=== PATIENT | female | born 1985 | race Caucasian/White ===

== ENCOUNTER 2020-03-16 23:39 | Emergency (ER) | payer OTHER, SELFPAY ==
--- NOTE | ~2020-03-16 | XR_ITS ---
EXAMINATION: XR chest 1V portable EXAM DATE: 03/17/2020 00:14 INDICATION: Shortness of breath and cough. TECHNIQUE: Portable AP frontal chest x-ray was obtained. Comparison is made to prior examination from 12/28/2009. FINDINGS: Patchy ill-defined bilateral mid and lower lung zone airspace disease, some involving the p eriphery. Appearance suggests groundglass density, distribution characteristic but not specific appea jaqueline for Acute Lung Injury from COVID-19, with other possible etiologies including influenza, organi zing pneumonia, drug toxicity, connective tissue disease. No confluent consolidation, pneumothorax or pleural effusion suspected. Cardiomediastinal silhouette is normal. There is no pneumothorax suspected. There are no pleural effusions. There are no osseous a bnormalities identified. IMPRESSION: Ill-defined bilateral lung opacities, possible acute lung injury, infection. Reviewed, dictated and finalized at location .
--- NOTE | 2020-03-16 23:50 | ED.FEVER ---
HPI - Fever General Chief Complaint: Fever Stated Complaint: sob/fevers over 1 week Time Seen by Provider: 03/16/20 23:50 History of Present Illness HPI Narrative: She says that she has been intermittently febrile for the past few days. Temperature up to 102. Tried tylenol without improvement. Today she has had some cough and SOB. She works at [employer], where they have had numerous COVID-19 positive residents. She recently tested negative, although she says she was asymptomatic at that time. Related Data Home Medications Medication Instructions Recorded Confirmed citalopram mg 03/17/20 Allergies Allergy/AdvReac Type Severity Reaction Status Date / Time Sulfa (Sulfonamide Allergy Rash Verified 03/17/20 00:07 Antibiotics) Review of Systems Review of Systems: All systems reviewed & are unremarkable except as noted in HPI and below Constitutional: Constitutional: Reports chills, Reports fatigue and Reports fever(s) Cardiovascular: Cardiovascular: Reports chest pain Respiratory: Respiratory: Reports cough and Reports dyspnea Gastrointestinal: Gastrointestinal: Reports nausea Neurologic: Reports headache(s) [facility] Past Medical History Medical History (Updated 03/17/20 @ 00:36 by Calvin Florez MD) Healthy adult Social History Social History (Updated 03/17/20 @ 00:15 by Calvin Florez MD) Occupation/Education: occupation Additional occupation/education comments: Works at [employer] Exam Const: General: no acute distress and alert Nutritional Appearance: obese Orientation/consciousness: patient oriented x3 HENMT: Head: normal to inspection Resp: Effort & Inspection: normal respiratory effort Cardio: Rate: regular rate Rhythm: regular rhythm GI: GI Palp: Yes Soft to palpation and No Tenderness to palpation present (GI) Skin: General skin exam: normal color Neuro: General: patient oriented x3 and moves all extremities Speech: normal speech Extrem: General: normal to inspection Course Vital Signs Vital signs: Vital Signs Temperature 36.9 C 03/16/20 23:57 Pulse Rate 78 03/16/20 23:57 Respiratory Rate 16 03/16/20 23:57 Blood Pressure 146/89 H 03/16/20 23:57 Pulse Oximetry 98 03/16/20 23:57 Temperature 36.9 C 03/16/20 23:57 Pulse Rate 78 03/16/20 23:57 Respiratory Rate 16 03/16/20 23:57 Blood Pressure 146/89 H 03/16/20 23:57 Pulse Oximetry 98 03/16/20 23:57 MDM - Fever MDM Narrative Medical decision making narrative: opacities on x-ray could represent atypical pneumonia, possibly COVID-19. Testing sent. Will start on azithromycin. Vitals stable. No indication for admission at this time. Differential Diagnosis Differential diagnosis: Likely community acquired pneumonia, viral infection, influenza and other (COVID-19) Medical Records Attestation: I reviewed the patient's medical records. Lab Data Attestation: I reviewed the patient's lab results. Labs: Lab Results 03/17/20 Range/Units 00:04 SARS-CoV-2 RNA (RT-PCR) Pending Influenza A Screen Negative Reference Range: Negative Influenza B Screen Negative Reference Range: Negative Imaging Data Radiologist's impression: ITS Impressions Chest X-Ray 03/17/20 00:19 IMPRESSION: Ill-defined bilateral lung opacities, possible acute lung injury, infection. Discharge Plan Discharge Clinical Impression: Lower respiratory tract infection Patient Disposition: Home, Self-Care Condition: Stable Instructions: Antibiotic Form, Pneumonia (ED) Prescriptions: New azithromycin 250 mg tablet See Rx Instructions .ROUTE .COMPLEX Qty: 6 RF: 0 No Action citalopram 40 mg tablet RF: 0 Follow-up/Referrals: PHYSICIAN NOT ON STAFF,NONSTAFF [Primary Care Provider] -
[2020-03-16 23:57] VITALS: BP 146/89; PULSE 78; RESP 16; TEMP 36.9; O2SAT 98
[2020-03-17] MEDS: ONDANSETRON HCL ODT 4 MG TABLET PO (00:13)
[2020-03-17] MEDS: KETOROLAC (*BKC) 60 MG/2 ML VIAL IM (00:13)
[2020-03-17] MEDS: AZITHROMYCIN 250 MG TABLET 500 MG PO (00:36)
[2020-03-17 00:53] VITALS: BP 128/82; PULSE 78; RESP 16; TEMP 36.9; O2SAT 98
[2020-03-18 08:04] LABS: SARS-CoV-2 RNA PCR Positive
== END 2020-03-17 00:55 | disposition home or self-care (01) ==
PROVIDERS: Emergency Provider Emergency Medicine; PCP Physician Assistant
DX: U07.1 COVID-19 (principal); J22 Unspecified acute lower respiratory infection
CPT/HCPCS: 71045; 87635; 87804; 96372; 99283; A9270; C9803; J1885; U0003

== ENCOUNTER 2022-03-07 15:58 | Emergency (ER) | payer OTHER, SELFPAY ==
[2022-03-07 16:00] VITALS: BP 164/103; PULSE 78; RESP 18; TEMP 35.9; O2SAT 98
[2022-03-07 16:15] VITALS: BP 154/96; PULSE 72; RESP 18; O2SAT 98
--- NOTE | 2022-03-07 16:18 | PC.NURSE ---
Pt took two at home COVID tests, Saturday and yesterday, both negative. Pt is also vaccinated and boosted for COVID.
--- NOTE | 2022-03-07 16:54 | PC.NURSE ---
COVID and flu swab sent to lab, lab called to anticipate arrival.
[2022-03-07 17:48] LABS: Influenza A QL RT-PCR Negative (Negative); Influenza B QL RT-PCR Negative (Negative); SARS-CoV-2 RNA PCR Negative
--- NOTE | 2022-03-07 18:44 | ED.FEVER ---
HPI - Fever General Chief Complaint: Fever Stated Complaint: fever, feels tired Time Seen by Provider: 03/07/22 16:20 Source: patient Mode of arrival: ambulatory Limitations: no limitations History of Present Illness HPI Narrative: 36-year-old female with complaints of fever x4 days. Patient previously did have nausea and vomiting at the start of her fever. Patient denies cough, abdominal pain, current diarrhea, and has taken COVID test at home that were negative. Related Data Home Medications Medication Instructions Recorded Confirmed citalopram 40 mg PO DAILY 03/17/20 03/07/22 loratadine [Claritin] 10 mg PO DAILY 03/07/22 03/07/22 Allergies Allergy/AdvReac Type Severity Reaction Status Date / Time Sulfa (Sulfonamide Allergy Rash Verified 03/07/22 16:11 Antibiotics) Review of Systems Review of Systems: CONSTITUTIONAL: Fever, chills, or sweats. EYES: Denies visual changes, redness, or discharge. ENT: Denies rhinorrhea, congestion, sore throat, or otalgia. CARDIOVASCULAR: Denies chest pain, palpitations, or edema. RESPIRATORY: Denies cough or dyspnea. GASTROINTESTINAL: Nausea and vomiting at the start of illness but not currently. Denies abdominal pain or diarrhea. GENITOURINARY: Denies dysuria or hematuria. SKIN: Denies rash or itching. MUSCULOSKELETAL: Denies back pain, joint pain, or myalgia. NEUROLOGIC: Denies headache, numbness, dizziness, or weakness. PSYCHIATRIC: Denies anxiety or depression. PMFSH Past Medical History Medical History Healthy adult Family History Family History Father Depression Family history of alcoholism Mother Depression Family history of hypothyroidism Sibling Depression Family history of alcoholism Grandparent Depression Family history of Alzheimer's disease Family history of lymphoma Social History Social History Smoking status: Never smoker Alcohol intake: current Additional occupation/education comments: Works at [employer] Exam Narrative: GENERAL: Well-appearing, well-nourished, and in no acute distress. HEAD: Normocephalic, atraumatic. EYES: PERRLA and EOMI. ENT: Nares clear, no rhinorrhea or epistaxis. Mucous membranes moist. Oropharynx without tonsillar hypertrophy exudate or other lesions. Left tympanic membrane with effusion. Right tympanic membrane asif and pearly. NECK: Supple. No adenopathy or masses. No carotid bruits or JVD CHEST: Clear to auscultation. No respiratory distress. No wheezes rales or rhonchi HEART: Regular rate and rhythm. No murmur heard. Normal peripheral pulses. ABDOMEN: Soft, nontender, nondistended, normal active bowel sounds. EXTREMITIES: Normal range of motion. No edema. SKIN: Warm, dry, no rash. NEURO: No focal deficits. Alert and oriented x3. PSYCH: Normal mood and affect. Course Vital Signs Vital signs: Vital Signs Temperature 35.9 C L 03/07/22 16:00 Pulse Rate 78 03/07/22 16:00 Respiratory Rate 18 03/07/22 16:00 Blood Pressure 164/103 H 03/07/22 16:00 Pulse Oximetry 98 03/07/22 16:00 Temperature 35.9 C L 03/07/22 16:00 Pulse Rate 72 03/07/22 16:15 Respiratory Rate 18 03/07/22 16:15 Blood Pressure 154/96 H 03/07/22 16:15 Pulse Oximetry 98 03/07/22 16:15 MDM - Fever MDM Narrative Medical decision making narrative: HPI as noted. Patient is not ill-appearing and nontoxic.. Vital signs as follows temperature 35.9 ?C O2 saturation 98% on room air respiratory rate 18 pulse 72 BP elevated 154/96. Lungs are clear no need for imaging at this time. Patient to be discharged home use Tylenol ibuprofen as needed for pain or fever. Push fluids. Zofran as needed for nausea. Return with any new or emergent symptoms and follow-up with primary in 1 to 2 days. Lab Data Labs: Lab Results 03/07/22 Range/
[2022-03-07 19:00] VITALS: BP 146/94; PULSE 73; RESP 16; TEMP 36.3; O2SAT 98
== END 2022-03-07 19:00 | disposition home or self-care (01) ==
PROVIDERS: Emergency Provider Nurse Practitioner Family; PCP Family Medicine
DX: B34.9 Viral infection, unspecified (principal); Z20.822 Contact with and (suspected) exposure to COVID-19
CPT/HCPCS: 87502; 99283; C9803; U0003; U0005

== ENCOUNTER → 2022-04-19 08:00 | Outpatient (CLI) | payer OTHER, SELFPAY ==
--- NOTE | ~2022-04-19 | US_ITS ---
US right upper quadrant DATE: 04/19/2022 08:20 INDICATION: Elevated liver function tests TECHNIQUE: Real-time imaging and Doppler analysis, liver, pancreas, gallbladder areas COMPARISON: None FINDINGS: There is fatty change of the liver. No hepatic space-occupying mass lesion is evident. Norm al hepatopedal portal venous flow direction. No gallstones or gallbladder wall thickening or pericholecystic fluid collection. Negative sonographi c Retana's sign. The common bile duct measures 4.5 mm, normal. The lateral pancreatic body and tail are obscured by bowel gas. The pancreas is otherwise unremarkabl e. IMPRESSION: Limited evaluation of pancreas Hepatic steatosis Reviewed, dictated and finalized at [facility]. Reviewed, dictated and finalized at location [facility].
== END ==
PROVIDERS: PCP Family Medicine; Visit Provider Family Medicine
DX: R79.89 Other specified abnormal findings of blood chemistry (principal); K76.0 Fatty (change of) liver, not elsewhere classified
CPT/HCPCS: 76705

== ENCOUNTER 2022-10-10 17:01 | Emergency (ER) | payer OTHER, SELFPAY ==
--- NOTE | ~2022-10-10 | XR_ITS ---
EXAM: XR foot LT min 3V DATE: 10/10/2022 17:47 HISTORY: fall, injury, SWELLING TO LATERAL FOOT AND ANKLE . COMPARISON: 09/12/2015. FINDINGS: Normal mineralization. Small avulsion fracture off the proximal corner of the cuboid bone. No other fracture. No dislocation. Scattered degenerative changes. No lytic or blastic lesion. Achil les and plantar enthesopathy.. No erosion or periosteal change. Soft tissues within normal limits. IMPRESSION: Small, proximal cuboid avulsion fracture fragment, likely acute if accompanied by pain an d/or point tenderness. Reviewed, dictated and finalized at location [facility]. LOADER IMPRESSION: Small, proximal cuboid avulsion fracture fragment, likely acute if accompanied by pain and/or point tenderness.
--- NOTE | ~2022-10-10 | XR_ITS ---
EXAM: XR ankle LT min 3V DATE: 10/10/2022 19:26 HISTORY: fall down steps, L lateral pain/swelling . COMPARISON: None available. FINDINGS: Normal mineralization. No fracture or dislocation. No lytic or blastic lesion. Achilles an d plantar enthesopathy. Prominent os trigonum. Transverse fracture of the distal left fibula, below t he level of the joint line. Acute fracture fragment projecting distal to the medial malleolus. No ero lester or periosteal change. Soft tissues within normal limits. IMPRESSION: Transverse fracture of the distal left fibula, below the level of the joint line (Lechuga t ype A fracture). Impaction fracture fragment noted in the medial gutter, fracture site likely being t he medial malleolus. Reviewed, dictated and finalized at location [facility]. DRIVER IMPRESSION: Transverse fracture of the distal left fibula, below the level of t he joint line (Lechuga type A fracture). Impaction fracture fragment noted in the medial gutter, fracture site likely being the medial malleolus.
[2022-10-10 17:09] VITALS: BP 145/80; PULSE 97; RESP 20; TEMP 36.4; O2SAT 99
--- NOTE | 2022-10-10 19:20 | ED.LOWEXIN ---
HPI - Extremity Injury (Lower) General Chief Complaint: Extremity Injury, Lower Stated Complaint: fall, left ankle injury Time Seen by Provider: 10/10/22 18:42 Source: patient Mode of arrival: ambulatory Limitations: no limitations History of Present Illness HPI Narrative: Patient is a 37-year-old female who presents the ED with report of left foot and ankle pain. Patient reports she tripped and fell down her porch steps this evening, injuring her left ankle. Denied prodromal symptoms. No head injury or LOC. She was unable to ambulate after the fall which prompted her presentation. No other injuries. No numbness, tingling. Related Data Home Medications Medication Instructions Recorded Confirmed citalopram 40 mg tablet 40 mg PO DAILY 03/17/20 03/07/22 loratadine 10 mg tablet (Claritin) 10 mg PO DAILY 03/07/22 03/07/22 Allergies Allergy/AdvReac Type Severity Reaction Status Date / Time Sulfa (Sulfonamide Allergy Rash Verified 03/07/22 16:11 Antibiotics) Review of Systems Review of Systems: CONSTITUTIONAL: Denies fever, chills, or sweats. MUSCULOSKELETAL: Reports left foot and ankle pain and swelling. NEUROLOGIC: Denies HI, LOC, tingling, numbness, or weakness. All systems reviewed & are unremarkable except as noted in HPI and below PMFSH Past Medical History Medical History Depression Surgical History Surgical History (Updated 10/10/22 @ 19:22 by Annette Minor PA-C) No pertinent past surgical history Family History Family History Father Depression Family history of alcoholism Mother Depression Family history of hypothyroidism Sibling Depression Family history of alcoholism Grandparent Depression Family history of Alzheimer's disease Family history of lymphoma Social History Social History Smoking status: Never smoker Alcohol intake: current Additional occupation/education comments: Works at [employer] Exam Narrative: GENERAL: Well appearing, morbidly obese, non-toxic, in no acute distress. HEAD: Normocephalic, atraumatic. NECK: Supple. No adenopathy, no masses. RESPIRATORY: Airway patent, respirations nonlabored. CARDIOVASCULAR: Regular rate and rhythm without murmurs, rubs, or gallops. Pedal pulses 2+ and equal bilaterally. MUSCULOSKELETAL: Limited range of motion of left ankle due to pain. Moderate amount of swelling to the left lateral malleoli. Diffuse tenderness to the inferior and anterior lateral malleoli and along fifth metatarsal/anterior left foot/ankle. Mild tenderness over medial malleoli. No tenderness along distal metatarsals/distal foot. Sensation intact. Good capillary refill. SKIN: Warm, dry, normal color. No rashes. NEURO: A&O X3. Speech clear. Cranial nerves II-XII grossly intact. No ataxic movements. PSYCHIATRIC: Appropriate mood and affect. Normal interaction. Course Vital Signs Vital signs: Vital Signs Temperature 97.6 F 10/10/22 17:09 Pulse Rate 97 10/10/22 17:09 Respiratory Rate 20 10/10/22 17:09 Blood Pressure 145/80 H 10/10/22 17:09 Pulse Oximetry 99 10/10/22 17:09 Oxygen Delivery Room Air 10/10/22 17:09 Temperature 97.6 F 10/10/22 17:09 Pulse Rate 97 10/10/22 17:09 Respiratory Rate 20 10/10/22 17:09 Blood Pressure 145/80 H 10/10/22 17:09 Pulse Oximetry 99 10/10/22 17:09 Oxygen Delivery Room Air 10/10/22 17:09 MDM - Extremity Injury (Lower) MDM Narrative Medical decision making narrative: Patient presented to ED status post mechanical fall downstairs with left ankle injury. Patient's injury is consistent with musculoskeletal etiology. No signs of neurologic or vascular compromise on physical examination. Compartments are soft without signs of compartment syndrome. XRs of left ankle/foot showing cuboid avulsion
== END 2022-10-10 21:00 | disposition home or self-care (01) ==
LOC: ANHED 19:58
PROVIDERS: Emergency Provider Physician Assistant; PCP Family Medicine
DX: S92.212A Displaced fracture of cuboid bone of left foot, initial encounter for closed fracture (principal); S82.832A Other fracture of upper and lower end of left fibula, initial encounter for closed fracture; F32.A Depression, unspecified; W10.9XXA Fall (on) (from) unspecified stairs and steps, initial encounter
CPT/HCPCS: 29515; 73610; 73630; 99283; 99284

== ENCOUNTER → 2023-01-09 15:49 | Outpatient (CLI) | payer OTHER, SELFPAY ==
--- NOTE | ~2023-01-09 | US_ITS ---
US soft tissue head and neck 01/09/2023 16:12 Indication: Cervical lymphadenopathy. Palpable mass. No pain. Procedure: High-resolution ultrasound of the neck including color flow analysis Comparison: No prior studies for comparison. Findings: In the right submandibular region in the area of palpable concern there is a complex hetero geneous mass measuring up to 2.9 cm. There is an internal hypoechoic area within the larger mass miranda uring 1.7 cm with internal vascularity and slightly irregular margins. There is a small 9 mm lymph no de also in the area of palpable concern with normal appearance. Also in the right neck near the area of palpable concern there is a cyst 1 cm hypoechoic mass with echogenic hilum, likely a reactive lymp h node. In the left neck there are normal-appearing lymph nodes, largest measuring 1.7 x 0.8 cm with normal fatty hilum. Impression: 1: Complex right submandibular mass measuring up to 2.9 cm with heterogeneous internal echotexture an d increased vascularity. Recommend correlation with contrast-enhanced CT neck. Reviewed, dictated and finalized at location L. ERING TECHNICIAN Impression: 1: Complex right submandibular mass measuring up to 2.9 cm with heterogeneous i nternal echotexture and increased vascularity. Recommend correlation with contr ast-enhanced CT neck.
== END ==
PROVIDERS: PCP Family Medicine; Visit Provider Family Medicine
DX: R59.0 Localized enlarged lymph nodes (principal)
CPT/HCPCS: 76536

== ENCOUNTER 2023-07-04 15:54 | Observation (INO) | payer OTHER, SELFPAY ==
[2023-07-04] VITALS (8 sets, daily range): BP systolic 139–155; BP diastolic 70–93; PULSE 61–96; RESP 15–22; TEMP 36.6–36.8; O2SAT 96–98; BMI 51.1
--- NOTE | ~2023-07-04 | CT_ITS ---
EXAMINATION: CT abdomen pelvis w con DATE: 07/04/2023 18:02 INDICATION: epigastric/RUQ pain, N/V/D TECHNIQUE: Computed tomography (CT) of the abdomen and pelvis was performed with 100 mL Omnipaque-350 intravenous contrast. Automated exposure control and iterative reconstruction technique were employe d. The dose-length product was 1444.24 mGy-cm. COMPARISON: None. FINDINGS: Lower thorax: Minimal dependent atelectasis. Liver: Normal. Biliary/Gallbladder: No gallstones or pericholecystic fluid/inflammatory change. Mild gallbladder dis tention, possibly secondary to fasting. No bile duct dilation. Pancreas: No mass or duct dilation. Spleen: Normal. Adrenals:No mass. Kidneys: No mass, stone, or hydronephrosis. GI tract: No small or large bowel dilation. Dilated appendix with mild surrounding inflammatory greenfield e. Mild diverticulosis without diverticulitis. Mesentery/Peritoneum: No ascites, mass, or free air. Retroperitoneum: No mass. Pelvis: Pelvic organs are within normal limits. Soft Tissues: Soft tissues and body wall unremarkable. Bones: No acute osseous finding. IMPRESSION: Mild acute uncomplicated appendicitis Reviewed, dictated and finalized at location K.
[2023-07-04 16:33] LABS: Basophils Absolute Auto 0.1 K/mm3 (0.0-0.1); Basophils Percent Auto 0.5 % (0.2-1.2); Eosinophils Absolute Auto 0.4 K/mm3 (0-0.3); Eosinophils Percent Auto 3.5 % (0-4.4); Hematocrit 43.7 % (37.0-47.0); Hemoglobin 14.2 g/dL (12.0-15.0); Immature Granulocyte Absolute 0.06 K/mm3 (0.00-0.031); Immature Granulocyte Percent A 0.5 % (0-0.5); Lymphocytes Absolute Auto 2.91 K/mm3 (0.9-3.2); Lymphocytes Percent Auto 26.3 % (18.3-44.2); Mean Corpuscular HGB Conc 32.5 g/dl (32-36); Mean Corpuscular Hemoglobin 28.4 pg (26-34); Mean Corpuscular Volume 87.4 fl (80-100); Mean Platelet Volume 9.5 fl (7.4-10.4); Monocytes Absolute Auto 0.5 K/mm3 (0.1-0.6); Monocytes Percent Auto 4.2 % (2.6-8.5); Neutrophils Absolute Auto 7.2 K/mm3 (1.3-6.7); Platelet Count Result 413 k/mm3 (150-375); Red Cell Distribution Width 13.3 % (11.5-14.5); White Blood Count 11.1 K/mm3 (4.5-10.0)
[2023-07-04 16:41] LABS: Alanine Aminotransferase 42 U/L (6-35); Albumin Level 4.6 g/dL (3.5-5.1); Alkaline Phosphatase 51 U/L (38-126); Anion Gap 8 mmol/L (8-16); Aspartate Amino Transferase 42 U/L (14-36); Bilirubin,Total 0.5 mg/dL (0.2-1.3); Blood Urea Nitrogen 14 mg/dL (7-17); Calcium 9.7 mg/dL (8.4-10.2); Carbon Dioxide 25 mmol/L (22-30); Chloride 103 mmol/L (98-107); Estimated CRCL calculation 148 ml/min; Estimated Glomerular Filt Rate > 60; Glucose 121 mg/dL (65-110); Lipase 176 U/L (23-300); Potassium 4.2 mmol/L (3.4-5.0); Sodium 136 mmol/L (137-145)
--- NOTE | 2023-07-04 16:55 | ECG_ITS ---
Measurements Intervals [place] Rate: 66 P: 56 GA: 157 QRS: -1 QRSD: 98 T: 70 QT: 387 QTc: 408 Interpretive Statements SINUS RHYTHM LOW QRS VOLTAGE IN PRECORDIAL LEADS [QRS DEFLECTION < 1.0 mV IN CHEST LEADS] NONSPECIFIC T-WAVE ABNORMALITY BORDERLINE ECG NO PREVIOUS ECG AVAILABLE FOR COMPARISON Electronically Signed On 07-05-2023 7:41:14 CDT by Flavio Badillo M.D.
[2023-07-04 17:20] LABS: Troponin I < 0.012 ng/mL (0.000-0.034)
[2023-07-04 17:24] LABS: Appearance Urine Cloudy (Clear); Bacteria Urine None Seen /hpf; Bilirubin Urine Negative (Negative); Blood Urine Negative (Negative); Color Urine Dark Yellow (Yellow); Glucose Urine UA Negative (Negative); Ketones Urine Trace mg/dL (Negative); Leukocyte Esterase Ur 1+ LEU/UL (Negative); Mucus Urine Present /lpf; Need Manual Microscopic Reviewed; Nitrate Urine Negative (Negative); Non Pathogenic Casts >20; Protein Urine 4+ mg/dL (Negative); RBC Urine 0-2 /hpf (0-2); Specific Grav Ur 1.029 (1.001-1.035); Squamous Epithelial Cell Urine Few /hpf (Few); Urobilinogen Urine 0.2 mg/dL (<2.0); WBC Urine 51-100 /hpf
[2023-07-04 17:25] LABS: Add Urine Microscopic? YES
--- NOTE | 2023-07-04 17:25 | ED.ABDPAIN ---
HPI - Abdominal Pain General Chief Complaint: Abdominal Pain <RICHARD Musa Last Filed: 07/04/23 19:58> Stated Complaint: ABD PAIN X1D <RICHARD Musa Last Filed: 07/04/23 19:58> Time Seen by Provider: 07/04/23 16:54 <RICHARD Musa Last Filed: 07/04/23 19:58> Source: patient <RICHARD Musa Last Filed: 07/04/23 19:58> Mode of arrival: ambulatory <RICHARD Musa Last Filed: 07/04/23 19:58> Limitations: no limitations <RICHARD Musa Last Filed: 07/04/23 19:58> History of Present Illness HPI narrative: Patient is a 38-year-old female who presents to the ED with report of epigastric abdominal pain. Patient reports the pain began this morning and has been progressively worsening throughout the day. She thought it may be heartburn at first and tried taking Pepcid and Tums at home without improvement. She denies significant history of GERD. She also reports having nausea and vomiting today. She has not eaten anything today. Patient mentions having recent constipation and took a stool softener yesterday. She developed diarrhea yesterday, which has persisted into today. Denies any rectal bleeding or melena. Denies fevers. Denies urinary symptoms. Denies chest pain or shortness of breath. Patient started Ozempic 9 weeks ago. She otherwise denies having significant side effects related to her dosage. <RICHARD Musa Last Filed: 07/04/23 19:58> Related Data Home Medications: Home Medications Medication Instructions Recorded Confirmed citalopram 40 mg tablet 40 mg PO DAILY 03/17/20 04/05/23 loratadine 10 mg tablet (Claritin) 10 mg PO DAILY 03/07/22 04/05/23 <RICHARD Musa Last Filed: 07/04/23 19:58> Allergies/Adverse Reactions: Allergies Allergy/AdvReac Type Severity Reaction Status Date / Time Sulfa (Sulfonamide Allergy Rash Verified 04/05/23 08:49 Antibiotics) <Annette Minor PA-C - Last Filed: 07/04/23 19:58> Review of Systems Review of Systems: CONSTITUTIONAL: Denies fever, chills, or sweats. CARDIOVASCULAR: Denies chest pain. RESPIRATORY: Denies dyspnea. GASTROINTESTINAL: See HPI. GENITOURINARY: Denies dysuria or hematuria. SKIN: Denies rash or itching. MUSCULOSKELETAL: Denies back pain, joint pain, or myalgia. NEUROLOGIC: Denies headache, numbness, or weakness. <Annette Minor PA-C - Last Filed: 07/04/23 19:58> All systems reviewed & are unremarkable except as noted in HPI and below <Annette Minor PA-C - Last Filed: 07/04/23 19:58> PMFSH Past Medical History Medical History: Medical History Depression Fracture of distal end of left fibula Left cuboid fracture <Annette Minor PA-C - Last Filed: 07/04/23 19:58> Surgical History Surgical History: Surgical History No pertinent past surgical history <Annette Minor PA-C - Last Filed: 07/04/23 19:58> Family History Family History: Family History Father Depression Family history of alcoholism Hypertension Heart disease Mother Depression Family history of hypothyroidism Family history of alcoholism Asthma Hypertension Sibling Depression Family history of alcoholism Hypertension Grandparent Depression Family history of Alzheimer's disease Family history of lymphoma Hypertension <Annette Minor PA-C - Last Filed: 07/04/23 19:58> Social History Social History: Social History Smoking status: Never smoker Alcohol intake: never Substance use: never Lack of Transportation: No Lack of Food: Never True Current Housing: I Have Housing Concerned About Fu
[2023-07-04] MEDS: BELLADONNA ALK/PHENOB ELIX 10 ML, MAG HYDROX/ALUMINUM HYD/SIMETH 30 ML, LIDOCAINE HCL 2... PO (17:41)
[2023-07-04] MEDS: SODIUM CHLORIDE 0.9% IV 1,000 ML 999 ML IV CONT (17:44)
[2023-07-04] MEDS: ONDANSETRON INJ 4 MG/2 ML VIAL IV PUSH (17:44)
[2023-07-04] MEDS: PIPERACILLN/TAZ 3.375GM/NS50ML 3.375 GM/50 ML BAG IVPB (19:26)
--- NOTE | 2023-07-04 21:37 | PC.NURSE ---
This patient, Marleny Edmonds, was admitted to Medical Room 349-01. Patient/family oriented to hospital policies and general routines including ID bracelet, bed and alarms, visiting hours, pain management, procedures, bathroom and other care routines, personal items, smoking policy, room service/diet, and visiting hours. Information on how to activate the Rapid Response Team has been discussed. Patient/Family are encouraged to report perceived risks to care and to ask questions if they do not understand what they are told or what they should do.
[2023-07-05] MEDS: PIPERACILLN/TAZ 3.375GM/NS50ML 3.375 GM/50 ML BAG IVPB ×4 (00:03→17:47)
[2023-07-05 05:29] LABS: Basophils Absolute Auto 0.1 K/mm3 (0.0-0.1); Basophils Percent Auto 0.6 % (0.2-1.2); Eosinophils Absolute Auto 0.4 K/mm3 (0-0.3); Eosinophils Percent Auto 3.7 % (0-4.4); Hematocrit 39.4 % (37.0-47.0); Hemoglobin 12.5 g/dL (12.0-15.0); Immature Granulocyte Absolute 0.04 K/mm3 (0.00-0.031); Immature Granulocyte Percent A 0.4 % (0-0.5); Lymphocytes Absolute Auto 3.32 K/mm3 (0.9-3.2); Mean Corpuscular HGB Conc 31.7 g/dl (32-36); Mean Corpuscular Hemoglobin 28.5 pg (26-34); Mean Platelet Volume 9.8 fl (7.4-10.4); Monocytes Absolute Auto 0.6 K/mm3 (0.1-0.6); Monocytes Percent Auto 6.4 % (2.6-8.5); Neutrophils Absolute Auto 5.1 K/mm3 (1.3-6.7); Neutrophils Percent Auto 53.9 % (45.5-73.1); Platelet Count Result 342 k/mm3 (150-375); Red Blood Count 4.38 M/mm3 (4.2-5.4); Red Cell Distribution Width 13.5 % (11.5-14.5); White Blood Count 9.5 K/mm3 (4.5-10.0)
[2023-07-05 05:51] VITALS: BP 107/67; PULSE 68; RESP 18; TEMP 36.6; O2SAT 98
[2023-07-05 14:35] VITALS: BP 103/51; PULSE 60; RESP 16; TEMP 36.2; O2SAT 97
--- NOTE | 2023-07-05 19:13 | PM.IMHP ---
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 Yesterday morning she began having epigastric abdominal pain. She did not have any vomiting but the pain was persistent. She thought it might be heartburn and tried antacids without relief. She has not noticed any fever. The pain persisted and eventually she left work and came to the emergency room yesterday afternoon. Patient has been on Ozempic for a couple of months. She is taking Ozempic for weight loss not diabetes. While in the emergency room she was noted to have minimal abdominal tenderness. Her white count was elevated to 11,100. She had a CT scan of the abdomen pelvis which showed early acute appendicitis. Patient reports that while in the emergency room she received a GI cocktail and after that, the pain went away and has not returned. She was admitted and started on IV Zosyn antibiotics. She has tolerated clear liquids throughout the day and for supper as had a regular diet. She is admitted now for appendicitis with nonsurgical treatment. Review of Systems Review of Systems: All systems reviewed & are unremarkable except as noted in HPI and below (HPI and those items noted below) Constitutional: Constitutional: Denies chills and Denies fever(s) Cardiovascular: Cardiovascular: Denies chest pain, Denies diaphoresis, Denies dyspnea and Denies paroxysmal nocturnal dyspnea Respiratory: Respiratory: Denies chest congestion, Denies cough and Denies dyspnea Integumentary/Breasts: Skin/Breast: Denies lesions and Denies rash PMFSH Past Medical History Medical History Depression Fracture of distal end of left fibula Left cuboid fracture Surgical History Surgical History No pertinent past surgical history Family History Family History Father Depression Family history of alcoholism Hypertension Heart disease Mother Depression Family history of hypothyroidism Family history of alcoholism Asthma Hypertension Sibling Depression Family history of alcoholism Hypertension Grandparent Depression Family history of Alzheimer's disease Family history of lymphoma Hypertension Social History Social History Smoking status: Never smoker Alcohol intake: never Substance use: never Lack of Transportation: No Lack of Food: Never True Current Housing: I Have Housing Concerned About Future Housing: No Difficulty Paying Gas/Electric Bills: No Difficulty Paying for Meds: No Currently Unemployed: No Education: Decline to Answer Difficulty w/ Childcare or Family Care: No Occupation/Education: occupation 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: No Meds Home Medications and Allergies Home Medications Medication Instructions Recorded Confirmed Type citalopram 40 mg tablet 40 mg PO DAILY 03/17/20 07/04/23 History loratadine 10 mg tablet (Claritin) 10 mg PO DAILY 03/07/22 07/04/23 History semaglutide 0.25 mg or 0.5 mg (2 0.5 mg subcut WEEKLY 07/04/23 07/04/23 History mg/3 mL) subcutaneous pen injector (Ozempic) Allergies Allergy/AdvReac Type Severity Reaction Status Date / Time Sulfa (Sulfonamide Allergy Rash Verified 04/05/23 08:49 Antibiotics) Vital Signs Vital Signs - 24 hr 07/04/23 19:16 07/04/23 21:29 07/04/23 21:36 Temperature 36.6 C Pulse Rate 96 61 Respiratory Rate 22 H 20 Blood Pressure 146/93 H 155/70 H Pulse Oximetry 98 98 Oxygen Delivery Room Air 07/05/23 05:51 07/05/23 08:00 07/05/23 14:35 Temperature 36.6 C 36.2 C L Pulse Rate 68 60 Respiratory Rate 18 16 Blood
[2023-07-05 21:54] VITALS: BP 119/67; PULSE 82; RESP 20; TEMP 36.6; O2SAT 97
[2023-07-06] MEDS: PIPERACILLN/TAZ 3.375GM/NS50ML 3.375 GM/50 ML BAG IVPB ×2 (00:07→06:41)
[2023-07-06 06:00] VITALS: BP 115/66; PULSE 65; RESP 18; TEMP 36.5; O2SAT 96
--- NOTE | 2023-07-06 09:38 | P.DS_ITS ---
DS: Admitting Diagnosis Discharge Date 07/06/2023 Admitting Diagnosis * Epigastric abdominal pain * Acute appendicitis DS: Discharge Diagnosis Discharge Diagnosis (1) Epigastric abdominal pain: Code(s): R10.13 - Epigastric pain Status: Resolved (2) Acute appendicitis: Qualifiers: Acute appendicitis type: with localized peritonitis Appendicitis abscess presence: without abscess Appendicitis gangrene presence: without gangrene Appendicitis perforation presence: without perforation Qualified Code(s): K35.30 - Acute appendicitis with localized peritonitis, without perforation or gangrene Code(s): K35.80 - Unspecified acute appendicitis Status: Acute DS: Summary Hospital Course Hospital Course: Patient was at work on 07/04 started noticing epigastric abdominal pain. This w orsened and eventually she left work and went to the emergency room. She was noted to have some mild tenderness in the upper abdomen on exam but no specific or significant findings. She does take Ozempic and has been on Ozempic for 8-9 weeks. [place] [id number]. She had a CT scan which showed acute appendicitis. There were no appendicoliths and there was no evidence of perforation or abscess. The patient reports she had a GI cocktail in the emergency room and her pain went away rather abruptly. The pain did not recur. Patient was treated conservatively for appendicitis with IV Zosyn antibiotics. She has been observed for now 36 hours on IV antibiotics. She is tolerating regular food. Her pain has not recurred and she feels fine. She is discharged now on Augmentin to complete a 7 day course of antibiotic treatment. Status at Discharge Functional status at discharge: independent ambulation Overall status at discharge: patient is progressing back to baseline Time Spent with Patient Time attestation: Total time spent providing and/or coordinating discharge services: Time spent: Less than 30 minutes Discharge Plan Discharge Attending physician on discharge: Jose Daniel Mc Consulting providers: Annette Minor Discharging Clinician: Jose Daniel Mc Anticipated Discharge Date/Time: 07/06/23 09:42 Patient Disposition: Home, Self-Care Activity: as tolerated Diet: regular Discharge Instructions: * Okay to resume normal activities as tolerated. * May return to work on Saturday. * Call Dr. Mc or go back to the emergency room if abdominal pain should recur. * Resume normal diet and usual home medications. Patient Instructions: Antibiotic Form Stand Alone Forms: General Discharge Information Follow-up/Referrals: Nakul,Jaime Vora MD [Primary Care Provider] - Follow Up with Primary Dr (As needed) Discharge Medications: New amoxicillin-pot clavulanate 875-125 mg tablet 1 tablet PO Q12H Qty: 10 0RF Continued citalopram 40 mg tablet 40 mg PO DAILY loratadine [Claritin] 10 mg Tablet 10 mg PO DAILY Ozempic 0.25 mg or 0.5 mg (2 mg/3 mL) Pen Injector 0.5 mg SUBCUT WEEKLY Rx Instructions: Pt takes on Saturday using for wt. loss Date of admission: 07/04/23 19:00 Primary Care Provider: Nakul,Jaime Vora Admitting Provider: Jose Daniel Mc Attending physician on admission: Jose Daniel Mc Condition: Improved
== END 2023-07-06 10:51 | disposition home or self-care (01) ==
LOC: ANHED 19:58 → ANH3MED 20:24
PROVIDERS: Emergency Medicine; Admitting Provider Surgery; Emergency Provider Physician Assistant; PCP Family Medicine; Visit Provider Surgery
DX: K35.80 Unspecified acute appendicitis (principal); K59.00 Constipation, unspecified; F32.A Depression, unspecified; E66.01 Morbid (severe) obesity due to excess calories; Z68.43 Body mass index [BMI] 50.0-59.9, adult; Z79.84 Long term (current) use of oral hypoglycemic drugs; Z79.899 Other long term (current) drug therapy; Z81.8 Family history of other mental and behavioral disorders
CPT/HCPCS: 36415; 74177; 80053; 81001; 81025; 83690; 84484; 85025; 87086; 93005; 96361; 96365; 96366; 96375; 99285; A9270; G0378; J2405; J2543; J7030; Q9967

== ENCOUNTER 2024-02-26 08:42 | Outpatient (CLI) | payer OTHER, SELFPAY ==
[2024-02-26 13:02] LABS: Hematocrit 43.3 % (37.0-47.0); Hemoglobin 13.5 g/dL (12.0-15.0); Immature Platelet Fraction Pct 18.5 % (0.9-11.2); Mean Corpuscular HGB Conc 31.2 g/dl (32-36); Mean Corpuscular Hemoglobin 28.2 pg (26-34); Mean Corpuscular Volume 90.6 fl (80-100); Mean Platelet Volume 13.7 fl (7.4-10.4); Platelet Count Result 28 k/mm3 (150-375); Red Blood Count 4.78 M/mm3 (4.2-5.4); Red Cell Distribution Width 13.2 % (11.5-14.5); White Blood Count 7.6 K/mm3 (4.5-10.0)
[2024-02-26 13:14] LABS: Alanine Aminotransferase 29 U/L (6-35); Albumin Level 4.9 g/dL (3.5-5.1); Alkaline Phosphatase 51 U/L (38-126); Anion Gap 12 mmol/L (4-12); Aspartate Amino Transferase 36 U/L (14-36); Bilirubin,Total 0.7 mg/dL (0.2-1.3); Blood Urea Nitrogen 17 mg/dL (7-17); Calcium 9.9 mg/dL (8.4-10.2); Carbon Dioxide 23 mmol/L (22-30); Chloride 105 mmol/L (98-107); Cholesterol 195 mg/dL (0-200); Estimated Glomerular Filt Rate > 60; Glucose 98 mg/dL (65-110); HDL Direct 41 mg/dL; Potassium 4.7 mmol/L (3.4-5.0); Sodium 140 mmol/L (137-145); Triglycerides 171 mg/dL (<150)
[2024-02-26 13:24] LABS: LDL Cholesterol Direct 100 mg/dL
[2024-02-26 17:29] LABS: Hemoglobin A1C 5.5 % (<5.7)
== END 2024-02-26 08:43 | disposition home or self-care (01) ==
LOC: ANHGOSHLAB 08:43
PROVIDERS: PCP Family Medicine; Visit Provider Family Medicine
DX: E66.9 Obesity, unspecified (principal); F41.9 Anxiety disorder, unspecified; Z79.899 Other long term (current) drug therapy; R73.09 Other abnormal glucose
CPT/HCPCS: 36415; 80053; 80061; 83036; 84443; 85027; 85055

== ENCOUNTER 2024-02-27 09:29 | Outpatient (CLI) | payer OTHER, SELFPAY ==
[2024-02-27 12:15] LABS: Basophils Absolute Auto 0.1 K/mm3 (0.0-0.1); Eosinophils Absolute Auto 0.2 K/mm3 (0-0.3); Eosinophils Percent Auto 3.2 % (0-4.4); Hematocrit 42.6 % (37.0-47.0); Hemoglobin 13.4 g/dL (12.0-15.0); Immature Granulocyte Absolute 0.07 K/mm3 (0.00-0.031); Immature Platelet Fraction Pct 12.8 % (0.9-11.2); Lymphocytes Absolute Auto 3.01 K/mm3 (0.9-3.2); Lymphocytes Percent Auto 42.4 % (18.3-44.2); Mean Corpuscular HGB Conc 31.5 g/dl (32-36); Mean Corpuscular Hemoglobin 28.4 pg (26-34); Mean Corpuscular Volume 90.3 fl (80-100); Mean Platelet Volume 12.3 fl (7.4-10.4); Monocytes Absolute Auto 0.4 K/mm3 (0.1-0.6); Monocytes Percent Auto 6.2 % (2.6-8.5); Neutrophils Absolute Auto 3.3 K/mm3 (1.3-6.7); Neutrophils Percent Auto 46.2 % (45.5-73.1); Platelet Count Result 70 k/mm3 (150-375); Red Blood Count 4.72 M/mm3 (4.2-5.4); Red Cell Distribution Width 13.3 % (11.5-14.5); White Blood Count 7.1 K/mm3 (4.5-10.0)
== END 2024-02-27 09:30 | disposition home or self-care (01) ==
LOC: ANHGOSHLAB 09:30
PROVIDERS: PCP Family Medicine; Visit Provider Nurse Practitioner
DX: D69.6 Thrombocytopenia, unspecified (principal)
CPT/HCPCS: 36415; 85025; 85055

== ENCOUNTER 2024-03-18 14:19 | Outpatient (CLI) | payer OTHER, SELFPAY ==
[2024-03-18 14:34] LABS: Basophils Absolute Auto 0.1 K/mm3 (0.0-0.1); Eosinophils Absolute Auto 0.3 K/mm3 (0-0.3); Eosinophils Percent Auto 3.4 % (0-4.4); Hematocrit 41.4 % (37.0-47.0); Hemoglobin 13.6 g/dL (12.0-15.0); Immature Granulocyte Absolute 0.04 K/mm3 (0.00-0.031); Immature Granulocyte Percent A 0.5 % (0-0.5); Lymphocytes Absolute Auto 3.08 K/mm3 (0.9-3.2); Lymphocytes Percent Auto 35.1 % (18.3-44.2); Mean Corpuscular HGB Conc 32.9 g/dl (32-36); Mean Corpuscular Hemoglobin 28.8 pg (26-34); Mean Corpuscular Volume 87.7 fl (80-100); Mean Platelet Volume 9.7 fl (7.4-10.4); Monocytes Absolute Auto 0.5 K/mm3 (0.1-0.6); Monocytes Percent Auto 5.7 % (2.6-8.5); Neutrophils Absolute Auto 4.8 K/mm3 (1.3-6.7); Neutrophils Percent Auto 54.3 % (45.5-73.1); Platelet Count Result 397 k/mm3 (150-375); Red Blood Count 4.72 M/mm3 (4.2-5.4); Red Cell Distribution Width 13.1 % (11.5-14.5); White Blood Count 8.8 K/mm3 (4.5-10.0)
[2024-03-18 16:41] LABS: Iron 58 ug/dL (37-170)
[2024-03-18 16:50] LABS: Percent Iron Saturation 22 % (20-50)
[2024-03-18 17:00] LABS: Alanine Aminotransferase 23 U/L (6-35); Albumin Level 4.9 g/dL (3.5-5.1); Alkaline Phosphatase 44 U/L (38-126); Anion Gap 9 mmol/L (4-12); Aspartate Amino Transferase 27 U/L (14-36); Bilirubin,Total 0.5 mg/dL (0.2-1.3); Blood Urea Nitrogen 20 mg/dL (7-17); Carbon Dioxide 24 mmol/L (22-30); Chloride 108 mmol/L (98-107); Estimated Glomerular Filt Rate > 60; Glucose 98 mg/dL (65-110); Potassium 4.4 mmol/L (3.4-5.0); Sodium 141 mmol/L (137-145)
[2024-03-18 17:51] LABS: Folic Acid 7.8 ng/mL (2.76->20)
[2024-03-23 01:12] LABS: Methylmalonic Acid 80 nmol/L (87-318)
[2024-03-24 14:48] LABS: Soluble Transferrin Receptor 1.18 mg/L (0.76-1.76)
[2024-03-24 20:18] LABS: Platelet Antibody, Direct NEGATIVE (NEGATIVE)
== END 2024-03-18 14:20 | disposition home or self-care (01) ==
PROVIDERS: Nurse Practitioner Family; PCP Family Medicine; Visit Provider Internal Medicine Hematology & Oncology
DX: D69.6 Thrombocytopenia, unspecified (principal)
CPT/HCPCS: 36415; 80053; 82607; 82728; 82746; 83540; 83550; 83921; 84238; 85025; 86023

== ENCOUNTER 2024-06-04 20:57 | Emergency (ER) | payer OTHER, SELFPAY ==
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
[2024-06-04 21:00] VITALS: BP 145/70; PULSE 64; RESP 16; TEMP 36.3; O2SAT 99
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
[2024-06-04 23:09] VITALS: BP 139/62; PULSE 63; RESP 17; O2SAT 98
== END 2024-06-04 23:14 | disposition home or self-care (01) ==
PROVIDERS: Emergency Provider Emergency Medicine; PCP Family Medicine
DX: S09.90XA Unspecified injury of head, initial encounter (principal); F32.A Depression, unspecified; Z79.85 Long-term (current) use of injectable non-insulin antidiabetic drugs; Z79.899 Other long term (current) drug therapy; Y04.2XXA Assault by strike against or bumped into by another person, initial encounter
CPT/HCPCS: 70450; 99284

== ENCOUNTER 2024-11-01 09:31 | Observation (INO) | payer OTHER, SELFPAY ==
[2024-11-01] VITALS (17 sets, daily range): BP systolic 107–139; BP diastolic 52–79; PULSE 52–76; RESP 13–20; TEMP 36.1–36.7; O2SAT 94–100; BMI 44.9
--- NOTE | ~2024-11-01 | CT_ITS ---
CT of the Abdomen and Pelvis: Indication: Right lower quadrant pain Technique: 2.5 mm axial scans were obtained through the abdomen and pelvis following intravenous adm inistration of 100 cc of Omnipaque 350. Dose reduction technique was used on this scan by utilizing a utomated exposure control and iterative reconstruction technique. The dose-length product (DLP) was 1 558.46 mGy-cm. COMPARISON: 07/04/2023 Findings: Scans through the lung bases are unremarkable. The liver, spleen, pancreas, adrenals and kidneys are within normal limits. Probable subtle gallstone s. No evidence of aortic aneurysm. No lymphadenopathy. No bowel obstruction or bowel wall thickening. Appendix is dilated to 10 mm, with minimal periappendi ceal inflammatory stranding.. Images through the pelvis were performed. Urinary bladder unremarkable. No pelvic mass. No ascites. Impression: Findings compatible with early/mild acute appendicitis. No abscess or free air. Probable cholelithiasis. Reviewed, dictated and finalized at location . 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 No abscess or free air. Probable cholelithiasis.
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
[2024-11-01 10:27] LABS: BEDSIDEPREGUCG Negative (Negative)
[2024-11-01 10:29] LABS: Basophils Absolute Auto 0.1 K/mm3 (0.0-0.1); Basophils Percent Auto 0.5 % (0.2-1.2); Eosinophils Absolute Auto 0.1 K/mm3 (0-0.3); Eosinophils Percent Auto 0.9 % (0-4.4); Hematocrit 37.2 % (37.0-47.0); Hemoglobin 12.1 g/dL (12.0-15.0); Immature Granulocyte Absolute 0.05 K/mm3 (0.00-0.031); Immature Granulocyte Percent A 0.5 % (0-0.5); Lymphocytes Absolute Auto 1.47 K/mm3 (0.9-3.2); Lymphocytes Percent Auto 14.3 % (18.3-44.2); Mean Corpuscular HGB Conc 32.5 g/dl (32-36); Mean Corpuscular Hemoglobin 29.3 pg (26-34); Mean Corpuscular Volume 90.1 fl (80-100); Mean Platelet Volume 9.4 fl (7.4-10.4); Monocytes Absolute Auto 0.5 K/mm3 (0.1-0.6); Monocytes Percent Auto 4.9 % (2.6-8.5); Neutrophils Absolute Auto 8.1 K/mm3 (1.3-6.7); Neutrophils Percent Auto 78.9 % (45.5-73.1); Platelet Count Result 396 k/mm3 (150-375); Red Blood Count 4.13 M/mm3 (4.2-5.4); Red Cell Distribution Width 13.5 % (11.5-14.5); White Blood Count 10.3 K/mm3 (4.5-10.0)
[2024-11-01 10:35] LABS: Add Urine Microscopic? YES; Appearance Urine Cloudy (Clear); Bacteria Urine Rare /hpf; Bilirubin Urine Negative (Negative); Blood Urine 2+ (Negative); Color Urine Yellow (Yellow); Glucose Urine UA Negative (Negative); Ketones Urine Trace mg/dL (Negative); Leukocyte Esterase Ur 2+ LEU/UL (Negative); Nitrate Urine Negative (Negative); Non Pathogenic Casts 0-2; Protein Urine Trace mg/dL (Negative); RBC Urine 21-50 /hpf (0-2); Specific Grav Ur 1.025 (1.001-1.035); Squamous Epithelial Cell Urine Few /hpf (Few); Urobilinogen Urine 0.2 mg/dL (<2.0); WBC Urine >100 /hpf (0-3); pH Urine 5.5 (5.0-9.0)
[2024-11-01 10:40] LABS: Alanine Aminotransferase 14 U/L (6-35); Albumin Level 4.7 g/dL (3.5-5.1); Alkaline Phosphatase 49 U/L (38-126); Anion Gap 8 mmol/L (4-12); Aspartate Amino Transferase 23 U/L (14-36); Bilirubin,Total 0.7 mg/dL (0.2-1.3); Blood Urea Nitrogen 15 mg/dL (7-17); Calcium 9.5 mg/dL (8.4-10.2); Carbon Dioxide 25 mmol/L (22-30); Chloride 106 mmol/L (98-107); Estimated CRCL calculation 93 ml/min; Estimated Glomerular Filt Rate > 60; Glucose 116 mg/dL (65-110); Lipase 122 U/L (23-300); Potassium 4.7 mmol/L (3.4-5.0); Sodium 139 mmol/L (137-145)
[2024-11-01] MEDS: SODIUM CHLORIDE 0.9% IV 1,000 ML 999 ML IV CONT (11:13)
[2024-11-01] MEDS: ONDANSETRON INJ 4 MG/2 ML VIAL IV PUSH (11:13)
[2024-11-01] MEDS: PIPERACILLN/TAZ 3.375GM/NS50ML 3.375 GM/50 ML BAG IVPB ×2 (11:37→17:05)
--- NOTE | 2024-11-01 13:00 | P.HP_ITS ---
H&P: HPI History of Present Illness Date/Time: 11/01/24 13:00 Chief Complaint: Abdominal pain. Narrative: This is a very pleasant 39-year-old female with history of appendicitis in June 2023 treated conservatively with IV antibiotics who presented to the emergency department via private vehicle for evaluation of abdominal pain. The patient provides the following history. She developed abdominal pain sometime in the middle of the night and it seems to have localized into the right lower quadrant. It is cramping in nature and does not necessarily radiate. It is not severe enough for her to require analgesics. The pain is worse with palpation and sometimes movement. Associated symptoms include nausea and vomiting. She believes she had a low-grade fever last night as well. She has just finished her cycle. No dysuria. In the ED: She was afebrile on arrival with stable vital signs. CMP and CBC were pretty unremarkable with the only outliers being a WBC count of 10.3 and a glucose of 116. Urinalysis was positive for trace ketones, 2+ blood, and 2+ leukocyte esterase. Rare bacteria, few squamous cells, 21 to 50 RBC, and greater than 100 WBCs were seen per high-power field. CT of the abdomen and pelvis findings compatible with early/mild acute appendicitis in probable cholelithiasis. She was given 1 L normal saline, ondansetron 4 mg IV, and piperacillin/tazobactam 3.375 gm and she is being admitted in this setting for further IV antibiotics and surgery consultation. Review of Systems Review of Systems: 12 systems were reviewed and are negativ e except for as per HPI. ON LICENSE OF [facility] Past Medical History Medical History (Updated 11/01/24 @ 13:37 by Ronna Sellers PA-C) Obesity has lost 75 lb on tirzepatide Hiatal hernia Appendicitis (06/2023) Fracture of distal end of left fibula Left cuboid fracture Depression Surgical History Surgical History (Updated 11/01/24 @ 13:34 by Ronna Selelrs PA-C) History of tonsillectomy Family History Family History Father Depression Family history of alcoholism Hypertension Heart disease Mother Depression Family history of hypothyroidism Family history of alcoholism Asthma Hypertension Sibling Depression Family history of alcoholism Hypertension Heart disease Grandparent Depression Family history of Alzheimer's disease Family history of lymphoma Hypertension Asthma Heart disease Social History Social History (Updated 11/01/24 @ 13:35 by Ronna Sellers PA-C) Social History: Surrogate medical decision maker: Nila Edmonds, mother. Code status: Full code. Smoking status: Never smoker Alcohol intake: never Substance use: never Substance use type: other Other substance usage details: edible Lack of Transportation: No Lack of Food: Never True Current Housing: I Have Housing Concerned About Future Housing: No Difficulty Paying Gas/Electric Bills: No Difficulty Paying for Meds: No Currently Unemployed: No Education: Master's Degree or Higher Difficulty w/ Childcare or Family Care: No Additional living arrangements comments: Lives in [place]. 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 Spiritual care concerns: No Meds Home Medications and Allergies Home Medications ?Medication ?Instructions ?Recorded ?Confirmed ?Type loratadine 10 mg tablet (Claritin) 10 mg PO DAILY 03/07/22 06/30/24 History tirzepatide 2.5 mg/0.5 mL 2.5 mg subcut WEEKLY 02/25/24 06/30/24 History subcutaneous pen injector (Mounjaro) citalopram 20 mg tablet 40 mg PO DAILY 06/04/24 06/30/24 History Allergies Allergy/AdvReac Type Severity Reaction Status Date / Time Sulfa (Sulfonamide Allergy Rash Verified 11/01/24 09:48 Antibiotics) Vital Signs Vital Signs - 24 hr 11/01/24 09:43 Temperature 98.0 F Pulse Rate 70 Respiratory Rate 16 Blood Pressure 119/79 Pulse Oximetry 98 Oxygen Delivery Room Air Exam Narrative: General: Nontoxic-appearing female lying supine in bed in no distress. Weight: 18.8 kg. BMI: 45.0. HEENT: PERRL, EOMI. Sclera anicteric. Tacky mucous membranes. Neck: Supple. Respiratory: Lungs are clear to auscultation bilaterally. Cardiovascular: Regular rate and rhythm with S1-S2. Gastrointestinal: Abdomen is soft, obese, and nondistended with positive bowel sounds. She does demonstrate tenderness to palpation the right lower quadrant. No guarding or rebound tenderness. Skin: Warm and dry. Extremities: No cyanosis, clubbing, or edema. Radial and pedal pulses intact. Neurological: Alert. Cranial nerves 2-12 are grossly intact. No gross focal deficits to casual conversation. Psychiatric: Pleasant and cooperative with normal mood and affect. Judgment and insight intact. H&P: Results Labs Labs: Short CBC 11/01/24 Range/Units 10:21 WBC 10.3 H (4.5-10.0) K/mm3 Hgb 12.1 (12.0-15.0) g/dL Hct 37.2 (37.0-47.0) % Plt Count 396 H (150-375) k/mm3 BMP 11/01/24 10:21 Sodium 139 Potassium 4.7 Chloride 106 Carbon Dioxide 25 BUN 15 D Creatinine 0.90 Glucose 116 H Calcium 9.5 Liver Function 11/01/24 Range/Units 10:21 Total Bilirubin 0.7 (0.2-1.3) mg/dL AST 23 (14-36) U/L ALT 14 (6-35) U/L Alkaline Phosphatase 49 (38-126) U/L Albumin 4.7 (3.5-5.1) g/dL Urine 11/01/24 Range/Units 10:21 Urine Color Yellow (Yellow) Urine Appearance Cloudy H (Clear) Urine pH 5.5 (5.0-9.0) Ur Specific [place] 1.025 (1.001-1.035) Urine Protein Trace (Negative) mg/dL Urine Glucose (UA) Negative (Negative) mg/dL Imaging Abdomen/Pelvis CT 11/01/24 11:16 Impression: Findings compatible with early/mild acute appendicitis. No abscess or free air. Probable cholelithiasis. Assessment and Plan Assessment and plan (1) Acute appendicitis: Qualifiers: Acute appendicitis type: with localized peritonitis Appendicitis abscess presence: without abscess Appendicitis gangrene presence: without gangrene Appendicitis perforation presence: without perforation Qualified Code(s): K35.30 - Acute appendicitis with localized peritonitis, without perforation or gangrene Code(s): K35.80 - Unspecified acute appendicitis Status: Acute (2) Pyuria: Code(s): R82.81 - Pyuria Status: Acute (3) Obesity: Code(s): E66.9 - Obesity, unspecified Status: Acute (4) Depression: Code(s): F32.A - Depression, unspecified Status: Acute Plan The patient presented to the emergency department for evaluation of right lower abdominal quadrant pain as detailed in HPI. Labs, imaging, EKG, and all reports were personally reviewed. CT scan shows findings of early/mild acute appendicitis. Surgery was consulted by the ED physician they recommend starting antibiotics. Analgesics and antiemetics are available as needed. Greater than 100 WBC were seen on microscopy however she has no symptoms to suggest active underlying infection. Urine cultures pending. Hold tirzepatide which she is taking for weight loss (she has lost 75 lb in the last 1 year). The rest of her home medications will be reviewed and resumed as appropriate. Findings and treatment plan were discussed with the patient and her mother. Questions were solicited and answered to satisfaction. The patient's medical management will be taken over by the hospitalist team in a.m. Quality VTE Prophylaxis VTE prophylaxis: mechanical ordered If No VTE Prophylaxis Answer both mechanical and pharmacologic: Reason no pharmacologic proph: medical contraindication (may need surgery) The patient has been admitted under observation status. Hospitalist [facility] Advance Care Plan I have confirmed that the patient's Advanced Care Plan is present, code status is documented, or surrogate decision maker is listed in patient medical record.: Yes Medication Reconciliation I have utilized all available resources to obtain, update and review the patients current medications (includes all prescriptions, OTC, herbals, cannabis, and nutritional supplements).: Yes
--- NOTE | 2024-11-01 13:53 | ADMGEN ---
This patient, Marleny Edmonds, was admitted to 2 Medical Room 259-01. Patient/family oriented to hospital policies and general routines including ID bracelet, bed and alarms, visiting hours, pain management, procedures, bathroom and other care routines, personal items, smoking policy, room service/diet, and visiting hours. Information on how to activate the Rapid Response Team has been discussed. Patient/Family are encouraged to report perceived risks to care and to ask questions if they do not understand what they are told or what they should do.
[2024-11-01] MEDS: ACETAMINOPHEN 325 MG TABLET 650 MG PO (14:29)
[2024-11-01] MEDS: SODIUM CHLORIDE 0.9% IV 1,000 ML 75 ML IV CONT (14:29)
[2024-11-01] MEDS: HYDROcodone/acetaminophen (*CRX) 5-325 MG TABLET 1 TAB PO (21:02)
[2024-11-02] VITALS (13 sets, daily range): BP systolic 104–132; BP diastolic 53–73; PULSE 56–78; RESP 12–19; TEMP 36.1–36.6; O2SAT 93–100
[2024-11-02] MEDS: PIPERACILLN/TAZ 3.375GM/NS50ML 3.375 GM/50 ML BAG IVPB ×2 (00:19→05:02)
[2024-11-02] MEDS: ACETAMINOPHEN 325 MG TABLET 650 MG PO (05:52)
[2024-11-02 06:03] LABS: Basophils Percent Auto 0.5 % (0.2-1.2); Eosinophils Absolute Auto 0.2 K/mm3 (0-0.3); Eosinophils Percent Auto 2.4 % (0-4.4); Hematocrit 32.5 % (37.0-47.0); Hemoglobin 10.3 g/dL (12.0-15.0); Immature Granulocyte Absolute 0.03 K/mm3 (0.00-0.031); Immature Granulocyte Percent A 0.4 % (0-0.5); Lymphocytes Percent Auto 39.8 % (18.3-44.2); Mean Corpuscular HGB Conc 31.7 g/dl (32-36); Mean Corpuscular Hemoglobin 29.3 pg (26-34); Mean Corpuscular Volume 92.3 fl (80-100); Mean Platelet Volume 9.3 fl (7.4-10.4); Monocytes Absolute Auto 0.5 K/mm3 (0.1-0.6); Monocytes Percent Auto 6.7 % (2.6-8.5); Neutrophils Absolute Auto 3.9 K/mm3 (1.3-6.7); Neutrophils Percent Auto 50.2 % (45.5-73.1); Platelet Count Result 301 k/mm3 (150-375); Red Blood Count 3.52 M/mm3 (4.2-5.4); Red Cell Distribution Width 13.7 % (11.5-14.5); White Blood Count 7.8 K/mm3 (4.5-10.0)
[2024-11-02 06:20] LABS: Anion Gap 4 mmol/L (4-12); Blood Urea Nitrogen 10 mg/dL (7-17); Calcium 8.4 mg/dL (8.4-10.2); Carbon Dioxide 23 mmol/L (22-30); Chloride 110 mmol/L (98-107); Estimated CRCL calculation 104 ml/min; Estimated Glomerular Filt Rate > 60; Glucose 88 mg/dL (65-110); Magnesium 2.3 mg/dL (1.6-2.3); Potassium 3.8 mmol/L (3.4-5.0); Sodium 137 mmol/L (137-145)
--- NOTE | 2024-11-02 07:47 | PM.IMPN ---
Progress Note: A&P Assessment and Plan (1) Acute appendicitis: Qualifiers: Acute appendicitis type: with localized peritonitis Appendicitis abscess presence: without abscess Appendicitis gangrene presence: without gangrene Appendicitis perforation presence: without perforation Qualified Code(s): K35.30 - Acute appendicitis with localized peritonitis, without perforation or gangrene Code(s): K35.80 - Unspecified acute appendicitis Status: Acute Assessment and Plan: Plan for orders possibly today On Zosyn (2) Obesity: Code(s): E66.9 - Obesity, unspecified Status: Acute (3) Depression: Code(s): F32.A - Depression, unspecified Status: Acute (4) Urinary tract infection: Qualifiers: Hematuria presence: without hematuria Urinary tract infection type: acute cystitis Qualified Code(s): N30.00 - Acute cystitis without hematuria Code(s): N39.0 - Urinary tract infection, site not specified Status: Acute Assessment and Plan: On Zosyn Plan The patient presented to the emergency department for evaluation of right lower abdominal quadrant pain as detailed in HPI. Labs, imaging, EKG, and all reports were personally reviewed. CT scan shows findings of early/mild acute appendicitis. Surgery was consulted by the ED physician they recommend starting antibiotics. Analgesics and antiemetics are available as needed. Greater than 100 WBC were seen on microscopy however she has no symptoms to suggest active underlying infection. Urine cultures pending. Hold tirzepatide which she is taking for weight loss (she has lost 75 lb in the last 1 year). The rest of her home medications will be reviewed and resumed as appropriate. Findings and treatment plan were discussed with the patient and her mother. Questions were solicited and answered to satisfaction. The patient's medical management will be taken over by the hospitalist team in a.m. Subjective Date/time seen: 11/02/24 07:47 Interval history: 39-year-old female with history of appendicitis in June 2023 treated conservatively with IV antibiotics who presented to the emergency department for abdominal pain from to acute appendicitis. Review of Systems Review of Systems: 12 systems were reviewed and are negative except for as per HPI. Exam Narrative: General: Nontoxic-appearing female lying supine in bed in no distress. Weight: 18.8 kg. BMI: 45.0. HEENT: PERRL, EOMI. Sclera anicteric. Tacky mucous membranes. Neck: Supple. Respiratory: Lungs are clear to auscultation bilaterally. Cardiovascular: Regular rate and rhythm with S1-S2. Gastrointestinal: Abdomen is soft, obese, and nondistended with positive bowel sounds. She does demonstrate tenderness to palpation the right lower quadrant. No guarding or rebound tenderness. Skin: Warm and dry. Extremities: No cyanosis, clubbing, or edema. Radial and pedal pulses intact. Neurological: Alert. Cranial nerves 2-12 are grossly intact. No gross focal deficits to casual conversation. Psychiatric: Pleasant and cooperative with normal mood and affect. Judgment and insight intact. Objective Data Vital Signs Vital Signs: Vital Signs - 24 hr 11/01/24 09:37 11/01/24 09:43 11/01/24 09:50 Temperature 98.0 F Pulse Rate 74 70 76 Respiratory Rate 17 16 20 Blood Pressure 119/79 119/79 134/73 Pulse Oximetry 98 98 99 Oxygen Delivery Room Air 11/01/24 09:51 11/01/24 10:05 11/01/24 11:10 Temperature Pulse Rate 65 70 67 Respiratory Rate 13 18 14 Blood Pressure Pulse Oximetry 96 94 99 Oxygen Delivery 11/01/24 11:15 11/01/24 11:41 11/01/24 11:45 Temperature Pulse Rate 60 56 L 52 L Respiratory Rate 13 15 16 Blood Pressure Pulse Oximetry 97 98 98 Oxygen Delivery 11/01/24 11:46 11/01/24 12:00 11/01/24 12:01 Temperature Pulse Rate 63 54 L 57 L Respiratory Rate 13 16 18 Blood Pressure 139/75 114/52 L Pulse Oximetry 100 97 97 Oxygen Delivery 11/01/24 12:15 11/01/24 12:16 11/01/24 14:00 Temperature 97.2 F L Pulse Rate 61 59 L 60 Respiratory Rate 16 20 16 Blood Pressure 107/55 L 116/53 L Pulse Oximetry 98 97 98 Oxygen Delivery 11/01/24 14:21 11/01/24 21:50 11/02/24 06:00 Temperature 97 F L 97 F L Pulse Rate 60 56 L Respiratory Rate 18 18 Blood Pressure 130/60 119/53 L Pulse Oximetry 98 97 99 Oxygen Delivery Room Air 11/02/24 07:43 Temperature Pulse Rate Respiratory Rate Blood Pressure Pulse Oximetry Oxygen Delivery Room Air Intake/Output Intake/Output: Intake & Output 10/30/24 10/31/24 11/01/24 11/02/24 23:59 23:59 23:59 23:59 Intake Total 1580 350 Balance 1580 350 Meds/Results Medications: Active Medications Generic Name Dose Route Start Last Admin Trade Name Freq PRN Reason Stop Dose Admin Acetaminophen 650 mg 11/01/24 13:41 11/02/24 05:52 Acetaminophen 325 Mg Tablet PO 650 mg Q6H PRN Administration Mild Pain (1-3) or Fever Hydrocodone Bitart/Acetaminophen 1 tab 11/01/24 13:41 11/01/24 21:02 Hydrocodone/Acetaminophen (*Crx) 5-325 Mg Tablet PO 1 tab Q6H PRN Administration Pain Rated 4-6 Citalopram Hydrobromide 40 mg 11/02/24 09:00 Citalopram Hydrobromide 20 Mg Tablet PO DAILY KRISTEN Fentanyl Citrate 25 mcg 11/02/24 07:38 Fentanyl Citrate Inj (*Crx) 100 Mcg/2 Ml Vial IV PUSH Q2M PRN Pain Piperacillin/Tazobactam/Dextrose 3.375 gm in 50 mls @ 100 mls/hr 11/01/24 18:00 11/02/24 05:02 Zosyn 3.375 Gm/Ns 50 Ml IVPB 100 mls/hr Q6HR KRISTEN Administration Lactated Ringer's 1,000 mls @ 30 mls/hr 11/02/24 07:40 Lr - Lactated Ringers Iv IV CONT .Q24H KRISTEN Lactated Ringer's 1,000 mls @ 30 mls/hr 11/02/24 07:40 Lr - Lactated Ringers Iv IV CONT .Q24H KRISTEN Morphine Sulfate 2 mg 11/01/24 13:41 Morphine Sulfate (*Crx) 2 Mg/Ml Inj IV PUSH Q4H PRN Pain Rated 7-10 Ondansetron HCl 4 mg 11/02/24 07:38 Ondansetron Inj 4 Mg/2 Ml Vial IV PUSH ONCE PRN Nausea Radiology Results: ITS Impressions Abdomen/Pelvis CT 11/01/24 11:16 Impression: Findings compatible with early/mild acute appendicitis. No abscess or free air. Probable cholelithiasis. Labs Labs: Laboratory Results - last 24 hr 11/01/24 11/01/24 11/02/24 10:21 10:24 05:50 WBC 10.3 H 7.8 RBC 4.13 L 3.52 L Hgb 12.1 10.3 L Hct 37.2 32.5 L MCV 90.1 92.3 MCH 29.3 29.3 MCHC 32.5 31.7 L RDW 13.5 13.7 Plt Count 396 H 301 MPV 9.4 9.3 Immature Gran % (Auto) 0.5 0.4 Neut % (Auto) 78.9 H 50.2 Lymph % (Auto) 14.3 L 39.8 [place] % (Auto) 4.9 6.7 Eos % (Auto) 0.9 2.4 Baso % (Auto) 0.5 0.5 Lymph # (Auto) 1.47 3.10 [place] # (Auto) 0.5 0.5 Eos # (Auto) 0.1 0.2 Baso # (Auto) 0.1 0.0 Abs Immat Gran (auto) 0.05 H 0.03 Absolute Neuts (auto) 8.1 H 3.9 Absolute Nucleated RBC 0.000 0.000 Nucleated RBC % 0.0 0.0 Sodium 139 137 Potassium 4.7 3.8 Chloride 106 110 H Carbon Dioxide 25 23 Anion Gap 8 4 BUN 15 D 10 D Creatinine 0.90 0.80 Estim Creat Clear Calc 93 104 Estimated GFR > 60 > 60 Glucose 116 H 88 Calcium 9.5 8.4 Magnesium 2.3 Total Bilirubin 0.7 AST 23 ALT 14 Alkaline Phosphatase 49 Total Protein 8.0 Albumin 4.7 Lipase 122 Urine Color Yellow Urine Appearance Cloudy H Urine pH 5.5 Ur Specific [place] 1.025 Urine Protein Trace Urine Glucose (UA) Negative Urine Ketones Trace H Ur Blood (Man) 2+ H Urine Nitrate Negative Urine Bilirubin Negative Urine Urobilinogen 0.2 Leukocyte Esterase Rfl 2+ H Urine RBC 21-50 H Urine WBC >100 H Ur Squamous Epith Cells Few Urine Bacteria Rare Urine Casts 0-2 POC Urine HCG, Qual Negative Blood Type A Positive Antibody Screen Negative Quality VTE Prophylaxis VTE prophylaxis: mechanical ordered
--- NOTE | 2024-11-02 09:35 | PM.IMPN ---
Progress Note: A&P Assessment and Plan (1) Acute appendicitis: Qualifiers: Acute appendicitis type: with localized peritonitis Appendicitis abscess presence: without abscess Appendicitis gangrene presence: without gangrene Appendicitis perforation presence: without perforation Qualified Code(s): K35.30 - Acute appendicitis with localized peritonitis, without perforation or gangrene Code(s): K35.80 - Unspecified acute appendicitis Status: Acute Assessment and Plan: - Scheduled for Lap Appendectomy today. - Currently On Zosyn. - No fevers and slightly elevated WBC's likely reactive. - We'll consider abx d/c. (2) Obesity: Code(s): E66.9 - Obesity, unspecified Status: Acute Assessment and Plan: - Encouraged with lifestyle modification. (3) Depression: Code(s): F32.A - Depression, unspecified Status: Acute Assessment and Plan: - Resume citalopram with diet. (4) Urinary tract infection: Qualifiers: Hematuria presence: without hematuria Urinary tract infection type: acute cystitis Qualified Code(s): N30.00 - Acute cystitis without hematuria Code(s): N39.0 - Urinary tract infection, site not specified Status: Acute Assessment and Plan: - Currently covered by zosyn. - We'll consider abx change post-op. - Follow cultures. Time Spent With Patient Time with patient: 15 - 25 minutes Subjective Date/time seen: 11/02/24 09:35 Patient states she's doing alright, only some pain to RLQ abdomen otherwise she's fine. Interval history: Patient seen right before going to surgery and looks comfortable. 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 We'll follow-up post surgery. Review of Systems Review of Systems: All systems reviewed & are unremarkable except as noted in HPI and below Exam Narrative: General: Well appearing and in no acute distress. HEENT: PERRL, EOMI. Sclera anicteric. Tacky mucous membranes. Neck: Supple. Respiratory: Lungs are clear to auscultation bilaterally. Cardiovascular: Regular rate and rhythm with S1-S2. Gastrointestinal: Abdomen soft, obese, nondistended, +ve BS X4 quadrants. Some tenderness to palpation RLQ. Skin: Warm and dry. Extremities: No cyanosis, clubbing, or edema. Radial and pedal pulses intact. Neurological: Alert. Cranial nerves 2-12 are grossly intact. Psychiatric: Pleasant and cooperative. Objective Data Vital Signs Vital Signs: Vital Signs - 24 hr 11/01/24 09:37 11/01/24 09:43 11/01/24 09:50 Temperature 98.0 F Pulse Rate 74 70 76 Respiratory Rate 17 16 20 Blood Pressure 119/79 119/79 134/73 Pulse Oximetry 98 98 99 Oxygen Delivery Room Air Fraction of Inspired Oxygen 11/01/24 09:51 11/01/24 10:05 11/01/24 11:10 Temperature Pulse Rate 65 70 67 Respiratory Rate 13 18 14 Blood Pressure Pulse Oximetry 96 94 99 Oxygen Delivery Fraction of Inspired Oxygen 11/01/24 11:15 11/01/24 11:41 11/01/24 11:45 Temperature Pulse Rate 60 56 L 52 L Respiratory Rate 13 15 16 Blood Pressure Pulse Oximetry 97 98 98 Oxygen Delivery Fraction of Inspired Oxygen 11/01/24 11:46 11/01/24 12:00 11/01/24 12:01 Temperature Pulse Rate 63 54 L 57 L Respiratory Rate 13 16 18 Blood Pressure 139/75 114/52 L Pulse Oximetry 100 97 97 Oxygen Delivery Fraction of Inspired Oxygen 11/01/24 12:15 11/01/24 12:16 11/01/24 14:00 Temperature 97.2 F L Pulse Rate 61 59 L 60 Respiratory Rate 16 20 16 Blood Pressure 107/55 L 116/53 L Pulse Oximetry 98 97 98 Oxygen Delivery Fraction of Inspired Oxygen 11/01/24 14:21 11/01/24 21:50 11/02/24 06:00 Temperature 97 F L 97 F L Pulse Rate 60 56 L Respiratory Rate 18 18 Blood Pressure 130/60 119/53 L Pulse Oximetry 98 97 99 Oxygen Delivery Room Air Fraction of Inspired Oxygen 11/02/24 07:43 11/02/24 08:35 Temperature Pulse Rate Respiratory Rate Blood Pressure Pulse Oximetry 98 Oxygen Delivery Room Air Room Air Fraction of Inspired Oxygen 21 Intake/Output Intake/Output: Intake & Output 10/30/24 10/31/24 11/01/24 11/02/24 23:59 23:59 23:59 23:59 Intake Total 1580 350 Balance 1580 350 Meds/Results Medications: Active Medications Generic Name Dose Route Start Last Admin Trade Name Freq PRN Reason Stop Dose Admin Acetaminophen 650 mg 11/01/24 13:41 11/02/24 05:52 Acetaminophen 325 Mg Tablet PO 650 mg Q6H PRN Administration Mild Pain (1-3) or Fever Hydrocodone Bitart/Acetaminophen 1 tab 11/01/24 13:41 11/01/24 21:02 Hydrocodone/Acetaminophen (*Crx) 5-325 Mg Tablet PO 1 tab Q6H PRN Administration Pain Rated 4-6 Citalopram Hydrobromide 40 mg 11/02/24 09:00 Citalopram Hydrobromide 20 Mg Tablet PO DAILY KRISTEN Fentanyl Citrate 25 mcg 11/02/24 07:38 Fentanyl Citrate Inj (*Crx) 100 Mcg/2 Ml Vial IV PUSH Q2M PRN Pain Piperacillin/Tazobactam/Dextrose 3.375 gm in 50 mls @ 100 mls/hr 11/01/24 18:00 11/02/24 05:02 Zosyn 3.375 Gm/Ns 50 Ml IVPB 100 mls/hr Q6HR KRISTEN Administration Lactated Ringer's 1,000 mls @ 30 mls/hr 11/02/24 07:40 Lr - Lactated Ringers Iv IV CONT .Q24H KRISTEN Lactated Ringer's 1,000 mls @ 30 mls/hr 11/02/24 07:40 Lr - Lactated Ringers Iv IV CONT .Q24H KRISTEN Morphine Sulfate 2 mg 11/01/24 13:41 Morphine Sulfate (*Crx) 2 Mg/Ml Inj IV PUSH Q4H PRN Pain Rated 7-10 Ondansetron HCl 4 mg 11/02/24 07:38 Ondansetron Inj 4 Mg/2 Ml Vial IV PUSH ONCE PRN Nausea Radiology Results: ITS Impressions Abdomen/Pelvis CT 11/01/24 11:16 Impression: Findings compatible with early/mild acute appendicitis. No abscess or free air. Probable cholelithiasis. Labs Labs: Laboratory Results - last 24 hr 11/01/24 11/01/24 11/02/24 10:21 10:24 05:50 WBC 10.3 H 7.8 RBC 4.13 L 3.52 L Hgb 12.1 10.3 L Hct 37.2 32.5 L MCV 90.1 92.3 MCH 29.3 29.3 MCHC 32.5 31.7 L RDW 13.5 13.7 Plt Count 396 H 301 MPV 9.4 9.3 Immature Gran % (Auto) 0.5 0.4 Neut % (Auto) 78.9 H 50.2 Lymph % (Auto) 14.3 L 39.8 [place] % (Auto) 4.9 6.7 Eos % (Auto) 0.9 2.4 Baso % (Auto) 0.5 0.5 Lymph # (Auto) 1.47 3.10 [place] # (Auto) 0.5 0.5 Eos # (Auto) 0.1 0.2 Baso # (Auto) 0.1 0.0 Abs Immat Gran (auto) 0.05 H 0.03 Absolute Neuts (auto) 8.1 H 3.9 Absolute Nucleated RBC 0.000 0.000 Nucleated RBC % 0.0 0.0 Sodium 139 137 Potassium 4.7 3.8 Chloride 106 110 H Carbon Dioxide 25 23 Anion Gap 8 4 BUN 15 D 10 D Creatinine 0.90 0.80 Estim Creat Clear Calc 93 104 Estimated GFR > 60 > 60 Glucose 116 H 88 Calcium 9.5 8.4 Magnesium 2.3 Total Bilirubin 0.7 AST 23 ALT 14 Alkaline Phosphatase 49 Total Protein 8.0 Albumin 4.7 Lipase 122 Urine Color Yellow Urine Appearance Cloudy H Urine pH 5.5 Ur Specific [place] 1.025 Urine Protein Trace Urine Glucose (UA) Negative Urine Ketones Trace H Ur Blood (Man) 2+ H Urine Nitrate Negative Urine Bilirubin Negative Urine Urobilinogen 0.2 Leukocyte Esterase Rfl 2+ H Urine RBC 21-50 H Urine WBC >100 H Ur Squamous Epith Cells Few Urine Bacteria Rare Urine Casts 0-2 POC Urine HCG, Qual Negative Blood Type A Positive Antibody Screen Negative Quality VTE Prophylaxis VTE prophylaxis: mechanical ordered Hospitalist MIPS Advance Care Plan I have confirmed that the patient's Advanced Care Plan is present, code status is documented, or surrogate decision maker is listed in patient medical record.: Yes Medication Reconciliation I have utilized all available resources to obtain, update and review the patients current medications (includes all prescriptions, OTC, herbals, cannabis, and nutritional supplements).: Yes
--- NOTE | 2024-11-02 09:39 | PM.CNGS ---
Assessment and Plan Assessment and plan (1) Acute appendicitis: Qualifiers: Acute appendicitis type: with localized peritonitis Appendicitis abscess presence: without abscess Appendicitis gangrene presence: without gangrene Appendicitis perforation presence: without perforation Qualified Code(s): K35.30 - Acute appendicitis with localized peritonitis, without perforation or gangrene Code(s): K35.80 - Unspecified acute appendicitis Status: Acute Assessment and Plan: CT scan reviewed and discussed with the patient. There is evidence of acute appendicitis. No perforation or abscess evident on CT. This would be considered recurrent appendicitis as she was successfully treated with nonoperative management about a year ago. We discussed treatment options in detail. We discussed the details of a laparoscopic appendectomy under general anesthesia that would be done by Dr. Garcia. Description of the procedure, risks, benefits, alternatives, and expected recovery were discussed. We also discussed the possibility of having to convert to open procedure if necessary. She agrees to proceed with surgery. Will keep her NPO. Continue IV antibiotics, IV fluids, and analgesics as needed pre-operatively. She has been added to the surgery schedule for today. (2) Obesity: Code(s): E66.9 - Obesity, unspecified Status: Acute Assessment and Plan: BMI 45. She has lost 70 lbs on tirzepatide in 1 year. Last injection was 7 days ago. (3) Abnormal urinalysis: Code(s): R82.90 - Unspecified abnormal findings in urine Status: Acute Plan I have discussed the patient's case and plan of care with Dr. Garcia. Thank you for allowing us to see the patient in consultation and we will continue to follow along with you. History of Present Illness Consult details Consult date: 11/02/24 Reason for consult: other (Acute appendicitis) Requesting physician: Maribell Perez MD Narrative: This is a 39-year-old who we have been asked to see in surgical consultation for acute appendicitis. She was admitted in June of 2023 for non operative management of acute appendicitis. She was treated with antibiotics and had an atypical presentation with epigastric abdominal pain. Her pain was relieved after receiving a GI cocktail in the ER and she did well with antibiotic treatment. She has not had any issues up until 2 days ago. She had generalized cramping abdominal pain. She initially thought this was gas pains. Yesterday, her pain began to localize into the right lower quadrant. She reports the pain did feel similar to her previous episode of appendicitis. She had associated nausea and chills. She then came into the ER with suspicion of acute appendicitis.[place] [address] scan of the abdomen and pelvis showed findings consistent with mild/early acute appendicitis. No abscess or free air. Also incidentally noted is cholelithiasis with no other abnormalities of the gallbladder. She was admitted and started on IV Zosyn. She is now seen on the medical floor. No previous abdominal surgeries. Her BMI is 45 and she is currently taking tirzepatide injections for weight loss and has lost almost 70 lbs in the past year on this medication. Her last injection was 7 days ago. Review of Systems Review of Systems: All systems reviewed & are unremarkable except as noted in HPI and below PMFSH Past Medical History Medical History Obesity has lost 75 lb on tirzepatide Hiatal hernia Appendicitis (06/2023) Fracture of distal end of left fibula Left cuboid fracture Depression Surgical History Surgical History History of tonsillectomy Family History Family History Father Depression Family history of alcoholism Hypertension Heart disease Mother Depression Family history of hypothyroidism Family history of alcoholism Asthma Hypertension Sibling Depression Family history of alcoholism Hypertension Heart disease Grandparent Depression Family history of Alzheimer's disease Family history of lymphoma Hypertension Asthma Heart disease Social History Social History Social History: Surrogate medical decision maker: Nila Edmonds, mother. Code status: Full code. Smoking status: Never smoker Alcohol intake: never Substance use: never Substance use type: other Other substance usage details: edible Do You Feel Safe in your Home?: Yes Lack of Transportation: No Lack of Food: Never True Current Housing: I Have Housing Concerned About Future Housing: No Difficulty Paying Gas/Electric Bills: No Difficulty Paying for Meds: No Currently Unemployed: No Education: Master's Degree or Higher Difficulty w/ Childcare or Family Care: No Additional living arrangements comments: Lives in [place]. 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 Spiritual care concerns: No Meds Home Medications and Allergies Home Medications ?Medication ?Instructions ?Recorded ?Confirmed ?Type loratadine 10 mg tablet (Claritin) 10 mg PO DAILY 03/07/22 11/01/24 History tirzepatide 2.5 mg/0.5 mL 2.5 mg subcut WEEKLY 02/25/24 11/01/24 History subcutaneous pen injector (Mounjaro) citalopram 20 mg tablet 40 mg PO DAILY 06/04/24 11/01/24 History Allergies Allergy/AdvReac Type Severity Reaction Status Date / Time Sulfa (Sulfonamide Allergy Rash Verified 11/01/24 09:48 Antibiotics) Vital Signs Vital Signs - 24 hr 11/01/24 09:43 11/01/24 09:50 11/01/24 09:51 Temperature 98.0 F Pulse Rate 70 76 65 Respiratory Rate 16 20 13 Blood Pressure 119/79 134/73 Pulse Oximetry 98 99 96 Oxygen Delivery Room Air Fraction of Inspired Oxygen 11/01/24 10:05 11/01/24 11:10 11/01/24 11:15 Temperature Pulse Rate 70 67 60 Respiratory Rate 18 14 13 Blood Pressure Pulse Oximetry 94 99 97 Oxygen Delivery Fraction of Inspired Oxygen 11/01/24 11:41 11/01/24 11:45 11/01/24 11:46 Temperature Pulse Rate 56 L 52 L 63 Respiratory Rate 15 16 13 Blood Pressure 139/75 Pulse Oximetry 98 98 100 Oxygen Delivery Fraction of Inspired Oxygen 11/01/24 12:00 11/01/24 12:01 11/01/24 12:15 Temperature Pulse Rate 54 L 57 L 61 Respiratory Rate 16 18 16 Blood Pressure 114/52 L Pulse Oximetry 97 97 98 Oxygen Delivery Fraction of Inspired Oxygen 11/01/24 12:16 11/01/24 14:00 11/01/24 14:21 Temperature 97.2 F L Pulse Rate 59 L 60 Respiratory Rate 20 16 Blood Pressure 107/55 L 116/53 L Pulse Oximetry 97 98 98 Oxygen Delivery Room Air Fraction of Inspired Oxygen 11/01/24 21:50 11/02/24 06:00 11/02/24 07:43 Temperature 97 F L 97 F L Pulse Rate 60 56 L Respiratory Rate 18 18 Blood Pressure 130/60 119/53 L Pulse Oximetry 97 99 Oxygen Delivery Room Air Fraction of Inspired Oxygen 11/02/24 08:35 Temperature Pulse Rate Respiratory Rate Blood Pressure Pulse Oximetry 98 Oxygen Delivery Room Air Fraction of Inspired Oxygen 21 Exam Const: General: comfortable and no acute distress Nutritional Appearance: obese Orientation/consciousness: patient oriented x3 HENMT: Head: normocephalic and atraumatic Ears: hearing grossly normal bilaterally Mouth: Yes moist mucous membranes Eyes: General: appearance normal, both eyes and all related structures Pupils: Equal, round and reactive pupils present Neck: Neck: normal visual inspection and full ROM Resp: Effort & Inspection: no respiratory distress Auscultation: clear to auscultation bilaterally Cardio: Rate: regular rate Rhythm: regular rhythm Heart sounds: S1 normal heart sound present and S2 normal heart sound present Peripheral pulses: Peripheral pulses 2+ throughout GI: Inspection: non-distended, [place] present, obesity, no scars and no visible herniation GI Palp: Yes Soft to palpation, Yes Tenderness to palpation present (GI) (focal RLQ tenderness, referred pain in RLQ with palpation of LLQ), No Guarding due to palpation present (GI), Yes No hepatosplenomegaly present and No Rebound tenderness present Percussion: Yes normal to percussion Auscultation: normal bowel sounds Skin: General skin exam: normal color Neuro: General: moves all extremities and no focal motor deficits Speech: normal speech Motor exam (neuro): 5/5 motor strength present throughout Extrem: General: normal to inspection and no edema Psych: Mental Status: mental status grossly normal Attitude: cooperative Insight: Good insight present (Psych) Judgement: Good judgement present (Psych) Results Labs 11/02/24 05:50 11/02/24 05:50 Labs: Abnormal lab results 11/01/24 11/02/24 Range/Units 10:21 05:50 WBC 10.3 H (4.5-10.0) K/mm3 RBC 4.13 L 3.52 L (4.2-5.4) M/mm3 Hgb 10.3 L (12.0-15.0) g/dL Hct 32.5 L (37.0-47.0) % MCHC 31.7 L (32-36) g/dl Plt Count 396 H (150-375) k/mm3 Neut % (Auto) 78.9 H (45.5-73.1) % Lymph % (Auto) 14.3 L (18.3-44.2) % Abs Immat Gran (auto) 0.05 H (0.00-0.031) K/mm3 Absolute Neuts (auto) 8.1 H (1.3-6.7) K/mm3 Chloride 110 H (98-107) mmol/L Glucose 116 H (65-110) mg/dL Urine Appearance Cloudy H (Clear) Urine Ketones Trace H (Negative) mg/dL Ur Blood (Man) 2+ H (Negative) Leukocyte Esterase Rfl 2+ H (Negative) LISETH/UL Urine RBC 21-50 H (0-2) /hpf Urine WBC >100 H (0-3) /hpf Diabetes panel 11/01/24 11/02/24 Range/Units 10:21 05:50 Sodium 139 137 (137-145) mmol/L Potassium 4.7 3.8 (3.4-5.0) mmol/L Chloride 106 110 H (98-107) mmol/L Carbon Dioxide 25 23 (22-30) mmol/L BUN 15 D 10 D (7-17) mg/dL Creatinine 0.90 0.80 (0.7-1.0) mg/dL Glucose 116 H 88 (65-110) mg/dL Calcium 9.5 8.4 (8.4-10.2) mg/dL AST 23 (14-36) U/L ALT 14 (6-35) U/L Alkaline Phosphatase 49 (38-126) U/L Total Protein 8.0 (6.3-8.2) g/dL Albumin 4.7 (3.5-5.1) g/dL Calcium panel 11/01/24 11/02/24 Range/Units 10:21 05:50 Calcium 9.5 8.4 (8.4-10.2) mg/dL Albumin 4.7 (3.5-5.1) g/dL Pituitary panel 11/01/24 11/02/24 Range/Units 10:21 05:50 Sodium 139 137 (137-145) mmol/L Potassium 4.7 3.8 (3.4-5.0) mmol/L Chloride 106 110 H (98-107) mmol/L Carbon Dioxide 25 23 (22-30) mmol/L BUN 15 D 10 D (7-17) mg/dL Creatinine 0.90 0.80 (0.7-1.0) mg/dL Glucose 116 H 88 (65-110) mg/dL Calcium 9.5 8.4 (8.4-10.2) mg/dL Adrenal panel 11/01/24 11/02/24 Range/Units 10:21 05:50 Sodium 139 137 (137-145) mmol/L Potassium 4.7 3.8 (3.4-5.0) mmol/L Chloride 106 110 H (98-107) mmol/L Carbon Dioxide 25 23 (22-30) mmol/L BUN 15 D 10 D (7-17) mg/dL Creatinine 0.90 0.80 (0.7-1.0) mg/dL Glucose 116 H 88 (65-110) mg/dL Calcium 9.5 8.4 (8.4-10.2) mg/dL Total Bilirubin 0.7 (0.2-1.3) mg/dL AST 23 (14-36) U/L ALT 14 (6-35) U/L Alkaline Phosphatase 49 (38-126) U/L Total Protein 8.0 (6.3-8.2) g/dL Albumin 4.7 (3.5-5.1) g/dL All other labs normal. Imaging Additional studies: ITS Impressions Abdomen/Pelvis CT 11/01/24 11:16 Impression: Findings compatible with early/mild acute appendicitis. No abscess or free air. Probable cholelithiasis.
--- NOTE | 2024-11-02 09:41 | WPDANESEPPF ---
Anes - Initial Pre Proc Eval Procedure: Operation Date: 11/02/24 10:30 Proposed Procedures p Laparoscopic Appendectomy - Michael Garcia MD Date/Time: 11/02/24 09:41 Surgeon: Hudson Valencia MD Pre Op Diagnosis: Acute Appendicitis Patient Data Age: 39 Gender: F Height: 1.63 m Weight: 118.8 kg Last Vital Signs Temp 36.1 C L 11/02/24 06:00 Pulse 56 L 11/02/24 06:00 Resp 18 11/02/24 06:00 BP 119/53 L 11/02/24 06:00 Pulse Ox 98 11/02/24 08:35 O2 Del Method Room Air 11/02/24 08:35 FiO2 21 11/02/24 08:35 Allergies Allergy/AdvReac Type Severity Reaction Status Date / Time Sulfa (Sulfonamide Allergy Rash Verified 11/01/24 09:48 Antibiotics) Home Medications ?Medication ?Instructions ?Recorded ?Confirmed ?Type loratadine 10 mg tablet (Claritin) 10 mg PO DAILY 03/07/22 11/01/24 History tirzepatide 2.5 mg/0.5 mL 2.5 mg subcut WEEKLY 02/25/24 11/01/24 History subcutaneous pen injector (Mounjaro) citalopram 20 mg tablet 40 mg PO DAILY 06/04/24 11/01/24 History oxycodone 5 mg tablet 5 mg PO Q6H PRN pain #15 tabs 11/02/24 Rx Laboratory Tests 11/01/24 11/01/24 11/02/24 10:21 10:24 05:50 WBC 10.3 H K/mm3 7.8 K/mm3 (4.5-10.0) (4.5-10.0) RBC 4.13 L M/mm3 3.52 L M/mm3 (4.2-5.4) (4.2-5.4) Hgb 12.1 g/dL 10.3 L g/dL (12.0-15.0) (12.0-15.0) Hct 37.2 % 32.5 L % (37.0-47.0) (37.0-47.0) MCV 90.1 fl 92.3 fl (80-100) (80-100) MCH 29.3 pg 29.3 pg (26-34) (26-34) MCHC 32.5 g/dl 31.7 L g/dl (32-36) (32-36) RDW 13.5 % 13.7 % (11.5-14.5) (11.5-14.5) Plt Count 396 H k/mm3 301 k/mm3 (150-375) (150-375) MPV 9.4 fl 9.3 fl (7.4-10.4) (7.4-10.4) Immature Gran % (Auto) 0.5 % 0.4 % (0-0.5) (0-0.5) Neut % (Auto) 78.9 H % 50.2 % (45.5-73.1) (45.5-73.1) Lymph % (Auto) 14.3 L % 39.8 % (18.3-44.2) (18.3-44.2) [place] % (Auto) 4.9 % 6.7 % (2.6-8.5) (2.6-8.5) Eos % (Auto) 0.9 % 2.4 % (0-4.4) (0-4.4) Baso % (Auto) 0.5 % 0.5 % (0.2-1.2) (0.2-1.2) Lymph # (Auto) 1.47 K/mm3 3.10 K/mm3 (0.9-3.2) (0.9-3.2) [place] # (Auto) 0.5 K/mm3 0.5 K/mm3 (0.1-0.6) (0.1-0.6) Eos # (Auto) 0.1 K/mm3 0.2 K/mm3 (0-0.3) (0-0.3) Baso # (Auto) 0.1 K/mm3 0.0 K/mm3 (0.0-0.1) (0.0-0.1) Abs Immat Gran (auto) 0.05 H K/mm3 0.03 K/mm3 (0.00-0.031) (0.00-0.031) Absolute Neuts (auto) 8.1 H K/mm3 3.9 K/mm3 (1.3-6.7) (1.3-6.7) Absolute Nucleated RBC 0.000 K/mm3 0.000 K/mm3 (0.0-0.012) (0.0-0.012) Nucleated RBC % 0.0 % 0.0 % (0.0-0.2) (0.0-0.2) Sodium 139 mmol/L 137 mmol/L (137-145) (137-145) Potassium 4.7 mmol/L 3.8 mmol/L (3.4-5.0) (3.4-5.0) Chloride 106 mmol/L 110 H mmol/L (98-107) (98-107) Carbon Dioxide 25 mmol/L 23 mmol/L (22-30) (22-30) Anion Gap 8 mmol/L 4 mmol/L (4-12) (4-12) BUN 15 D mg/dL 10 D mg/dL (7-17) (7-17) Creatinine 0.90 mg/dL 0.80 mg/dL (0.7-1.0) (0.7-1.0) Estim Creat Clear Calc 93 ml/min 104 ml/min Estimated GFR > 60 > 60 (59 - ) (59 - ) Glucose 116 H mg/dL 88 mg/dL (65-110) (65-110) Calcium 9.5 mg/dL 8.4 mg/dL (8.4-10.2) (8.4-10.2) Magnesium 2.3 mg/dL (1.6-2.3) Total Bilirubin 0.7 mg/dL (0.2-1.3) AST 23 U/L (14-36) ALT 14 U/L (6-35) Alkaline Phosphatase 49 U/L (38-126) Total Protein 8.0 g/dL (6.3-8.2) Albumin 4.7 g/dL (3.5-5.1) Lipase 122 U/L (23-300) Urine Color Yellow (Yellow) Urine Appearance Cloudy H (Clear) Urine pH 5.5 (5.0-9.0) Ur Specific [place] 1.025 (1.001-1.035) Urine Protein Trace mg/dL (Negative) Urine Glucose (UA) Negative mg/dL (Negative) Urine Ketones Trace H mg/dL (Negative) Ur Blood (Man) 2+ H (Negative) Urine Nitrate Negative (Negative) Urine Bilirubin Negative (Negative) Urine Urobilinogen 0.2 mg/dL (<2.0) Leukocyte Esterase Rfl 2+ H LISETH/UL (Negative) Urine RBC 21-50 H /hpf (0-2) Urine WBC >100 H /hpf (0-3) Ur Squamous Epith Cells Few /hpf (Few) Urine Bacteria Rare /hpf Urine Casts 0-2 POC Urine HCG, Qual Negative (Negative) Blood Type A Positive Antibody Screen Negative Patient hx anesthesia problems: none Family hx anesthesia problems: none Results Review: All pre-operative results and documents have been reviewed as part of the pre-operative evaluation. [facility] Past Medical History Medical History Obesity has lost 75 lb on tirzepatide Hiatal hernia Appendicitis (06/2023) Fracture of distal end of left fibula Left cuboid fracture Depression Surgical History Surgical History History of tonsillectomy Family History Family History Father Depression Family history of alcoholism Hypertension Heart disease Mother Depression Family history of hypothyroidism Family history of alcoholism Asthma Hypertension Sibling Depression Family history of alcoholism Hypertension Heart disease Grandparent Depression Family history of Alzheimer's disease Family history of lymphoma Hypertension Asthma Heart disease Social History Social History Social History: Surrogate medical decision maker: Nila Edmonds, mother. Code status: Full code. Smoking status: Never smoker Alcohol intake: never Substance use: never Substance use type: other Other substance usage details: edible Do You Feel Safe in your Home?: Yes Lack of Transportation: No Lack of Food: Never True Current Housing: I Have Housing Concerned About Future Housing: No Difficulty Paying Gas/Electric Bills: No Difficulty Paying for Meds: No Currently Unemployed: No Education: Master's Degree or Higher Difficulty w/ Childcare or Family Care: No Additional living arrangements comments: Lives in [place]. 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 Spiritual care concerns: No Anes - Eval Final PreProcedure Day of Procedure 11/02/24 09:41 Neurological: alert and oriented ASA classification: III Emergent: yes Anesthetic plan: proceed Anesthesia type and monitoring: general and standard monitoring Results Review: All pre-operative results and documents have been reviewed as part of the pre-operative evaluation. Informed Consent: The patient's anesthetic plan and its attendant risks and benefits were discussed with the patient/family/POA. Questions were solicited and answers provided to the satisfaction of the patient/family/POA.
[2024-11-02] MEDS: LACTATED RINGERS 1,000 ML 30 ML IV CONT ×2 (09:50→12:07)
--- NOTE | 2024-11-02 10:15 | P.PNAN_ITS ---
Anes - Initial Pre Proc Eval Procedure: Operation Date: 11/02/24 10:30 Proposed Procedures p Laparoscopic Appendectomy - Michael Garcia MD Date/Time: 11/02/24 10:15 Surgeon: Hudson Valencia MD Pre Op Diagnosis: Acute Appendicitis Patient Data Age: 39 Gender: F Height: 1.63 m Weight: 118.8 kg Last Vital Signs Temp 36.4 C 11/02/24 09:45 Pulse 67 11/02/24 09:45 Resp 16 11/02/24 09:45 BP 104/60 11/02/24 09:45 Pulse Ox 94 11/02/24 09:45 O2 Del Method Room Air 11/02/24 09:45 FiO2 21 11/02/24 08:35 Allergies Allergy/AdvReac Type Severity Reaction Status Date / Time Sulfa (Sulfonamide Allergy Rash Verified 11/01/24 09:48 Antibiotics) Home Medications ?Medication ?Instructions ?Recorded ?Confirmed ?Type loratadine 10 mg tablet (Claritin) 10 mg PO DAILY 03/07/22 11/01/24 History tirzepatide 2.5 mg/0.5 mL 2.5 mg subcut WEEKLY 02/25/24 11/01/24 History subcutaneous pen injector (Mounjaro) citalopram 20 mg tablet 40 mg PO DAILY 06/04/24 11/01/24 History Laboratory Tests 11/01/24 11/01/24 11/02/24 10:21 10:24 05:50 WBC 10.3 H K/mm3 7.8 K/mm3 (4.5-10.0) (4.5-10.0) RBC 4.13 L M/mm3 3.52 L M/mm3 (4.2-5.4) (4.2-5.4) Hgb 12.1 g/dL 10.3 L g/dL (12.0-15.0) (12.0-15.0) Hct 37.2 % 32.5 L % (37.0-47.0) (37.0-47.0) MCV 90.1 fl 92.3 fl (80-100) (80-100) MCH 29.3 pg 29.3 pg (26-34) (26-34) MCHC 32.5 g/dl 31.7 L g/dl (32-36) (32-36) RDW 13.5 % 13.7 % (11.5-14.5) (11.5-14.5) Plt Count 396 H k/mm3 301 k/mm3 (150-375) (150-375) MPV 9.4 fl 9.3 fl (7.4-10.4) (7.4-10.4) Immature Gran % (Auto) 0.5 % 0.4 % (0-0.5) (0-0.5) Neut % (Auto) 78.9 H % 50.2 % (45.5-73.1) (45.5-73.1) Lymph % (Auto) 14.3 L % 39.8 % (18.3-44.2) (18.3-44.2) [place] % (Auto) 4.9 % 6.7 % (2.6-8.5) (2.6-8.5) Eos % (Auto) 0.9 % 2.4 % (0-4.4) (0-4.4) Baso % (Auto) 0.5 % 0.5 % (0.2-1.2) (0.2-1.2) Lymph # (Auto) 1.47 K/mm3 3.10 K/mm3 (0.9-3.2) (0.9-3.2) [place] # (Auto) 0.5 K/mm3 0.5 K/mm3 (0.1-0.6) (0.1-0.6) Eos # (Auto) 0.1 K/mm3 0.2 K/mm3 (0-0.3) (0-0.3) Baso # (Auto) 0.1 K/mm3 0.0 K/mm3 (0.0-0.1) (0.0-0.1) Abs Immat Gran (auto) 0.05 H K/mm3 0.03 K/mm3 (0.00-0.031) (0.00-0.031) Absolute Neuts (auto) 8.1 H K/mm3 3.9 K/mm3 (1.3-6.7) (1.3-6.7) Absolute Nucleated RBC 0.000 K/mm3 0.000 K/mm3 (0.0-0.012) (0.0-0.012) Nucleated RBC % 0.0 % 0.0 % (0.0-0.2) (0.0-0.2) Sodium 139 mmol/L 137 mmol/L (137-145) (137-145) Potassium 4.7 mmol/L 3.8 mmol/L (3.4-5.0) (3.4-5.0) Chloride 106 mmol/L 110 H mmol/L (98-107) (98-107) Carbon Dioxide 25 mmol/L 23 mmol/L (22-30) (22-30) Anion Gap 8 mmol/L 4 mmol/L (4-12) (4-12) BUN 15 D mg/dL 10 D mg/dL (7-17) (7-17) Creatinine 0.90 mg/dL 0.80 mg/dL (0.7-1.0) (0.7-1.0) Estim Creat Clear Calc 93 ml/min 104 ml/min Estimated GFR > 60 > 60 (59 - ) (59 - ) Glucose 116 H mg/dL 88 mg/dL (65-110) (65-110) Calcium 9.5 mg/dL 8.4 mg/dL (8.4-10.2) (8.4-10.2) Magnesium 2.3 mg/dL (1.6-2.3) Total Bilirubin 0.7 mg/dL (0.2-1.3) AST 23 U/L (14-36) ALT 14 U/L (6-35) Alkaline Phosphatase 49 U/L (38-126) Total Protein 8.0 g/dL (6.3-8.2) Albumin 4.7 g/dL (3.5-5.1) Lipase 122 U/L (23-300) Urine Color Yellow (Yellow) Urine Appearance Cloudy H (Clear) Urine pH 5.5 (5.0-9.0) Ur Specific [place] 1.025 (1.001-1.035) Urine Protein Trace mg/dL (Negative) Urine Glucose (UA) Negative mg/dL (Negative) Urine Ketones Trace H mg/dL (Negative) Ur Blood (Man) 2+ H (Negative) Urine Nitrate Negative (Negative) Urine Bilirubin Negative (Negative) Urine Urobilinogen 0.2 mg/dL (<2.0) Leukocyte Esterase Rfl 2+ H LISETH/UL (Negative) Urine RBC 21-50 H /hpf (0-2) Urine WBC >100 H /hpf (0-3) Ur Squamous Epith Cells Few /hpf (Few) Urine Bacteria Rare /hpf Urine Casts 0-2 POC Urine HCG, Qual Negative (Negative) Blood Type A Positive Antibody Screen Negative Patient hx anesthesia problems: none Family hx anesthesia problems: none Results Review: All pre-operative results and documents have been reviewed as part of the pre- operative evaluation. [facility] Past Medical History Medical History Obesity has lost 75 lb on tirzepatide Hiatal hernia Appendicitis (06/2023) Fracture of distal end of left fibula Left cuboid fracture Depression Surgical History Surgical History History of tonsillectomy Family History Family History Father Depression Family history of alcoholism Hypertension Heart disease Mother Depression Family history of hypothyroidism Family history of alcoholism Asthma Hypertension Sibling Depression Family history of alcoholism Hypertension Heart disease Grandparent Depression Family history of Alzheimer's disease Family history of lymphoma Hypertension Asthma Heart disease Social History Social History Social History: Surrogate medical decision maker: Nila Edmonds, mother. Code status: Full code. Smoking status: Never smoker Alcohol intake: never Substance use: never Substance use type: other Other substance usage details: edible Do You Feel Safe in your Home?: Yes Lack of Transportation: No Lack of Food: Never True Current Housing: I Have Housing Concerned About Future Housing: No Difficulty Paying Gas/Electric Bills: No Difficulty Paying for Meds: No Currently Unemployed: No Education: Master's Degree or Higher Difficulty w/ Childcare or Family Care: No Additional living arrangements comments: Lives in [place]. 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 Spiritual care concerns: No Anes - Eval Final PreProcedure Day of Procedure 11/02/24 10:15 Patient weight: morbidly obese Heart: regular rate and rhythm Lungs: clear to auscultation Airway: Mallampati scale class II Neurological: alert and oriented Last oral intake: >/= 8 hours ASA classification: III Emergent: no Anesthetic plan: proceed Anesthesia type and monitoring: general ETT and standard monitoring Results Review: All pre-operative results and documents have been reviewed as part of the pre-op erative evaluation. Informed Consent: The patient's anesthetic plan and its attendant risks and benefits were discussed with the patient/family/POA. Questions were solicited and answers provided to the satisfaction of the patient/family/POA.
--- NOTE | 2024-11-02 10:25 | WPDHPUPDATE1 ---
History and Physical Update Update Date/Time: 11/02/24 10:25 History and Physical has been reviewed, including an updated exam of the patient. There are NO changes in the patient's condition. Risks, benefits, and alternatives have been discussed and questions answered. Patient agrees to proceed with procedure.
[2024-11-02] MEDS: LIDO 1%/EPINEPHRINE 1:100,000 50 ML VIAL 30 ML INFILTRATE (11:22)
[2024-11-02] MEDS: fentaNYL CITRATE INJ (*CRX) 100 MCG/2 ML VIAL 25 MCG IV PUSH ×7 (12:16→13:29)
--- NOTE | 2024-11-02 12:19 | P.OP_ITS ---
Procedure Note - Detailed Date of Procedure 11/02/24 Pre-op Diagnosis Acute Appendicitis Post-op Diagnosis Same Procedure Performed Laparoscopic appendectomy Surgeon Michael Garcia MD Research Coordinator Mita WRAY Anesthesia General Indications Patient is a 39-year-old female who presented with a 1 to 2 day history of worsening right lower quadrant abdominal pain. She had acute appendicitis last year which was treated non operatively with antibiotics. She has the same pain again and on CT scan has a dilated inflamed appendix with a slightly elevated white blood cell count. She was admitted to the hospital started on IV antibiotics. She is being brought to operating now for an urgent laparoscopic appendectomy. Findings The appendix was dilated and inflamed throughout its distal 1/2. There is no perforation or gangrenous changes of the appendix. No abscess was seen. Description of Procedure After informed consent was obtained patient brought to the operating room she was placed supine position and general endotracheal anesthesia was administered. A Stone catheter was placed decompress the bladder. The abdomen was then prepped and draped usual sterile fashion. A time-out was then performed correctly identifying the patient as well as procedure to be performed. She was already on scheduled IV antibiotics. I entered the abdomen left upper quadrant utilizing a 5mm Optiview port. Once inside the abdomen insufflated to adequate pneumoperitoneum of 15mmHg of CO2. I an unobstructed view of the pelvis the right lower quadrant. I then placed a 12mm periumbilical trocar port as well as a 5mm suprapubic trocar port and a 5mm right lower quadrant trocar port all under direct visualization. The appendix is visualized the right lower quadrant. The distal 1/2 of the appendix was acutely inflamed and dilated. The proximal 1/2 the appendix appeared relatively normal. There is no evidence of perforation or gangrene. There is no periappendiceal abscess. The laparoscopic instruments I then held the appendix up to expose the base of the appendix. A laparoscopic dissection was then used to make a defect through the mesoappendix just at the base. A 45mm Endo-RUSS stapler was then used to divide the appendix flush with the cecum. Two vascular reload to the Endo-RUSS stapler was then used to divide the mesoappendix. The appendix was then placed into an Endo-Catch bag and brought out through the periumbilical trocar port site. It was passed off table sent to pathology for examination. I then checked the mesoappendix and a small amount of bleeding from the mesoappendix. This was then treated electrocautery to achieve hemostasis. I irrigated and aspirated out any blood clot right lower quadrant and the pelvis. Hemostasis appeared to be good. I th en removed all the trocar ports under visualization all port sites appeared hemostatic. I then allowed the abdomen decompressed. The 12mm periumbilical trocar port fascial defect was then closed utilizing 0 Vicryl suture at the fascial level. The skin edges in all the port sites were approximated lies in a running subcuticular 4 Monocryl suture. Incisions were then cleaned the skin glue was applied. The Stone catheter was removed at the end of the procedure. The patient tolerated the procedure well no complications. All sponges, needles, and instrument counts were correct at the end procedure. EBL was _20__cc. The patient was awakened and taken to recovery in stable and satisfactory condition. Implants None Estimated Blood Loss 20 Drains No Packing No Pathology Yes (Appendix to pathology) Complications No immediate complications Condition Stable Disposition PACU [facility] Billing Surgery - Charge Forward: Surgery Billing
[2024-11-02] MEDS: CITALOPRAM HYDROBROMIDE 20 MG TABLET 40 MG PO (13:50)
[2024-11-02] MEDS: HYDROcodone/acetaminophen (*CRX) 5-325 MG TABLET 1 TAB PO (16:36)
[2024-11-02] MEDS: ONDANSETRON INJ 4 MG/2 ML VIAL IV PUSH (16:36)
[2024-11-02] MEDS: oxyCODONE HCL (*CRX) 5 MG TAB IR PO (21:07)
[2024-11-03 00:05] VITALS: BP 115/60; PULSE 76; RESP 18; TEMP 36.6; O2SAT 100
[2024-11-03] MEDS: oxyCODONE HCL (*CRX) 5 MG TAB IR PO (02:39)
[2024-11-03 04:00] VITALS: BP 125/61; PULSE 64; RESP 18; TEMP 36.4; O2SAT 99
[2024-11-03 07:42] VITALS: BP 117/57; PULSE 56; RESP 18; TEMP 36.2; O2SAT 98
[2024-11-03] MEDS: HYDROcodone/acetaminophen (*CRX) 5-325 MG TABLET 1 TAB PO ×2 (07:43→11:39)
[2024-11-03] MEDS: CITALOPRAM HYDROBROMIDE 20 MG TABLET 40 MG PO (07:44)
--- NOTE | 2024-11-03 09:52 | P.PNGS_ITS ---
Progress Note: A&P Assessment and Plan (1) Acute appendicitis: Qualifiers: Acute appendicitis type: with localized peritonitis Appendicitis abscess presence: without abscess Appendicitis gangrene presence: without gangrene Appendicitis perforation presence: without perforation Qualified Code(s): K35.30 - Acute appendicitis with localized peritonitis, without perforation or gangrene Code(s): K35.80 - Unspecified acute appendicitis Status: Acute Assessment and Plan: * Postop day 1 following laparoscopic appendectomy for acute uncomplicated appendicitis. She is doing well today. Tolerating her diet and activity. Pos toperative incisional pain is well controlled. Okay to discharge home from a surgical standpoint. Follow-up with Dr. Garcia in 2 weeks. Plan I have discussed the patient's case and plan of care with Dr. Garcia. Subjective Subjective Date/Time Seen: 11/03/24 09:52 Post Op day: 1 (Laparoscopic appendectomy) Patient reports: feels better, tolerating a regular diet, voiding w/o difficulty and afebrile Interval history: Patient reports feeling well today. Her abdominal pain prior to surgery has resolved. Only having some mild incisional pain that is well controlled with oral analgesics. She is ambulating and tolerating activity well. Voiding without difficulty. No other complaints at this time. Exam Const: General: comfortable and no acute distress Orientation/consciousness: patient oriented x3 GI: Inspection: non-distended, incision (dry and glue intact, no erythema, mild ecchymosis around suprapubic site) and obesity GI Palp: Yes Soft to palpation and Yes Tenderness to palpation present (GI) (expected incisional tenderness) Auscultation: normal bowel sounds Objective Data Vital Signs Vital Signs: Vital Signs - 24 hr 11/02/24 12:07 11/02/24 12:15 11/02/24 12:30 Temperature 97.7 F Pulse Rate 73 69 69 Respiratory Rate 12 17 16 Blood Pressure 129/72 127/71 127/69 Pulse Oximetry 98 100 100 Oxygen Delivery Simple Face Mask Simple Face Mask Room Air Oxygen Flow Rate 10 10 11/02/24 12:45 11/02/24 13:00 11/02/24 13:15 Temperature Pulse Rate 70 74 68 Respiratory Rate 13 16 15 Blood Pressure 132/68 125/71 131/73 Pulse Oximetry 94 96 94 Oxygen Delivery Room Air Room Air Room Air Oxygen Flow Rate 11/02/24 13:30 11/02/24 13:47 11/02/24 14:48 Temperature 97.2 F L 97.9 F Pulse Rate 66 74 78 Respiratory Rate 19 16 14 Blood Pressure 128/61 114/53 L 111/59 L Pulse Oximetry 93 95 94 Oxygen Delivery Room Air Oxygen Flow Rate 11/02/24 20:00 11/02/24 20:00 11/03/24 00:05 Temperature 97.6 F 98 F Pulse Rate 74 76 Respiratory Rate 18 18 Blood Pressure 112/57 L 115/60 Pulse Oximetry 96 100 Oxygen Delivery Room Air Oxygen Flow Rate 11/03/24 04:00 11/03/24 07:42 11/03/24 07:50 Temperature 97.5 F L 97.2 F L Pulse Rate 64 56 L Respiratory Rate 18 18 Blood Pressure 125/61 117/57 L Pulse Oximetry 99 98 Oxygen Delivery Room Air Oxygen Flow Rate Intake/Output Intake/Output: Intake & Output 10/31/24 11/01/24 11/02/24 11/03/24 23:59 23:59 23:59 23:59 Intake Total 1580 1510 440 Balance 1580 1510 440 Meds/Results Medications: Active Medications Generic Name Dose Route Start Last Admin Trade Name Freq PRN Reason Stop Dose Admin Acetaminophen 1,000 mg 11/02/24 13:38 Acetaminophen 500 Mg Tablet PO Q6H PRN Mild Pain (1-3) or Fever Hydrocodone Bitart/Acetaminophen 1 tab 11/02/24 13:38 11/03/24 07:43 Hydrocodone/Acetaminophen (*Crx) 5-325 Mg Tablet PO 1 tab Q4H PRN Administration Pain Rated 4-6 Citalopram Hydrobromide 40 mg 11/02/24 09:00 11/03/24 07:44 Citalopram Hydrobromide 20 Mg Tablet PO 40 mg DAILY KRISTEN Administration Fentanyl Citrate 25 mcg 11/02/24 07:38 11/02/24 13:29 Fentanyl Citrate Inj (*Crx) 100 Mcg/2 Ml Vial IV PUSH 25 mcg Q2M PRN Administration Pain Lactated Ringer's 1,000 mls @ 30 mls/hr 11/02/24 07:40 11/02/24 12:07 Lr - Lactated Ringers Iv IV CONT Infused .Q24H KRISTEN Infusion Lactated Ringer's 1,000 mls @ 30 mls/hr 11/02/24 07:40 11/02/24 13:05 Lr - Lactated Ringers Iv IV CONT Infused .Q24H KRISTEN Infusion Morphine Sulfate 2 mg 11/01/24 13:41 Morphine Sulfate (*Crx) 2 Mg/Ml Inj IV PUSH Q4H PRN Pain Rated 7-10 Ondansetron HCl 4 mg 11/02/24 12:10 11/02/24 16:36 Ondansetron Inj 4 Mg/2 Ml Vial IV PUSH 4 mg Q6H PRN Administration Nausea And Vomiting Oxycodone HCl 5 mg 11/02/24 13:38 11/03/24 02:39 Oxycodone Hcl (*Crx) 5 Mg Tab Ir PO 5 mg Q4H PRN Administration Pain Rated 7-10 Radiology Results: ITS Impressions Abdomen/Pelvis CT 11/01/24 11:16 Impression: Findings compatible with early/mild acute appendicitis. No abscess or free air. Probable cholelithiasis.
--- NOTE | 2024-11-03 13:43 | P.DS_ITS ---
DS: Admitting Diagnosis Discharge Date 11/03/24 Admitting Diagnosis Abdominal Pain DS: Discharge Diagnosis Discharge Diagnosis (1) Acute appendicitis: Qualifiers: Acute appendicitis type: with localized peritonitis Appendicitis abscess presence: without abscess Appendicitis gangrene presence: without gangrene Appendicitis perforation presence: without perforation Qualified Code(s): K35.30 - Acute appendicitis with localized peritonitis, without perforation or gangrene Code(s): K35.80 - Unspecified acute appendicitis Status: Acute Assessment and Plan: - s/p Lap Appendectomy. - No fevers and WBC's wnl. - Abx discontinued. (2) Obesity: Code(s): E66.9 - Obesity, unspecified Status: Acute Assessment and Plan: - Encouraged with lifestyle modification. (3) Depression: Code(s): F32.A - Depression, unspecified Status: Acute Assessment and Plan: - Resume citalopram with diet. (4) Urinary tract infection: Qualifiers: Hematuria presence: without hematuria Urinary tract infection type: acute cystitis Qualified Code(s): N30.00 - Acute cystitis without hematuria Code(s): N39.0 - Urinary tract infection, site not specified Status: Acute Assessment and Plan: - Urine culture negative. - No abx needed. Plan Discharge Home DS: Summary Hospital Course Reason for hospitalization: Lower abdominal pain Hospital Course: Patient presented to the ER with reports of lower abdominal pain. Initial work- up included an abdominal CT that was consistent with acute appendicitis. General surgery was consulted and surgical treatment was recommended. Patient underwent a laparoscopic appendectomy with no complications. Patient has been able to tolerate regular diet well with no GI distress. Patient reports minimal soreness to lower abdomen likely from surgical procedure. She has been ambulating around the hallways and tolerating well. She has been cleared for discharge by the general surgeon. Patient is medically stable for discharge with no acute distress noted or reported prior to discharge. All her other chronic conditions remained stable inpatient. Status at Discharge Functional status at discharge: independent ambulation Overall status at discharge: patient is progressing back to baseline Time Spent with Patient Time attestation: Total time spent providing and/or coordinating discharge services: Time spent: Less than 30 minutes Exam Narrative: General: Well appearing and in no acute distress. HEENT: PERRL, EOMI. Sclera anicteric. Tacky mucous membranes. Neck: Supple. Respiratory: Lungs are clear to auscultation bilaterally. Cardiovascular: Regular rate and rhythm with S1-S2. Gastrointestinal: Abdomen soft, obese, nondistended, +ve BS X4 quadrants. Minimal tenderness to palpation. Surgical incision intact with no drainage. Skin: Warm and dry. Extremities: No cyanosis, clubbing, or edema. Radial and pedal pulses intact. Neurological: Alert. Cranial nerves 2-12 are grossly intact. Psychiatric: Pleasant and cooperative. DS: Data Data Completed and Pending Completed studies during hospitalization: Pending at discharge 11/02/24 11:37 Surgical [PTH] Routine Discharge Plan Discharge Attending physician on discharge: Sonia Boss Consulting providers: Luis Miguel Matamoros; Michael Garcia Discharging Clinician: Rai Blackman Anticipated Discharge Date/Time: 11/03/24 13:57 Patient Disposition: Home, Self-Care Activity: may shower Diet: regular Wound Care Instructions: other - see discharge instructions Discharge Instructions: May discharge home when stable. Follow up with Dr. Garcia in the office in 2 weeks. Patient to call [phone] for an appointment. May shower in 24hours but do not soak incisions under water for 2 weeks. No lifting more than 10 to 15 lb for 2 weeks. May advance diet as tolerated. No driving for at least 3 days or until no longer taking any narcotic pain medication. Resume all home medications. Prescription for narcotic pain medicines will be sent to the patient's pharmacy if needed. May use Tylenol and/or ibuprofen in addition to or in place of narcotic pain medications for postoperative pain. Patient Instructions: Antibiotic Form Patient Language: Faroese Stand Alone Forms: General Discharge Information Follow-up/Referrals: Michael Garcia MD [Physician] - Discharge Medications: New oxycodone 5 mg tablet 5 mg PO Q6H PRN (Reason: pain) Qty: 15 0RF Continued Mounjaro 2.5 mg/0.5 mL pen injector 2.5 mg subcut WEEKLY loratadine [Claritin] 10 mg Tablet 10 mg PO DAILY citalopram 20 mg tablet 40 mg PO DAILY Date of admission: 11/01/24 13:01 Primary Care Provider: Afshan Martin Admitting Provider: Hudson Valencia Attending physician on admission: Valencia,Hudson Condition: Stable Quality VTE Prophylaxis VTE prophylaxis: mechanical ordered Hospitalist MIPS Heart Failure (Exclusion) Patient has history of Heart Transplant or Left Ventricular Assistive Device?: No IF YES, STOP HERE Heart Failure (Qualifier) Patient has current or prior documentation of LVEF less than or equal to 40%, or mod/servere depressed LVSF?: No IF NO, STOP HERE
[2024-11-03 13:58] VITALS: BP 107/52; PULSE 64; RESP 18; TEMP 36.4; O2SAT 98
--- OUTSIDE RECORDS SUMMARY | 2024-11-05 20:17 | XMS_ITS | Encounter Summary ---
Author Organization [facility] Address [address] [place], [place] [address] [address] Care Team Providers Care Strategy Consultant Name Role Phone Kyra Medina Primary Care Provider [phone] Reason for Visit * Reason Onset Date Comments Diet 06/10/2020 Encounter Details Date Type Department Care Team (Late st Contact Info) Description 06/10/2020 Telephone [facility] [address] [place] [address], [facility] [address] [place] [address] Sara Pabon, GISEL/LD Diet Social History Tobacco Use Types Packs/Day Years Used Date Smoking Tobacco: Never Smokeless Tobacco: Never Alcohol Use Standard Drinks/Week Comments Yes 0 (1 standard drink = 0.6 oz pur e alcohol) rare Sex and Gender Information Value Date Recorded Sex Assigned at Not on file Gender Identity Not on file Sexual Orientation Not on file COVID-19 Exposure Response Date Recorded In the last month, have you been in contact with someone who was confirmed or suspected to have Coronavirus / COVID-19? Unable to assess 05/13/2020 12:17 PM CDT documented as of this encounter Plan of Treatment Not on file documented as of this encounter Visit Diagnoses Not on filedocumented in this encounter Care Teams Strategy Consultant Relationship Specialty Start Date End Date Kyra Medina PA [address] [place] [id number] PCP - General Physician Cable Splicing Technician 02/02/20 documented as of this encounter
--- OUTSIDE RECORDS SUMMARY | 2024-11-05 20:17 | XMS_ITS | Encounter Summary ---
Author Organization [facility] Address [address] [facility] [place] [address] Care Team Providers Care Hydraulics Engineer Name Role Phone Kyra Medina Primary Care Provider [phone] Encounter Details Date Type Department Care Team (Latest Contact Info) Description 05/13/2020 Travel Social History Tobacco Use Types Packs/Day Years [...] on filedocumented in this encounter Care Teams Hydraulics Engineer Relationship Specialty Start Date End Date Kyra Medina PA [address] [facility] [address] [facility] [place] [phone] PCP - General Physician Manager Spring 02/02/20 documented as of this encounter
--- OUTSIDE RECORDS SUMMARY | 2024-11-05 20:17 | XMS_ITS | Encounter Summary ---
Author Organization [facility] [employer] Address [address] [place] [address] Care Team Providers Care Medication Coordinator Name Role Phone Kyra Medina Primary Care Provider [phone] Reason for Visit * Reason Onset Date Comments Future Appointment 04/07/2020 Encounter Details Date Type Department Care Team (Late st Contact Info) Description 04/07/2020 Telephone [facility] [employer] [facility] [address] [facility], [facility] [address] [place] [address] [place] [address] [facility] [address] [place] [address] Future Appointment Social History Tobacco Use Types Packs/Day Years Used Date Smoking Tobacco: Never Smokeless Tobacco: Never Alcohol Use Standard Drinks/Week Comments Yes 0 (1 standard drink = 0.6 oz pur e alcohol) rare Sex and Gender Information Value Date Recorded Sex Assigned at Not on file Gender Identity Not on file Sexual Orientation Not on file documented as of this encounter Miscellaneous Notes * Telephone Encounter - Mercedes Graf RN - 04/07/2020 1:47 PM CDT Called to schedule preop refresher telemedicine visit. No answer. Left message with call back number. documented in this encounter Plan of Treatment Not on file documented as of this encounter Visit Diagnoses Not on filedocumented in this encounter Care Teams Medication Coordinator Relationship Specialty Start Date End Date Kyra Medina PA [address] [place] [address] [place] [phone] PCP - General Physician L Tacker 02/02/20 documented as of this encounter
--- OUTSIDE RECORDS SUMMARY | 2024-11-05 20:17 | XMS_ITS | Encounter Summary ---
Author Organization [facility] [employer] Address [address] [place] [address] Care Team Providers Care Territory Manager Name Role Phone Kyra Medina Primary Care Provider [phone] Reason for Visit * Reason Onset Date Comments Surgery Scheduling 02/05/2020 Encounter Details Date Type Department Care Team (Late st Contact Info) Description 02/05/2020 Telephone [facility] [employer] [facility] [address] [facility], [address] [place] [address] [place] [address] [facility] [address] [place] [address] Surgery Scheduling Social History Tobacco Use Types Packs/Day Years [...] Telephone Encounter - Mercedes Graf RN - 02/05/2020 1:54 PM CDT Called and canceled surgery due to the public health emergency. Patient verbalized understanding. documented in this encounter Plan of Treatment Not on file documented as of this encounter Visit Diagnoses Not on filedocumented in this encounter Care Teams Territory Manager Relationship Specialty Start Date End Date Kyra Medina PA [address] [facility] [address] [facility] [address] [address] [place] [phone] PCP - General Physician Automatic Folder Seamer 02/02/20 documented as of this encounter
--- OUTSIDE RECORDS SUMMARY | 2024-11-05 20:17 | XMS_ITS | Encounter Summary ---
Author Organization [facility] [employer] Address [address] [place] [address] Care Team Providers Care Client Administrator Name Role Phone Kyra Medina Primary Care Provider [phone] Reason for Visit * Reason Onset Date Comments Surgery Scheduling 05/06/2020 Encounter Details Date Type Department Care Team (Late st Contact Info) Description 05/06/2020 Telephone [facility] [employer] [facility] [address] [facility], [address] [place] [address] [place] [address] [facility] [address] [place] [address] Surgery Scheduling Social History Tobacco [...] Telephone Encounter - Mercedes Graf RN - 05/06/2020 12:52 PM CDT Called to discuss surgery dates and verify surgery type with patient. Patient is now scheduled for laparoscopic RnY and HHR by Dr Jimenez on 06/20 at [facility]. Patient attended preoperative education classpresented by bariatric team on 04/26. Instructed of 2 week liquid diet requirement- to start 06/06 . Instructed patient to start bariatric MVI with liquid diet or 1 week before surgery. Reminded pt to stop any blood thinners to include plavix, asa, coumadin, omega3, fish oil, NSAIDS 5-7 days prior to surgery, except for prescribed daily dose of asa 81mg. Reminded female patients should be avoided for 18 months following surgery, and must stopEstrogen containing control 2 weeks before and 4 weeks after surgery. Instructed pt to write 1- 4 (or 5 if needs 2nd consult) 1. Surgery date 06/20 2. Pre op class date 04/26 3. SEC date 02/01 4. Pre op liquid diet start date 06/06 5. covid testing 06/17 [facility] Marc Chan Pt denies questions at this time. documented in this encounter Plan of Treatment Not on file documented as of this encounter Visit Diagnoses Not on filedocumented in this encounter Care Teams Client Administrator Relationship Specialty Start Date End Date Kyra Medina PA [address] [facility] [facility] [place] [phone] PCP - General Physician Supervisor Contact And Service Clerks 02/02/20 documented as of this encounter
--- OUTSIDE RECORDS SUMMARY | 2024-11-05 20:17 | XMS_ITS | Referral Summary ---
Author Organization [facility] [employer] Address [address] [place] [address] Care Team Providers Care Atomic Physics Teacher Name Role Phone Kyra Medina Primary Care Provider [phone] Source Comments [facility] [employer],non-[facility] Affiliates and Associated Physician Practices is amultiple site organization consisting of ambulatory clinics and hospital sitesin [place], [place], [place] and [place]. This disclosure is being madepursuant to the Care Everywhere program and may not contain all information available regarding this patient. Last updated 18.[facility] [employer] Allergies Active Allergy Reactions Criticality Noted Date Comments Sulfa Drugs Urticaria,Rash Medium 12/04/2018 Medications * Be aware that medications may not be up to date on this document. Alwaysverify current medications with the patient. Medication Sig Dispensed Refills Start Date End Date Status citalopram (CELEXA) 40 MG tablet Take 40 mg by mouth once daily Active Loratadine (CLARITIN PO) Take by mouth once daily as needed Active Social History Tobacco Use Types Packs/Day Years Used Date Smoking Tobacco: Never Smokeless Tobacco: Never Alcohol Use Standard Drinks/Week Comments Yes 0 (1 standard drink = 0.6 oz pur e alcohol) rare Sex and Gender Information Value Date Recorded Sex Assigned at Not on file Gender Identity Not on file Sexual Orientation Not on file Last Filed Vital Signs Vital Sign Reading Time Taken Comments Blood Pressure 130/88 02/02/2020 2:05 PM CDT Pulse 82 02/02/2020 2:05 PM CDT Temperature 37.1 ??C (98.8 ??F) 09/30/2019 9:31 AM CS T Respiratory Rate 16 09/30/2019 9:31 AM SLAG WORKER Oxygen Saturation 96% 09/30/2019 9:31 AM SLAG WORKER Inhaled Oxygen Concentration - - Weight 138.1 kg (304 lb 6.4 oz) 02/02/2020 2:05 PM CDT Height 162.6 cm (5' 4 ) 02/02/2020 2:05 PM CDT Body Mass Index 52.25 02/02/2020 2:05 PM CDT Plan of Treatment Not on file Care Teams Atomic Physics Teacher Relationship Specialty Start Date End Date Kyra Medina PA [address] [facility] [address] [place] [phone] PCP - General Physician Rn Paralegal 02/02/20
--- OUTSIDE RECORDS SUMMARY | 2024-11-05 20:17 | XMS_ITS | Patient Health Summary ---
Author Organization [facility] [email or web address] Address [address] [facility] [place] [address] Care Team Providers Care Lvn Home Health Name Role Phone Kyra Medina Primary Care Provider [phone] [facility],non-owned Affiliates and Associated Physician Practices is amultiple site organization consisting of ambulatory clinics and hospital sitesin [place], [place], [place] and [place]. This disclosure is being madepursuant to the Care Everywhere program and may not contain all information available regarding this patient. Last updated 18.[facility] [email or web address] Allergies * Sulfa Drugs(Urticaria,Rash) -Medium Criticality Medications * Be aware that medications may not be up to date on this document. Alwaysverify current medications with the patient. 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 Oxygen Saturation 96% 09/30/2019 9:31 AM PLUMBING DESIGNER Inhaled Oxygen Concentration - - Weight 138.1 kg (304 lb 6.4 oz) 02/02/2020 2:05 PM CDT Height 162.6 cm (5' 4 ) 02/02/2020 2:05 PM CDT Body Mass Index 52.25 02/02/2020 2:05 PM CDT Procedures * VITAMIN B12(Performed 02/02/2020) Performed for Preoperative examination * VITAMIN B1(Performed 02/02/2020) Performed for Preoperative examination * COMPREHENSIVE METABOLIC PANEL(Performed 02/02/2020) Performed for Preoperative examination * CBC W AUTO DIFFERENTIAL(Performed 02/02/2020) Performed for Preoperative examination * EKG 12-LEAD(Performed 02/02/2020) Performed for Preoperative examination * FL FLUORO UPPER GI TRACT + KUB(Performed 02/24/2019) Performed for Morbid obesity (HCC), BMI 50.0-59.9, adult (HCC) Results * VITAMIN B1 (02/02/2020 3:41 PM CDT) Vitamin B1 Whole Blood 166.5 66.5 - 200.0 nmol/L 02/06/2020 6:07 AM CDT [facility] ([facility]) Blood BLOOD SPECIMEN / Unknown Venipuncture / Unknown 02/02/2020 3:41 PM CDT 02/02/2020 3:54 PM CDT Narrative [facility] ([facility]) - 02/06/2020 6:07 AM CDT Test(s) [id number]-[id number]. B1, Whole Blood was developed and its performance characteristics determined by [facility]. It has not been cleared or approved by the Food and Drug Administration. Performed at: ??01 - [facility] [address] ??[id number] Fur Trapper: Baldev Zuniga MD, Phone: ??[phone] Shoaib Jimenez MD LAB - CHEMISTRY NADINE IRENE [facility] ([facility]) [address] [place] [address] * (ABNORMAL) CBC W AUTO DIFFERENTIAL (02/02/2020 3:41 PM CDT) WBC 9.4 4.4 - 10.7 x10E9/L 02/02/2020 3:58 PM CDT [facility] WBC Corrected 02/02/2020 3:58 PM CDT [facility] RBC 4.66 3.80 - 5.20 x10E12/L 02/02/2020 3:58 PM CDT [facility] Hemoglobin 13.6 12.0 - 15.6 gm/dL 02/02/2020 3:58 PM CDT [facility] Hematocrit 42.7 35.9 - 45.5 % 02/02/2020 3:58 PM CDT [facility] MCV 91.6 80.7 - 98.3 fl 02/02/2020 3:58 PM CDT [facility] MCH 29.2 26.7 - 34.0 pg 02/02/2020 3:58 PM CDT [facility] MCHC 31.9 30.8 - 35.9 gm/dL 02/02/2020 3:58 PM CDT [facility] Platelet Count 348 153 - 416 x10E9/L 02/02/2020 3:58 PM CDT [facility] RDW-CV 12.8 12.1 - 14.9 % 02/02/2020 3:58 PM CDT [facility] MPV 9.3(L) 9.4 - 12.9 fl 02/02/2020 3:58 PM CDT [facility] Neutrophils % 54.7 44.0 - 73.0 % 02/02/2020 3:58 PM CDT [facility] Lymphocytes % 34.5 20.0 - 43.0 % 02/02/2020 3:58 PM CDT [facility] Monocytes % 6.9 5.0 - 13.0 % 02/02/2020 3:58 PM CDT [facility] Eosinophils % 1.9 0.0 - 6.0 % 02/02/2020 3:58 PM CDT [facility] Basophils % 1.0 0.0 - 2.0 % 02/02/2020 3:58 PM CDT [facility] Immature Granulocytes 1.0 0 - 1 % 02/02/2020 3:58 PM CDT [facility] Neutrophil Absolute 5.13 2.01 - 7.14 x10E9/L 02/02/2020 3:58 PM CDT [facility] Lymphocytes Absolute 3.24 1.07 - 3.94 x10E9/L 02/02/2020 3:58 PM CDT [facility] Monocytes Absolute 0.65 0.26 - 1.07 x10E9/L 02/02/2020 3:58 PM CDT [facility] Eosinophils Absolute 0.18 0 - 0.47 x10E9/L 02/02/2020 3:58 PM CDT [facility] Basophils Absolute 0.09(H) 0 - 0.08 x10E9/L 02/02/2020 3:58 PM CDT [facility] Immature Granulocytes Absolute 0.09(H) 0.00 - 0.06 x10E9/L 02/02/2020 3:58 PM CDT [facility] nRBC Auto 0 /100 WBC 02/02/2020 3:58 PM CDT [facility] Blood BLOOD SPECIMEN / Unknown Venipuncture / Unknown 02/02/2020 3:41 PM CDT 02/02/2020 3:54 PM CDT Shoaib Jimenez MD LAB - HEMATOLOGY ORD ERABLES [facility] [address] [place] [address] * (ABNORMAL) COMPREHENSIVE METABOLIC PANEL (02/02/2020 3:41 PM CDT) [facility] Glucose 90 70 - 105 mg/dL 02/02/2020 4:17 PM CDT [facility] Sodium 141 136 - 145 mmol/L 02/02/2020 4:17 PM CDT [facility] Potassium 4.1 3.5 - 5.1 mmol/L 02/02/2020 4:17 PM CDT [facility] Chloride 104 98 - 107 mmol/L 02/02/2020 4:17 PM CDT [facility] CO2 27 23 - 31 mmol/L 02/02/2020 4:17 PM CDT [facility] Calcium 9.5 8.4 - 10.4 mg/dL 02/02/2020 4:17 PM CDT [facility] Anion Gap 10 8 - 16 mmol/L 02/02/2020 4:17 PM CDT [facility] BUN 11 7 - 18.7 mg/dL 02/02/2020 4:17 PM CDT [facility] Creatinine 0.95 0.57 - 1.11 mg/dL 02/02/2020 4:17 PM CDT [facility] Alkaline Phosphatase 56 40 - 150 U/L 02/02/2020 4:17 PM CDT [facility] ALT 68(H) 0 - 61 U/L 02/02/2020 4:17 PM CDT [facility] AST 39(H) 5 - 34 U/L 02/02/2020 4:17 PM CDT [facility] Protein Total 7.6 6.4 - 8.3 gm/dL 02/02/2020 4:17 PM CDT [facility] Albumin 4.6 3.5 - 5.2 gm/dL 02/02/2020 4:17 PM CDT [facility] Bilirubin Total 0.3 0.2 - 1.0 mg/dL 02/02/2020 4:17 PM CDT [facility] eGFR by MDRD >60 >60 mL/min/1.7 3m2 02/02/2020 4:17 PM CDT [facility] eGFR by MDRD >60 >60 mL/min/1.7 3m2 02/02/2020 4:17 PM CDT [facility] Blood BLOOD SPECIMEN / Unknown Venipuncture / Unknown 02/02/2020 3:41 PM CDT 02/02/2020 3:54 PM CDT Shoaib Jimenez MD LAB - CHEMISTRY ORDPorfirio IRENE Performing Organization Address [facility]/ZIP Co de Phone Number [facility] [address] [place] [address] * VITAMIN B12 (02/02/2020 3:41 PM CDT) Pathologist [facility] Vitamin B12 796 213 - 816 pg/mL 02/02/2020 4:44 PM CDT [facility] Blood BLOOD SPECIMEN / Unknown Venipuncture / Unknown 02/02/2020 3:41 PM CDT 02/02/2020 3:54 PM CDT Shoaib Jimenez MD LAB - CHEMISTRY NADINE IRENE Performing Organization Address City/[facility]/ZIP Co de Phone Number [facility] [address] [place] [address] * EKG 12-LEAD (02/02/2020 2:35 PM CDT) Ventricular Rate 66 BPM [facility] Atrial Rate 66 BPM [facility] P-R Interval 154 ms [facility] QRS Duration ms 84 ms [facility] Q-T Interval ms 422 ms [facility] QTC Calculation (Bezet) 442 ms [facility] Calculated P [place] 29 degrees [facility] Calculated R [place] 8 degrees [facility] Calculated T [place] 77 degrees [facility] Interpretation EKG Normal sinus rhythm Low voltage QRS Borderline ECG No previous ECGs available Confirmed by Karen Edwards ([id number]) on 02/03/2020 3:56:23 PM [facility] 02/02/2020 2:35 PM CDT 02/03/2020 3:56 PM CDT Shoaib Jimenez MD ECG ORDERABLES [facility] * FL FLUORO UPPER GI TRACT + KUB (02/24/2019 8:11 AM CDT) Anatomical Region Laterality Modality Abdomen Radiographic Camila ging 02/24/2019 3:06 PM CDT Impressions 02/24/2019 4:46 PM CDT SMALL SLIDING-TYPE HIATAL HERNIA. MILD GASTROESOPHAGEAL REFLUX. Edited by Chiquita Rao on 02/24/2019 3:33 PM Reading Radiologist: Yesenia Garcia MD on 02/24/2019 at 4:46 PM Narrative 02/24/2019 4:46 PM CDT AIR-CONTRAST FLUOROSCOPIC UPPER GI SERIES CLINICAL INDICATION: Episodic abdominal pain. Morbid obesity. FINDINGS: The total fluoroscopy time was 65 seconds. 16 fluoroscopic images were obtained. Cine radiography was performed. The examination was performed following ingestion of gas producing crystals and thin barium. The esophagus is normal in contour and caliber. There are no mucosal lesions within the esophagus. There is a small sliding-type hiatal hernia. There was minimal gastroesophageal reflux during the examination. The stomach is normal in shape and contour. The gastric fold pattern is within normal limits. There is prompt emptying into the duodenum. The duodenum is within normal limits. Procedure Note Yesenia Garcia MD - 02/24/2019 AIR-CONTRAST FLUOROSCOPIC UPPER GI SERIES CLINICAL INDICATION: Episodic abdominal pain. Morbid obesity. FINDINGS: The total fluoroscopy time was 65 seconds. 16 fluoroscopic images were obtained. Cine radiography was performed. The examination was performed following ingestion of gas producing crystals and thin barium. The esophagus is normal in contour and caliber. There are no mucosal lesions within the esophagus. There is a small sliding-type hiatal hernia. There was minimal gastroesophageal reflux during the examination. The stomach is normal in shape and contour. The gastric fold pattern is within normal limits. There is prompt emptying into the duodenum. The duodenum is within normal limits. IMPRESSION SMALL SLIDING-TYPE HIATAL HERNIA. MILD GASTROESOPHAGEAL REFLUX. Edited by Chiquita Rao on 02/24/2019 3:33 PM Reading Radiologist: Yesenia Garcia MD on 02/24/2019 at 4:46 PM Shoaib Jimenez MD FLUOROSCOPY ORDERABL ES Care Teams Lvn Home Health Relationship Specialty Start Date End Date Kyra Medina PA [address] [facility] [address] [place] [address] PCP - General Physician Postbed Stitcher 02/02/20
--- OUTSIDE RECORDS SUMMARY | 2024-11-05 20:17 | XMS_ITS | Clinical Summary ---
Author Organization [facility] [employer] Address [address] [place] [address] Care Team Providers Care It Business Analyst Name Role Phone Kyra Medina Primary Care Provider [phone] Source Comments [facility] [employer],non-[facility] Affiliates and Associated Physician Practices is amultiple site organization consisting of ambulatory clinics and hospital sitesin [place], [place], [place] and [place]. This disclosure is being madepursuant to the Care Everywhere program and may not contain all information available regarding this patient. 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 Oxygen Saturation 96% 09/30/2019 9:31 AM RADIOGRAPHER TECHNOLOGIST Inhaled Oxygen Concentration - - Weight 138.1 kg (304 lb 6.4 oz) 02/02/2020 2:05 PM CDT Height 162.6 cm (5' 4 ) 02/02/2020 2:05 PM CDT Body Mass Index 52.25 02/02/2020 2:05 PM CDT Plan of Treatment Health Maintenance Due Date Last Done Comments PAP SMEAR 1985 HIV SCREENING 2000 HEPATITIS C SCREENING 04/16/2003 DTAP/TDAP/TD VACCINES (1 - Tdap) 2004 HEPATITIS B VACCINE (1 of 3 - 19+ 3-dose series) 2004 DEPRESSION SCREENING 11/18/2023 COVID-19 VACCINE (1 - 2023-2 5 season) 2024 INFLUENZA VACCINE (#1) 2024 08/18/2019 ZOSTER VACCINE (1 of 2) 2035 HIB VACCINE Aged Out No longer eligi ble based on patient's age to complete this topic HPV VACCINE Aged Out No longer eligi ble based on patient's age to complete this topic MENINGOCOCCAL VACCINE Aged Out No bren davion eligible based on patient's age to complete this topic PNEUMOCOCCAL VACCINE Aged Out No long er eligible based on patient's age to complete this topic Care Teams It Business Analyst Relationship Specialty Start Date End Date Kyra Medina PA [address] [place] [phone] PCP - General Physician Hot Repairman 02/02/20
--- OUTSIDE RECORDS SUMMARY | 2024-11-05 20:17 | XMS_ITS | Encounter Summary ---
Author Organization [facility] Address [address] [place], [place] [address] [address] Care Team Providers Care Major Account Representative Name Role Phone Kyra Medina Primary Care Provider [phone] Encounter Details Date Type Department Care Team (Latest Contact Info) Description 02/02/2020 2:49 PM CDT - 02/02/2020 11:59 PM CDT [facility] [address] [facility] [address] [place] [address] [place] [address] [facility] [address] [place] [address] Discharge Disposition: Home or Self Care Social History Tobacco Use Types Packs/Day Years Used Date Smoking Tobacco: Never Smokeless Tobacco: Never Alcohol Use Standard Drinks/Week Comments Yes 0 (1 standard drink = 0.6 oz pur e alcohol) rare Sex and Gender Information Value Date Recorded Sex Assigned at Not on file Gender Identity Not on file Sexual Orientation Not on file documented as of this encounter Medications at Time of Discharge Medication Sig Dispensed Refills Start Date End Date citalopram (CELEXA) 40 MG tablet Take 40 mg by mouth once daily Loratadine (CLARITIN PO) Take by mouth once daily as needed documented as of this encounter Plan of Treatment Not on file documented as of this encounter Procedures Procedure Name Priority Date/Time Associated Diagnosis Comments VITAMIN B1 Routine 02/02/2020 3:41 PM CDT Preoperative examination CBC W AUTO DIFFERENTIAL Routine 02/02/2020 3:41 PM CDT Preoperative examination COMPREHENSIVE METABOLIC PANEL Routine 02/02/2020 3:41 PM CDT Preoperative examination VITAMIN B12 Routine 02/02/2020 3:41 PM CDT Preoperative examination EKG 12-LEAD Routine 02/02/2020 2:35 PM CDT Preoperative examination documented in this encounter Results * VITAMIN B12 (02/02/2020 3:41 PM CDT) Vitamin B12 796 213 - 816 pg/mL 02/02/2020 4:44 PM CDT [facility] Blood BLOOD SPECIMEN / Unknown Venipuncture / Unknown 02/02/2020 3:41 PM CDT 02/02/2020 3:54 PM CDT Shoaib Jimenez MD LAB - CHEMISTRY NADINE IRENE Performing Organization Address City/State/[facility] Co de Phone Number [facility] [address] [place] [phone] * VITAMIN B1 (02/02/2020 3:41 PM CDT) Pathologist [facility] Vitamin B1 Whole Blood 166.5 66.5 - 200.0 nmol/L 02/06/2020 6:07 AM CDT [facility] ([facility]) Blood BLOOD SPECIMEN / Unknown Venipuncture / Unknown 02/02/2020 3:41 PM CDT 02/02/2020 3:54 PM CDT Narrative [facility] ([facility]) - 02/06/2020 6:07 AM CDT Test(s) 265800-Cja. B1, Whole Blood was developed and its performance characteristics determined by [facility]. It has not been cleared or approved by the Food and Drug Administration. Performed at: ??01 - [facility] [address] ??[id number] Maintenance Mechanic Helper: Baldev Zuniga MD, Phone: ??[phone] Shoaib Jimenez MD LAB - CHEMISTRY NADINE IRENE [facility] ([facility]) [address] [place] [address] * (ABNORMAL) COMPREHENSIVE METABOLIC PANEL (02/02/2020 3:41 PM CDT) [facility] Signature Glucose 90 70 - 105 mg/dL 02/02/2020 4:17 PM CDT [facility] Sodium 141 136 - 145 mmol/L 02/02/2020 4:17 PM CDT [facility] Potassium 4.1 3.5 - 5.1 mmol/L 02/02/2020 4:17 PM CDT [facility] Chloride 104 98 - 107 mmol/L 02/02/2020 4:17 PM CDT [facility] CO2 27 23 - 31 mmol/L 02/02/2020 4:17 PM CDT [facility] Calcium 9.5 8.4 - 10.4 mg/dL 02/02/2020 4:17 PM CDT [facility] Anion Gap 10 8 - 16 mmol/L 02/02/2020 4:17 PM CDT [facility] BUN 11 7 - 18.7 mg/dL 02/02/2020 4:17 PM CDT [facility] Creatinine 0.95 0.57 - 1.11 mg/dL 02/02/2020 4:17 PM CDT [facility] Alkaline Phosphatase 56 40 - 150 U/L 02/02/2020 4:17 PM CDT [facility] ALT 68(H) 0 - 61 U/L 02/02/2020 4:17 PM CDT [facility] AST 39(H) 5 - 34 U/L 02/02/2020 4:17 PM CDT [facility] Protein Total 7.6 6.4 - 8.3 gm/dL 02/02/2020 4:17 PM CDT [facility] Albumin 4.6 3.5 - 5.2 gm/dL 02/02/2020 4:17 PM CDT [facility] Bilirubin Total 0.3 0.2 - 1.0 mg/dL 02/02/2020 4:17 PM CDT [facility] eGFR by MDRD >60 >60 mL/min/1.7 3m2 02/02/2020 4:17 PM CDT [facility] eGFR by MDRD >60 >60 mL/min/1.7 3m2 02/02/2020 4:17 PM CDT [facility] Blood BLOOD SPECIMEN / Unknown Venipuncture / Unknown 02/02/2020 3:41 PM CDT 02/02/2020 3:54 PM CDT Shoaib Jimenez MD LAB - CHEMISTRY NADINE Simmons Organization Address City/State/ZIP Co de Phone Number [facility] [address] [place] [address] * (ABNORMAL) CBC W AUTO DIFFERENTIAL (02/02/2020 3:41 PM CDT) WBC 9.4 4.4 - 10.7 x10E9/L 02/02/2020 3:58 PM CDT [facility] WBC Corrected 02/02/2020 3:58 PM CDT [facility] RBC 4.66 3.80 - 5.20 x10E12/L 02/02/2020 3:58 PM CDT [facility] Hemoglobin 13.6 12.0 - 15.6 gm/dL 02/02/2020 3:58 PM CDT [facility] Hematocrit 42.7 35.9 - 45.5 % 02/02/2020 3:58 PM CDT [facility] MCV 91.6 80.7 - 98.3 fl 02/02/2020 3:58 PM CDT [facility] MCH 29.2 26.7 - 34.0 pg 02/02/2020 3:58 PM CDT [facility] MCHC 31.9 30.8 - 35.9 gm/dL 02/02/2020 3:58 PM CDT [facility] Platelet Count 348 153 - 416 x10E9/L 02/02/2020 3:58 PM CDT [facility] RDW-CV 12.8 12.1 - 14.9 % 02/02/2020 3:58 PM CDT [facility] MPV 9.3(L) 9.4 - 12.9 fl 02/02/2020 3:58 PM CDT [facility] Neutrophils % 54.7 44.0 - 73.0 % 02/02/2020 3:58 PM CDT [facility] Lymphocytes % 34.5 20.0 - 43.0 % 02/02/2020 3:58 PM CDT [facility] Monocytes % 6.9 5.0 - 13.0 % 02/02/2020 3:58 PM CDT [facility] Eosinophils % 1.9 0.0 - 6.0 % 02/02/2020 3:58 PM CDT [facility] Basophils % 1.0 0.0 - 2.0 % 02/02/2020 3:58 PM CDT [facility] Immature Granulocytes 1.0 0 - 1 % 02/02/2020 3:58 PM CDT [facility] Neutrophil Absolute 5.13 2.01 - 7.14 x10E9/L 02/02/2020 3:58 PM CDT [facility] Lymphocytes Absolute 3.24 1.07 - 3.94 x10E9/L 02/02/2020 3:58 PM CDT [facility] Monocytes Absolute 0.65 0.26 - 1.07 x10E9/L 02/02/2020 3:58 PM CDT [facility] Eosinophils Absolute 0.18 0 - 0.47 x10E9/L 02/02/2020 3:58 PM CDT [facility] Basophils Absolute 0.09(H) 0 - 0.08 x10E9/L 02/02/2020 3:58 PM CDT [facility] Immature Granulocytes Absolute 0.09(H) 0.00 - 0.06 x10E9/L 02/02/2020 3:58 PM CDT [facility] nRBC Auto 0 /100 WBC 02/02/2020 3:58 PM CDT [facility] Blood BLOOD SPECIMEN / Unknown Venipuncture / Unknown 02/02/2020 3:41 PM CDT 02/02/2020 3:54 PM CDT Shoaib Jimenez MD LAB - HEMATOLOGY ORD ERABLES [facility] [address] [place] [address] * EKG 12-LEAD (02/02/2020 2:35 PM CDT) Ventricular Rate 66 BPM [facility] Atrial Rate 66 BPM [facility] P-R Interval 154 ms [facility] QRS Duration ms 84 ms [facility] Q-T Interval ms 422 ms [facility] QTC Calculation (Bezet) 442 ms [facility] Calculated P Allen 29 degrees [facility] Calculated R Allen 8 degrees [facility] Calculated T Allen 77 degrees [facility] Interpretation EKG Normal sinus rhythm Low voltage QRS Borderline ECG No previous ECGs available Confirmed by Karen Edwards ([id number]) on 02/03/2020 3:56:23 PM [facility] 02/02/2020 2:35 PM CDT 02/03/2020 3:56 PM CDT Shoaib Jimenez MD ECG ORDERABLES [facility] documented in this encounter Visit Diagnoses Diagnosis Preoperative examination- Primary Preoperative examination, unspecified documented in this encounter Care Teams Major Account Representative Relationship Specialty Start Date End Date Kyra Medina PA [address] [place] [phone] PCP - General Physician Cadd Technician 02/02/20 documented as of this encounter
--- OUTSIDE RECORDS SUMMARY | 2024-11-05 20:17 | XMS_ITS | Encounter Summary ---
Author Organization [facility] Address [address] [place] [address] Care Team Providers Care Group Insurance Specialist Name Role Phone Kyra Medina Primary Care Provider [phone] Reason for Visit * Reason Onset Date Comments Future Appointment 04/12/2020 Encounter Details Date Type Department Care Team (Late st Contact Info) Description 04/12/2020 Telephone [facility] Weight Management Services [address] [facility], [facility] [address] [place] [address] [place] [address] [facility] [address] [place] [address] Future Appointment Social History Tobacco [...] Telephone Encounter - Mercedes Graf RN - 04/12/2020 10:38 AM CDT Patient is now scheduled for preop refresher telemedicine visit 04/26 1pm. email verified. documented in this encounter Plan of Treatment Not on file documented as of this encounter Visit Diagnoses Not on filedocumented in this encounter Care Teams Group Insurance Specialist Relationship Specialty Start Date End Date Kyra Medina PA [address] [facility] [place] [address] PCP - General Physician Wood Repatcher 02/02/20 documented as of this encounter
--- OUTSIDE RECORDS SUMMARY | 2024-11-05 20:17 | XMS_ITS | Encounter Summary ---
Author Organization [facility] Address [address] [place] [address] Care Team Providers Care Customer Experience Consultant Name Role Phone Kyra Medina Primary Care Provider [phone] Encounter Details Date Type Department Care Team (Late st Contact Info) Description 02/02/2020 12:00 PM CDT Office Visit [facility] [address] [place] [address], [address] [address] Morbid obesity (HCC) (Primary Dx) Social History Tobacco Use Types Packs/Day Years Used Date Smoking Tobacco: Never Smokeless Tobacco: Never Alcohol Use Standard Drinks/Week Comments Yes 0 (1 standard drink = 0.6 oz pur e alcohol) rare Sex and Gender Information Value Date Recorded Sex Assigned at Not on file Gender Identity Not on file Sexual Orientation Not on file documented as of this encounter Progress Notes * Jessi Best RN - 02/02/2020 2:59 PM CDT Patient has completed the educational class with the Renetta, RN, Health Educator and/or another qualified S staff. Reviewed items include: 1. Surgical risk factors 2. Pre-operative high protein liquid diet and rationale reviewed 3. Reviewed topic of weight gain at pre op class visit and day of surgery: This may result in completing more dietary education, increasing the number of weeks for the high protein liquid diet, another consult with the surgeon, and /or surgery cancellation 4. Pre-operative bathing instructions with antibacterial wash as directed by SEC 5. Required items to bring with patient day of surgery 6. Pre-operative admission 7. Operating room process 8. Recovery room process 9. Post-operative care on the nursing floor 10. Discharge instruction for home care: ambulation, IS, activity level 11. Phase 1 - 6 diet discussed 12. Vitamin supplements 13. Follow up appointments scheduled- 1 week, 1 month, 6 month, and 1 year 14. Support group, Facebook and resources discussed 15. When to call the office, signs and symptoms of complications provided, and the numbers to call 16. Weight Management's Surgical Pre-operative Questionnaire reviewed discussed and collected 17. Weight Management's contract reviewed, signed, and collected 18. Information on Medic Alert bracelet discussed 19. Discussed causes of nausea, vomiting, and dumping 20. ENERGY protocol discussed and questions answered 21. BSTOP education handout, in entirety, given to patient Surgery date and pre op diet reviewed individually with patient. Instructed to get Surgery Evaluation Center appointment as soon as possible, if not already completed- notified patient of failure to get labs could postpone surgery. Pt denies questions at this time. Pt is given contact information for [facility] Management Services to call for any questions or concerns. Supplement samples offered documented in this encounter Plan of Treatment Not on file documented as of this encounter Visit Diagnoses Diagnosis Morbid obesity (HCC)- Primary Morbid obesity documented in this encounter Care Teams Customer Experience Consultant Relationship Specialty Start Date End Date Kyra Medina PA [address] [facility] [address] [place] [phone] PCP - General Physician Reproduction Machine Loader 02/02/20 documented as of this encounter
--- OUTSIDE RECORDS SUMMARY | 2024-11-05 20:17 | XMS_ITS | Encounter Summary ---
Author Organization [facility] Address [address] [place] [address] Care Team Providers Care Calender Tender Name Role Phone Kyra Medina Primary Care Provider [phone] Encounter Details Date Type Department Care Team (Late st Contact Info) Description 04/26/2020 1:00 PM CDT Video Visit [facility] [address] [place] [address], [address] [phone] Morbid obesity (HCC) Social History Tobacco Use Types Packs/Day Years [...] Progress Notes * Jessi Best RN - 04/26/2020 5:04 PM CDT Patient has completed the ZOOM video refresher educational class with the Renetta, RN, Health [...] provided, and the numbers to call 16. Information on Medic Alert bracelet discussed 17. Discussed causes of nausea, vomiting, and dumping 18. ENERGY protocol discussed and questions answered 19. BSTOP education handout, in entirety, given to patient Pt denies questions at this time. Pt is given contact information for [facility] Weight Management Services to call for any questions or concerns. documented in this encounter Plan of Treatment Not on file documented as of this encounter Visit Diagnoses Diagnosis Morbid obesity (HCC)- Primary Morbid obesity documented in this encounter Care Teams Calender Tender Relationship Specialty Start Date End Date Kyra Medina PA [address] [facility] [address] [place] [phone] PCP - General Physician Bed Spring Maker 02/02/20 documented as of this encounter
--- OUTSIDE RECORDS SUMMARY | 2024-11-05 20:18 | XMS_ITS | Encounter Summary ---
Author Organization [facility] Address [address] [place] [address] Phone Care Team Providers Care Citrix Architect Name Role Phone Jaime Mota MD Primary Care Provider [phone] Encounter Details Date Type Department Care Team (Late st Contact Info) Description 03/04/2023 Telephone [facility] Otolaryngology [address] [place] [address] Morgan Garsia MD [address] [place] [address] Social History Tobacco Use Types Packs/Day Years Used Date Smoking Tobacco: Former Cigarettes Smokeless Tobacco: Never Alcohol Use Standard Drinks/Week Comments Yes 0 (1 standard drink = 0.6 oz pur e alcohol) AUDIT-C Answer Date Recorded Q1: How often do you have a drink containing alc ohol? Monthly or less 01/12/2020 Q2: How many drinks containi ng alcohol do you have on a typical day when you are drinking? 1 or 2 01/12/2020 Frequency of Binge Drinking Not on file 12/20 PHQ-2 Answer Date Recorded PHQ-2 Total Score (If total score is 3 or more points, staff should administer the PHQ-9) 0 02/28/2022 Comments No Sex and Gender Information Value Date Recorded Sex Assigned at Not on file Legal Sex Female 8:37 PM LUBE TECHNICIAN Gender Identity Not on file Sexual Orientation Not on file documented as of this encounter Miscellaneous Notes * Telephone Encounter - Morgan Garsia MD - 03/04/2023 10:21 AM CDT I called and left a message on her voicemail concerning the CT scan which does show a mass. I told her to contact the office and give him information of when I can try to reach her and what phone number to call. documented in this encounter Plan of Treatment Not on file documented as of this encounter Visit Diagnoses Not on filedocumented in this encounter Care Teams Citrix Architect Relationship Specialty Start Date End Date Jaime Mota MD PCP - General Family Medicine 02/27/22 documented as of this encounter
--- OUTSIDE RECORDS SUMMARY | 2024-11-05 20:18 | XMS_ITS | Encounter Summary ---
Author Organization [facility] Address [address] [facility] [address] [place] [address] Care Team Providers Care Electrician Apprentice Powerhouse Name Role Phone Jaime Mota MD Primary Care Provider [phone] Reason for Referral * Consultation (Routine) - Closed Specialty Diagnoses / Procedures Referred By Eileen mendez Referred To Contact Otolaryngology Diagnoses Cervical adenopathy Jaime Mota MD [address] [place] [address] [address] [place] [address] Phone: tel: fax: Flower Osborne MD [address] [place] [address] [place] [address] Phone: tel: fax: Referral ID Status Reason Start Date Expiration Date V isits Requested Visits Authorized [id number] Closed Specialty Services Required 12/27/2022 01/26/2024 1 1 Question Answer Please select the performing region: External Order [171] To provider: FLOWER OSBORNE [[id number]] # of visits: 1 RONMENTAL SCIENCE TECHNICIAN * Diagnostic Imaging (Routine) - Closed Specialty Diagnoses / Procedures Referred By Eileen mendez Referred To Contact Diagnoses Cervical adenopathy Procedures US Soft Tissue Neck Jaime Mota MD [address] [place] [address] [place] [address] Phone: tel: fax: External Order Referral ID Status Reason Start Date Expiration Date Visits Re quested Visits Authorized [id number] Closed 12/27/2022 01/26/2024 1 1 RONMENTAL SCIENCE TECHNICIAN Reason for Visit * Reason Comments Adenopathy Swollen lymph nodes on right side of neck since July Encounter Details Date Type Department Care Team (Late st Contact Info) Description 12/27/2022 3:15 PM ENVIRONMENTAL SCIENCE TECHNICIAN Office Visit [facility] Primary Care at [address] [phone] Jaime Mota MD [address] [facility] [address] [place] [phone] Cervical adenopathy (Primary Dx) Social History Tobacco Use Types Packs/Day Years Used Date Smoking Tobacco: Never Smokeless Tobacco: Never Tobacco Cessation:Counseling Given: Not Answered Alcohol Use Standard Drinks/Week Comments Yes 0 [...] on file Legal Sex Female 8:37 PM ENVIRONMENTAL SCIENCE TECHNICIAN Gender Identity Not on file Sexual Orientation Not on file documented as of this encounter Last Filed Vital Signs Vital Sign Reading Time Taken Comments Blood Pressure 118/86 12/27/2022 3:20 PM ENVIRONMENTAL SCIENCE TECHNICIAN Pulse 75 12/27/2022 3:20 PM ENVIRONMENTAL SCIENCE TECHNICIAN Temperature 36.9 ??C (98.4 ??F) 12/27/2022 3:20 PM CS T Respiratory Rate 18 12/27/2022 3:20 PM ENVIRONMENTAL SCIENCE TECHNICIAN Oxygen Saturation 97% 12/27/2022 3:20 PM ENVIRONMENTAL SCIENCE TECHNICIAN Inhaled Oxygen Concentration - - Weight 147.7 kg (325 lb 11.2 oz) 12/27/2022 3:20 PM ENVIRONMENTAL SCIENCE TECHNICIAN Height 163.8 cm (5' 4.49 ) 12/27/2022 3:20 PM CS T Body Mass Index 55.06 12/27/2022 3:20 PM ENVIRONMENTAL SCIENCE TECHNICIAN documented in this encounter Progress Notes * Jaime Mota MD - 12/27/2022 3:15 PM CST Images from the original note were not included. Subjective/Objective Patient ID: Marleny Edmonds is a 37 y.o. female. Chief Complaint Adenopathy (Swollen lymph nodes on right side of neck since July) 37-year-old female. She got a lymph node right sites little firm increase size been some July no pain. Mobile. Current Outpatient Medications Medication Sig Dispense Refill citalopram (CeleXA) 40 mg tablet Take 1 tablet (40 mg total) by mouth daily 90 tablet 3 loratadine (CLARITIN) 10 mg tablet Claritin OTC qd (Patient not taking: Reported on 12/27/2022) No current facility-administered medications for this visit. Review of Systems Constitutional: Negative for fatigue and fever. Respiratory: Negative for cough and shortness of breath. Cardiovascular: Negative for chest pain and leg swelling. Gastrointestinal: Negative for abdominal pain and nausea. Musculoskeletal: Negative for back pain and neck pain. Neurological: Negative for seizures and headaches. Psychiatric/Behavioral: Negative for confusion. The patient is not nervous/anxious. No results found for this or any previous visit (from the past 336 hour(s)). Vitals BP 118/86 (BP Location: Right arm, Patient Position: Sitting) Pulse 75 Temp 36.9 ??C (98.4 ??F) (Oral) Resp 18 Ht 163.8 cm (5' 4.49 ) Wt (!) 147.7 kg (325 lb 11.2 oz) SpO2 97% BMI 55.06 kg/m?? Physical Exam Constitutional: Appearance: She is well-developed. Cardiovascular: Rate and Rhythm: Normal rate and regular rhythm. Heart sounds: Normal heart sounds. Pulmonary: Effort: Pulmonary effort is normal. Breath sounds: Normal breath sounds. Abdominal: General: Bowel sounds are normal. Palpations: Abdomen is soft. Skin: General: Skin is warm and dry. Neurological: Mental Status: She is alert and oriented to person, place, and time. Psychiatric: Speech: Speech normal. Soft tissue 1.5 cm mass right side Assessment/Plan Diagnoses and all orders for this visit: Cervical adenopathy (R59.0) (Primary) - soft mobile but firm right-sided lymph node/mass. Check an ultrasound. And referral to ENT for further evaluation management - stable - 1.5 com, firm mobile - diet as tolerated - Naproxen 500 BID Jaime Mota MD Orders Placed This Encounter US Soft Tissue Neck Standing Status: Future Standing Expiration Date: 12/27/2023 Order Specific Question: Where should this order be performed? Answer: External Order [171] Ambulatory referral to ENT Standing Status: Future Standing Expiration Date: 06/26/2023 Referral Priority: Routine Referral Type: Consultation Referral Reason: Specialty Services Required Referral Location: External Order Referred to Provider: Flower Osborne MD Requested Specialty: Otolaryngology Number of Visits Requested: 1 RONMENTAL SCIENCE TECHNICIAN documented in this encounter Plan of Treatment Scheduled Referrals Name Type Priority Associated Diagnoses Order Schedule Ambulatory referral to ENT Outpatient Referral Routine Cervical adenopathy Expected: 12/28/2022, Expires: 06/26/2023 documented as of this encounter Results * US Soft Tissue Neck (01/09/2023) Anatomical Region Laterality Modality Head and Neck N/A Ultrasound 01/09/2023 Narrative 01/09/2023 Scanned under Media us Jaime Mota MD IMG US PROCEDURES Final Resul t documented in this encounter Visit Diagnoses Diagnosis Cervical adenopathy- Primary Enlargement of lymph nodes Cervical adenopathy Enlargement of lymph nodes documented in this encounter Care Teams Electrician Apprentice Powerhouse Relationship Specialty Start Date End Date Jaime Mota MD PCP - General Family Medicine 02/27/22 documented as of this encounter
--- OUTSIDE RECORDS SUMMARY | 2024-11-05 20:18 | XMS_ITS | Encounter Summary ---
Author Organization [facility] Healthcare Address [address] [place] [address] Care Team Providers Care Laborer Pipelines Name Role Phone No, Physician Primary Care Provider [phone] Encounter Details Date Type Department Care Team (Late st Contact Info) Description 01/28/2022 Patient Self-Triage [facility] [address] [place] [address] Nicole, [facility] Provider [address] [place], [place] [id number] Social History Tobacco Use Types Packs/Day Years [...] points, staff should administer the PHQ-9) 0 01/12/2020 Comments No Sex and Gender Information Value Date Recorded Sex Assigned at Not on file Legal Sex Female 8:37 PM DAMAGE ASSESSOR Gender Identity Not on file Sexual Orientation Not on file documented as of this encounter Plan of Treatment Not on file documented as of this encounter Visit Diagnoses Not on filedocumented in this encounter Care Teams Laborer Pipelines Relationship Specialty Start Date End Date No, Physician PCP - General 01/16/22 02/26/22 documented as of this encounter
--- OUTSIDE RECORDS SUMMARY | 2024-11-05 20:18 | XMS_ITS | Encounter Summary ---
Author Organization [facility] Medical Group Address [address] [address] Care Team Providers Care Manager Interventional Name Role Phone No, Physician Primary Care Provider [phone] Reason for Visit * Reason Comments URI X9 days, congestion, cough, chest congestion, wheezing, has been tested for covid through work has been negative Encounter Details Date Type Department Care Team (Late st Contact Info) Description 01/16/2022 3:30 PM EARLY MORNING Office Visit [facility] Out[facility] [address] [address] Christina Mabry NP [address] [place] [address] [address] [place] [address] Acute maxillary sinusitis, recurrence not specified (Primary Dx); Elevated blood pressure reading without diagnosis of hypertension Social History Tobacco Use Types Packs/Day Years [...] on file Legal Sex Female 8:37 PM EARLY MORNING Gender Identity Not on file Sexual Orientation Not on file documented as of this encounter Last Filed Vital Signs Vital Sign Reading Time Taken Comments Blood Pressure 181/109 01/16/2022 3:33 PM EARLY MORNING Pulse 86 01/16/2022 3:28 PM EARLY MORNING Temperature - - Respiratory Rate 16 01/16/2022 3:28 PM EARLY MORNING Oxygen Saturation 98% 01/16/2022 3:28 PM EARLY MORNING Inhaled Oxygen Concentration - - Weight 147.4 kg (325 lb) 01/16/2022 3:28 PM EARLY MORNING Height 163.8 cm (5' 4.5 ) 01/16/2022 3:28 PM EARLY MORNING Body Mass Index 54.92 01/16/2022 3:28 PM EARLY MORNING documented in this encounter Patient Instructions * Patient Instructions* Christina Mabry NP - 01/16/2022 3:30 PM EARLY MORNING Images from the original note were not included. Patient Education Upper Respiratory Infection WORK MANAGER: An upper respiratory infection is also called a common cold. It can affect your nose, throat, ears,and sinuses. Common signs and symptoms include the following: Cold symptoms are usually worst for the first 3 to5 days. You may have any of the following: ?? Runny or stuffy nose ?? Sneezing and coughing ?? Sore throat or hoarseness ?? Red, watery, and sore eyes ?? Fatigue ?? Chills and fever ?? Headache, body aches, or sore muscles Seek care immediately if: ?? You have chest pain or trouble breathing. Contact your healthcare provider if: ?? You have a fever over 102??F (39??C). ?? Your sore throat gets worse or you see white or yellow spots in your throat. ?? Your symptoms get worse after 3 to 5 days or your cold is not better in 14 days. ?? You have a rash anywhere on your skin. ?? You have large, tender lumps in your neck. ?? You have thick, green or yellow drainage from your nose. ?? You cough up thick yellow, green, or bloody mucus. ?? You have vomiting for more than 24 hours and cannot keep fluids down. ?? You have a bad earache. ?? You have questions or concerns about your condition or care. Treatment for a cold: There is no cure for the common cold. Colds are caused by viruses and do not get better with antibiotics. Most people get better in 7 to 14 days. You may continue to cough for 2to 3 weeks. The following may help decrease your symptoms: ?? Decongestants help reduce nasal congestion and help you breathe more easily. If you take decongestant pills, they may make you feel restless or not able to sleep. Do not use decongestant sprays for more than a few days. ?? Cough suppressants help reduce coughing. Ask your healthcare provider which type of cough medicine is best for you. ?? NSAIDs , such as ibuprofen, help decrease swelling, pain, and fever. NSAIDs can cause stomach bleeding or kidney problems in certain people. If you take blood thinner medicine, always ask your healthcare provider if NSAIDs are safe for you. Always read the medicine label and follow directions. ?? Acetaminophen decreases pain and fever. It is available without a doctor's order. Ask how much to take and how often to take it. Follow directions. Read the labels of all other medicines you are using to see if they also contain acetaminophen, or ask your doctor or pharmacist. Acetaminophen can cause liver damage if not taken correctly. Do not use more than 4 grams (4,000 milligrams) total of acetaminophen in one day. Manage your cold: ?? Rest as much as possible. Slowly start to do more each day. ?? Drink more liquids as directed. Liquids will help thin and loosen mucus so you can cough it up. Liquids will also help prevent dehydration. Liquids that help prevent dehydration include water, fruit juice, and broth. Do not drink liquids that contain caffeine. Caffeine can increase your risk fordehydration. Ask your healthcare provider how much liquid to drink each day. ?? Soothe a sore throat. Gargle with warm salt water. This helps your sore throat feel better. Makesalt water by dissolving ?? teaspoon salt in 1 cup warm water. You may also suck on hard candy or throat lozenges. You may use a sore throat spray. ?? Use a humidifier or vaporizer. Use a cool mist humidifier or a vaporizer to increase air moisture in your home. This may make it easier for you to breathe and help decrease your cough. ?? Use saline nasal drops as directed. These help relieve congestion. ?? Apply petroleum-based jelly around the outside of your nostrils. This can decrease irritation from blowing your nose. ?? Do not smoke. Nicotine and other chemicals in cigarettes and cigars can make your symptoms worse. They can also cause infections such as bronchitis or pneumonia. Ask your healthcare provider for information if you currently smoke and need help to quit. E-cigarettes or smokeless tobacco still contain nicotine. Talk to your healthcare provider before you use these products. Prevent spreading your cold to others: ?? Try to stay away from other people during the first 2 to 3 days of your cold when it is more easily spread. ?? Do not share food or drinks. ?? Do not share hand towels with household members. ?? Wash your hands often, especially after you blow your nose. Turn away from other people and cover your mouth and nose with a tissue when you sneeze or cough. Follow up with your healthcare provider as directed: Write down your questions so you remember to ask them during your visits. ?? 2017 [employer] Information is for End User's use only and may not be sold, redistributed or otherwise used for commercial purposes. All illustrations and images included in CareNotes?? are the copyrighted property of [employer] or [employer]. The above information is an ward maid only. It is not intended as medical advice for individual conditions or treatments. Talk to your doctor, nurse or pharmacist before following any medical regimen to see if it is safe and effective for you. Patient Education Hypertension WHAT YOU NEED TO KNOW: Hypertension is high blood pressure (BP). Your BP is the force of your blood moving against the oconnor of your arteries. Normal BP is less than 120/80. Prehypertension is between 120/80 and 139/89. Hypertension is 140/90 or higher. Hypertension causes your BP to get so high that your heart has to work much harder than normal. This can damage your heart. You can control hypertension with a healthy lifestyle or medicines. A controlled blood pressure helps protect your organs, such as your heart, lungs, brain, and kidneys. DISCHARGE INSTRUCTIONS: Call 911 for any of the following: ?? You have discomfort in your chest that feels like squeezing, pressure, fullness, or pain. ?? You become confused or have difficulty speaking. ?? You suddenly feel lightheaded or have trouble breathing. ?? You have pain or discomfort in your back, neck, jaw, stomach, or arm. Seek care immediately if: ?? You have a severe headache or vision loss. ?? You have weakness in an arm or leg. Contact your healthcare provider if: ?? You feel faint, dizzy, confused, or drowsy. ?? You have been taking your BP medicine and your BP is still higher than your healthcare provider says it should be. ?? You have questions or concerns about your condition or care. Medicines: You may need any of the following: ?? Medicine may be used to help lower your BP. You may need more than one type of medicine. Take the medicine exactly as directed. ?? Diuretics help decrease extra fluid that collects in your body. This will help lower your BP. You may urinate more often while you take this medicine. ?? Cholesterol medicine helps lower your cholesterol level. A low cholesterol level helps prevent heart disease and makes it easier to control your blood pressure. ?? Take your medicine as directed. Contact your healthcare provider if you think your medicine is not helping or if you have side effects. Tell him or her if you are allergic to any medicine. Keep a list of the medicines, vitamins, and herbs you take. Include the amounts, and when and why you take them. Bring the list or the pill bottles to follow-up visits. Carry your medicine list with you in case of an emergency. Follow up with your healthcare provider as directed: You will need to return to have your BP checked and to have other lab tests done. Write down your questions so you remember to ask them during your visits. Manage hypertension: Talk with your healthcare provider about these and other ways to manage hypertension: ?? Check your BP at home. Sit and rest for 5 minutes before you take your BP. Extend your arm and support it on a flat surface. Your arm should be at the same level as your heart. Follow the directions that came with your BP monitor. If possible, take at least 2 BP readings each time. Take your BP at least twice a day at the same times each day, such as morning and evening. Keep a record of your BP readings and bring it to your follow-up visits. Ask your healthcare provider what your BP should be. ?? Limit sodium (salt) as directed. Too much sodium can affect your fluid balance. Check labels to find low-sodium or be-dwqr-mgyrj foods. Some low-sodium foods use potassium salts for flavor. Too much potassium can also cause health problems. Your healthcare provider will tell you how much sodium and potassium are safe for you to have in a day. He or she may recommend that you limit sodium to 2,300 mg a day. ?? Follow the meal plan recommended by your healthcare provider. A dietitian or your provider can give you more information on low-sodium plans or the DASH (Dietary Approaches to Stop Hypertension) eating plan. The DASH plan is low in sodium, unhealthy fats, and total fat. It is high in potassium, calcium, and fiber. ?? Exercise to maintain a healthy weight. Exercise at least 30 minutes per day, on most days of theweek. This will help decrease your blood pressure. Ask your healthcare provider about the best exercise plan for you. ?? Decrease stress. This may help lower your BP. Learn ways to relax, such as deep breathing or listening to music. ?? Limit alcohol. Women should limit alcohol to 1 drink a day. Men should limit alcohol to 2 drinksa day. A drink of alcohol is 12 ounces of beer, 5 ounces of wine, or 1?? ounces of liquor. ?? Do not smoke. Nicotine and other chemicals in cigarettes and cigars can increase your BP and also cause lung damage. Ask your healthcare provider for information if you currently smoke and need help to quit. E-cigarettes or smokeless tobacco still contain nicotine. Talk to your healthcare provider before you use these products. ?? Manage any other health conditions you have. Health conditions such as diabetes can increase your risk for hypertension. Follow your healthcare provider's instructions and take all your medicines as directed. ?? 2017 [employer] Information is for End User's use only and may not be sold, redistributed or otherwise used for commercial purposes. All illustrations and images included in CareNotes?? are the copyrighted property of [employer] or [employer]. The above information is an ward maid only. It is not intended as medical advice for individual conditions or treatments. Talk to your doctor, nurse or pharmacist before following any medical regimen to see if it is safe and effective for you. Y MORNING Y MORNING documented in this encounter Ordered Prescriptions Prescription Sig Dispense Quantity Refills Last Filled Start Date End Date benzonatate (TESSALON) 200 mg capsuleIndications :Acute maxillary sinusitis, recurrence not specified Take 1 capsule (200 mg total) by mouth 3 (three) times a day as needed for cough 30 capsule 01/16/2022 2 amoxicillin-clavul anate (AUGMENTIN) 875-125 mg per tabletIndications: Acute maxillary sinusitis, recurrence not specified Take 1 tablet by mouth 2 (two) times a day for 7 days 14 tablet 01/16/2022 2 documented in this encounter Progress Notes * Christina Mabry NP - 01/16/2022 3:30 PM CST Images from the original note were not included. Subjective/Objective Patient ID: Marleny Edmonds is a 36 y.o. female. Chief Complaint URI (X9 days, congestion, cough, chest congestion, wheezing, has been tested for covid through workhas been negative ) No hx of asthma, copd of smoking Had covid pnuemonia 2 years ago Pt has been tested for covid several times per week and they have been negative. Pt works in [employer] and has routine testing (which she states they increased this week due to her symptoms) URI This is a new problem. Episode onset: 10 days ago. The problem has been gradually worsening. There has been no fever. Associated symptoms include coughing, a sore throat (mild, pt states it feels like it is from coughing) and wheezing. Pertinent negatives include no abdominal pain, chest pain, congestion, diarrhea, ear pain, headaches, nausea, neck pain, rash, rhinorrhea, shortness of breath, sinus pain, sneezing or vomiting. She has tried increased fluids and inhaler use (albuterol she has left over from when she had pnuemonia, and mucinex DM) for the symptoms. The treatment provided moderate relief. Review of Systems Constitutional: Negative for appetite change, chills, diaphoresis, fatigue and fever. HENT: Positive for sinus pressure (pain in teeth from sinus pressure) and sore throat (mild, pt states it feels like it is from coughing). Negative for congestion, ear discharge, ear pain, postnasal drip, rhinorrhea, sinus pain and sneezing. Respiratory: Positive for cough and wheezing. Negative for chest tightness and shortness of breath. Cardiovascular: Negative for chest pain. Gastrointestinal: Negative for abdominal pain, diarrhea, nausea and vomiting. Musculoskeletal: Negative for myalgias, neck pain and neck stiffness. Skin: Negative for rash. Neurological: Negative for dizziness and headaches. Hematological: Negative for adenopathy. Physical Exam Vitals and nursing note reviewed. Constitutional: General: She is awake. She is not in acute distress. Appearance: Normal appearance. HENT: Head: Normocephalic and atraumatic. Right Ear: Tympanic membrane and ear canal normal. Left Ear: Tympanic membrane and ear canal normal. Nose: No congestion or rhinorrhea. Right Sinus: Maxillary sinus tenderness present. No frontal sinus tenderness. Left Sinus: Maxillary sinus tenderness present. No frontal sinus tenderness. Mouth/Throat: Lips: Farmers. Mouth: Mucous membranes are moist. Tongue: Tongue does not deviate from midline. Pharynx: Uvula midline. No pharyngeal swelling, oropharyngeal exudate, posterior oropharyngeal erythema or uvula swelling. Tonsils: No tonsillar exudate or tonsillar abscesses. Eyes: General: Lids are normal. Pupils: Pupils are equal, round, and reactive to light. Cardiovascular: Rate and Rhythm: Normal rate and regular rhythm. Pulses: Normal pulses. Heart sounds: Normal heart sounds. Pulmonary: Effort: Pulmonary effort is normal. No respiratory distress. Breath sounds: Normal breath sounds. No decreased breath sounds, wheezing, rhonchi or rales. Comments: No cough noted on exam Musculoskeletal: Cervical back: Full passive range of motion without pain, normal range of motion and neck supple. Lymphadenopathy: Cervical: No cervical adenopathy. Skin: General: Skin is warm and dry. Neurological: Mental Status: She is alert and oriented to person, place, and time. Gait: Gait normal. Psychiatric: Behavior: Behavior is cooperative. Vitals: 01/16/22 1528 01/16/22 1533 BP: (!) 167/106 (!) 181/109 BP Location: Right arm Left arm Patient Position: Sitting Sitting Pulse: 86 Resp: 16 SpO2: 98% Weight: (!) 147.4 kg (325 lb) Height: 163.8 cm (5' 4.5 ) No exam data present History reviewed. No pertinent past medical history. Current Outpatient Medications: ??? citalopram (CeleXA) 40 mg tablet, Take 1 tablet (40 mg total) by mouth daily, Disp: 90 tablet, Rfl: 3 ??? amoxicillin-clavulanate (AUGMENTIN) 875-125 mg per tablet, Take 1 tablet by mouth 2 (two) timesa day for 7 days, Disp: 14 tablet, Rfl: 0 ??? azithromycin (ZITHROMAX) 250 mg tablet, Take 250 mg by mouth daily (Patient not taking: Reported on 01/16/2022), Disp: , Rfl: ??? benzonatate (TESSALON) 200 mg capsule, Take 1 capsule (200 mg total) by mouth 3 (three) times aday as needed for cough, Disp: 30 capsule, Rfl: 0 ??? loratadine (Claritin) 10 mg tablet, Claritin OTC qd, Disp: , Rfl: ??? ondansetron (Zofran) 4 mg tablet, Take 1 tablet (4 mg total) by mouth every 8 (eight) hours as needed for nausea or vomiting (Patient not taking: Reported on 01/16/2022), Disp: 20 tablet, Rfl: 0 Allergies Allergen Reactions ??? Sulfa (Sulfonamide Antibiotics) Rash and Hives Social History Socioeconomic History ??? Marital status: Single Tobacco Use ??? Smoking status: Never Smoker ??? Smokeless tobacco: Never Used Substance and Sexual Activity ??? Alcohol use: Yes ??? Drug use: Never Assessment/Plan Diagnoses and all orders for this visit: Acute maxillary sinusitis, recurrence not specified (Primary) - amoxicillin-clavulanate (AUGMENTIN) 875-125 mg per tablet; Take 1 tablet by mouth 2 (two) times aday for 7 days - benzonatate (TESSALON) 200 mg capsule; Take 1 capsule (200 mg total) by mouth 3 (three) times a day as needed for cough Elevated blood pressure reading without diagnosis of hypertension -pt scheduled today with Dr. Mota to establish care and follow up for BP -discussed with pt monitor BP at home at least 3 times per week and keep record to bring with her to appt with Dr. Mota. -If you become symptomatic such as Headache, dizziness, etc go to ED. No results found for this or any previous visit (from the past 4 hour(s)). Patient Education: Sinus Infection -Take and finish your antibiotic prescription as directed. -You may try: ??? Nasal saline wash, either Neti Pot or Sinus Rinse DAILY or a saline nasal spray 3-4 times a day. ??? Guaifenesin expectorants (Maximum Strength Mucinex, Robitussin, store brand) to loosen secretions. ??? For cough you can use dextromethorphan (Delsym syrup, Robitussin cough capsules or store brand). Dextromethorphan is considered safe for and breast feeding women. ??? You may try decongestants such as Sudafed (purchase at pharmacy) or Sudafed PE for congestion relief. Decongestants can keep you awake at night. Do not use decongestants if you have high blood pressure or if you are . If you have high blood pressure you can take otc Coricidin per package directions -Increase fluid intake: drink 2 liters (2 quarts) of non-caffeinated, non- alcoholic beverages daily, drinking alcohol causes nasal and sinus membranes to swell -Steam inhalation and warm compress to face often help relieve pressure -Avoid allergens and excessively dry heat -Sleep with head of bed elevated to encourage drainage. -Use of a humidifier if environment is heated by dry forced - air system -Avoid smoking, second-hand smoke and air pollutants. -If you are not improving or worsening, or develop facial swelling, in the next 3-5 days you must RETURN to the clinic, go to your PCP, or Urgent Care/ER to be SEEN and reevaluated. No further prescriptions or refills will be given by phone without another evaluation. Disposition ??? Treatment plan including expectations, follow up, and return precautions discussed with patient/parent, verbalizes understanding. ??? Medication dosage, use, and potential adverse reactions discussed with patient/parent. ??? Advised to follow up with PCP if symptoms do not resolve as expected or sooner if condition worsens. ??? Signs/symptoms warranting ER evaluation reviewed. ??? Patient and/or guardian was given an opportunity to ask questions, questions answered. Christina Mabry NP Y MORNING documented in this encounter Plan of Treatment Not on file documented as of this encounter Visit Diagnoses Diagnosis Acute maxillary sinusitis, recurrence not specified- Primary Elevated blood pressure reading without diagnosis of hypertension documented in this encounter Historical Medications * This list may reflect changes made after this encounter. Medication Sig Dispense Quantity Refills Last Filled Start D ate End Date loratadine (CLARITIN) 10 mg tablet Claritin OTC qd added in this encounter Care Teams Manager Interventional Relationship Specialty Start Date End Date No, Physician PCP - General 01/16/22 02/26/22 documented as of this encounter
--- OUTSIDE RECORDS SUMMARY | 2024-11-05 20:18 | XMS_ITS | Encounter Summary ---
Author Organization [facility] Health Address [address] [place] [address] [place] [address] Care Team Providers Care Consultant Technology Name Role Phone Unavailable Primary Care Provider Unavailabl e Encounter Details Date Type Department Care Team (Latest Contact Info) Description 01/27/2020 Travel Social History Tobacco Use Types Packs/Day [...]
--- OUTSIDE RECORDS SUMMARY | 2024-11-05 20:18 | XMS_ITS | Encounter Summary ---
Author Organization [facility] Address [facility] [facility] [place] [address] Care Team Providers Care Underground Repairer Name Role Phone Unavailable Primary Care Provider Unavailabl e Reason for Visit * Reason Onset Date Comments Follow-up 10/02/2019 Encounter Details Date Type Department Care Team (Late st Contact Info) Description 10/02/2019 Telephone [facility] [address] [address] Provider, [facility] Follow-up Social History Tobacco Use Types Packs/Day Years [...] encounter Miscellaneous Notes * Telephone Encounter - Lisha Villalpando - 10/02/2019 10:49 AM CST Patient has no questions or concerns at this time. ER VARNISHER documented in this encounter Plan of Treatment Not on file documented as of this encounter Visit Diagnoses Not on filedocumented in this encounter
--- OUTSIDE RECORDS SUMMARY | 2024-11-05 20:18 | XMS_ITS | Encounter Summary ---
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
--- OUTSIDE RECORDS SUMMARY | 2024-11-05 20:18 | XMS_ITS | Encounter Summary ---
Author Organization [facility] Address [facility] [place] [address] Care Team Providers Care Mathematical Sciences Professor Name Role Phone Unavailable Primary Care Provider Unavailabl e Encounter Details Date Type Department Care Team (Late st Contact Info) Description 02/16/2019 1:00 PM CDT Office Visit [facility] [address] [place] [id number] Morbid obesity (Primary Dx) Social History Tobacco Use Types [...] as of this encounter Progress Notes * Rosemary Benton, MANAGER BUSINESS OPERATIONS - 02/16/2019 1:01 PM CDT Pre-Surgery Psychological Evaluation Name: Kyle Edmonds Date of : 85 Surgeon: Shoaib Jimenez Date of Evaluation: 02/16/19 Surgical Decision and reason for surgery: Patient is considering bariatric surgery and all procedures were discussed. Patient explained she has tried everything to manage weight without success. She feels the surgery would offer a tool to assist with controlling the amounts of food she could eat at time. Patient participates in cross fit three days a week. Current Weight: 304 pounds (current is highest) Goal Weight: 170 pounds Family/Home/Support Environment: Patient is supported in her decision to have surgery by her roommate, sister in law, mom and other family/friends. 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 Patient has no hx of work-adjustment difficulties on any of her jobs. Mental Health Issues: Patient has a current diagnosis of anxiety which was diagnosed in high school. Patient is currentlytaking Celexa and reported the medication to be effective. Patient denied auditory or visual hallucinations; and denied losing blocks of time where she can not remember who or where she is. Patient has never been hospitalized for psychiatric reasons, and there is no history of prior suicide/homicide ideation or attempt. Substance Misuse Issues: Current alcohol use: Rare, one beer or less per month. Current medical/recreational drugs use: none Current tobacco use: none She has no problems related to alcohol, drug or prescription mis-use Weight and Ysjxgc-Puev-Zospolz History Family Hx of Obesity: yes Patient Obese since: Adult life High school weight: 130-140 pounds, patient discussed after high school she went through a transition and turned toward food for comfort. Patient believes weight gain has been gradual since around the age of [age]. Heaviest Weight Since 21: current is highest. Previous Weight Loss Efforts: Phentermine: patient discussed she lost 40 pounds in 6 weeks. Withoutmedication, patient regained weight and additional. Patient feels she has been within her current weight range for about one year. As far as what she recognizes as her barriers to weight loss, patient admitted she has an All or nothing mentality when it comes to eating. She either eats very clean or makes unhealthy choices. Patient also identified emotional eating and skipping meals. When asked how the surgery would be different than past weight loss attempts, patient replied, It is expensive. I am not going to spend my money on something like this. It has to be a reset so that I have energy to do things after. Realistic verse unrealistic expectations for weight loss, the surgery and adjustment after surgery were discussed. Making manageable, realistic changes was encouraged. The concept of backsliding and the reasons how a backslide could occur were discussed with patient. Keeping a food journal, taking pictures, meal planning, weighing regularly and attending support groups were suggested as strategies for preventing or reducing backsliding behaviors. Exercise and other sources of physical activity: Cross fit three days a week, additional hiking when weather is nice. Patterns of Distorted Eating: Enemas/Laxatives/Diuretic Misuse: never Purging/induced Vomiting: never Anorexia/Restricting: never Emotional Eating: At times due to physical hunger from skipping a meal, fatigue or stress. Surgery Perspective/Understanding: Patient appears informed regarding the post-op dietary requirements and appears to have ample understanding of the consequences of not following all post-op requirements exactly as prescribed. She reports realistic surgical goals and expectations; and appears to understand the surgical logistics and risks associated with the bariatric surgery. Mental Status Patient's appearance is appropriate Patient is oriented to time, place, person and situation Behavior is described as unremarkable Speech is appropriate Patients affect is appropriate Patient's mood is euthymic Memory is intact Mental Awareness is clear Patient is of average intelligence Attitude is cooperative Attention is focused Reasoning is good Impulse control is good Judgement is good Insight is good Patient's self-perception is realistic Thought process is logical Thought content is unremarkable DSM-5: F41.9 Anxiety Unspecified Obesity E66.01 Summery/Recommendations Patient appears to be a low surgical risk and an appropriate candidate for this surgery based on this interview. Patient noted no current compliance issues or any anticipated issues that would prevent adherence to protocol after surgery. There do not appear to be any contraindications. Psychological Clearance is therefore granted. Rosemary Disla LPC, CBC Licensed Professional Counselor Certified Bariatric Counselor Psychological Review Cleared for surgical consult _X__ Cleared for surgical consult but additional MH visit(s) required ____ Not cleared for surgical consult ___ Bariatric Case Conference review required ___ documented in this encounter Plan of Treatment Not on file documented as of this encounter Visit Diagnoses Diagnosis Morbid obesity- Primary documented in this encounter
--- OUTSIDE RECORDS SUMMARY | 2024-11-05 20:18 | XMS_ITS | Encounter Summary ---
Author Organization [facility] Address [address] [facility] [address] [place] [address] Care Team Providers Care Brick Setter Name Role Phone Jaime Mota MD Primary Care Provider [phone] Reason for Referral * Diagnostic Imaging (Routine) - Closed Specialty Diagnoses / Procedures Referred By Contac t Referred To Contact Diagnoses Elevated LFTs Procedures [facility] Jaime Mota MD [address] [place] [address] [place] [address] Phone: tel: fax: External Order Referral ID Status Reason Start Date Expiration Date Visits Re quested Visits Authorized [id number] Closed 03/07/2022 04/06/2023 1 1 Reason for Visit * Reason Onset Date Comments Test Results 03/06/2022 labs Encounter Details Date Type Department Care Team (Late st Contact Info) Description 03/06/[address] 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 US ordered. * Telephone Encounter - Celeste Hernandez - 03/07/2022 10:53 AM CDT Pt returning you r call , pt can be reached at [phone] * Telephone Encounter - Genaro Momin MA - 03/07/2022 9:19 AM CDT LMOM for pt to call office. * Telephone Encounter - Genaro Momin MA - 03/06/2022 3:19 PM CDT LMOM for pt to call office. * Telephone Encounter - Genaro Momin MA - 03/06/2022 3:19 PM CDT ----- Message from Jaime Mota MD sent at 02/28/2022 5:37 PM CDT ----- Labs overall pretty good. LFTs mildly elevated. Any history? Check a right upper quadrant ultrasound documented in this encounter Plan of Treatment Not on file documented as of this encounter Results * US RUQ (04/19/2022) Anatomical Region Laterality Modality Abdomen N/A Ultrasound us Jaime Mota MD IMG US PROCEDURES Final Resul t documented in this encounter Visit Diagnoses Diagnosis Elevated LFTs- Primary Other abnormal blood chemistry documented in this encounter Care Teams Brick Setter Relationship Specialty Start Date End Date Jaime Mota MD PCP - General Family Medicine 02/27/22 documented as of this encounter
--- OUTSIDE RECORDS SUMMARY | 2024-11-05 20:18 | XMS_ITS | Encounter Summary ---
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 03/18/2020 03/18/2020 04/01/2020 3:05 AM C DT documented as of this encounter Care Teams Equity Trader Relationship Specialty Start Date End Date Lorena Ryder MD PCP - General Family Medicine 01/05/20 01/15/22 documented as of this encounter
--- OUTSIDE RECORDS SUMMARY | 2024-11-05 20:18 | XMS_ITS | Encounter Summary ---
Author Organization [facility] Address [address] [facility] [address] [place] [address] Care Team Providers Care Circular Distributor Name Role Phone Jaime Mota MD Primary Care Provider [phone] Encounter Details Date Type Department Care Team (Late st Contact Info) Description 01/11/2023 Orders Only [facility] Primary Care at [address] [address] Jaime Mota MD [facility] [address] Cervical adenopathy (Primary Dx) Social History Tobacco [...] on file 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
--- OUTSIDE RECORDS SUMMARY | 2024-11-05 20:18 | XMS_ITS | Encounter Summary ---
Author Organization [facility] Address [address] [place] [address] Care Team Providers Care Senior Engineering Technician Name Role Phone Unavailable Primary Care Provider Unavailabl e Reason for Visit * Reason Onset Date Comments Surgery Scheduling 01/20/2020 Encounter Details Date Type Department Care Team (Late st Contact Info) Description 01/20/2020 Telephone [facility] [employer] [facility] [address] [place] [address] [place] [address] [facility] [address] [place] [address] Surgery Scheduling Social History Tobacco [...] Telephone Encounter - Mercedes Graf RN - 01/20/2020 2:28 PM CST Called to discuss surgery dates and verify surgery type with patient. Patient is now scheduled for laparoscopic RnY and HHr by Dr Jimenez on 02/23/2020 at [facility]. Patient to schedule SEC appointment for evaluation and testing, given centralized scheduling phone number: [phone]. Patient is scheduled to attend preoperative education class presented by bariatric team on 02/02/2020. Instructed of 2 week liquid diet requirement- to start 02/09/2020 . Instructed patient to start bariatric MVI with liquid diet or 1 week before surgery. Instructed patient preop consult weight was 295. Instructed patient that they will be weighed on class day and that they are expected to be below or at preop consult weight. Reminded pt to stop any blood thinners [...] if needs 2nd consult) 1. Surgery date 02/23/2020 2. Pre op class date 02/02/2020 3. SEC date to be made by pt 4. Pre op liquid diet start date 02/09/2020 5. 2nd consult if required 02/02/2020 6. Meet with Reggie for payment on preop class day. Pt denies questions at this time. FACTURER'S REPRESENTATIVE documented in this encounter Plan of Treatment Not on file documented as of this encounter Visit Diagnoses Not on filedocumented in this encounter
--- OUTSIDE RECORDS SUMMARY | 2024-11-05 20:18 | XMS_ITS | Encounter Summary ---
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
--- OUTSIDE RECORDS SUMMARY | 2024-11-05 20:18 | XMS_ITS | Encounter Summary ---
Author Organization [facility] Address [address] [facility] [address] [place] [address] Care Team Providers Care House Admin Name Role Phone Jaime Mota MD Primary Care Provider [phone] Reason for Visit * Reason Onset Date Comments Authorization/Certification 01/23/2023 Encounter Details Date Type Department Care Team (Late st Contact Info) Description 01/23/2023 Telephone [facility] Medical 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 Can someone please let them know what is going on. Caller???s Call back #: [phone] Does message need to be routed? Yes-Action Needed DING WHEEL OPERATOR * Telephone Encounter - Kyra Samuels - 01/23/2023 11:32 AM GRINDING WHEEL OPERATOR Authorization/Certification Type of Auth/Cert Needed: Pre- Certification for Test Type of caller:Facility Type of test needed (CPT code if available): CT Neck, soft tissue w/ contrast Reason for test or diagnosis (diagnosis code if available): R59.0 Is insurance in chart accurate? Yes Facility name: [facility] NPI# (if available): Facility phone#: [phone] Facility fax#: not given Date test is scheduled: 01/24/23 Caller's Callback #: [phone], ref 3: [id number] Additional Comments: They are checking to see if the authorization for the test has been done. Does message need to be routed?Yes-Action Needed DING WHEEL OPERATOR documented in this encounter Plan of Treatment Not on file documented as of this encounter Visit Diagnoses Not on filedocumented in this encounter Care Teams House Admin Relationship Specialty Start Date End Date Jaime Mota MD PCP - General Family Medicine 02/27/22 documented as of this encounter
--- OUTSIDE RECORDS SUMMARY | 2024-11-05 20:18 | XMS_ITS | Encounter Summary ---
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 The patient-submitted questionnaire was assessed for pertinent information and the patient's problem list, medication list, and allergies were reviewed as part of the e-visit. The chart was updated to identify any changes in these areas. Assessment: No diagnosis found. Plan: The patient was given information regarding any new medication(s) prescribed, if applicable, as well as any [id number] remedies. She was given instructions regarding follow up and timeframe if symptoms worsen or don???t improve. These instructions were included in the [employer] message reply tothe patient. Patient Instructions were included in the message reply to patient. My total encounter time on 03/26/2023 was 5 minutes which was spent in the activities documented inthe note. Nila Porter NP documented in this encounter Plan of Treatment Not on file documented as of this encounter Visit Diagnoses Not on filedocumented in this encounter Care Teams Gas Golf Cart Repairer Relationship Specialty Start Date End Date Jaime Mota MD PCP - General Family Medicine 02/27/22 documented as of this encounter
--- OUTSIDE RECORDS SUMMARY | 2024-11-05 20:18 | XMS_ITS | Encounter Summary ---
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 Gender Identity Not on file Sexual Orientation Not on file documented as of this encounter Plan of Treatment Not on file documented as of this encounter Procedures Procedure Name Priority Date/Time Associated Diagnosis Comments EGFR Routine 02/28/2022 9:31 AM CDT Establishing care with new doctor, encounter for Lipid screening DIFFERENTIAL AUTO Routine 02/28/2022 9:3 1 AM CDT Establishing care with new doctor, encounter for Lipid screening CBC WITH AUTO DIFFERENTIAL Routine 02/28/2022 9:31 AM CDT Establishing care with new doctor, encounter for Lipid screening LIPID PANEL Routine 02/28/2022 9:31 AM CDT Establishing care with new doctor, encounter for Lipid screening COMPREHENSIVE METABOLIC PANEL Routine 02/28/2022 9:31 AM CDT Establishing care with new doctor, encounter for Lipid screening documented in this encounter Results * eGFR (02/28/2022 9:31 AM CDT) [facility] eGFR 102 mL/min/1. 73 m2 [facility] Comment: Interpretive Data Reference Interval Normal ?>/= 90 mL/min/1.73m2 Mildly decreased* ? 60 - 89 mL/min/1.73m2 Mildly to moderately decreased ?45 - 59 mL/min/1.73m2 Moderately to severely decreased ??30 - 44 mL/min/1.73m2 Severely decreased ?15 - 29 mL/min/1.73m2 Kidney Failure ?< 15 ??mL/min/1.73m2 *Relative to young adult level Estimated glomerular filtration rate is determined by the 2020 CKD-EPI equation recommended by the National Kidney Foundation (A Unifying Approach to GFR Estimation: Recommendations of the NKF-ASK Task Force on Reassessing the Inclusion of Race in Diagnosing Kidney Disease, JASN 202). The CKD-EPI equation should not be used for patients with unstable renal function and has not been validated in children and those over 70. Current interpretive data was last reviewed 2021. Blood 02/28/2022 9:31 AM CDT 02/28/2022 3:15 PM CDT us Jaime Mota MD LAB BLOOD ORDERABLES Final Re sult [facility] [id number] Department [place] [address] * (ABNORMAL) Differential, auto (02/28/2022 9:31 AM CDT) Neutrophil abs 3.4 1.7 - 6.5 K/cumm [facility] Imm gran abs 0.1 0.0 - 0.1 K/cumm [facility] Lymphocyte abs 2.5 0.8 - 3.3 K/cumm [facility] Monocyte abs 0.5 0.2 - 0.8 K/cumm [facility] Eosinophil abs 0.6(H) 0.0 - 0.5 K/cumm [facility] Basophil abs 0.1 0.0 - 0.1 K/cumm [facility] Neutrophil pct 48.6 % [facility] Comment: Interpretive Data Percent cell count reference ranges are not reported, since discordance with absolute values may lead to misinterpretation of CBC data. Current Interpretive Data was last revised on 2018. Imm gran pct 1.1 % [facility] Comment: Interpretive Data Percent cell count reference ranges are not reported, since discordance with absolute values may lead to misinterpretation of CBC data. Current Interpretive Data was last revised on 2018. Lymphocyte pct 34.8 % [facility] Comment: Interpretive Data Percent cell count reference ranges are not reported, since discordance with absolute values may lead to misinterpretation of CBC data. Current Interpretive Data was last revised on 2018. Monocyte pct 6.5 % [facility] Comment: Interpretive Data Percent cell count reference ranges are not reported, since discordance with absolute values may lead to misinterpretation of CBC data. Current Interpretive Data was last revised on 2018. Eosinophil pct 8.0 % [facility] Comment: Interpretive Data Percent cell count reference ranges are not reported, since discordance with absolute values may lead to misinterpretation of CBC data. Current Interpretive Data was last revised on 2018. Basophil pct 1.0 % [facility] Comment: Interpretive Data Percent cell count reference ranges are not reported, since discordance with absolute values may lead to misinterpretation of CBC data. Current Interpretive Data was last revised on 2018. Blood 02/28/2022 9:31 AM CDT 02/28/2022 3:06 PM CDT us Jaime Mota MD LAB BLOOD ORDERABLES Final Re sult [facility] [id number] Department [place] [address] * (ABNORMAL) Lipid panel (02/28/2022 9:31 AM CDT) Cholesterol 207(H) 30 - 199 mg/dL [facility] Comment: Interpretive Data Ages < or = 19 years ??Acceptable: ? <170 mg/dL ??Borderline high: ??170-199 mg/dL ??High: ? >or= 200 mg/dL Ages > or = 20 years ??Desirable: ?<200 mg/dL ??Borderline high: ??200-239 mg/dL ??High: ? >or= 240 mg/dL Literature References: 1. Expert Panel on Integrated Guidelines for Cardiovascular Health and Risk Reduction in Children and Adolescents. Pediatrics 2011;128:S213 2. NCEP Expert Panel. Circulation 2004;110:227 Current Interpretive Data was last revised on 2018. Triglycerides 118 <=149 mg/dL [facility] Comment: Interpretive Data Ages < or = 9 years ??Acceptable: ? <75 mg/dL ??Borderline high: ??75-99 mg/dL ??High: ? >or= 100 mg/dL Ages 10 to 20 years ??Acceptable: ? <90 mg/dL ??Borderline high: ??90-129 mg/dL ??High: ? >or= 130 mg/dL Ages > or = 20 years ??Desirable: ?<150 mg/dL ??Borderline high: ??150-199 mg/dL ??High: ? 200-499 mg/dL ?Very high: ?? >or= 499 mg/dL Literature References: 1. Expert Panel on Integrated Guidelines for Cardiovascular Health and Risk Reduction in Children and Adolescents. Pediatrics 2011;128:S213 2. NCEP Expert Panel. Circulation 2004;110:227 Current Interpretive Data was last revised on 2018. HDL 56 >=40 mg/dL [facility] Comment: Interpretive Data Ages < or = 19 years ??Acceptable: ? >45 mg/dL ??Borderline low: ?? 40-45 mg/dL ??Low: ? <40 mg/dL Ages > or = 20 years ??Desirable: ?>or= 60 mg/dL ??Low: ? <40 mg/dL Literature References: 1. Expert Panel on Integrated Guidelines for Cardiovascular Health and Risk Reduction in Children and Adolescents. Pediatrics 2011;128:S213 2. NCEP Expert Panel. Circulation 2004;110:227 Current Interpretive Data was last revised on 2018. LDL, calculated 127 <=129 mg/dL [facility] Comment: Interpretive Data Ages < or = 19 years ??Acceptable: ? <110 mg/dL ??Borderline high: ??110-129 mg/dL ??High: ?>or= 130 mg/dL Ages > or = 20 years ??Optimal: ? <100 mg/dL ??Near optimal: ?100-129 mg/dL ??Borderline high: ?? 130-159 mg/dL ??High: ?>160 mg/dL Literature References: 1. Expert Panel on Integrated Guidelines for Cardiovascular Health and Risk Reduction in Children and Adolescents. Pediatrics 2011;128:S213 2. NCEP Expert Panel. Circulation 2004;110:227 Current Interpretive Data was last revised on 2018. Non-HDL Cholesterol 151 mg/dL [facility] Comment: Interpretive Data Ages < or = 19 years ??Acceptable: ?<120 mg/dL ??Borderline high: ??120-144 mg/dL ??High: ?>145 mg/dL Ages > or = 20 years ??When triglycerides are >200 mg/dL, Non-HDL cholesterol is a secondary target of ? therapy with treatment goals that are 30 mg/dL greater than the LDL cholesterol target. ? Literature References: 1. Expert Panel on Integrated Guidelines for Cardiovascular Health and Risk Reduction in Children and Adolescents. Pediatrics 2011;128:S213 2. NCEP Expert Panel. Circulation 2004;110:227 Current Interpretive Data was last revised on 2018. Chol/HDL ratio 4 [facility] Blood 02/28/2022 9:31 AM CDT 02/28/2022 3:06 PM CDT us Jaime Mota MD LAB BLOOD ORDERABLES Final Re sult [facility] [id number] Department [place] [address] * (ABNORMAL) Comprehensive metabolic panel (02/28/2022 9:31 AM CDT) Sodium 143 135 - 145 mmol/L [facility] Potassium, pl 5.2(H) 3.3 - 4.9 mmol/L [facility] Chloride 106 97 - 110 mmol/L [facility] CO2 25 22 - 32 mmol/L [facility] Anion gap 12 2 - 15 mmol/L [facility] BUN 12 8 - 25 mg/dL [facility] Creatinine 0.77 0.60 - 1.10 mg/dL [facility] Glucose 116 70 - 199 mg/dL [facility] Comment: Interpretive Data Fasting glucose >/= 126 mg/dl is diagnostic for diabetes. ?? Fasting is defined as no caloric intake for at least 8 hours. Fasting glucose between 100 mg/dl to 125 mg/dl is diagnostic of prediabetes. In a patient with classic symptoms of hyperglycemia or hyperglycemic crisis, a random glucose >/= 200 mg/dl is diagnostic for diabetes. In the absence of unequivocal hyperglycemia, results should be confirmed by repeat testing. The classification and Diagnosis of Diabetes Diabetes Care 2017;40 (Suppl. 1):S11. Current interpretive data was last revised 2017. Calcium 9.7 8.5 - 10.3 mg/dL [facility] Bilirubin, total 0.3 0.1 - 1.2 mg/dL [facility] Protein, pl 7.7 6.5 - 8.5 g/dL [facility] Albumin 4.7 3.5 - 5.0 g/dL [facility] Alk phos 63 40 - 130 Units/L [facility] ALT 105(H) 7 - 45 Units/L [facility] AST 63(H) 10 - 45 Units/L [facility] Blood 02/28/2022 9:31 AM CDT 02/28/2022 3:06 PM CDT us Jaime Mota MD LAB BLOOD ORDERABLES Final Re sult [facility] [id number] Department [place] [address] * (ABNORMAL) CBC with auto differential (02/28/2022 9:31 AM CDT) WBC 7.0 3.8 - 9.9 K/cumm [facility] Hgb 13.5 11.9 - 15.5 g/dL [facility] Hct 44.6 35.6 - 45.5 % [facility] Plt 372 150 - 400 K/cumm [facility] MPV 9.6 9.1 - 12.3 fL [facility] RBC 4.81 3.90 - 5.20 M/cumm [facility] MCV 92.7 81.3 - 96.4 fL [facility] MCH 28.1 27.1 - 33.3 pg [facility] MCHC 30.3(L) 32.3 - 35.7 g/dL [facility] RDW CV 13.5 11.1 - 14.9 % [facility] RDW SD 45.9 35.7 - 48.1 fL [facility] NRBC abs 0.00 0.00 - 0.01 K/cumm [facility] Blood 02/28/2022 9:31 AM CDT 02/28/2022 3:06 PM CDT us Jaime Mota MD LAB BLOOD ORDERABLES Final Re sult [facility] [id number] Department [place] [address] documented in this encounter Visit Diagnoses Diagnosis Establishing care with new doctor, encounter for Lipid screening Screening for lipoid disorders documented in this encounter Care Teams Government Documents Librarian Relationship Specialty Start Date End Date Jaime Mota MD PCP - General Family Medicine 02/27/22 documented as of this encounter
--- OUTSIDE RECORDS SUMMARY | 2024-11-05 20:18 | XMS_ITS | Encounter Summary ---
Author Organization [facility] Address [facility] [place] [address] Care Team Providers Care Wax Ball Molder Name Role Phone Unavailable Primary Care Provider Unavailabl e Reason for Referral * Radiology Services (Routine) - Closed Specialty Diagnoses / Procedures Referred By Contac t Referred To Contact Diagnoses Morbid obesity (HCC) BMI 50.0-59.9, adult (HCC) Procedures FL FLUORO UPPER GI TRACT [place] [id number] [facility] [address] [place] [address] Referral ID Status Reason Start Date Expiration Date Visits Re quested Visits Authorized [id number] Closed 12/04/2018 06/02/[address] MAGISTRATE Reason for Visit * Reason Comments Pre-op Consult pre op Encounter Details Date Type Department Care Team (Late st Contact Info) Description 12/04/2018 3:[address] MAGISTRATE Office Visit [facility] [id number] Weight Management Services [id number] [facility], [address] [place] [address] [place] [id number] [facility] [address] [place] [address] Morbid obesity (HCC) (Primary Dx); BMI 50.0-59.9, adult (HCC) Social History Tobacco Use Types Packs/Day [...] Sign Reading Time Taken Comments Blood Pressure 138/80 12/04/2018 2:[address] MAGISTRATE Pulse 76 12/04/2018 2:[address] MAGISTRATE Temperature - - Respiratory Rate - - Oxygen Saturation - - Inhaled Oxygen Concentration - - Weight 133.6 kg (294 lb 8 oz) 12/04/2018 2:[address] MAGISTRATE Height 162.6 cm (5' 4 ) 12/04/2018 2:[address] MAGISTRATE Body Mass Index 50.55 12/04/2018 2:[address] MAGISTRATE documented in this encounter Patient Instructions * Patient Instructions* Shoaib Jimenez MD - 12/04/2018 3:[address] MAGISTRATE Plan: Based on discussion with the patient and consideration of the patients medical history and diagnosis of morbid obesity the patient is an appropriate candidate for bariatric surgery. Recommendation isfor: L Sleeve Liquid Protein Diet: Yes1 Week Bearing Inspector: Yes Additional Testing: Yes GI: hx of morbid obesity with increased risk of silent heartburn and hiatal hernia. - UGI CV: - Preop EKG Preoperative Labs:cbc, cmp, vitamin b1 and b12 Preoperative weight loss: Comments: Pt has no history of drug use, alcohol use for greater then one year or treatment for alcohol or drug use for greater then one year Pt has no endocrine disorders that are related to obesity Pt has not smoked for at least 6 weeks Comments: Hospitalist Consult: yes Limited incision, 6S, no slater, 2 day stay Self pay/ commercial: no Weight check at Class: No Robot candidate: no [facility] MAGISTRATE documented in this encounter Progress Notes * Shoaib Jimenez MD - 12/04/2018 3:15 PM CST BARIATRIC EVALUATION HISTORY & PHYSICAL Height: 5' 4 (162.6 cm) Weight: 294 lb 8 oz (133.6 kg) BMI (Calculated): 50.53 Chief Complaint: Morbid Obesity HPI: Pt is a 33 yo F with a hx of morbid obesity who presents for surgical tx. Pt has attempted multiple weight loss regimens in the past including medical, exercise and dietary without custodial success. Pt has developed multiple comorbid conditions that include Multiple arthropathies, Depression and Morbid Obesity. These comorbid condition(s) have progressively worsened due to the patients morbid obesity and no other contributing factors. Pt has now attained a BMI (Calculated): 50.53 and has failed multiple non surgical weight loss regimens for >5yrs. Past Medical History: Diagnosis Date ??? Anxiety ??? Depression Past Surgical History: Procedure Laterality Date ??? Tonsillectomy PATIENT MEDICAL HISTORY SCREENING: Diabetes............................................No Hypertension.....................................No Gastroesophageal reflux disease.....No Chest pain.........................................No Heart trouble......................................No Hypercholesterolemia.......................No Stress incontinence..........................No Dyspnea on exertion.........................No Multiple arthropathies........................Yes Depression........................................Yes Sleep apnea......................................No MVP...................................................No Morbid Obesity..................................Yes Blood clots........................................No Other................................................. none FAMILY HISTORY SCREENING: Significant for obesity....................... Yes Diabetes........................................... Yes Heart disease................................... Yes Stroke............................................... No Cancer.............................................. Yes Hypertension..................................... Yes Blood clots........................................ No Other................................................. none Has the patient had a positive history of MRSA No. Current Outpatient Prescriptions Medication ??? citalopram (CELEXA) 40 MG tablet No current facility-administered medications for this visit. Allergies Allergen Reactions ??? Sulfa Drugs Urticaria and Rash Social History Smoking status: Never Smoker Smokeless status: Never Used Alcohol use: Not on file Drug use: Not on file Sexual activity: Not on file Family History Problem Relation Age of Onset ??? Arthritis - Rheumatoid Mother ??? Thyroid Disease Mother ??? Coronary Artery Disease Father ??? Cancer - Lung Paternal Grandmother Review of Systems: Constitutional: denies recent significant weight loss HEENT: Denies headaches, vision or auditory changes Cardiovascular: Denies chest pain, orthopnea or palpitations Respiratory: Denies cough, hemoptysis. Oxygen dependent : No Gastrointestinal: Denies abdominal pain, no melena or hematemesis Genitourinary: denies hematuria, dysuria Musculoskeletal: denies muscle weakness Endocrine: Denies diabetes mellitus or thyroid issues Allergic / Immuno: Normal Neuro / Psych: denies depression, SI/SA Skin: denies open wounds, skin infections Functional Health Status prior to surgery : Independent- The patient does not require assistance from another person for any ADLs.. Physical Examination: BP 138/80 Pulse 76 Ht 5' 4 (1.626 m) Wt 294 lb 8 oz (133.6 kg) BMI 50.55 kg/m2 Constitutional: well-developed, well-nourished, and in no distress. No distress. HENT: ?? Head: Normocephalic and atraumatic. Eyes: EOM are normal. No scleral icterus. Neck: No tracheal deviation present. Pulmonary/Chest: Effort normal. No stridor. No respiratory distress. Abdominal: Soft. Non tender, non distended Genitourinary: no groin masses Musculoskeletal: Normal range of motion. Exhibits no tenderness. Neurological: She is alert. GCS score is 15. Skin: Skin is warm. No erythema. Psychiatric: Mood and affect normal. No results for input(s): SODIUM, POTASSIUM, CHLORIDE, CO2, BUN, CREATININE, GLUCOSE, CALCIUM in thelast 78816 hours. No results for input(s): WBC, HGB, HCT, PLTCOUNT in the last 51747 hours. Risk / Benefits Risks and benefits were reviewed with patient including but not limited to , blood clots of the extremities or the lungs, enteral leaks, hemorrhage, damage to organs, infections,non guaranteed weight loss results among others. There are also risks of vitamin deficiencies that can generate vitamin deficiency symptoms. There are also risks of additional procedures or operations in the perioperative and lobsterman periods. Questions were answered. Bariatric Surgery Patient Education: The patient was informed of other factors that are necessary to achieve weight loss in addition to surgery. Specifically, the patient was informed of the different surgical procedures, including the duodenal switch, the cathy y gastric bypass, the sleeve gastrectomy and the adjustable gastric band. It was explained that bariatric surgery is part of the overall weight loss program which includes a low calorie nutritional program with nutritional and vitamin supplementation, a frequent and consistent exercise program and a social support program or network. The patient will experience successfuland custodial weight loss when these components along with bariatric surgery are followed. The patient has had the above discussions with multiple program team members including surgeon, vehicle operator, bariatric nurse and mental health farm general manager. Impression: Morbid obesity with above listed comorbidities. Multiple failed diet attempts. Plan: Based on discussion with the patient and consideration of the patients medical history and diagnosis of morbid obesity the patient is an appropriate candidate for bariatric surgery. Recommendation isfor: L Sleeve Liquid Protein Diet: Yes1 Week Bearing Inspector: Yes Additional Testing: Yes GI: hx of morbid obesity with increased risk of silent heartburn and hiatal hernia. - UGI CV: - Preop EKG Preoperative Labs:cbc, cmp, vitamin b1 and b12 Preoperative weight loss: Comments: Pt has no history of drug use, alcohol use for greater then one year or treatment for alcohol or drug use for greater then one year Pt has no endocrine disorders that are related to obesity Pt has not smoked for at least 6 weeks Comments: Hospitalist Consult: yes Limited incision, 6S, no slater, 2 day stay Self pay/ commercial: no Weight check at Class: No Robot candidate: no Shoaib Jimenez MD 12/04/[address] MAGISTRATE documented in this encounter Plan of Treatment Not on file documented as of this encounter Results * FL FLUORO UPPER GI TRACT + [...] PM Shoaib Jimenez MD FLUOROSCOPY ORDERABL ES documented in this encounter Visit Diagnoses Diagnosis Morbid obesity (HCC)- Primary Morbid obesity BMI 50.0-59.9, adult (HCC) Body Mass Index 50.0-59.9, adult Morbid obesity (HCC) Morbid obesity BMI 50.0-59.9, adult (HCC) Body Mass Index 50.0-59.9, adult documented in this encounter
--- OUTSIDE RECORDS SUMMARY | 2024-11-05 20:18 | XMS_ITS | Encounter Summary ---
Author Organization [facility] Address [address] [facility] [address] [place] [id number] Care Team Providers Care Director Of Manufacturing Name Role Phone Jaime Mota MD Primary Care Provider [phone] Encounter Details Date Type Department Care Team (Late st Contact Info) Description 02/28/2022 9:45 AM CDT Lab [facility] Outpatient Lab at [address] [id number] Annual physical exam; Establishing care with new doctor, encounter for Social History Tobacco Use Types Packs/Day Years [...] on file 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
--- OUTSIDE RECORDS SUMMARY | 2024-11-05 20:18 | XMS_ITS | Referral Summary ---
Author Organization [facility] at the [facility] Office Center Address [address] [place] [address] Care Team Providers Care Cabinetmaker Helper Name Role Phone Jaime Mota MD Primary Care Provider [phone] Allergies Active Allergy Reactions Criticality Noted Date Comments Sulfa (Sulfonamide Antibiotics) Rash,Hives Medium 11/18 Medications loratadine (CLARITIN) 10 mg tablet Claritin OTC qd Active citalopram (CeleXA) 40 mg tablet Take 1 tablet (40 mg total) by mouth daily 90 tablet 3 3 Active albuterol HFA (PROVENTIL HFA,VENTOLIN HFA,PROAIR HFA) 90 mcg/actuation inhaler Inhale 2 puffs every 4 (four) hours as needed for wheezing or shortness of breath 1 each 3 Active predniSONE (DELTASONE) 10 mg tabletIndications :Mild intermittent asthma with exacerbation Take 4 tabs days 1&2, 3 tabs days 3 & 4, 2 tabs days 5 & 6, 1 tab days 7-10. 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 I reviewed the ultrasound and it shows that this is a proximally 2.9 cm. I think he probably needs to be excised. She needs to have a CT scan to further evaluate this as an ultrasound is not quite as accurate. She understands. She would like to go ahead and pursue that. I will talk with her after I have results. I discussed the procedure including the risk of bleeding and infection. Risk of injury to the facial nerve. She understands. It would probably be done as an outpatient unless it was extensive. I would recommend she be off work for about a week for recovery. 2019 novel coronavirus disease (COVID-19) 2019 Assessment & Plan (03/18/2020 11:11 AM CDT): get copy CXR. cont tylenol, ibuprofen, fluids, rest and monitoring O2 status. occ do some incentive breathing. Check with employer regarding their return to work policy with COVID. May need two neg tests to return. Inform any contacts. Report to ER if breathing becomes labored. Pt has friends, family checking in on her but she lives alone. 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 Instructed to document temps and O2 sats regularly. Complete Z pack. Hiatal hernia 01/12/2020 Morbid obesity with BMI of 50.0-59.9, adult 12/20 Assessment & Plan (01/12/2020 12:47 PM HERPETOLOGY TEACHER): Weight loss attempts in the past include: Weight Watchers, HCG diet, Crossfit exercise. Patient would be a good candidate for bariatric weight loss surgery. She has already has consult with surgeon and is needing letter of medical necessity - provided today. Will get baseline labs done as well to rule out underlying thyroid disorder or other. Anxiety associated with depression 02/06/2016 Assessment & Plan (01/12/2020 12:46 PM HERPETOLOGY TEACHER): Stable, no changes. Continue current regimen with Celexa Immunizations Name Administration Dates Next Due Influenza, Quadrivalent, Spl it, Intramuscular 08/17/2019 Influenza, Unspecified 09/28/2022(Deferr ed: Patient Refused),11/18/2021(Deferred: Patient Refused),11/18/2020(Deferred: Patient Refused),08/18/2019 PPD TEST 03/12/2017 Pfizer SARS-CoV-2 Monovalent Vaccination (12+ Yrs) PURPLE 11/07/2021 Tdap 01/31/2017 Social History Tobacco Use Types Packs/Day Years Used Date Smoking Tobacco: Former Cigarettes Smokeless Tobacco: Never Tobacco Cessation:Counseling Given: Not [...] staff should administer the PHQ-9) 0 02/28/2022 Personal Safety Answer Date Recorded Getting School Help Needed Not on file 01/16 Comments No Sex and Gender Information Value Date Recorded Sex Assigned at Not on file Legal Sex Female 8:37 PM HERPETOLOGY TEACHER Gender Identity Not on file Sexual Orientation Not on file Last Filed Vital Signs Vital Sign Reading Time Taken Comments Blood Pressure 132/84 04/24/2023 8:05 AM CDT Pulse 80 04/24/2023 8:05 AM CDT Temperature 36.8 ??C (98.2 ??F) 04/24/2023 8:05 AM CD T Respiratory Rate 18 04/24/2023 8:05 AM CDT Oxygen Saturation 97% 04/24/2023 8:05 AM CDT Inhaled Oxygen Concentration - - Weight 140.6 kg (310 lb) 04/24/2023 8:05 AM CDT Height 162.6 cm (5' 4 ) 04/24/2023 8:05 AM CDT Body Mass Index 53.21 04/24/2023 8:05 AM CDT Plan of Treatment Not on file Insurance [facility] MD IZA [employer] MD IZA MD IZA [id number] Care Teams Cabinetmaker Helper Relationship Specialty Start Date End Date Jaime Mota MD PCP - General Family Medicine 02/27/22
--- OUTSIDE RECORDS SUMMARY | 2024-11-05 20:18 | XMS_ITS | Encounter Summary ---
Author Organization [facility] Address [address] [facility] [address] [place] [address] Care Team Providers Care Tech Ed Teacher Name Role Phone Jaime Mota MD Primary Care Provider [phone] Reason for Visit * Reason Comments Establish Care Pt is here to est ca re. Encounter Details Date Type Department Care Team (Late st Contact Info) Description 02/28/2022 8:45 AM CDT Office Visit [facility] Primary Care at [address] [address] Jaime Mota MD [phone] [address] Annual physical exam (Primary Dx); Establishing care with new doctor, encounter for; [...] on file Legal Sex Female 8:37 PM COUNTERPERSON Gender Identity Not on file Sexual Orientation Not on file documented as of this encounter Last Filed Vital Signs Vital Sign Reading Time Taken Comments Blood Pressure 132/80 02/28/2022 8:54 AM CDT Pulse 80 02/28/2022 8:54 AM CDT Temperature 36.9 ??C (98.4 ??F) 02/28/2022 8:54 AM CD T Respiratory Rate - - Oxygen Saturation 98% 02/28/2022 8:54 AM CDT Inhaled Oxygen Concentration - - Weight 146.4 kg (322 lb 11.2 oz) 02/28/2022 8:54 AM CDT Height 163.8 cm (5' 4.5 ) 02/28/2022 8:54 AM CDT Body Mass Index 54.54 02/28/2022 8:54 AM CDT documented in this encounter Ordered Prescriptions Prescription Sig Dispense Quantity Refills Last Filled Start Date End Date citalopram (CeleXA) 40 mg tablet Take 1 tablet (40 mg total) by mouth daily 90 tablet 3 02/28/2022 03/08/2023 documented in this encounter Progress Notes * Jaime Mota MD - 02/28/2022 8:45 AM CDT Images from the original note were not included. Subjective/Objective Patient ID: Marleny Edmonds is a 36 y.o. female. Chief Complaint Establish Care (Pt is here to est care. ) 36-year-old female. She is doing pretty good. Did have the semi severe case of COVID. Two ER visitsno hospitalizations. Does not smoke otherwise active weight up a little bit. Sees digital photo printer Allergies as of 02/28/2022 - Reviewed 02/28/2022 Allergen Reaction Noted ??? Sulfa (sulfonamide antibiotics) Rash and Hives 12/04/2018 Outpatient Encounter Medications as of 02/28/2022 Medication Sig Dispense Refill ??? loratadine (CLARITIN) 10 mg tablet Claritin OTC qd ??? [DISCONTINUED] citalopram (CeleXA) 40 mg tablet Take 1 tablet (40 mg total) by mouth daily 90 tablet 3 ??? citalopram (CeleXA) 40 mg tablet Take 1 tablet (40 mg total) by mouth daily 90 tablet 3 ??? [DISCONTINUED] azithromycin (ZITHROMAX) 250 mg tablet Take 250 mg by mouth daily (Patient not taking: Reported on 01/16/2022) ??? [DISCONTINUED] ondansetron (Zofran) 4 mg tablet Take 1 tablet (4 mg total) by mouth every 8 (eight) hours as needed for nausea or vomiting (Patient not taking: Reported on 01/16/2022) 20 tablet 0 No facility-administered encounter medications on file as of 02/28/2022. History reviewed. No pertinent past medical history. Past Surgical History: Procedure Laterality Date ??? TONSILLECTOMY Family History Problem Relation Age of Onset ??? Arthritis Mother ??? Hypertension Mother ??? Heart disease Father ??? No Known Problems Brother ??? Heart disease Maternal Grandfather ??? Non-Hodgkin's Lymphoma Paternal Grandmother ??? Heart disease Paternal Grandfather Social History Socioeconomic History ??? Marital status: Single Tobacco Use ??? Smoking status: Never Smoker ??? Smokeless tobacco: Never Used Vaping Use ??? Vaping Use: Never used Substance and Sexual Activity ??? Alcohol use: Yes ??? Drug use: Never Review of Systems Constitutional: Negative for fatigue and fever. Respiratory: Negative for cough and shortness of breath. Cardiovascular: Negative for chest pain and leg swelling. Gastrointestinal: Negative for abdominal pain and nausea. Musculoskeletal: Negative for back pain and neck pain. Neurological: Negative for seizures and headaches. Psychiatric/Behavioral: Negative for confusion. The patient is not nervous/anxious. Vitals: 02/28/22 0854 BP: 132/80 BP Location: Left arm Patient Position: Sitting Pulse: 80 Temp: 36.9 ??C (98.4 ??F) TempSrc: Oral SpO2: 98% Weight: (!) 146.4 kg (322 lb 11.2 oz) Height: 163.8 cm (5' 4.5 ) Physical Exam Constitutional: Appearance: She is well-developed. [...] place, and time. Psychiatric: Speech: Speech normal. Exam performed clothed PHQ Screening Over the last 2 weeks, how often have you been bothered by any of the following problems? Little Interest or Pleasure in Doing Things: Not at all Feeling Down, Depressed, or Hopeless: Not at all PHQ-2 Total Score (If total score is 3 or more points, staff should administer the PHQ-9): 0 Over the past 2 weeks, how often have you been bothered by any of the following problems? Little Interest or Pleasure in Doing Things: Not at all Feeling Down, Depressed, or Hopeless: Not at all PHQ-2 Total Score (If total score is 3 or more points, staff should administer the PHQ-9): 0 No exam data present Assessment/Plan Diagnoses and all orders for this visit: Annual physical exam (Primary) - 36-year-old female. She is doing pretty good. Takes Celexa. Sees digital photo printer. Pap smear is up-to-date. Mammogram at 40. Colonoscopy 45. Habits otherwise negative. Labs order CBC Chem 12 and lipid profile. And a TSH - DASH diet reviewed, weight loss, exercise, control calories, limit etoh, healthy heart sheet reviewed and given to patient. - diet sheet, BMI - 54 Establishing care with new doctor, encounter for - completed Lipid screening - completed Orders Placed This Encounter ??? Lipid panel Standing Status: Future Standing Expiration Date: 02/28/2023 ??? Comprehensive metabolic panel Standing Status: Future Standing Expiration Date: 02/28/2023 ??? CBC with auto differential Standing Status: Future Standing Expiration Date: 02/28/2023 ??? citalopram (CeleXA) 40 mg tablet Sig: Take 1 tablet (40 mg total) by mouth daily Dispense: 90 tablet Refill: 3 Specific topics reviewed: breast self-exam, drugs, ETOH, and tobacco, importance of regular dental care, importance of regular exercise, importance of varied diet, limit TV, media violence, minimize junk food and seat belts. Jaime Mota MD documented in this encounter Plan of Treatment Not on file documented as of this encounter Results * (ABNORMAL) CBC with auto differential (02/28/2022 9:31 AM CDT) Pathologist [facility] WBC 7.0 3.8 - 9.9 K/cumm [facility] Hgb 13.5 11.9 - 15.5 g/dL [facility] Hct 44.6 35.6 - 45.5 % [facility] CH Plt 372 150 - 400 K/cumm [facility] MPV 9.6 9.1 - 12.3 fL [facility] RBC 4.81 3.90 - 5.20 M/cumm [facility] CH MCV 92.7 81.3 - 96.4 fL [facility] MCH 28.1 27.1 - 33.3 pg [facility] MCHC 30.3(L) 32.3 - 35.7 g/dL [facility] RDW CV 13.5 11.1 - 14.9 % [facility] CH RDW SD 45.9 35.7 - 48.1 fL [facility] NRBC abs 0.00 0.00 - 0.01 K/cumm [facility] Blood 02/28/2022 9:31 AM CDT 02/28/2022 3:06 PM CDT us Jaime Mota MD LAB BLOOD ORDERABLES Final Re sult [facility] [id number] Department [place] [address] * (ABNORMAL) Comprehensive metabolic panel (02/28/2022 9:31 AM CDT) Pathologist [facility] Sodium 143 135 - 145 mmol/L [facility] Potassium, pl 5.2(H) 3.3 - 4.9 mmol/L [facility] Chloride 106 97 - 110 mmol/L [facility] CO2 25 22 - 32 mmol/L [facility] Anion gap 12 2 - 15 mmol/L [facility] BUN 12 8 - 25 mg/dL [facility] Creatinine 0.77 0.60 - 1.10 mg/dL [facility] Glucose 116 70 - 199 mg/dL [facility] Comment: Interpretive Data Fasting glucose >/= 126 [...] 9:31 AM CDT 02/28/2022 3:06 PM CDT Jaime Mota MD LAB BLOOD ORDERABLES Final Re sult [facility] [id number] Department of Laboratories [place], [place] [id number] * (ABNORMAL) Lipid panel (02/28/2022 9:31 AM CDT) [facility] Cholesterol 207(H) 30 - 199 mg/dL [facility] Comment: Interpretive Data Ages < or = [...] on 2018. Triglycerides 118 <=149 mg/dL [facility] Comment: Interpretive Data Ages < [...] on 2018. Non-HDL Cholesterol 151 mg/dL [facility] Comment: Interpretive Data Ages [...] last revised on 2018. Chol/HDL ratio 4 [facility] Blood 02/28/2022 9:31 AM CDT 02/28/2022 3:06 PM CDT us Jaime Mota MD LAB BLOOD ORDERABLES Final Re sult [facility] [id number] Department [place] [address] documented in this encounter Visit Diagnoses Diagnosis Annual physical exam- Primary Routine general medical examination at a health care facility Establishing care with new doctor, encounter for Lipid screening Screening for lipoid disorders documented in this encounter Discontinued Medications Medication Sig Discontinue Reason Start Date End Da te azithromycin (ZITHROMAX) 250 mg tablet Take 250 mg by mouth daily 02/28/2022 ondansetron (Zofran) 4 mg tablet Take 1 tablet (4 mg total) by mouth every 8 (eight) hours as needed for nausea or vomiting 03/14/2020 02/28/2022 citalopram (CeleXA) 40 mg tablet Take 1 tablet (40 mg total) by mouth daily Reorder 01/12/2020 02/28/2022 documented as of this encounter Care Teams Tech Ed Teacher Relationship Specialty Start Date End Date Jaime Mota MD PCP - General Family Medicine 02/27/22 documented as of this encounter
--- OUTSIDE RECORDS SUMMARY | 2024-11-05 20:18 | XMS_ITS | Encounter Summary ---
Author Organization [facility] Address [address] [facility] [address] [place] [address] Care Team Providers Care Foreign Diplomat Name Role Phone Jaime Mota MD Primary Care Provider [phone] Reason for Visit * Reason Comments Cough Ongoing cough uriel ureña Encounter Details Date Type Department Care Team (Late st Contact Info) Description 04/24/2023 8:00 AM CDT Office Visit [facility] Outpatient Center [address] [id number] [place] [address] [place] [address] [address] [place], [place] [id number] Mild intermittent asthma with exacerbation (Primary Dx) Social History Tobacco Use Types [...] on file Legal Sex Female 8:37 PM PORTER MARINA Gender Identity Not on file Sexual Orientation [...] Mass Index 53.21 04/24/2023 8:05 AM CDT documented in this encounter Patient Instructions * Patient Instructions* Rose Mary Palmer, PAINT FORMULATOR - 04/24/2023 8:00 AM CDT Take full course of steroids as prescribed. Take these with food. Albuterol inhaler as prescribed for shortness of breath, cough, or wheezing. Use you albuterol inhaler or nebulizer every 4 hours for the next 48 hours, then every 4-6 hours as needed. If inhaler is needed more often, you need to go to an ER. Avoid irritants such as cigarette smoke, pollen, dust, etc as this will aggravate cough. Suck on cough drops or hard candies to soothe a dry or sore throat. Cough drops won't stop your cough, but they may make your throat feel better. Over the counter loratadine (Claritin) or cetirizine (Zyrtec) to reduce secretions. Mucinex to thin secretions Breathe moist air from a humidifier, a hot shower, or a sink filled with hot water. The heat and moisture can help keep mucus in your airways moist so you can cough it out easily. Use nonprescription medicine, such as acetaminophen, ibuprofen, or aspirin, to relieve fever and body aches. Don't give aspirin to anyone younger than age 20. Rest more than usual. Drink plenty of fluids so that you do not become dehydrated and to keep mucous thin. Use an evve-nbx-wwrbpqb cough medicine such as Delsym or Robitussin. (Cough medicines may not be safe for young children or for people who have certain health problems.) Cough suppressants may help you to stop coughing. Expectorants, such as Mucinex, can help you bring up mucus when you cough. Follow up with primary care physician in 1 week, or sooner if symptoms worsen. GO TO ER WITH ANY WORSENING OF SYMPTOMS INCLUDING, BUT NOT LIMITED TO: SUDDEN HIGH FEVER, DIFFICULTY BREATHING OR CATCHING YOUR BREATH, OR SHORTNESS OF BREATH. * Attachments The following attachments cannot be sent through Care Everywhere. * Asthma (General Information) (Indonesian) documented in this encounter Ordered Prescriptions Prescription Sig Dispense Quantity Refills Last Filled Start Date End Date predniSONE (DELTASONE) 10 mg tabletIndications:M ild intermittent asthma with exacerbation Take 4 tabs days 1&2, 3 tabs days 3 & 4, 2 tabs days 5 & 6, 1 tab days 7-10. 22 tablet 04/24/2023 documented in this encounter Progress Notes * Rose Mary Palmer NP - 04/24/2023 8:00 AM CDT Images from the original note were not included. Patient ID: Marleny Edmonds is a 38 y.o. female followed by Jaime Mota MD Chief Complaint Patient presents with Cough Ongoing cough several weeks Patient presents to the clinic with reports of cough, wheezing, and chest tightness for 1 week. Denies fevers, chest pain, rash, vomiting, and diarrhea. She has taken no OTC medications for her symptoms. Patient also has been using her albuterol inhaler as needed. Review of Systems Constitutional: Negative for chills, fatigue and fever. HENT: Negative for congestion, ear pain, postnasal drip, rhinorrhea and sore throat. Respiratory: Positive for cough, chest tightness and wheezing. Negative for shortness of breath. Cardiovascular: Negative for chest pain. Gastrointestinal: Negative for diarrhea, nausea and vomiting. Musculoskeletal: Negative for myalgias. Neurological: Negative for headaches. Vitals: 04/24/23 0805 BP: 132/84 BP Location: Left arm Patient Position: Sitting Pulse: 80 Resp: 18 Temp: 36.8 ??C (98.2 ??F) TempSrc: Oral SpO2: 97% Weight: (!) 140.6 kg (310 lb) Height: 162.6 cm (5' 4 ) Physical Exam Vitals reviewed. Constitutional: General: She is not in acute distress. Appearance: She is well-developed. She is not ill-appearing. HENT: Right Ear: Tympanic membrane, ear canal and external ear normal. Tympanic membrane is not injected,erythematous or bulging. Left Ear: Tympanic membrane, ear canal and external ear normal. Tympanic membrane is not injected, erythematous or bulging. Nose: No congestion or rhinorrhea. Right Sinus: No maxillary sinus tenderness or frontal sinus tenderness. Left Sinus: No maxillary sinus tenderness or frontal sinus tenderness. Mouth/Throat: Lips: Scalp Level. Mouth: Mucous membranes are moist. Pharynx: Uvula midline. No pharyngeal swelling, oropharyngeal exudate or posterior oropharyngeal erythema. Cardiovascular: Rate and Rhythm: Normal rate and regular rhythm. Pulmonary: Effort: Pulmonary effort is normal. No respiratory distress. Breath sounds: Decreased breath sounds and wheezing present. No rhonchi. Comments: Cough observed during exam After nebulizer treatment wheezing only on expiratory. Patient verbalized that her lungs and breathing feel much better after treatment. Lymphadenopathy: Cervical: No cervical adenopathy. Skin: General: Skin is warm and dry. Neurological: Mental Status: She is alert and oriented to person, place, and time. Diagnoses and all orders for this visit: Mild intermittent asthma with exacerbation (Primary) - predniSONE (DELTASONE) 10 mg tablet; Take 4 tabs days 1&2, 3 tabs days 3 & 4, 2 tabs days5 & 6, 1 tab days 7-10. - albuterol 2.5 mg /3 mL (0.083 %) nebulizer solution 2.5 mg No orders of the defined types were placed in this encounter. Assessment/Plan # acute bronchitis --start prednisone and albuterol --OTC supportive therapies including Zyrtec, Claritin with or without pseudoephedrine, pending symptoms --discussed etiology of bronchitis and typical duration of symptoms --Tylenol and/or Motrin for pain/fever, use as directed. --ED presentation with one or more of the following symptoms: fever uncontrolled with antipyretics,shortness of breath, chest discomfort, uncontrolled n/v/d --f/u with PCP if symptoms do not improve Disposition Treatment plan including expectations, follow up, and return precautions discussed with patient/parent, verbalizes understanding. Medication dosage, use, and potential adverse reactions discussed with patient/parent. Advised to follow up with PCP if symptoms do not resolve as expected or sooner if condition worsens. Discussed Signs/symptoms warranting ER evaluation including worsening fever, increased shortness ofbreath, chest pain, severe N/V/D, or any other worrisome symptoms Patient and/or guardian was given an opportunity to ask questions, questions answered. Patient Education Take full course of steroids as prescribed. Take these with food. Albuterol inhaler as prescribed for shortness of breath, cough, or wheezing. Use you albuterol inhaler or nebulizer every 4 hours for the next 48 hours, then every 4-6 hours as needed. If inhaler is needed more often, you need to go to an ER. Avoid irritants such as cigarette smoke, pollen, dust, etc as this will aggravate cough. Suck on cough drops or hard candies to soothe a dry or sore throat. Cough drops won't stop your cough, but they may make your throat feel better. Over the counter loratadine (Claritin) or cetirizine (Zyrtec) to reduce secretions. Mucinex to thin secretions Breathe moist air from a humidifier, a hot shower, or a sink filled with hot water. The heat and moisture can help keep mucus in your airways moist so you can cough it out easily. Use nonprescription medicine, such as acetaminophen, ibuprofen, or aspirin, to relieve fever and body aches. Don't give aspirin to anyone younger than age 20. Rest more than usual. Drink plenty of fluids so that you do not become dehydrated and to keep mucous thin. Use an dzwn-owm-nhqsxeh cough medicine such as Delsym or Robitussin. (Cough medicines may not be safe for young children or for people who have certain health problems.) Cough suppressants may help you to stop coughing. Expectorants, such as Mucinex, can help you bring up mucus when you cough. Follow up with primary care physician in 1 week, or sooner if symptoms worsen. GO TO ER WITH ANY WORSENING OF SYMPTOMS INCLUDING, BUT NOT LIMITED TO: SUDDEN HIGH FEVER, DIFFICULTY BREATHING OR CATCHING YOUR BREATH, OR SHORTNESS OF BREATH. Rose Mary Palmer NP documented in this encounter Plan of Treatment Not on file documented as of this encounter Visit Diagnoses Diagnosis Mild intermittent asthma with exacerbation- Primary Unspecified asthma, with exacerbation documented in this encounter Discontinued Medications Medication Sig Discontinue Reason Start Date End Da te predniSONE (DELTASONE) 10 mg tablet Take 5 tabs (50mg) daily for 2 days, then take 4 tabs (40mg) daily for 2 days. Continue to decrease by 1 tab (10mg) every 2 days until gone. Therapy completed 03/26/2023 04/24/2023 documented as of this encounter Orders Medications Ordered That Tello ht Not Have Been Administered Count Last Ordered Date First Ordered Date albuterol 2.5 mg /3 mL (0.08 3 %) nebulizer solution 2.5 mg 1 04/24/2023 documented in this encounter Care Teams Foreign Diplomat Relationship Specialty Start Date End Date Jaime Mota MD PCP - General Family Medicine 02/27/22 documented as of this encounter
--- OUTSIDE RECORDS SUMMARY | 2024-11-05 20:18 | XMS_ITS | Encounter Summary ---
Author Organization [facility] Address [address] [facility] [address] [place] [id number] Care Team Providers Care Nursing Coordinator Name Role Phone Jaime Mota MD Primary Care Provider [phone] Reason for Visit * Reason Comments Nasal Congestion Cough with chest con gestion several days Cough Encounter Details Date Type Department Care Team (Late st Contact Info) Description 03/26/2023 11:45 AM CDT Office Visit [facility] [address] [phone] Viktoria Ferris PA [address] [place] [address] [address] [place] [address] Bronchitis (Primary Dx) Social History Tobacco Use Types [...] on file 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 Gender Identity Not on file Sexual Orientation Not on file documented as of this encounter Last Filed Vital Signs Vital Sign Reading Time Taken Comments Blood Pressure 163/92 03/26/2023 11:41 AM CDT Pulse 77 03/26/2023 11:41 AM CDT Temperature 36.6 ??C (97.9 ??F) 03/26/2023 11:41 AM C DT Respiratory Rate 18 03/26/2023 11:41 AM CDT Oxygen Saturation 95% 03/26/2023 11:41 AM CDT Inhaled Oxygen Concentration - - Weight 140.6 kg (310 lb) 03/26/2023 11:41 AM CDT Height 162.6 cm (5' 4 ) 03/26/2023 11:41 AM CDT Body Mass Index 53.21 03/26/2023 11:41 AM CDT documented in this encounter Patient Instructions * Patient Instructions* Viktoria Ferris PA - 03/26/2023 11:45 AM CDT -take medications as directed -return to clinic if no improvement in 3-5 days -ER for new or worsening symptoms Recommendations and Information for Bronchitis The main treatment for respiratory infections of any kind is to rest, eat healthy, and drink plentyof fluids. Cold symptoms will likely last anywhere from 7-10 days with symptoms feeling much worse on days 3-5. Antibiotic medications do not cure a cold nor do antibiotic medications help to shortenthe symptoms of viral illness. Bronchitis is caused by inflammation of the bronchioles in your lungs. Bronchitis is VIRAL. Bronchitis is self limiting. The cough from bronchitis can last 2-4 weeks. It should gradually get better then go away. Take meds as discussed. The following may help you feel better: Take full course of steroids as prescribed. Take these with food. Albuterol inhaler as prescribed for shortness of breath, cough, or wheezing. Use you albuterol inhaler or nebulizer every 4 hours for the next 48 hours, then every 4-6 hours as needed. Don't smoke and avoid second hand smoke. Suck on cough drops or hard candies [...] and to keep mucous thin. Use an wwzf-tkt-tnfxpnz cough medicine such as Delsym or Robitussin. (Cough medicines may not be safe for young children or for people who have certain health problems.) Cough suppressants may help you to stop coughing. Expectorants, such as Mucinex, can help you bring up mucus when you cough. Follow up with primary care physician in 1 week, or sooner if symptoms worsen. If you experience worsening shortness of breath or fever >101, go to the Emergency Room. * Attachments The following attachments cannot be sent through Care Everywhere. * Acute Bronchitis (General Information) ([place]) documented in this encounter Ordered Prescriptions Prescription Sig Dispense Quantity Refills Last Filled Start Date End Date albuterol HFA (PROVENTIL HFA,VENTOLIN HFA,PROAIR HFA) 90 mcg/actuation inhaler Inhale 2 puffs every 4 (four) hours as needed for wheezing or shortness of breath 1 each 03/26/2023 predniSONE (DELTASONE) 10 mg tablet Take 5 tabs (50mg) daily for 2 days, then take 4 tabs (40mg) daily for 2 days. Continue to decrease by 1 tab (10mg) every 2 days until gone. 30 tablet 03/26/2023 3 documented in this encounter Progress Notes * Viktoria Ferris PA - 03/26/2023 11:45 AM CDT Images from the original note were not included. Subjective/Objective Patient ID: Marleny Edmonds is a 37 y.o. female. Chief Complaint Nasal Congestion (Cough with chest congestion several days ) and Cough Pt presents w/ cold symptoms x 4 days. Reports cough, chest congestion, wheezing. No sore throat, fever, chills, BA, ear pain, nasal congestion, rhinorrhea. Pt states she had covid 3 years ago and has had intermittent wheezing since that time but does not have a formal hx of asthma. Has been taking robitussin DM w/ no relief. Review of Systems All systems reviewed and are negative or non contributory for this patient's presentation today other than as stated in the HPI . Physical Exam Constitutional: General: She is not in acute distress. Appearance: She is not ill-appearing or toxic-appearing. HENT: Head: Normocephalic and atraumatic. Right Ear: External ear normal. Left Ear: External ear normal. Nose: Nose normal. Mouth/Throat: Mouth: Mucous membranes are moist. Pharynx: Oropharynx is clear. Eyes: Conjunctiva/sclera: Conjunctivae normal. Pupils: Pupils are equal, round, and reactive to light. Cardiovascular: Rate and Rhythm: Normal rate and regular rhythm. Heart sounds: Normal heart sounds. Pulmonary: Effort: Pulmonary effort is normal. No respiratory distress. Breath sounds: No stridor. Wheezing (diffuse inspiratory and expiratory wheezing) present. No rhonchi. Musculoskeletal: General: Normal range of motion. Cervical back: Normal range of motion. Skin: General: Skin is warm and dry. Neurological: General: No focal deficit present. Mental Status: She is alert and oriented to person, place, and time. Psychiatric: Mood and Affect: Mood normal. Behavior: Behavior normal. Vitals: 03/26/23 1141 BP: 163/92 BP Location: Left arm Patient Position: Sitting Pulse: 77 Resp: 18 Temp: 36.6 ??C (97.9 ??F) TempSrc: Oral SpO2: 95% Weight: (!) 140.6 kg (310 lb) Height: 162.6 cm (5' 4 ) Assessment/Plan -likely viral URI w/ airway inflammation, has wheezing throughout all lung rock but oxygen remains at 95% on RA and NARD. No productive cough or fever to suggest pnuemonia. Will start prednisone and albuterol. PCP follow up and ER precautions discussed. Diagnoses and all orders for this visit: Bronchitis (Primary) Other orders - predniSONE (DELTASONE) 10 mg tablet; Take 5 tabs (50mg) daily for 2 days, then take 4 tabs (40mg)daily for 2 days. Continue to decrease by 1 tab (10mg) every 2 days until gone. - albuterol HFA (PROVENTIL HFA,VENTOLIN HFA,PROAIR HFA) 90 mcg/actuation inhaler; Inhale 2 puffs every 4 (four) hours as needed for wheezing or shortness of breath No results found for this or any previous visit (from the past 4 hour(s)). Disposition Treatment plan including expectations, follow up, and return precautions discussed with patient/parent, verbalizes understanding. Medication dosage, use, and potential adverse reactions discussed with patient/parent. Advised to follow up with PCP if symptoms do not resolve as expected or sooner if condition worsens. Signs/symptoms warranting ER evaluation reviewed. Patient and/or guardian was given an opportunity to ask questions, questions answered. RUFINO Lay 03/26/23 12:08 PM Cosigned by Jaime Mota MD at 03/26/2023 12:37 PM CDT documented in this encounter Plan of Treatment Not on file documented as of this encounter Visit Diagnoses Diagnosis Bronchitis- Primary Bronchitis, not specified as acute or chronic documented in this encounter Care Teams Nursing Coordinator Relationship Specialty Start Date End Date Jaime Mota MD PCP - General Family Medicine 02/27/22 documented as of this encounter
--- OUTSIDE RECORDS SUMMARY | 2024-11-05 20:18 | XMS_ITS | Encounter Summary ---
Author Organization [facility] Address [address] [facility] [address] [place] [address] Care Team Providers Care Visitor Service Assistant Name Role Phone Jaime Mota MD Primary Care Provider [phone] Encounter Details Date Type Department Care Team (Late st Contact Info) Description 05/01/2022 Orders Only [facility] Primary Care at [address] [phone] Jaime Mota MD [address] [place] [address] Elevated LFTs Social History Tobacco Use Types Packs/Day Years [...] on file 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 Gender Identity Not on file Sexual Orientation Not on file documented as of this encounter Plan of Treatment Not on file documented as of this encounter Procedures Procedure Name Priority Date/Time Associated Diagnosis Comments US RUQ Schedule Routine, Read Routine (OP Routine) 04/19/2022 Elevated LFTs documented in this encounter Results * US RUQ (04/19/2022) Anatomical Region Laterality Modality Abdomen N/A Ultrasound us Jaime Mota MD IMG US PROCEDURES Final Resul t documented in this encounter Visit Diagnoses Diagnosis Elevated LFTs Other abnormal blood chemistry documented in this encounter Care Teams Visitor Service Assistant Relationship Specialty Start Date End Date Jaime Mota MD PCP - General Family Medicine 02/27/22 documented as of this encounter
--- OUTSIDE RECORDS SUMMARY | 2024-11-05 20:18 | XMS_ITS | Encounter Summary ---
Author Organization [facility] Address [address] [place] [id number] Care Team Providers Care Manager Of Radiology Name Role Phone Unavailable Primary Care Provider Unavailabl e Reason for Visit * Reason Comments Diet Encounter Details Date Type Department Care Team (Latest Contact Info) Description 12/11/2019 12:15 PM ADDICTION TREATMENT COUNSELOR Clinical Support [facility] [address] [place] [id number] Morbid obesity (HCC) Social History Tobacco Use [...] Sign Reading Time Taken Comments Blood Pressure - - Pulse - - Temperature - - Respiratory Rate - - Oxygen Saturation - - Inhaled Oxygen Concentration - - Weight 134 kg (295 lb 6.4 oz) 12/11/2019 1:31 PM ADDICTION TREATMENT COUNSELOR Height 162.6 cm (5' 4 ) 12/11/2019 1:31 PM ADDICTION TREATMENT COUNSELOR Body Mass Index 50.71 12/11/2019 1:31 PM ADDICTION TREATMENT COUNSELOR documented in this encounter Progress Notes * Le Boyce, RD/LD - 12/11/2019 1:31 PM CST Weight Management Medical Nutrition Therapy Session 2 Date: 12/11/2019 Patient: Kyle Porfirio Kendal Date of : 1985 (34 year old) PCP Physician: Lester Youssef MD Referring Physician: Shoaib Jimenez MD Progress towards previous goals: 1. No carbonation: Progressing towards goal 2. Limit coffee with caffeine to 16 ounces per day: Goal met 3. No evening snacks: Goal met 4. Healthier dining out choices: Progressing towards goal Assessment: Pt planning RNY. 8.6 lb weight loss from previous visit (02/16/19) / 8.6 lb net weight loss. Kyle does not smoke and reports rare alcohol intake. She has decreased soda intake and has been limiting caffeine. Breakfast often consists of [place] high protein oatmeal. Lunch and dinner havebeen consisting of Clean Eating pre-made meals. She denies any snacking between meals. Physical activity currently consists of walking her dog daily Past Medical History: Diagnosis Date ??? Anxiety ??? Depression Patient participates in exercise: 5-7 times per week Patient is participating in the following exercise program: Walking Pertinent Nutrition Medications: Reviewed Pertinent Nutrition Labs: Reviewed Clinical Data: Height: 5' 4 (162.6 cm) Weight: (!) 304 lb (137.9 kg) BMI (Calculated): 52.[address] visit: 304 lb Diagnostic Statement: Obesity related to excess energy intake and decreased physical activity AEB elevated BMI. Interventions: Bariatric Nutrition Guide provided and reviewed, including: portion sizes using food models, post-surgery diet progression, post-surgery protein requirements/protein supplements, Bariatric vitamin/mineral supplementation recommendations, adequate hydration, proper eating habits, potential Bariatric post-op concerns: dumping syndrome, nausea/vomiting, constipation, importance of routine activity, no alcohol/carbonation, and attending support group, tips for dining out and goals for a lifetime ofsuccess and previous food records, goals, and behavior modification tips reviewed Materials Provided: Bariatric Nutrition Guide, Support Group Schedule, High Protein Liquid Supplement Handout, Fitness Center Membership Information and Vitamin Option Sheet Behavior and Lifestyle Modifications Discussed: Eat 3 meals daily with 1-2 high protein snacks as needed Choose low fat/low sugar items Eat 60 gm protein per day Eliminate caloric beverages, carbonated beverages and limit caffeine Perform 30 minutes of cardiovascular exercise per day, most days of the week as able and approved by physician Do not graze between meals Incorporate fruits and vegetables Include whole grain foods Take 15-20 minutes to eat meals Reduce stress and emotional eating Portion control Recipe modifications/cooking methods Monitoring: Pt encouraged to call RD with questions and/or concerns. Pt verbalizes understanding of expectation of gradual weight loss or weight maintenance prior to surgery. Evaluation of Overall Compliance Potential: Pt receptive and verbalizes understanding of concepts discussed Nutritional Review ?? Cleared, no additional RD visits required _X__ ?? Not cleared, additional RD visit(s) required ___ ?? Continue with Medically Managed Diet visits ___ ?? Bariatric Case Conference review required ___ Session Information Session date: 12/11/2019 Session total minutes: [address]/YADIRA CTION TREATMENT COUNSELOR documented in this encounter Plan of Treatment Not on file documented as of this encounter Visit Diagnoses Diagnosis Morbid obesity (HCC)- Primary Morbid obesity documented in this encounter
--- OUTSIDE RECORDS SUMMARY | 2024-11-05 20:18 | XMS_ITS | Encounter Summary ---
Author Organization [facility] Address [address] [place] [address] Care Team Providers Care Aircraft Cleaning Supervisor Name Role Phone Jaime Mota MD Primary Care Provider [phone] Reason for Referral * MRI/CAT/PET Scan (Routine) - Closed Specialty Diagnoses / Procedures Referred By Eileen mendez Referred To Contact Radiology Diagnoses Mass of right submandibular region Procedures CT Soft Tissue Neck with Contrast Morgan Garsia MD [address] [place] [address] Phone: tel: fax: [address] [phone] Referral ID Status Reason Start Date Expiration Date Visits Re quested Visits Authorized [id number] Closed 01/30/2023 05/02/2023 1 1 Reason for Visit * MRI/CAT/PET Scan (Routine) - Closed Specialty Diagnoses / Procedures Referred By Contac andrea Referred To Contact Radiology Diagnoses Mass of right submandibular region Procedures CT Soft Tissue Neck with Contrast Morgan Garsia MD [address] [place] [address] Phone: tel: fax: [address] [phone] Referral ID Status Reason Start Date Expiration Date Visits Re quested Visits Authorized [id number] Closed 01/30/2023 05/02/2023 1 1 Encounter Details Date Type Department Care Team (Latest Contact Info) Description 02/25/2023 6:47 AM CDT - 02/25/2023 11:59 PM CDT Hospital Encounter [facility] [address] [place] [address] Mass of right submandibular region Discharge Disposition: Discharge to home or self care Social History Tobacco Use Types Packs/Day Years [...] on file 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 Gender Identity Not on file Sexual Orientation Not on file documented as of this encounter Medications at Time of Discharge loratadine (CLARITIN) 10 mg tablet Claritin OTC qd citalopram (CeleXA) 40 mg tablet Take 1 tablet (40 mg total) by mouth daily 90 tablet 3 02/28/2022 03/08/2023 documented as of this encounter Discharge Disposition Disposition Code Departure Means Destination Discharge to home or self care documented in this encounter Plan of Treatment Not on file documented as of this encounter Procedures Procedure Name Priority Date/Time Associated Diagnosis Comments CT SOFT TISSUE NECK W CONTRAST Schedule Routine, Read Routine (OP Routine) 02/25/2023 7:22 AM CDT Mass of right submandibular region documented in this encounter Results * CT Soft Tissue Neck with Contrast (02/25/2023 7:22 AM CDT) Anatomical Region Laterality Modality Head and Neck N/A Computed Tomogra phy 02/25/2023 7:43 AM CDT Narrative 02/25/2023 7:57 AM CDT EXAM DESCRIPTION: ?? CT SOFT TISSUE NECK W CONTRAST REASON FOR STUDY: ?? right submandibular mass ?? Right submandibular mass x 6 months. BB marker placed in area of interest. ? TECHNIQUE: Post IV contrast scanning from skull base through lung apices. ?? Reconstructed MPR images reviewed. All images stored on PACS. Automated exposure control was used as a dose optimization technique for this examination. CONTRAST TYPE/DOSE: ?? 100mL of IOVERSOL 350 MG IODINE/ML INTRAVENOUS SYRINGE ?? injected via ?? intravenous COMPARISON: ?? None available FINDINGS: The bilateral globes are symmetric. ??Left maxillary sinus polyp/retention cyst. ??Biconvex nasal septal curvature. The bilateral mastoid air cells are clear. ??Temporomandibular joints are symmetric and the zygomatic arches are intact. The bilateral parotid glands enhance symmetrically. ??Right suprahyoid neck skin marker at the level of the right submandibular gland. ??At the inferior anterior margin of right submandibular gland there is 0.8 x 2.6 x 1.7 cm asymmetric enhancement (series 5, image 59 and series 2, image 58). ??No radiopaque calculus within the substance of the right submandibular gland or along the expected course in the right floor of mouth. ??There is no overlying soft tissue inflammatory changes or drainable fluid collection. ??The remainder of the right submandibular gland is not atrophic. ??Left submandibular gland enhances homogeneously. Mild fullness of the posterior nasopharyngeal soft tissues is likely physiologic for the patient's age. ??Mild medialized course of the carotid vasculature effaces the adjacent airway. ??Remainder of the airway is midline and patent. No parapharyngeal or retropharyngeal fluid collection. The bilateral common carotid arteries, internal carotid arteries and bilateral internal jugular veins are contrast opacified. No thyroid nodule greater than 1 cm in size. A few scattered bilateral cervical chain lymph nodes are noted. ??Index right level 3 1 cm lymph node. Lung apices with increased attenuation on both sides could reflect expiratory phase of imaging. ??If there remains a concern for chest pathology then recommend dedicated chest CT. Multilevel cervical degenerative changes including a posterior osteophyte complex at C5-C6 and C6-C7. IMPRESSION: ?? 1. ?? Asymmetric enhancement in the anterior/inferior right submandibular gland measuring up to 2.6 cm. ??The imaging features are nonspecific and could reflect sequelae of prior sialoadenitis or malignancy. ??The clinical aspects of the case will determine the need for tissue sampling versus surveillance imaging. 2. ?? Nonspecific cervical lymph nodes measuring up to 1 cm. ??Attention on follow-up imaging. THIS IS AN ELECTRONICALLY VERIFIED FINAL REPORT 02/25/2023 7:57 AM - Electronically signed by ??Samuel Escobar D.O. AP: AP D: ??02/25/2023 7:57 AM T: ??02/25/2023 7:57 AM Report ID: [id number] Reading Location: ??[id number] Procedure Note Samuel Escobar, DO - 02/25/2023 EXAM DESCRIPTION: CT SOFT TISSUE NECK W CONTRAST REASON FOR STUDY: right submandibular mass Right submandibular mass x 6 months. BB marker placed in area of interest. TECHNIQUE: Post IV contrast scanning from skull base through lung apices. Reconstructed MPR images reviewed. All images stored on PACS. Automated exposure control was used as a dose optimization technique for this examination. CONTRAST TYPE/DOSE: 100mL of IOVERSOL 350 MG IODINE/ML INTRAVENOUSSYRINGE injected via intravenous COMPARISON: None available FINDINGS: The bilateral globes are symmetric. Left maxillary sinus polyp/retention cyst. Biconvex nasal septal curvature. The bilateral mastoid air cells are clear. Temporomandibular joints are symmetric and the zygomatic arches are intact. The bilateral parotid glands enhance symmetrically. Right suprahyoid neck skin marker at the level of the right submandibular gland. At theinferior anterior margin of right submandibular gland there is 0.8 x 2.6 x 1.7 cm asymmetric enhancement (series 5, image 59 and series 2, image 58). No radiopaque calculus within the substance of the right submandibular glandor along the expected course in the right floor of mouth. There is nooverlying soft tissue inflammatory changes or drainable fluid collection. Theremainder of the right submandibular gland is not atrophic. Left submandibulargland enhances homogeneously. Mild fullness of the posterior nasopharyngeal soft tissues is likely physiologic for the patient's age. Mild medialized course of the carotid vasculature effaces the adjacent airway. Remainder of the airway ismidline and patent. No parapharyngeal or retropharyngeal fluid collection. The bilateral common carotid arteries, internal carotid arteries andbilateral internal jugular veins are contrast opacified. No thyroid nodule greater than 1 cm in size. A few scattered bilateral cervical chain lymph nodes are noted. Indexright level 3 1 cm lymph node. Lung apices with increased attenuation on both sides could reflectexpiratory phase of imaging. If there remains a concern for chest pathology then recommend dedicated chest CT. Multilevel cervical degenerative changes including a posterior osteophyte complex at C5-C6 and C6-C7. IMPRESSION: 1. Asymmetric enhancement in the anterior/inferior right submandibulargland measuring up to 2.6 cm. The imaging features are nonspecific and could reflect sequelae of prior sialoadenitis or malignancy. The clinicalaspects of the case will determine the need for tissue sampling versussurveillance imaging. 2. Nonspecific cervical lymph nodes measuring up to 1 cm. Attention on follow-up imaging. THIS IS AN ELECTRONICALLY VERIFIED FINAL REPORT 02/25/2023 7:57 AM - Electronically signed by Samuel Escobar D.O. AP: AP Report ID: [id number] Reading Location: [place] [address] Morgan Garsia MD IMG CT PROCEDURES Final Res ult documented in this encounter Visit Diagnoses Diagnosis Mass of right submandibular region documented in this encounter Administered Medications Inactive Administered Medications - up to 3 most recent administrations Medication Order MAR Action Action Date Dose Rate Site ioversoL (OPTIRAY 350) syringe 100 mL 100 mL, intravenous, Once in imaging, contrast, Starting on 02/25/23 at 0719, For 1 dose Contrast Given 02/25/2023 7:05 AM CDT 100 mL documented in this encounter Care Teams Aircraft Cleaning Supervisor Relationship Specialty Start Date End Date Jaime Mota MD PCP - General Family Medicine 02/27/22 documented as of this encounter
--- OUTSIDE RECORDS SUMMARY | 2024-11-05 20:18 | XMS_ITS | Encounter Summary ---
Author Organization [facility] Address [address] [place], [place] [address] [address] Care Team Providers Care [facility] [employer] [facility] Name Role Phone Unavailable Primary Care Provider Unavailabl e Reason for Visit * Reason Comments Pre-op Consult consult Encounter Details Date Type Department Care Team (Late st Contact Info) Description 12/11/2019 11:20 AM SHIFT MGR Office Visit [facility] [id number] [place] [address], [address] [place] [address] [place] [address] [facility] [address] [place] [address] Morbid obesity with BMI of 50.0-59.9, adult (HCC) (Primary Dx) Social History Tobacco Use [...] Sign Reading Time Taken Comments Blood Pressure 150/100 12/11/2019 11:35 AM SHIFT MGR Pulse 74 12/11/2019 11:35 AM SHIFT MGR Temperature - - Respiratory Rate - - Oxygen Saturation - - Inhaled Oxygen Concentration - - Weight 134.1 kg (295 lb 9.6 oz) 020 11:35 AM SHIFT MGR Height 162.6 cm (5' 4 ) 12/11/2019 11:3 5 AM SHIFT MGR Body Mass Index 50.74 12/11/2019 11:35 AM SHIFT MGR documented in this encounter Patient Instructions * Patient Instructions* Shoaib Jimenez MD - 12/11/2019 12:04 PM SHIFT MGR Impression: Morbid obesity with above listed comorbidities. Multiple failed diet attempts. Plan: Based on discussion with the patient and consideration of the patients medical history and diagnosis of morbid obesity the patient is an appropriate candidate for bariatric surgery. Recommendation isfor: LRYGB and laparoscopic repair of hiatal hernia Liquid Protein Diet: Yes2 Weeks Is Technician: Yes Additional Testing: Yes GI: - hx morbid obesity with increased risk of silent heartburn and hiatal hernia - UGI done 02/2019 SMALL SLIDING-TYPE HIATAL HERNIA. MILD GASTROESOPHAGEAL REFLUX. CV: - Preop EKG Pulmonary: none Endocrine: None Heme: None Preoperative Labs: - CBC - CMP - B1 / B12 Preoperative weight loss: 2-5 lbs from start of program Comments: Pt has no history of drug [...] check at Class: No Robot candidate: no T MGR documented in this encounter Progress Notes * Shoaib Jimenez MD - 12/11/2019 11:43 AM CST BARIATRIC EVALUATION HISTORY & PHYSICAL Height: 5' 4 (162.6 cm) Weight: 295 lb 9.6 oz (134.1 kg) BMI (Calculated): 50.71 Chief Complaint: Morbid Obesity HPI: Pt is a 34 yo F with a hx of morbid obesity who presents for surgical tx. Pt has attempted multiple weight loss regimens in the past including medical, exercise and dietary without meterman success. Pt has developed multiple comorbid conditions that include Dyspnea on exertion, Multiple arthropathies, Depression and Morbid Obesity. These comorbid condition(s) have progressively worsened dueto the patients morbid obesity and no other contributing factors. Pt has now attained a BMI (Calculated): 50.71 and has failed multiple non surgical weight loss regimens for >5yrs. Past Medical History: Diagnosis Date ??? Anxiety ??? Depression Past Surgical History: Procedure Laterality Date ??? Tonsillectomy PATIENT MEDICAL HISTORY SCREENING: Diabetes............................................No Hypertension.....................................No Gastroesophageal reflux disease.....No Chest pain.........................................No Heart trouble......................................No Hypercholesterolemia.......................No Stress incontinence..........................No Dyspnea on exertion.........................Yes Multiple arthropathies........................Yes Depression........................................Yes Sleep apnea......................................No MVP...................................................No Morbid Obesity..................................Yes Blood clots........................................No Other................................................. none FAMILY HISTORY SCREENING: Significant for obesity....................... Yes Diabetes........................................... Yes Heart disease................................... Yes Stroke............................................... No Cancer.............................................. Yes Hypertension..................................... No Blood clots........................................ No Other................................................. none Has the patient had a positive history of MRSA No. Current Outpatient Medications Medication ??? citalopram (CELEXA) 40 MG tablet ??? Loratadine (CLARITIN PO) No current facility-administered medications for this visit. Allergies Allergen Reactions ??? Sulfa Drugs Urticaria and Rash Social History Smoking status: Never Smoker Smokeless tobacco: Never Used Alcohol use: Yes Comment: rare Drug use: No Sexual activity: Not on file Family History Problem Relation Name Age of Onset ??? Arthritis - Rheumatoid Mother ??? Thyroid Disease Mother ??? Coronary Artery Disease Father ??? Cancer - Lung Paternal Grandmother ??? Diabetes - Type 2 Maternal Uncle Review of Systems: Constitutional: denies recent significant [...] person for any ADLs.. Physical Examination: BP 150/100 Pulse 74 Ht 5' 4 (1.626 m) Wt 295 lb 9.6 oz (134.1 kg) BMI 50.74 kg/m2 Constitutional: well-developed, well-nourished, and in no [...] CO2, BUN, CREATININE, GLUCOSE, CALCIUM in thelast 11966 hours. No results for input(s): WBC, HGB, HCT, PLTCOUNT in the last 78398 hours. Risk / Benefits Risks and benefits [...] procedures or operations in the perioperative and retirement periods. Questions were answered. Bariatric Surgery Patient [...] or network. The patient will experience successfuland retirement weight loss when these components along with bariatric surgery are followed. The patient has had the above discussions with multiple program team members including surgeon, gas operator, bariatric nurse and mental health content production specialist. Impression: Morbid obesity with above listed comorbidities. Multiple failed diet attempts. Plan: Based on discussion with the patient and consideration of the patients medical history and diagnosis of morbid obesity the patient is an appropriate candidate for bariatric surgery. Recommendation isfor: LRYGB and laparoscopic repair of hiatal hernia Liquid Protein Diet: Yes2 Weeks Is Technician: Yes Additional Testing: Yes GI: - hx morbid obesity with increased risk of silent heartburn and hiatal hernia - UGI done 02/2019 SMALL SLIDING-TYPE HIATAL HERNIA. MILD GASTROESOPHAGEAL REFLUX. CV: - Preop EKG Pulmonary: none Endocrine: None Heme: None Preoperative Labs: - CBC - CMP - B1 / B12 Preoperative weight loss: 2-5 lbs from start of program Comments: Pt has no history of drug [...] No Robot candidate: no Shoaib Jimenez MD 12/11/2019 T MGR documented in this encounter Plan of Treatment Not on file documented as of this encounter Visit Diagnoses Diagnosis Morbid obesity with BMI of 50.0-59.9, adult (HCC)- Primary documented in this encounter
--- OUTSIDE RECORDS SUMMARY | 2024-11-05 20:18 | XMS_ITS | Encounter Summary ---
Author Organization [facility] Address [address] [place] [address] Care Team Providers Care Registered Art Therapist Name Role Phone Lorena Ryder MD Primary Care Provider [phone] Reason for Visit * Reason Onset Date Comments Positive Covid/Zoan 03/14/2020 Encounter Details Date Type Department Care Team (Late st Contact Info) Description 03/14/2020 Telephone [facility] Family Medicine [address] [place] [address] Lorena Ryder MD [address] [place] [address] [address] [place] [address] Positive Covid/Zofran Social History Tobacco Use Types Packs/Day Years [...] on file Legal Sex Female 8:37 PM NIGHT TIME BABYSITTER Gender Identity Not on file Sexual Orientation Not on file documented as of this encounter Ordered Prescriptions Prescription Sig Dispense Quantity Refills Last Filled Start Date End Date ondansetron (Zofran) 4 mg tablet Take 1 tablet (4 mg total) by mouth every 8 (eight) hours as needed for nausea or vomiting 20 tablet 03/14/2020 2 documented in this encounter Miscellaneous Notes * Telephone Encounter - Michelle Bertrand RN - 03/14/2020 11:22 AM CDT Patient aware * Telephone Encounter - Tory Lance PA - 03/14/2020 11:03 AM CDT Sent. Ensure she's aware not to get out of her home. My certified pharmacy technician son states covid positive patients are showing up to pharmacies to merchandise pickup/receiving associate meds so I'm just being overzealous in saying this. * Telephone Encounter - Nila Murdock - 03/14/2020 10:22 AM CDT Patient called, says she tested positive for Covid-19, she is not able to keep anything down. Patient wants to know if we could send in Zofran. Patient uses [facility] in [place] documented in this encounter Plan of Treatment Not on file documented as of this encounter Visit Diagnoses Not on filedocumented in this encounter Care Teams Registered Art Therapist Relationship Specialty Start Date End Date Lorena Ryder MD PCP - General Family Medicine 01/05/20 01/15/22 documented as of this encounter
--- OUTSIDE RECORDS SUMMARY | 2024-11-05 20:18 | XMS_ITS | Encounter Summary ---
Author Organization [facility] Address [address] [place] [address] Care Team Providers Care Sludge Filtration Attendant Name Role Phone Lorena Ryder MD Primary Care Provider [phone] Reason for Visit * Reason Comments Establish Care Encounter Details Date Type Department Care Team (Late st Contact Info) Description 01/12/2020 11:00 AM VOCATIONAL GUIDANCE COUNSELOR Office Visit [facility] Family Medicine [address] [place] [address] Kyra Medina PA [address] [address] Morbid obesity with BMI of 50.0-59.9, adult (CMS/HCC) (Primary Dx); Anxiety associated with depression Social History Tobacco Use Types Packs/Day Years [...] on file Legal Sex Female 8:37 PM VOCATIONAL GUIDANCE COUNSELOR Gender Identity Not on file Sexual Orientation Not on file documented as of this encounter Last Filed Vital Signs Vital Sign Reading Time Taken Comments Blood Pressure 126/80 01/12/2020 11:41 AM VOCATIONAL GUIDANCE COUNSELOR Pulse 60 01/12/2020 11:41 AM VOCATIONAL GUIDANCE COUNSELOR Temperature 37 ??C (98.6 ??F) 01/12/2020 11: 41 AM VOCATIONAL GUIDANCE COUNSELOR Respiratory Rate 18 01/12/2020 11:4 1 AM VOCATIONAL GUIDANCE COUNSELOR Oxygen Saturation 97% 01/12/2020 11: 41 AM VOCATIONAL GUIDANCE COUNSELOR Inhaled Oxygen Concentration - - Weight 136.3 kg (300 lb 6.4 oz) 020 11:41 AM VOCATIONAL GUIDANCE COUNSELOR Height 162.6 cm (5' 4 ) 01/12/2020 11:4 1 AM VOCATIONAL GUIDANCE COUNSELOR Body Mass Index 51.56 01/12/2020 11:41 AM VOCATIONAL GUIDANCE COUNSELOR documented in this encounter Ordered Prescriptions Prescription Sig Dispense Quantity Refills Last Filled Start Date End Date citalopram (CeleXA) 40 mg tablet Take 1 tablet (40 mg total) by mouth daily 90 tablet 3 01/12/2020 02/28/2022 documented in this encounter Progress Notes * Kyra Medina PA - 01/12/2020 11:00 AM CST Images from the original note were not included. Visit Date: 01/12/2020 Patient ID: Marleny Edmonds is a 34 y.o. female. Chief Complaint(s): Establish Care HPI: Patient here today to establish care and to discuss her weight gain. Overweight/Obesity: BMI of Body mass index is 51.56 kg/m??. Patient states she has struggled with her weight for her entire adult life. This is the heaviest she has been, weighing in at 300 pounds today. She has tried several attempts at weight loss in the past including: Weight Watcher, Crossfit exercising (did this for 5 years), various diet pills and prescriptions for weight loss. Nothing has given her significant or lasting results. She did lose 30 pounds last year doing hcg diet. She has already had consult with bariatric surgeon and is wanting to have gastric bypass surgery done. Needing letter of medical necessity today. Anxiety/Depression: Longstanding anxiety and depression, well controlled with celexa daily. Current Outpatient Medications Medication Sig Dispense Refill ??? citalopram (CeleXA) 40 mg tablet Take 1 tablet (40 mg total) by mouth daily 90 tablet 3 No current facility-administered medications for this visit. Allergies as of 01/12/2020 - Reviewed 01/12/2020 Allergen Reaction Noted ??? Sulfa (sulfonamide antibiotics) Rash and Hives 12/04/2018 History reviewed. No pertinent past medical history. Past Surgical History: Procedure Laterality Date ??? TONSILLECTOMY Patient Active Problem List Diagnosis Date Noted ??? Hiatal hernia 01/12/2020 ??? Morbid obesity with BMI of 50.0-59.9, adult ([facility]) 01/12/2020 ??? Anxiety associated with depression 02/06/2016 Family History Problem Relation Age of Onset ??? Arthritis Mother ??? Hypertension Mother ??? Heart disease Father ??? No Known Problems Brother ??? Heart disease Maternal Grandfather ??? Non-Hodgkin's Lymphoma Paternal Grandmother ??? Heart disease Paternal Grandfather Social History Tobacco Use Smoking Status Never Smoker Smokeless Tobacco Never Used Substance and Sexual Activity Alcohol Use Yes ??? Frequency: Monthly or less ??? Drinks per session: 1 or 2 Review of Systems: Review of Systems Constitutional: Positive for unexpected weight change (steadily gaining weight despite diet/exercise attempts). Negative for chills, fatigue and fever. HENT: Negative for postnasal drip and trouble swallowing. Respiratory: Negative for cough, shortness of breath and wheezing. Cardiovascular: Negative for chest pain. Gastrointestinal: Negative for diarrhea, nausea and vomiting. Musculoskeletal: Negative for arthralgias and gait problem. Skin: Negative for rash. Neurological: Negative for dizziness, seizures, syncope and headaches. Psychiatric/Behavioral: Negative for sleep disturbance. The patient is not nervous/anxious. Physical Examination: Vitals: 01/12/20 1141 BP: 126/80 BP Location: Left arm Patient Position: Sitting Pulse: 60 Resp: 18 Temp: 37 ??C (98.6 ??F) TempSrc: Oral SpO2: 97% Weight: (!) 136.3 kg (300 lb 6.4 oz) Height: 162.6 cm (5' 4 ) Physical Exam Vitals signs and nursing note reviewed. Constitutional: General: She is not in acute distress. Appearance: Normal appearance. She is morbidly obese. She is not ill-appearing. HENT: Head: Normocephalic and atraumatic. Right Ear: Hearing, tympanic membrane, ear canal and external ear normal. Left Ear: Hearing, tympanic membrane, ear canal and external ear normal. Nose: Nose normal. Mouth/Throat: Mouth: Mucous membranes are moist. No oral lesions. Pharynx: Oropharynx is clear. Eyes: General: Lids are normal. Extraocular Movements: Extraocular movements intact. Conjunctiva/sclera: Conjunctivae normal. Pupils: Pupils are equal, round, and reactive to light. Neck: Musculoskeletal: Full passive range of motion without pain. Cardiovascular: Rate and Rhythm: Normal rate and regular rhythm. Heart sounds: No murmur. Pulmonary: Effort: Pulmonary effort is normal. Breath sounds: Normal breath sounds. No wheezing, rhonchi or rales. Musculoskeletal: Normal range of motion. Skin: General: Skin is warm and dry. Findings: No rash. Neurological: General: No focal deficit present. Mental Status: She is alert and oriented to person, place, and time. Cranial Nerves: No cranial nerve deficit. Psychiatric: Mood and Affect: Mood and affect normal. Recent Lab/Results Reviewed: No results found for this or any previous visit (from the past 672 hour(s)). PHQ Screening Over the last 2 weeks, [...] Down, Depressed, or Hopeless: Not at all Assessment/Plan Diagnoses and all orders for this visit: Morbid obesity with BMI of 50.0-59.9, adult (CMS/[facility]) (E66.01, Z68.43) (Primary) Assessment & Plan: Weight loss attempts in the past include: Weight Watchers, HCG diet, Crossfit exercise. Patient would be a good candidate for bariatric weight loss surgery. She has already has consult with surgeon and is needing letter of medical necessity - provided today. Will get baseline labs done as well to rule out underlying thyroid disorder or other. Orders: - CBC with auto differential; Future - Comprehensive metabolic panel; Future - Lipid panel; Future - TSH reflex to free T4; Future Anxiety associated with depression (F41.8) Assessment & Plan: Stable, no changes. Continue current regimen with Celexa Other orders - citalopram (CeleXA) 40 mg tablet; Take 1 tablet (40 mg total) by mouth daily Return in about 6 months (around 07/12/2020), or if symptoms worsen or fail to improve. Kyra Medina PA-C TIONAL GUIDANCE COUNSELOR documented in this encounter Miscellaneous Notes * Assessment & Plan Note - Kyra Medina PA - 01/12/2020 12:46 PM VOCATIONAL GUIDANCE COUNSELOR Associated Problem(s): Morbid obesity with BMI of 50.0-59.9, adult ([facility]) Weight loss attempts in the past include: Weight Watchers, HCG diet, Crossfit exercise. Patient would be a good candidate for bariatric weight loss surgery. She has already has consult with surgeon and is needing letter of medical necessity - provided today. Will get baseline labs done as well to rule out underlying thyroid disorder or other. TIONAL GUIDANCE COUNSELOR * Assessment & Plan Note - Kyra Medina PA - 01/12/2020 12:46 PM VOCATIONAL GUIDANCE COUNSELOR Associated Problem(s): Anxiety associated with depression Stable, no changes. Continue current regimen with Celexa TIONAL GUIDANCE COUNSELOR documented in this encounter Plan of Treatment Scheduled Orders Name Type Priority Associated Diagnoses Orde r Schedule CBC with auto differential Lab Routine Morbid obesity with BMI of 50.0-59.9, adult ([facility]) Expected: 01/12/2020, Expires: 01/12/2021 Comprehensive metabolic panel Lab Routine Morbid obesity with BMI of 50.0-59.9, adult ([facility]) Expected: 01/12/2020, Expires: 01/12/2021 Lipid panel Lab Routine Morbid obesity with BMI of 50.0-59.9, adult ([facility]) Expected: 01/12/2020, Expires: 01/12/2021 TSH reflex to free T4 Lab Routine Morbid obesity with BMI of 50.0-59.9, adult ([facility]) Expected: 01/12/2020, Expires: 01/12/2021 documented as of this encounter Visit Diagnoses Diagnosis Morbid obesity with BMI of 50.0-59.9, adult ([facility])- Primary Anxiety associated with depression Dysthymic disorder documented in this encounter Discontinued Medications Medication Sig Discontinue Reason Start Date End Da te citalopram (CeleXA) 40 mg tablet Take 40 mg by mouth daily Reorder 01/12/2020 documented as of this encounter Historical Medications * This list may reflect changes made after this encounter. citalopram (CeleXA) 40 mg tablet Take 40 mg by mouth daily 01/12/2020 added in this encounter Care Teams Sludge Filtration Attendant Relationship Specialty Start Date End Date Lorena Ryder MD PCP - General Family Medicine 01/05/20 01/15/22 documented as of this encounter
--- OUTSIDE RECORDS SUMMARY | 2024-11-05 20:18 | XMS_ITS | Encounter Summary ---
Author Organization [facility] Address [address] [place], [place] [address] [address] Care Team Providers Care Personal Trainer Name Role Phone Unavailable Primary Care Provider Unavailabl e Reason for Referral * Radiology Services (Routine) - Closed Specialty Diagnoses / Procedures Referred By Contac t Referred To Contact Diagnoses Morbid obesity (HCC) BMI 50.0-59.9, adult (HCC) Procedures FL FLUORO UPPER [place] TRACT + [place] [address] [address] [place] [address] Referral ID Status Reason Start Date Expiration Date Visits Re quested Visits Authorized [id number] Closed 12/04/2018 06/02/2019 1 1 Reason for Visit * Radiology Services (Routine) - Closed Specialty Diagnoses / Procedures Referred By Contac t Referred To Contact Diagnoses Morbid obesity (HCC) BMI 50.0-59.9, adult (HCC) Procedures FL FLUORO UPPER GI TRACT + [place] [address] [place] [address] Referral ID Status Reason Start Date Expiration Date Visits Re quested Visits Authorized [id number] Closed 12/04/2018 06/02/2019 1 1 Encounter Details Date Type Department Care Team (Latest Contact Info) Description 02/24/2019 7:51 AM CDT - 02/24/2019 11:59 PM CDT Hospital Encounter [facility] Imaging Services - Radiology [address] [place], [place] [id number] [place] [address] [place] [address] Discharge Disposition: Home or Self [...] Take 40 mg by mouth once daily documented as of this encounter Plan of Treatment Not on file documented as of this encounter Procedures Procedure Name Priority Date/Time Associated Diagnosis Comments FL FLUORO UPPER GI TRACT + KUB Routine 02/24/2019 8:11 AM CDT Morbid obesity (HCC) BMI 50.0-59.9, adult (HCC) documented in this encounter Results * FL FLUORO UPPER GI TRACT + KUB (02/24/2019 8:11 AM CDT) Anatomical Region Laterality Modality Abdomen Radiographic Camila ging 02/24/2019 3:0 6 PM CDT Impressions 02/24/2019 4:46 PM CDT [...] this encounter Visit Diagnoses Diagnosis Morbid obesity (HCC) Morbid obesity BMI 50.0-59.9, adult (HCC) Body Mass Index 50.0-59.9, adult documented in this encounter
--- OUTSIDE RECORDS SUMMARY | 2024-11-05 20:18 | XMS_ITS | Encounter Summary ---
Author Organization [facility] Address [address] [place] [address] Care Team Providers Care Head Mva Reactor Operator Name Role Phone Unavailable Primary Care Provider Unavailabl e Reason for Visit * Reason Comments Diet Encounter Details Date Type Department Care Team (Latest Contact Info) Description 02/16/2019 2:15 PM CDT Clinical Support [facility] [address] [place] [address] Morbid obesity with BMI of 50.0-59.9, adult Social History Tobacco Use Types Packs/Day Years [...] - Inhaled Oxygen Concentration - - Weight 137.9 kg (304 lb) 02/16/2019 3:06 PM CDT Height 162.6 cm (5' 4 ) 02/16/2019 3:06 PM CDT Body Mass Index 52.18 02/16/2019 3:06 PM CDT documented in this encounter Progress Notes * Sara Pabon RD/YADIRA - 02/16/2019 3:07 PM CDT Weight Management Medical Nutrition Therapy Session 1 Date: 02/16/2019 Patient: Kyle Edmonds Date of : 1985 (33 year old) PCP Physician: Lester Youssef MD Referring Physician: Shoaib Jimenez MD Assessment: Pt planning Sleeve Gastrectomy. She states her max weight is her current weight and hopes to reach a goal of 170 lb. 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 Her breakfast is often a [employer] breakfast sandwich. Lunch may be [employer] 2 cheeseburgers, fries, and a diet Coke orleftover pizza from home. Dinner could be ordered out from [address] [place] [address] grill: [employer] salad. She snacks throughout the evening on chips, popcorn, and cookies. She has sampled Premier protein shakes. She drinks 1 soda per week and likes a carbonated water ([place]) once a day. Advised Kyle to eliminate carbonation. She consumes 48 ounces of regular coffee per day and was encouraged to reduce caffeine to 16 ounces per day. Kyle loving drinks alcohol and does not smoke. She eats out 2-3x/week. She uses her gym 2-3x/week. Past Medical History: Diagnosis Date ??? Anxiety ??? Depression Diets patient has tried: low calorie diet Patient participates in exercise: 2-3 times per week Patient is participating in the following exercise program: Gym/Club Membership Pertinent Nutrition Medications: Reviewed Pertinent Nutrition Labs: Reviewed Clinical Data: Height: 5' 4 (162.6 cm) Weight: (!) 304 lb (137.9 kg) BMI (Calculated): 52.16 Diagnostic Statement: Obesity related to excess energy [...] dining out and goals for a lifetime ofsuccess, previous food records, goals, and behavior modification tips reviewed and the 1 week pre-op liquid diet. Materials Provided: Bariatric Nutrition Guide, Food and Activity Guide, Support Group Schedule, High Protein Liquid Supplement Handout, Fitness Center Membership Information and Vitamin Option Handout Behavior and Lifestyle Modifications Discussed: Eat 3 [...] to surgery. Evaluation of Overall Compliance Potential: consistently receptive, aware of diet changes needed and verbalizes understanding Pt has viewed RD introductory video: yes Pt has demonstrated comprehension by correctly answering at least 6/10 questions on video competency questionnaire: yes Goals for this month: 1. No carbonation 2. Limit coffee with caffeine to 16 ounces per day 3. No evening snacks 4. Healthier dining out choices Nutritional Review ?? Cleared, no additional RD visits required ___ ?? Not cleared, additional RD visit(s) required _x to assess progress on goals__ ?? Continue with Medically Managed Diet visits ___ ?? Bariatric Case Conference review required ___ Session Information Session date: 02/16/2019 Session total minutes: 60 minutes Next session: 03/18/[address]/YADIRA documented in this encounter Plan of Treatment Not on file documented as of this encounter Visit Diagnoses Diagnosis Morbid obesity with BMI of 50.0-59.9, adult- Primary documented in this encounter
--- OUTSIDE RECORDS SUMMARY | 2024-11-05 20:18 | XMS_ITS | Encounter Summary ---
Author Organization 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 I recommended removal of this. We discussed the risks of the procedure including bleeding infection but also the risk of marginal mandibular nerve injury. I would recommend that she is off of work for about a week for recovery. She indicates that she understands. She would like to go ahead and schedule this. documented in this encounter Plan of Treatment Not on file documented as of this encounter Visit Diagnoses Not on filedocumented in this encounter Care Teams Shop Cooper Relationship Specialty Start Date End Date Jaime Mota MD PCP - General Family Medicine 02/27/22 documented as of this encounter
--- OUTSIDE RECORDS SUMMARY | 2024-11-05 20:18 | XMS_ITS | Encounter Summary ---
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
--- OUTSIDE RECORDS SUMMARY | 2024-11-05 20:18 | XMS_ITS | Encounter Summary ---
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 * Telephone Encounter - Viktoria Momin MA - 05/04/2022 10:24 AM CDT LMOM for pt to call office. * Telephone Encounter - Viktoria Momin MA - 05/04/2022 10:24 AM CDT ----- Message from Jaime Mota MD sent at 05/01/2022 10:58 PM CDT ----- Fatty liver. Weight loss diet exercise low-fat diet. documented in this encounter Plan of Treatment Not on file documented as of this encounter Visit Diagnoses Not on filedocumented in this encounter Care Teams Halftone Operator Relationship Specialty Start Date End Date Jaime Mota MD PCP - General Family Medicine 02/27/22 documented as of this encounter
--- OUTSIDE RECORDS SUMMARY | 2024-11-05 20:18 | XMS_ITS | Encounter Summary ---
Author Organization [facility] Address [facility] [place] [address] Care Team Providers Care Manager Of Software Name Role Phone Kyra Medina Primary Care Provider [phone] Reason for Visit * Reason Comments Pre-op Consult final consult Encounter Details Date Type Department Care Team (Late st Contact Info) Description 02/02/2020 2:45 PM CDT Office Visit [facility] Weight Management Services [address] [address] Sraa Argueta, [facility] [address] [address] Bariatric surgery status (Primary Dx); Dyspnea on exertion; Arthropathy Social History Tobacco Use Types Packs/Day Years [...] Pulse 82 02/02/2020 2:05 PM CDT Temperature - - Respiratory Rate - - Oxygen Saturation - - Inhaled Oxygen Concentration - - Weight 138.1 kg (304 lb 6.4 oz) 02/02/2020 2:05 PM CDT Height 162.6 cm (5' 4 ) 02/02/2020 2:05 PM CDT Body Mass Index 52.25 02/02/2020 2:05 PM CDT documented in this encounter Progress Notes * Sara Argueta, HOISTER-FITTINGS TIGHTENER - 02/02/2020 2:29 PM CDT Medically Managed Diet Visit Kyle Monroy Kendal 02/02/2020 Visit # __Final Vitals: 02/02/20 1405 BP: 130/88 Pulse: 82 Weight: (!) 304 lb 6.4 oz (138.1 kg) Height: 5' 4 (1.626 m) Chief Complaint: Morbid Obesity ?? HPI: Pt is a 34 yo F with a hx of morbid obesity who presents for surgical tx. Pt has attempted multiple weight loss regimens in the past including medical, exercise and dietary without moth exterminator success. Pt has developed multiple comorbid conditions that include Dyspnea on exertion, Multiple arthropathies, Depression and Morbid Obesity. These comorbid condition(s) have progressively worsened dueto the patients morbid obesity and no other contributing factors. Pt has now attained a BMI (Calculated): 50.71 and has failed multiple non surgical weight loss regimens for >5yrs. Medical Review: No new medications, no recent ED visits, no injuries or trauma since last visit Dietitian recommendations were reviewed : Patient is not following a specific diet plan Patients food and exercise journal were reviewed. no Fluid intake per day: 64 oz per day Patient is participating in the following Physical Activity: walking daily 1 mile Change in weight since last visit: up 9 lbs from 11/2019 Patient verbalizes understanding of fats, carbohydrates and protein: Yes Patient is disabled and unable to participate in physical activity: No Patient is compliant with diet and / or exercise: Yes I counseled the patient on Behavior and Lifestyle Modifications : Eat 3 meals daily with 1-2 high protein healthy snacks Eliminate caloric beverages Do not graze between meals Portion control Choosing low fat / low sugar items Reducing stress and emotional eating Incorporating fruits and vegetables Taking 15- 20 minutes to eat a meal I reviewed with the patient vitamin supplements that are recommended post operatively. BP 130/88 Pulse 82 Ht 5' 4 (1.626 m) Wt 304 lb 6.4 oz (138.1 kg) BMI 52.25 kg/m2 Current Outpatient Medications Medication ??? citalopram (CELEXA) 40 MG tablet ??? Loratadine (CLARITIN PO) No current facility-administered medications for this visit. Past Medical History: Diagnosis Date ??? Anxiety ??? Depression Review of Systems: HEENT: Normal Cardiovascular: Normal Respiratory: Normal Gastrointestinal: Normal Genitourinary: Normal Musculoskeletal: Normal Skin / Breast / Axillae: Normal Endocrine: Normal Neuro / Psych: Normal General: Awake, alert and no acute distress Heart: RRR, no murmurs or rubs Lungs: CTA Abdomen: Soft, nontender, BS + x4, no rebound or guarding Ext: No edema x4 Assessment and Plan: Morbid Obesity: Continue with dieticians recommendations Continue with low fat, low calorie diet Continue with 64 oz fluid a day, water, sugar free, caffeine free, non carbonated beverages Eat slowly, chew food thoroughly Continue with exercise and gradually continue to increase. Impression: Morbid obesity with above listed comorbidities. Multiple failed diet attempts. ?? Plan: Based on discussion with the patient and consideration of the patients medical history and diagnosis of morbid obesity the patient is an appropriate candidate for bariatric surgery. Recommendation isfor: ?? LRYGB and laparoscopic repair of hiatal hernia ?? Liquid Protein Diet: Yes2 Weeks Wood Block Artist: Yes Additional Testing: Yes ?? GI: - hx morbid obesity with increased risk of silent heartburn and hiatal hernia - UGI done 02/2019 SMALL SLIDING-TYPE HIATAL HERNIA. MILD GASTROESOPHAGEAL REFLUX. ?? CV: - Preop EKG ?? Pulmonary: none ?? Endocrine: None ?? Heme: None ?? Preoperative Labs: - CBC - CMP - B1 / B12 ?? Preoperative weight loss: 2-5 lbs from start of program ?? Comments: ?? Pt has no history of drug use, alcohol use for greater then one year or treatment for alcohol or drug use for greater then one year Pt has no endocrine disorders that are related to obesity Pt has not smoked for at least 6 weeks ?? Comments: Hospitalist Consult: yes ?? Limited incision, 6S, no slater, 2 day stay ?? Self pay/ commercial: no ?? Weight check at Class: No Robot candidate: no documented in this encounter Plan of Treatment Not on file documented as of this encounter Visit Diagnoses Diagnosis Bariatric surgery status- Primary Dyspnea on exertion Other dyspnea and respiratory abnormality Arthropathy Arthropathy, unspecified, site unspecified documented in this encounter Care Teams Manager Of Software Relationship Specialty Start Date End Date Kyra Medina PA [address] [facility] [place] [id number] PCP - General Physician Palliative Care Nurse 02/02/20 documented as of this encounter
--- OUTSIDE RECORDS SUMMARY | 2024-11-05 20:18 | XMS_ITS | Encounter Summary ---
Author Organization [facility] Address [address] [place] [address] Phone Care Team Providers Care Trench Pipe Layer Helper Name Role Phone Jaime Mota MD Primary Care Provider [phone] Reason for Referral * MRI/CAT/PET Scan (Routine) - Closed Specialty Diagnoses / Procedures Referred By Eileen mendez Referred To Contact Radiology Diagnoses Mass of right submandibular region Procedures CT Soft Tissue Neck with Contrast [place] [address] Phone: tel: fax: [address] [address] Referral ID Status Reason Start Date Expiration Date Visits Re quested Visits Authorized [id number] Closed 01/30/2023 05/02/2023 1 1 Reason for Visit * Reason Comments Neck Mass Right submandibular mass * Consultation (Routine) - Closed Specialty Diagnoses / Procedures Referred By Eileen mendez Referred To Contact Otolaryngology Diagnoses Cervical adenopathy Jaime Mota MD [address] [place] [address] [place] [address] Phone: tel: fax: Morgan Garsia MD [address] [place] [address] Phone: tel: fax: Referral ID Status Reason Start Date Expiration Date V isits Requested Visits Authorized [id number] Closed Specialty Services Required 12/27/2022 01/26/2024 1 1 Encounter Details Date Type Department Care Team (Latest Contact Info) Description 01/29/2023 3:30 PM CDT Office Visit [facility] Otolaryngology [address] [place] [address] Morgan Garsia MD [address] [place] [address] Mass of right submandibular region (Primary Dx); Cervical adenopathy Social History Tobacco Use Types Packs/Day Years [...] on file 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 female was seen in the office today. Primary care provider is Jaime Mota MD . Chief Complaint: Chief Complaint Patient presents with Neck Mass Right submandibular mass HPI: She comes to clinic today for evaluation of a right-sided submandibular mass. She 1st discovered this about 6 months ago. She was lying down and with the angle she had with her neck turned she noticed it. It does feel like it is getting a little bit larger. It is never been symptomatic. There is no associated pain. It does not change with eating. She had an ultrasound which s howed a 2.9 cm right submandibular mass. I reviewed those films. It was from 01/11/2023. I have reviewed past medical, surgical, family history as well as allergies and medications. Review of Systems Review of Systems Constitutional: Negative for chills, fever and unexpected weight change. HENT: Negative for drooling and facial swelling. Eyes: Negative for pain and discharge. Respiratory: Negative for wheezing and stridor. Cardiovascular: Negative for leg swelling. Gastrointestinal: Negative for diarrhea and vomiting. Endocrine: Negative for polydipsia. Genitourinary: Negative for flank pain. Musculoskeletal: Negative for myalgias. Skin: Negative for color change. Allergic/Immunologic: Negative for immunocompromised state. Neurological: Negative for tremors and seizures. Psychiatric/Behavioral: Negative for hallucinations and self-injury. Vital Signs: Resp 18 Ht 162.6 cm (5' 4 ) Wt (!) 140.6 kg (310 lb) BMI 53.21 kg/m?? PHYSICAL EXAMINATION: GENERAL: Normal NEURO/PSYCH: Affect is normal. Alert and oriented. Extraocular muscles are intact. Cranial Nerves: Cranial nerves II-VII and IX-XII are intact and symmetric. HEAD/FACE: Normocephalic; atraumatic. No facial skin lesions. Facial strength is 5/5 and the face is symmetric. EARS : External ears have no skin lesions. Auricles are regularly set on the head. Hearing is grossly intact. Right: Normal canal. Tympanic membrane intact and mobile. Left: Normal canal. Tympanic membrane intact and mobile. NOSE: External nose has no skin lesions. Nasal dorsum is essentialy midline. Nasal septum is nonobstructive. Inferior and middle turbinates are normal size. No mucosal lesions or polyps are seen on either side. ORAL CAVITY/ OROPHARYNX: Skin of the lips is without lesions. Normal oral vestibule. Oral mucosa ismoist without lesions. Tongue and floor of mouth are without lesions or masses. Palate has no lesions and elevates symmetrically. Tonsils are negative. Oropharynx is clear without erythema or exudate. NECK: Trachea is midline. Thyroid is normal in size with no apparent nodules. Larynx: Base of tongue is symmetric without masses. Epiglottis is normal without edema or mass lesions. Hypopharynx is clear of masses including the pyriform sinuses. The false and true vocal cords are clear of masses. True vocal cords are mobile bilaterally. No paralysis. Salivary Glands: The submandibular glands are non-tender. There is a firm mass involving the right submandibular gland. It is mobile. No associated adenopathy. The parotid glands are non-tender without edema or masses. There is clear saliva flow from Stensen's and Saguache's ducts bilaterally. LYMPHATIC: No cervical lymphadenopathy. MUSCULOSKELATAL: Ambulates without difficulty. Neck full range of motion. RESPIRATORY: Breathing comfortably without audible wheeze, stertor or stridor. PROCEDURE: Ultrasound reviewed. ASSESSMENT & PLAN: Mass of right submandibular region Palpably there is a mass in the right submandibular gland. I reviewed the ultrasound and it shows that this is a proximally 2.9 cm. I think he probably needs to be excised. She needs to have a CT scan to further evaluate this as anultrasound is not quite as accurate. She understands. She would like to go ahead and pursue that. Khalida talk with her after I have results. I discussed the procedure including the risk of bleeding and infection. Risk of injury to the facial nerve. She understands. It would probably be done as an outpatient unless it was extensive. I would recommend she be off work for about a week for recovery. Morgan Garsia MD documented in this encounter Miscellaneous Notes * Assessment & Plan Note - Morgan Garsia MD - 01/29/2023 8:51 PM CDT Associated Problem(s): Mass of right submandibular region Palpably there is a mass in the right submandibular gland. I reviewed the ultrasound and it shows that this is a proximally 2.9 cm. I think he probably needs to be excised. She needs to have a CT scan to further evaluate this as anultrasound is not quite as accurate. She understands. She would like to go ahead and pursue that. Ericill talk with her after I have results. I discussed the procedure including the risk of bleeding and infection. Risk of injury to the facial nerve. She understands. It would probably be done as an outpatient unless it was extensive. I would recommend she be off work for about a week for recovery. documented in this encounter Plan of Treatment Not on file documented as of this encounter Results * CT Soft Tissue [...] Electronically signed by ??Samuel Escobar D.O. AP: VASHTI D: ??02/25/2023 7:57 AM T: ??02/25/2023 7:57 AM Report ID: [id number] Reading Location: ??[id number] Procedure Note Samuel Escobar DO - 02/25/2023 EXAM DESCRIPTION: CT SOFT [...] 02/25/2023 7:57 AM - Electronically signed by Samuelandrea Escobar D.O. AP: AP Report ID: [id number] Reading Location: [id number] Morgan Garsia MD IMG CT PROCEDURES Final Res ult documented in this encounter Visit Diagnoses Diagnosis Mass of right submandibular region- Primary Cervical adenopathy Enlargement of lymph nodes Mass of right submandibular region documented in this encounter Orders Outpatient Referral Count Last Ordered Date Fir st Ordered Date AMB REFERRAL TO ENT 1 01/29/2023 documented in this encounter Care Teams Trench Pipe Layer Helper Relationship Specialty Start Date End Date Jaime Mota MD PCP - General Family Medicine 02/27/22 documented as of this encounter
--- OUTSIDE RECORDS SUMMARY | 2024-11-05 20:18 | XMS_ITS | Clinical Summary ---
Author Organization [facility] Address [address] [place] [address]. 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 Gender Identity Not on file Sexual Orientation Not on file Plan of Treatment Health Maintenance Due Date Last Done Comments Cervical Cancer Screening Pa p Smear (Age 30 to 64) Every 3 Years 1985 Annual Physical 1988 Hepatitis C 2003 DTaP, Tdap and Td Vaccines ( 1 - Tdap) 2004 Hepatitis B Vaccines (1 of 3 - 19+ 3-dose series) 2004 Cervical Cancer Screening Pa p with HPV Testing (Age 30 to 64) Every 5 Years 2015 Cervical Cancer Screening with HPV 2015 COVID-19 Vaccine ( - 2023-2 5 season) 2024 Influenza Adult (#1) 2024 HPV Vaccines Aged Out No longer eligi ble based on patient's age to complete this topic Meningococcal Vaccine Aged Out No bren davion eligible based on patient's age to complete this topic Pneumococcal Vaccine: Pediat rics (0 to 5 Years) and At-Risk Patients (6 to 64 Years) Aged Out No longer eligible b ased on patient's age to complete this topic RSV Immunizations Under 20 Months Aged Out No longer eligible based on patient's age to complete this topic Insurance [facility]
--- OUTSIDE RECORDS SUMMARY | 2024-11-05 20:18 | XMS_ITS | Encounter Summary ---
Author Organization [facility] Healthcare Address [address] [place] [address] Care Team Providers Care Ground Systems Engineer Name Role Phone Unavailable Primary Care Provider Unavailabl e Encounter Details Date Type Department Care Team (Latest Contact Info) Description 07/02/2013 7:34 AM CDT Hospital Encounter [facility] Maverick Lundy MD [address] [place] [address] Pain in joint, lower leg Social History Tobacco Use Types Packs/Day Years Used Date Smoking Tobacco: Never Assessed Comments Unknown Sex and Gender Information Value Date Recorded Sex Assigned at Not on file Legal Sex Female 8:37 PM 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 THIS IS AN ELECTRONICALLY VERIFIED REPORT 07/02/2013 7:47 AM: ??Judah Hernandez M.D. Judah Hernandez M.D. CH: 07:47 AM 07:47 AM [facility] [E[facility]] Narrative 07/02/2013 7:50 AM CDT EXAMINATION: ??Left tibia and fibula series. HISTORY: ??Pain. TECHNIQUE: ??Anterior and lateral views of the left tibia and fibula. COMPARISON: ??None. FINDINGS: ??There is no acute fracture or dislocation. ??Tibiotalar joint space and the knee show no abnormalities. ??No osseous lesions are seen. Procedure Note Provider, MD Liana - 04/05/2021 EXAMINATION: Left tibia and fibula series. HISTORY: Pain. TECHNIQUE: Anterior and lateral views of the left tibia and fibula. COMPARISON: None. FINDINGS: There is no acute fracture or dislocation. Tibiotalar jointspace and the knee show no abnormalities. No osseous lesions are seen. IMPRESSION: Normal left tibia and fibula series. THIS IS AN ELECTRONICALLY VERIFIED REPORT 07/02/2013 7:47 AM: Judah Hernandez M.D. Judah Hernandez M.D. CH: 07:47 AM 07:47 AM [facility] [EOD] Maverick Lundy MD IMG XR PROCEDURES Final Result documented in this encounter Visit Diagnoses Diagnosis Pain in joint, lower leg documented in this encounter
--- OUTSIDE RECORDS SUMMARY | 2024-11-05 20:18 | XMS_ITS | Encounter Summary ---
Author Organization [facility] Address [address] [place] [address]. [place] [id number] [place] [address] Care Team Providers Care Consulting Manager Name Role Phone Unavailable Primary Care Provider Unavailabl e Encounter Details Date Type Department Care Team (Late st Contact Info) Description 12/15/2019 Orders Only [facility] Medical Group Family & Internal Medicine [address] [address] Michelle Coronado MA Social History Tobacco Use Types Packs/Day Years Used Date Smoking Tobacco: Never Assessed Comments Unknown Sex and Gender Information Value Date Recorded Sex Assigned at Not on file Legal Sex Female 11:02 AM DRILLER OPERATOR Gender Identity Not on file Sexual Orientation Not on file documented as of this encounter Plan of Treatment Not on file documented as of this encounter Visit Diagnoses Not on filedocumented in this encounter
--- OUTSIDE RECORDS SUMMARY | 2024-11-05 20:18 | XMS_ITS | Encounter Summary ---
Author Organization [facility] Address [facility] [facility] [place] [address] Care Team Providers Care Risk Compliance Manager Name Role Phone Unavailable Primary Care Provider Unavailabl e Reason for Visit * Reason Comments Cough Congestion Headache Fatigue Encounter Details Date Type Department Care Team (Late st Contact Info) Description 09/30/2019 9:20 AM ELECTROMECHANICAL INSPECTOR Office Visit [facility] AT [address] [phone] Provider, [facility] Acute non-recurrent maxillary sinusitis (Primary Dx) Social History Tobacco Use Types [...] Sign Reading Time Taken Comments Blood Pressure 126/82 09/30/2019 9:31 AM ELECTROMECHANICAL INSPECTOR Pulse 74 09/30/2019 9:31 AM ELECTROMECHANICAL INSPECTOR Temperature 37.1 ??C (98.8 ??F) 09/30/2019 9:31 AM CS T Respiratory Rate 16 09/30/2019 9:31 AM ELECTROMECHANICAL INSPECTOR Oxygen Saturation 96% 09/30/2019 9:31 AM ELECTROMECHANICAL INSPECTOR Inhaled Oxygen Concentration - - Weight 123.8 kg (273 lb) 09/30/2019 9:31 AM ELECTROMECHANICAL INSPECTOR Height 162.6 cm (5' 4 ) 09/30/2019 9:31 AM ELECTROMECHANICAL INSPECTOR Body Mass Index 46.86 09/30/2019 9:31 AM ELECTROMECHANICAL INSPECTOR documented in this encounter Patient Instructions * Patient Instructions* Ginger Parks APRN-CNP - 09/30/2019 9:44 AM ELECTROMECHANICAL INSPECTOR -Take and finish your prescriptions as directed. -If not already using, please start nasal saline wash, either Neti Pot or Sinus Rinse DAILY or a saline nasal spray 3-4 times a day. -Use guaifenesin expectorants (Maximum Strength Mucinex, Robitussin, store brand) to loosen secretions. -For cough you can use dextromethorphan (Delsym syrup, Robitussin cough capsules or store brand). Dextromethorphan is considered safe for and breast feeding women. -Increase fluid intake: drink 2 liters (2 quarts) of non-caffeinated, non- alcoholic beverages daily, drinking alcohol causes nasal and sinus membranes to swell -Steam inhalation and warm compresses to face often help relieve pressure -Avoid allergens and excessively dry heat -Sleep with head of bed elevated to encourage drainage. -Use of a humidifier if environment is heated by dry forced - air system -Avoid smoking, second-hand smoke and air pollutants. -You may try decongestants such as Sudafed (purchase at pharmacy) or Sudafed PE for congestion relief. Decongestants can keep you awake at night. Do not use decongestants if you have high blood pressure or if you are Pseudoephedrine (Sudafed) and Phenylephrine (Sudafed PE) are generally con sidered safe for breast feeding mothers. -If you are not improving or worsening, or develop facial swelling,in the next 3-5 days you must RETURN to the clinic, go to your PCP, or Urgent Care/ER to be SEEN and reevaluated. No further prescriptions or refills will be given by phone without another evaluation. TROMECHANICAL INSPECTOR documented in this encounter Progress Notes * Ginger Parks APRN-CNP - 09/30/2019 9:20 AM CST Subjective: Kyle Edmonds is a 34 year old female who presents to the clinic for Chief Complaint Patient presents with ??? Cough ??? Congestion ??? Headache ??? Fatigue . Her Primary Care Physician is Lester Youssef MD. She reports congestion, cough and fatigue, headache. Onset of symptoms was 12 days ago, and is gradually worsening since that time. Cough is productive of phlegm occasionally. Denies LAZO, SOB, wheezing. She is drinking plenty of fluids.. She has tried mucinex fast action which helped initially and she improved until the past few days. Also has been taking sudafed.. Past Medical History: Diagnosis Date ??? Anxiety ??? Depression Family History Problem Relation Age of Onset ??? Arthritis - Rheumatoid Mother ??? Thyroid Disease Mother ??? Coronary Artery Disease Father ??? Cancer - Lung Paternal Grandmother Current Outpatient Medications Medication Sig Dispense Refill ??? amoxicillin-clavulanate (AUGMENTIN) 875-125 MG tablet Take 1 tablet by mouth 2 times daily withmorning and evening meal for 10 days 20 tablet 0 ??? benzonatate (TESSALON) 200 MG capsule Take 1 capsule by mouth 3 times daily as needed for Cough30 capsule 0 ??? citalopram (CELEXA) 40 MG tablet Take 40 mg by mouth once daily ??? Loratadine (CLARITIN PO) No current facility-administered medications for this visit. Allergies Allergen Reactions ??? Sulfa Drugs Urticaria and Rash Social History Socioeconomic History ??? Marital status: Single Spouse name: Not on file ??? Number of children: Not on file ??? Years of education: Not on file ??? Highest education level: Not on file Occupational History ??? Not on file Social Needs ??? Financial resource strain: Not on file ??? Food insecurity: Worry: Not on file Inability: Not on file ??? Transportation needs: Medical: Not on file Non-medical: Not on file Tobacco Use ??? Smoking status: Never Smoker ??? Smokeless tobacco: Never Used Substance and Sexual Activity ??? Alcohol use: Yes Comment: rare ??? Drug use: No ??? Sexual activity: Not on file Lifestyle ??? Physical activity: Days per week: Not on file Minutes per session: Not on file ??? Stress: Not on file Relationships ??? Social connections: Talks on phone: Not on file Gets together: Not on file Attends presybeterian service: Not on file Active member of club or organization: Not on file Attends meetings of clubs or organizations: Not on file Relationship status: Not on file ??? Intimate partner violence: Fear of current or ex partner: Not on file Emotionally abused: Not on file Physically abused: Not on file Forced sexual activity: Not on file Other Topics Concern ??? Not on file Social History Narrative ??? Not on file Review of Systems Constitutional: Positive for fatigue Ears, nose, mouth, and throat: Positive for sinus trouble, congestion Respiratory: Positive for acute cough Cardiovascular: Negative Gastrointestinal: Negative Neurological: Positive for headaches Objective: BP 126/82 (BP SITE: LEFT ARM, BP POSITION: SITTING, BP CUFF SIZE: 11L) Pulse 74 Temp 98.8 ??F (37.1??C) (Oral) Resp 16 Ht 1.626 m (5' 4 ) Wt 123.8 kg (273 lb) SpO2 96% BMI 46.86 kg/m2 Exam General appearance: alert, cooperative, no distress Ears: Right tympanic membrane - suman, Left tympanic membrane - air/fluid interface visualized Nose: mucosa erythematous and swollen, purulent rhinorrhea Throat: no mucous membrane abnormalities, lips, mucosa, and tongue normal; teeth and gums normal Nodes: no cervical adenopathy Lungs: breath sounds normal and symmetric; no rales or wheezes Heart: regular rhythm, normal S1 and S2, without murmurs, gallops or rubs No results found for this or any previous visit (from the past 24 hour(s)). Assessment: Encounter Diagnosis Name Primary? Acute non-recurrent maxillary sinusitis Yes Plan: -Take and finish your prescriptions as directed. -If not already using, please start nasal saline wash, either Neti Pot or Sinus Rinse DAILY or a saline nasal spray 3-4 times a day. -Use guaifenesin expectorants (Maximum Strength Mucinex, Robitussin, store brand) to loosen secretions. -For cough you can use dextromethorphan (Delsym syrup, Robitussin cough capsules or store brand). Dextromethorphan is considered safe for and breast feeding women. -Increase fluid intake: drink 2 liters (2 quarts) of non-caffeinated, non- alcoholic beverages daily, drinking alcohol causes nasal and sinus membranes to swell -Steam inhalation and warm compresses to face often help relieve pressure -Avoid allergens and excessively dry heat -Sleep with head of bed elevated to encourage drainage. -Use of a humidifier if environment is heated by dry forced - air system -Avoid smoking, second-hand smoke and air pollutants. -You may try decongestants such as Sudafed (purchase at pharmacy) or Sudafed PE for congestion relief. Decongestants can keep you awake at night. Do not use decongestants if you have high blood pressure or if you are Pseudoephedrine (Sudafed) and Phenylephrine (Sudafed PE) are generally con sidered safe for breast feeding mothers. -If you are not improving or worsening, or develop facial swelling,in the next 3-5 days you must RETURN to the clinic, go to your PCP, or Urgent Care/ER to be SEEN and reevaluated. No further prescriptions or refills will be given by phone without another evaluation. Orders Placed This Encounter ??? amoxicillin-clavulanate (AUGMENTIN) 875-125 MG tablet Sig: Take 1 tablet by mouth 2 times daily with morning and evening meal for 10 days Dispense: 20 tablet Refill: 0 ??? benzonatate (TESSALON) 200 MG capsule Sig: Take 1 capsule by mouth 3 times daily as needed for Cough Dispense: 30 capsule Refill: 0 TROMECHANICAL INSPECTOR documented in this encounter Plan of Treatment Not on file documented as of this encounter Visit Diagnoses Diagnosis Acute non-recurrent maxillary sinusitis- Primary documented in this encounter
--- OUTSIDE RECORDS SUMMARY | 2024-11-05 20:18 | XMS_ITS | Encounter Summary ---
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 Gender Identity Not on file Sexual Orientation Not on file documented as of this encounter Plan of Treatment Not on file documented as of this encounter Procedures Procedure Name Priority Date/Time Associated Diagnosis Comments SCAN - RADIOLOGY/IMAGING 03/16/2020 SCAN - LABS 03/16/2020 documented in this encounter Results * SCAN - LABS (03/16/2020) us Provider Scanning Final Result * SCAN - RADIOLOGY/IMAGING (03/16/2020) Anatomical Region Laterality Modality Other us Provider Scanning Final Result documented in this encounter Visit Diagnoses Not on filedocumented in this encounter Additional Health Concerns Infection Onset Date Last Indicated Resolved Time COVID19 Comment:Added automatically from problem list. 03/18/2020 03/18/2020 04/01/2020 3:05 AM C DT documented as of this encounter Care Teams Dairy Processing Equipment Operator Relationship Specialty Start Date End Date Lorena Ryder MD PCP - General Family Medicine 01/05/20 01/15/22 documented as of this encounter
--- OUTSIDE RECORDS SUMMARY | 2024-11-05 20:18 | XMS_ITS | Encounter Summary ---
Author Organization [facility] Address [address] [place] [address] Care Team Providers Care Shuttle Spotter Name Role Phone Jaime Mota MD Primary Care Provider [phone] Encounter Details Date Type Department Care Team (Late st Contact Info) Description 01/14/2023 Telephone [facility] Primary Care at [address] [address] Jaime Mota MD [address] [place] [address] Social History Tobacco Use Types Packs/Day Years [...] on file Legal Sex Female 8:37 PM ZIGZAG TUNNEL ELASTIC OPERATOR Gender Identity Not on file Sexual Orientation Not on file documented as of this encounter Miscellaneous Notes * Telephone Encounter - Michelle Bertrand RN - 01/15/2023 11:10 AM CST See mychart message AG TUNNEL ELASTIC OPERATOR * Telephone Encounter - Jaime Mota MD - 01/14/2023 5:[address] neck with contrast further evaluation of a submandibular mass AG TUNNEL ELASTIC OPERATOR * Telephone Encounter - Oanh Reed MA - 01/14/2023 3:42 PM ZIGZAG TUNNEL ELASTIC OPERATOR US head and neck results-[facility] AG TUNNEL ELASTIC OPERATOR documented in this encounter Plan of Treatment Not on file documented as of this encounter Procedures Procedure Name Priority Date/Time Associated Diagnosis Comments US SOFT TISSUE HEAD NECK Schedule Routine, Read Routine (OP Routine) 01/09/2023 Cervical adenopathy documented in this encounter Results * US Soft Tissue Neck (01/09/2023) Anatomical Region Laterality Modality Head and Neck N/A Ultrasound 01/09/2023 Narrative 01/09/2023 Scanned under Media us Jaime Mota MD IMG US PROCEDURES Final Resul t documented in this encounter Visit Diagnoses Diagnosis Cervical adenopathy Enlargement of lymph nodes documented in this encounter Care Teams Shuttle Spotter Relationship Specialty Start Date End Date Jaime Mota MD PCP - General Family Medicine 02/27/22 documented as of this encounter
--- OUTSIDE RECORDS SUMMARY | 2024-11-05 20:18 | XMS_ITS | Clinical Summary ---
Author Organization [facility] Address [address] [place] [address] Care Team Providers Care Cob Sawyer Name Role Phone Jaime Mota MD Primary Care Provider [phone] Allergies Active Allergy Reactions Criticality Noted Date [...] 12/20 Assessment & Plan (01/12/2020 12:47 PM STRINGER MACHINE TENDER): Weight loss attempts in the past include: [...] 02/06/2016 Assessment & Plan (01/12/2020 12:46 PM STRINGER MACHINE TENDER): Stable, no changes. Continue current regimen with Celexa Immunizations Name Administration Dates Next Due Influenza, Quadrivalent, Spl it, Intramuscular 08/17/2019 Influenza, Unspecified 09/28/2022(Deferr ed: Patient Refused),11/18/2021(Deferred: Patient Refused),11/18/2020(Deferred: Patient Refused),08/18/2019 PPD TEST 03/12/2017 Pfizer SARS-CoV-2 Monovalent Vaccination (12+ Yrs) PURPLE 11/07/2021 Tdap 01/31/2017 Surgical History Surgery Date Site/Laterality Comments TONSILLECTOMY LASIK Medical History Medical History Date Comments Allergic rhinitis Neck mass Depression Family History Medical History Relation Name Comments No Known Problems Brother Heart disease Father Heart disease Maternal Grandfather Arthritis Mother Hypertension Mother Heart disease Paternal Grandfather Cancer Paternal Grandmother Non-Hodgkin's Lymphoma Paternal Grandmother Relation Name Status Comments Brother Alive Father Alive Maternal Grandfather Maternal Grandmother Mother Alive Paternal Grandfather Paternal Grandmother Social History Tobacco Use Types [...] on file Legal Sex Female 8:37 PM STRINGER MACHINE TENDER Gender Identity Not on file Sexual Orientation Not on file Obstetrics History Last Filed Vital Signs Vital Sign Reading [...] 04/24/2023 8:05 AM CDT Plan of Treatment Health Maintenance Due Date Last Done Comments Cervical Cancer Screening 1985 Hepatitis C Screening 1985 Varicella Vaccines (1 of 2 - 13+ 2-dose series) 1998 Hepatitis B Screening 2003 Depression Screening 02/28/2023 02/28/2022, 01/12/20 20 Regular Well Visit/Exam 18-64 02/28/2023 02/28/2022 Covid-19 Vaccine ( season) 2024 08/01/2022, 11/07/2021, 10/20/2021, Additional history exists Influenza Vaccine (#1) 2024 08/18/2019, 2018 DTaP/Tdap/Td Vaccine (2 - Td or Tdap) 01/31/2027 01/31/2017 HPV Vaccines Aged Out No longer eligi ble based on patient's age to complete this topic Pneumococcal vaccine <65 Aged Out No longer eligible based on patient's age to complete this topic Insurance [employer] S Care Teams Cob Sawyer Relationship Specialty Start Date End Date Jaime Mota MD PCP - General Family Medicine 02/27/22
--- OUTSIDE RECORDS SUMMARY | 2024-11-05 20:18 | XMS_ITS | Encounter Summary ---
Author Organization [facility] Healthcare Address [address] [place] [address] Care Team Providers Care Director Athletic Name Role Phone Jaime Mota MD Primary Care Provider [phone] Encounter Details Date Type Department Care Team (Late st Contact Info) Description 03/26/2023 Patient Self-Triage [facility] HealthCare/ Physicians [address] [place] [address] Nicole, [facility] Provider [address] [place], [place] [id number] Social History Tobacco Use Types Packs/Day Years [...] on file Legal Sex Female 8:37 PM MULTIGRAPHER Gender Identity Not on file Sexual Orientation Not on file documented as of this encounter Plan of Treatment Not on file documented as of this encounter Visit Diagnoses Not on filedocumented in this encounter Care Teams Director Athletic Relationship Specialty Start Date End Date Jaime Mota MD PCP - General Family Medicine 02/27/22 documented as of this encounter
--- OUTSIDE RECORDS SUMMARY | 2024-11-05 20:18 | XMS_ITS | Encounter Summary ---
Author Organization [facility] Healthcare Address [address] [place] [address] Care Team Providers Care Licensed Practical Vocational Nurse Name Role Phone Unavailable Primary Care Provider Unavailabl e Encounter Details Date Type Department Care Team (Latest Contact Info) Description 07/06/2013 7:02 AM CDT Hospital Encounter [facility] Maverick Lundy MD [address] [place] [address] Pain in joint, lower leg Social History Tobacco Use Types Packs/Day Years Used Date Smoking Tobacco: Never Assessed Comments Unknown Sex and Gender Information Value Date Recorded Sex Assigned at Not on file Legal Sex Female 8:37 PM SUPERVISOR COREMAKER Gender Identity Not on file Sexual Orientation Not on file documented as of this encounter Plan of Treatment Not on file documented as of this encounter Procedures Procedure Name Priority Date/Time Associated Diagnosis Comments MRI LOWER EXT NON-JOINT LEFT Routine 07/06/2013 7:15 AM CDT documented in this encounter Results * MRI Lower Ext Non-Joint Left (07/06/2013 7:15 AM CDT) Anatomical Region Laterality Modality Body N/A Magnetic Resonan ce 07/06/2013 7:15 AM CDT Narrative 07/06/2013 8:03 PM CDT EXAMINATION: ??MRI left tibia and fibula Comparison: ??07/02/2013. Indication: ??Pain with exertion. TECHNIQUE: ??Multiplanar multisequence MRI of the left lower extremity was obtained without contrast. FINDINGS: ??Increased T2 signal is seen along the medial aspect of the periosteum of the tibia. ??There is no evidence of underlying signal abnormality within the marrow space. ??There is no evidence of a focal area of decreased T1-weighted signal extending through the bone. ??The visualized musculature is intact demonstrating normal signal and morphology. ??No focal fluid collection is seen within the soft tissues. Impression: ??Findings are compatible with medial tibial stress syndrome. THIS IS AN ELECTRONICALLY VERIFIED REPORT 07/06/2013 7:43 PM: ??Edgar Purcell M.D. Edgar Purcell M.D. AT:patricia 09:04 AM 09:39 AM [facility] [EOD] Procedure Note Provider, MD Liana - 04/05/2021 EXAMINATION: MRI left tibia and fibula Comparison: 07/02/2013. Indication: Pain with exertion. TECHNIQUE: Multiplanar multisequence MRI of the left lower extremity was obtained without contrast. FINDINGS: Increased T2 signal is seen along the medial aspect of the periosteum of the tibia. There is no evidence of underlying signal abnormality within the marrow space. There is no evidence of a focal areaof decreased T1-weighted signal extending through the bone. The visualized musculature is intact demonstrating normal signal and morphology. Nofocal fluid collection is seen within the soft tissues. Impression: Findings are compatible with medial tibial stress syndrome. THIS IS AN ELECTRONICALLY VERIFIED REPORT 07/06/2013 7:43 PM: Edgar Purcell M.D. Edgar Purcell M.D. AT:patricia 09:04 AM 09:39 AM [facility] [EOD] Maverick Lundy MD [facility] MRI PROCEDURES Final Resul t documented in this encounter Visit Diagnoses Diagnosis Pain in joint, lower leg documented in this encounter
--- OUTSIDE RECORDS SUMMARY | 2024-11-05 20:18 | XMS_ITS | Encounter Summary ---
Author Organization [facility] Medical Group Address [address] [place] [address] Care Team Providers Care Carburetor Expert Name Role Phone Lorena Ryder MD Primary Care Provider [phone] Encounter Details Date Type Department Care Team (Late st Contact Info) Description 03/18/2020 10:45 AM CDT Telemedicine [facility] Medical [facility] Family Medicine [address] [place] [address] Tory Lance [address] [place] [address] 2018 novel coronavirus disease (COVID-19) (Primary Dx) Social History Tobacco Use Types [...] on file Legal 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 This was a telemedicine visit with Marleny Edmonds alone which took place via a real-time videoconnection (Zoom/similar). During the visit, I was located at the office and the patient was located at her home. The session started at 10 45AM and ended at 11:01AM. The patient has been informed that the visit may not be secure and acknowledged the information. I have explained the option of participating in a telephone or video visit during the COVID-19 public health emergency to the patient. After being given an opportunity to ask questions about and discuss this type of visit, the patient verbally consented to proceeding with the telephone/video visit.The patient understands that this service replaces an office visit and they may be billed and/or responsible for any applicable copayments. RUFINO Bunch Subjective/Objective Visit date: 03/18/2020 Patient ID: Marleny Edmonds is a 34 y.o. female. Chief Complaint No chief complaint on file. Current Outpatient Medications: ??? azithromycin (ZITHROMAX) 250 mg tablet, Take 250 mg by mouth daily, Disp: , Rfl: ??? citalopram (CeleXA) 40 mg tablet, Take 1 tablet (40 mg total) by mouth daily, Disp: 90 tablet, Rfl: 3 ??? ondansetron (Zofran) 4 mg tablet, Take 1 tablet (4 mg total) by mouth every 8 (eight) hours as needed for nausea or vomiting, Disp: 20 tablet, Rfl: 0 Allergies Allergen Reactions ??? Sulfa (Sulfonamide Antibiotics) Rash and Hives HPI Symptoms began around 03/08 with fever, dry cough, vomiting, diarrhea, myalgias. On 03/16 went to [facility] and she was tested for COVID. She works in a [place] and had been tested initially on site on 03/06 and was told it was negative. She continued to work until 03/15. She has had no phone call from Doug but is positive now and results were faxed to us. She still has a fever, most recently 100.6.She's on a Z pack from the ER and was told she has pneumonia. Her O2 was 95 in the ER and not it isnow around 90. She's alternating motrin and tylenol at the present. Has heard occ crackles . Pt is a nonsmoker. She has no asthma, HTN, DM or heart disease. Has some residual diarrhea but no further vomiting. No rash. No pain specifically other than the aches. She lives alone. 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 Her current pulse ox is 93. Review of Systems Constitutional: Positive for appetite change (lower) and fever (see HPI). HENT: Negative for ear pain, sinus pain and sore throat. Respiratory: Positive for cough, chest tightness and shortness of breath. See hPI Cardiovascular: Negative for chest pain. Gastrointestinal: Positive for diarrhea (see HPI) and vomiting (see HPI). Negative for abdominal pain. Musculoskeletal: Positive for myalgias (see HPI). Neurological: Negative for headaches. Vitals BP 140/87 Physical Exam Constitutional: General: She is not in acute distress (on video). Appearance: She is obese. Eyes: Conjunctiva/sclera: Conjunctivae normal. Pulmonary: Effort: Pulmonary effort is normal. Comments: Breathing appeared normal on video Neurological: Mental Status: She is oriented to person, place, and time. Psychiatric: Mood and Affect: Mood normal. Behavior: Behavior normal. Diagnoses and all orders for this visit: 2019 novel coronavirus disease (COVID-19) (Primary) Assessment & Plan: get copy CXR. cont tylenol, ibuprofen, fluids, rest and monitoring O2 status. occ do some incentivebreathing. Check with employer regarding their return to [...] and O2 sats regularly. Complete Z pack. Return if symptoms worsen or fail to improve. Tory Lance PA-C Cosigned by Jaime Mota MD at 03/18/2020 12:43 PM CDT documented in this encounter Miscellaneous Notes * Assessment & Plan Note - Tory Lance PA - 03/18/2020 11:09 AM CDT Associated Problem(s): 2019 novel coronavirus disease (COVID-19) get copy CXR. cont tylenol, ibuprofen, fluids, rest and monitoring O2 status. occ do some incentivebreathing. Check with employer regarding their return to [...] and O2 sats regularly. Complete Z pack. documented in this encounter Plan of Treatment Not on file documented as of this encounter Visit Diagnoses Diagnosis 2019 novel coronavirus disease (COVID-19)- Primary documented in this encounter Historical Medications * This list may reflect changes made after this encounter. azithromycin (ZITHROMAX) 250 mg tablet Take 250 mg by mouth daily 02/28/2022 added in this encounter Care Teams Carburetor Expert Relationship Specialty Start Date End Date Lorena Ryder MD PCP - General Family Medicine 01/05/20 01/15/22 documented as of this encounter
--- OUTSIDE RECORDS SUMMARY | 2024-11-05 20:18 | XMS_ITS | Encounter Summary ---
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 Gender Identity Not on file Sexual Orientation Not on file documented as of this encounter Plan of Treatment Not on file documented as of this encounter Procedures Procedure Name Priority Date/Time Associated Diagnosis Comments SCAN - RADIOLOGY/IMAGING 10/16/2022 documented in this encounter Results * SCAN - RADIOLOGY/IMAGING (10/16/2022) Anatomical Region Laterality Modality Other us Provider Scanning Final Result documented in this encounter Visit Diagnoses Not on filedocumented in this encounter Care Teams Hacksaw Inspector Relationship Specialty Start Date End Date Jaime Mota MD PCP - General Family Medicine 02/27/22 documented as of this encounter
--- OUTSIDE RECORDS SUMMARY | 2024-11-05 20:19 | XMS_ITS | Continuity of Care Document ---
Author Organization [facility] Address [address] [place] [address] [place] [address] Phone Care Team Providers Care Inside Sales Advisor Name Role Phone Fantasma Chapman Unavailable Unavailable Procedures Procedure Date Visual Field Examination(s) Eye Exam, New Patient Advance Directives Directive Yes / No Effective Date File Name No Information Encounters Encounter Description Practice Location Reason(s) For Visit Diagnoses Date Provider Providers Copied on Encounter [facility], [address], [place], [place], [id number], tel:[phone] [facility] No Information 8 Kristopherishnasamy Fantasma. [facility] [address], [facility], [place]. tel:[phone] Referring Provider: Fantasma Chapman, [address] [place] [address], [facility]. tel:[phone] [address] [facility], [address] [place] [address] [address], [place], [place], [id number], tel:[phone] [facility] No Information 8 Kristopherishnasamy Fantasma. [facility] [address], [address], [place]. tel:[phone] Referring Provider: Asher Monroy OD, [address] [place], [address]. tel:[phone] 1909 Family History Family Member Type Diagnosis Age At Onset No Information Payers Payer name Insurance type Covered republican ID Authoriza tion(s) No Information Social History Type Description Quantity Date Captured Comments Sex Female Smoking Status No Information Chief Complaint And Reason For Visit No Information Reason For Referral Reason For Referral No Information History Of Present Illness Encounter Date Complaint History Of Prese nt Illness No Information Functional Status Date Functional Assessmen t No Information Instructions Date Instruction Additional Infor mation No Information Assessments Type Assessment Date No Information Patient Care Teams Name Effective Dates (start - stop) Status Members No Information
--- OUTSIDE RECORDS SUMMARY | 2024-11-05 22:54 | XMS_ITS | Encounter Summary ---
Author Organization [facility] Address [address] [place] [address]. 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
--- OUTSIDE RECORDS SUMMARY | 2024-11-05 22:54 | XMS_ITS | Encounter Summary ---
Author Organization [facility] Medical Group Address [address] [place] [address] Care Team Providers Care Transportation Department Head Name Role Phone Jaime Mota MD Primary Care Provider [phone] Reason for Visit * Reason Comments Cough Ongoing cough uriel ureña Encounter Details Date Type Department Care Team (Late st Contact Info) Description 04/24/2023 8:00 AM CDT Office Visit [facility] Outpatient Center [address] [phone] [place] [address] [place] [address] [address] [place], [place] [id number] Mild intermittent asthma with exacerbation (Primary Dx) [...] on file Legal 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 Use an vmaq-qky-uhlexws cough medicine such as Delsym or Robitussin. [...] through Care Everywhere. * Asthma (General Information) (Lebanese) documented in this encounter Ordered Prescriptions Prescription [...] tenderness or frontal sinus tenderness. Mouth/Throat: Lips: [place]. Mouth: Mucous membranes are moist. Pharynx: Uvula [...] and to keep mucous thin. Use an tkbu-qcw-byrgppf cough medicine such as Delsym or Robitussin. [...] 04/24/2023 documented in this encounter Care Teams Transportation Department Head Relationship Specialty Start Date End Date Jaime Mota MD PCP - General Family Medicine 02/27/22 documented as of this encounter
--- OUTSIDE RECORDS SUMMARY | 2024-11-05 22:54 | XMS_ITS | Referral Summary ---
Author Organization [facility] at the [facility] Office Center Address [address] [place] [address] Care Team Providers Care Headwaiter/Headwaitress Name Role Phone Jaime Mota MD Primary Care Provider [phone] Allergies Active Allergy Reactions Criticality Noted Date [...] 12/20 Assessment & Plan (01/12/2020 12:47 PM TOBACCO DRUMMER): Weight loss attempts in the past include: [...] 02/06/2016 Assessment & Plan (01/12/2020 12:46 PM TOBACCO DRUMMER): Stable, no changes. Continue current regimen with [...] on file Legal Sex Female 8:37 PM TOBACCO DRUMMER Gender Identity Not on file Sexual Orientation [...] Plan of Treatment Not on file Insurance [facility] MD IZA [employer] MD [id number] Care Teams Headwaiter/Headwaitress Relationship Specialty Start Date End Date Jaime Mota MD PCP - General Family Medicine 02/27/22
--- OUTSIDE RECORDS SUMMARY | 2024-11-05 22:54 | XMS_ITS | Clinical Summary ---
Author Organization [facility] the [facility] Office Center Address [address] [place] [address] Care Team Providers Care Medical Technologist Chief Name Role Phone Jaime Mota MD Primary Care Provider [phone] Allergies Active Allergy Reactions Criticality Noted Date [...] 12/20 Assessment & Plan (01/12/2020 12:47 PM DIVISION MERCHANDISE MANAGER): Weight loss attempts in the past include: [...] 02/06/2016 Assessment & Plan (01/12/2020 12:46 PM DIVISION MERCHANDISE MANAGER): Stable, no changes. Continue current regimen with [...] on file Legal Sex Female 8:37 PM DIVISION MERCHANDISE MANAGER Gender Identity Not on file Sexual [...] topic Insurance [employer] S Care Teams Medical Technologist Chief Relationship Specialty Start Date End Date Jaime Mota MD PCP - General Family Medicine 02/27/22
--- OUTSIDE RECORDS SUMMARY | 2024-11-05 22:54 | XMS_ITS | Clinical Summary ---
Author Organization [facility] Address [address] [place] [address]. 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
--- OUTSIDE RECORDS SUMMARY | 2024-11-05 22:54 | XMS_ITS | Encounter Summary ---
Author Organization [facility] Medical Group Address [address] [place] [address] Care Team Providers Care Resolute Professional Name Role Phone Jaime Mota MD Primary Care Provider [phone] Reason for Visit * Reason Comments Nasal Congestion Cough with chest con gestion several days Cough Encounter Details Date Type Department Care Team (Late st Contact Info) Description 03/26/2023 11:45 AM CDT Office Visit 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 Use an zmib-kvu-qhxteji cough medicine such as Delsym or Robitussin. [...] Care Everywhere. * Acute Bronchitis (General Information) (Malagasy) documented in this encounter Ordered Prescriptions Prescription [...] chronic documented in this encounter Care Teams Resolute Professional Relationship Specialty Start Date End Date Jaime Mota MD PCP - General Family Medicine 02/27/22 documented as of this encounter
--- OUTSIDE RECORDS SUMMARY | 2024-11-05 22:55 | XMS_ITS | Encounter Summary ---
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
--- OUTSIDE RECORDS SUMMARY | 2024-11-05 22:55 | XMS_ITS | Encounter Summary ---
Author Organization [facility] Medical Group Address [address] [place] [address] Care Team Providers Care Supervisor Car And Yard Name Role Phone Lorena Ryder MD Primary Care Provider [phone] Encounter Details Date Type Department Care Team (Late st Contact Info) Description 03/18/2020 10:45 AM CDT Telemedicine [facility] Medical [facility] Family Medicine [address] [place] [address] Tory Lance [address] [place] [address] 2018 novel coronavirus disease (COVID-19) (Primary Dx) [...] on file Legal Sex Female 8:37 PM UNLEAVENED DOUGH MIXER Gender Identity Not on file Sexual [...] vomiting, diarrhea, myalgias. On 03/16 went to [facility] and she was tested for COVID. She works in a [place] and had been tested initially on site [...] the aches. She lives alone. 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 [...] 02/28/2022 added in this encounter Care Teams Supervisor Car And Yard Relationship Specialty Start Date End Date Lorena Ryder MD PCP - General Family Medicine 01/05/20 01/15/22 documented as of this encounter
--- OUTSIDE RECORDS SUMMARY | 2024-11-05 22:55 | XMS_ITS | Encounter Summary ---
Author Organization [facility] Healthcare Address [address] [place] [address] Care Team Providers Care Compliance Monitor Name Role Phone Unavailable Primary Care Provider Unavailabl e Encounter Details Date Type Department Care Team (Latest Contact Info) Description 07/02/2013 7:34 AM CDT Hospital Encounter [facility] Maverick Lundy MD [address] [place] [address] Pain in joint, lower leg Social History Tobacco Use Types Packs/Day Years Used Date Smoking Tobacco: Never Assessed Comments Unknown Sex and Gender Information Value Date Recorded Sex Assigned at Not on file 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 CH: 07:47 AM 07:47 AM [facility] [[facility]] Narrative 07/02/2013 7:50 AM CDT [...] Hernandez M.D. CH: 07:47 AM 07:47 AM [facility] [E[facility]] Maverick Lundy MD IMG XR PROCEDURES Final Result documented in this encounter Visit Diagnoses Diagnosis Pain in joint, lower leg documented in this encounter
--- OUTSIDE RECORDS SUMMARY | 2024-11-05 22:55 | XMS_ITS | Encounter Summary ---
Author Organization [facility] Healthcare Address [address] [place] [address] Care Team Providers Care Stringer Machine Tender Name Role Phone Jaime Mota MD Primary Care Provider [phone] Encounter Details Date Type Department Care Team (Late st Contact Info) Description 03/26/2023 Patient Self-Triage 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
--- OUTSIDE RECORDS SUMMARY | 2024-11-05 22:55 | XMS_ITS | Encounter Summary ---
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
--- OUTSIDE RECORDS SUMMARY | 2024-11-05 22:55 | XMS_ITS | Encounter Summary ---
Author Organization [facility] Address [address] [facility] [address] [place] [address] Care Team Providers Care Electrical Controls Technician Name Role Phone Jaime Mota MD Primary Care Provider [phone] Reason for Referral * Consultation (Routine) - Closed Specialty Diagnoses / Procedures Referred By Eileen mendez Referred To Contact Otolaryngology Diagnoses Cervical adenopathy Jaime Mota MD [address] [place] [address] [address] [place] [address] Phone: tel: fax: Flower Osborne MD [address] [place] [address] [place] [address] Phone: tel: fax: Referral ID Status Reason Start Date Expiration Date V isits Requested Visits Authorized [id number] Closed Specialty Services Required 12/27/2022 01/26/2024 1 1 Question Answer Please select the performing region: External Order [171] To provider: FLOWER SOBORNE [[id number]] # of visits: 1 RWRITING SUPPORT SPECIALIST * Diagnostic Imaging (Routine) - Closed Specialty Diagnoses / Procedures Referred By Eileen mendez Referred To Contact Diagnoses Cervical adenopathy Procedures US Soft Tissue Neck Jaime Mota MD [address] [place] [address] [place] [address] Phone: tel: fax: External Order Referral ID Status Reason Start Date Expiration Date Visits Re quested Visits Authorized [id number] Closed 12/27/2022 01/26/2024 1 1 RWRITING SUPPORT SPECIALIST Reason for Visit * Reason Comments Adenopathy Swollen lymph nodes on right side of neck since July Encounter Details Date Type Department Care Team (Late st Contact Info) Description 12/27/2022 3:15 PM UNDERWRITING SUPPORT SPECIALIST Office Visit [facility] Primary Care at [address] [address] Jaime Mota MD [address] [facility] [address] [place] [address] Cervical adenopathy (Primary Dx) Social History Tobacco [...] on file Legal Sex Female 8:37 PM UNDERWRITING SUPPORT SPECIALIST Gender Identity Not on file Sexual Orientation Not on file documented as of this encounter Last Filed Vital Signs Vital Sign Reading Time Taken Comments Blood Pressure 118/86 12/27/2022 3:20 PM UNDERWRITING SUPPORT SPECIALIST Pulse 75 12/27/2022 3:20 PM UNDERWRITING SUPPORT SPECIALIST Temperature 36.9 ??C (98.4 ??F) 12/27/2022 3:20 PM CS T Respiratory Rate 18 12/27/2022 3:20 PM UNDERWRITING SUPPORT SPECIALIST Oxygen Saturation 97% 12/27/2022 3:20 PM UNDERWRITING SUPPORT SPECIALIST Inhaled Oxygen Concentration - - Weight 147.7 kg (325 lb 11.2 oz) 12/27/2022 3:20 PM UNDERWRITING SUPPORT SPECIALIST Height 163.8 cm (5' 4.49 ) 12/27/2022 3:20 PM CS T Body Mass Index 55.06 12/27/2022 3:20 PM UNDERWRITING SUPPORT SPECIALIST documented in this encounter Progress Notes * [...] Specialty: Otolaryngology Number of Visits Requested: 1 RWRITING SUPPORT SPECIALIST documented in this encounter Plan of Treatment [...] nodes documented in this encounter Care Teams Electrical Controls Technician Relationship Specialty Start Date End Date Jaime Mota MD PCP - General Family Medicine 02/27/22 documented as of this encounter
--- OUTSIDE RECORDS SUMMARY | 2024-11-05 22:55 | XMS_ITS | Encounter Summary ---
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
--- OUTSIDE RECORDS SUMMARY | 2024-11-05 22:55 | XMS_ITS | Encounter Summary ---
Author Organization [facility] Address [address] [facility] [address] [place] [address] Care Team Providers Care Pickling Operator Name Role Phone Jaime Mota MD Primary Care Provider Reason for Visit * Reason Onset Date Comments Authorization/Certification 01/23/2023 Encounter Details Date Type Department Care Team (Late st Contact Info) Description 01/23/2023 Telephone [facility] Medical 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 Can someone please let them know what is going on. Caller???s Call back #: [phone] Does message need to be routed? Yes-Action Needed FLUME WATCHMAN * Telephone Encounter - Kyra Samuels - 01/23/2023 11:32 AM CANE FLUME WATCHMAN Authorization/Certification Type of Auth/Cert Needed: Pre- Certification for Test Type of caller:Facility Type of test needed (CPT code if available): CT Neck, soft tissue w/ contrast Reason for test or diagnosis (diagnosis code if available): R59.0 Is insurance in chart accurate? Yes Facility name: [facility] NPI# (if available): Facility phone#: [phone] Facility fax#: not given Date test is scheduled: 01/24/23 Caller's Callback #: [phone], ref 3: [id number] Additional Comments: They are checking to see if the authorization for the test has been done. Does message need to be routed?Yes-Action Needed FLUME WATCHMAN documented in this encounter Plan of Treatment Not on file documented as of this encounter Visit Diagnoses Not on filedocumented in this encounter Care Teams Pickling Operator Relationship Specialty Start Date End Date Jaime Mota MD PCP - General Family Medicine 02/27/22 documented as of this encounter
--- OUTSIDE RECORDS SUMMARY | 2024-11-05 22:55 | XMS_ITS | Encounter Summary ---
Author Organization [facility] Address [address] [address] Care Team Providers Care Check And Transfer Beader Name Role Phone No, Physician Primary Care Provider [phone] Reason for Visit * Reason Comments URI X9 days, congestion, cough, chest congestion, wheezing, has been tested for covid through work has been negative Encounter Details Date Type Department Care Team (Late st Contact Info) Description 01/16/2022 3:30 PM WORM FARMER Office Visit [facility] Outpatient Center [address] [address] Christina Mabry NP [address] [place] [address] [address] [place] [address] Acute maxillary sinusitis, recurrence not [...] on file Legal Sex Female 8:37 PM WORM FARMER Gender Identity Not on file Sexual Orientation Not on file documented as of this encounter Last Filed Vital Signs Vital Sign Reading Time Taken Comments Blood Pressure 181/109 01/16/2022 3:33 PM WORM FARMER Pulse 86 01/16/2022 3:28 PM WORM FARMER Temperature - - Respiratory Rate 16 01/16/2022 3:28 PM WORM FARMER Oxygen Saturation 98% 01/16/2022 3:28 PM WORM FARMER Inhaled Oxygen Concentration - - Weight 147.4 kg (325 lb) 01/16/2022 3:28 PM WORM FARMER Height 163.8 cm (5' 4.5 ) 01/16/2022 3:28 PM WORM FARMER Body Mass Index 54.92 01/16/2022 3:28 PM WORM FARMER documented in this encounter Patient Instructions * Patient Instructions* Christina Mabry NP - 01/16/2022 3:30 PM WORM FARMER Images from the original note were not included. Patient Education Upper Respiratory Infection NEEDLEWORKER: An upper respiratory infection is also called [...] ask them during your visits. ?? 2017 [employer] Information is for End User's use only and may not be sold, redistributed or otherwise used for commercial purposes. All illustrations and images included in CareNotes?? are the copyrighted property of [employer] or [employer]. The above information is an physician's aide only. It is not intended as medical [...] balance. Check labels to find low-sodium or aa-jtrf-iqarp foods. Some low-sodium foods use potassium salts [...] all your medicines as directed. ?? 2017 [employer] Information is for End User's use only and may not be sold, redistributed or otherwise used for commercial purposes. All illustrations and images included in CareNotes?? are the copyrighted property of [employer] or [employer]. The above information is an physician's aide only. It is not intended as medical advice for individual conditions or treatments. Talk to your doctor, nurse or pharmacist before following any medical regimen to see if it is safe and effective for you. FARMER FARMER documented in this encounter Ordered Prescriptions Prescription [...] they have been negative. Pt works in retirement and has routine testing (which she states [...] present. No frontal sinus tenderness. Mouth/Throat: Lips: Douglas. Mouth: Mucous membranes are moist. Tongue: Tongue [...] ask questions, questions answered. Christina Mabry NP FARMER documented in this encounter Plan of Treatment [...] qd added in this encounter Care Teams Check And Transfer Beader Relationship Specialty Start Date End Date No, Physician PCP - General 01/16/22 02/26/22 documented as of this encounter
--- OUTSIDE RECORDS SUMMARY | 2024-11-05 22:55 | XMS_ITS | Encounter Summary ---
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
--- OUTSIDE RECORDS SUMMARY | 2024-11-05 22:55 | XMS_ITS | Encounter Summary ---
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 73 m2 [facility] [...] LAB BLOOD ORDERABLES Final Re sult [facility] [address] Department [place] [address] * (ABNORMAL) Differential, auto (02/28/2022 9:31 AM CDT) Neutrophil abs 3.4 1.7 - 6.5 K[facility] Imm gran abs 0.1 0.0 - 0.1 K/cumm [facility] Lymphocyte abs 2.5 0.8 - 3.3 K/cumm [facility] Monocyte abs 0.5 0.2 - 0.8 K/cumm [facility] Eosinophil abs 0.6(H) 0.0 - 0.5 K/cumm [facility] Basophil abs 0.1 0.0 - 0.1 K/cumm [facility] Neutrophil pct 48.6 % [facility] Comment: Interpretive Data Percent cell count reference ranges are not reported, since discordance with absolute values may lead to misinterpretation of CBC data. Current Interpretive Data was last revised on 2018. Imm gran pct 1.1 % [facility] Comment: Interpretive Data Percent cell count reference ranges are not reported, since discordance with absolute values may lead to misinterpretation of CBC data. Current Interpretive Data was last revised on 2018. Lymphocyte pct 34.8 % [facility] Comment: Interpretive Data Percent cell count reference ranges are not reported, since discordance with absolute values may lead to misinterpretation of CBC data. Current Interpretive Data was last revised on 2018. Monocyte pct 6.5 % [facility] Comment: Interpretive Data Percent cell count reference ranges are not reported, since discordance with absolute values may lead to misinterpretation of CBC data. Current Interpretive Data was last revised on 2018. Eosinophil pct 8.0 % [facility] Comment: Interpretive Data Percent cell count reference ranges are not reported, since discordance with absolute values may lead to misinterpretation of CBC data. Current Interpretive Data was last revised on 2018. Basophil pct 1.0 % [facility] Comment: Interpretive Data Percent cell count reference ranges are not reported, since discordance with absolute values may lead to misinterpretation of CBC data. Current Interpretive Data was last revised on 2018. Blood 02/28/2022 9:31 AM CDT 02/28/2022 3:06 PM CDT us Jaime Mota MD LAB BLOOD ORDERABLES Final Re sult [facility] [address] Department [place] [address] * (ABNORMAL) Lipid panel (02/28/2022 9:31 AM [...] last revised on 2018. Chol/HDL ratio 4 [facility] [place] Blood 02/28/2022 9:31 AM CDT 02/28/2022 3:06 PM CDT us Jaime Mota MD LAB BLOOD ORDERABLES Final Re sult [facility] [address] Department [place] [address] * (ABNORMAL) Comprehensive metabolic panel (02/28/2022 9:31 AM CDT) Sodium 143 135 - 145 mmol/L [facility] Potassium, pl 5.2(H) 3.3 - 4.9 mmol/L [facility] Chloride 106 97 - 110 mmol/L [facility] CO2 25 22 - 32 mmol/L [facility] Anion gap 12 2 - 15 mmol/L [facility] BUN 12 8 - 25 mg/dL [facility] Creatinine 0.77 0.60 - 1.10 mg/dL [facility] Glucose 116 70 - 199 mg/dL [facility] Comment: Interpretive Data Fasting glucose >/= 126 [...] LAB BLOOD ORDERABLES Final Re sult [facility] [address] Department [place] [address] * (ABNORMAL) CBC with auto differential (02/28/2022 [...] LAB BLOOD ORDERABLES Final Re sult [facility] [address] Department [place] [address] documented in this encounter Visit Diagnoses Diagnosis Establishing care with new doctor, encounter for Lipid screening Screening for lipoid disorders documented in this encounter Care Teams Massage Therapy Instructor Relationship Specialty Start Date End Date Jaime Mota MD PCP - General Family Medicine 02/27/22 documented as of this encounter
--- OUTSIDE RECORDS SUMMARY | 2024-11-05 22:55 | XMS_ITS | Encounter Summary ---
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 She was given instructions regarding follow up and timeframe if symptoms worsen or don???t improve. These instructions were included in the [employer] message reply tothe patient. Patient Instructions were included in the message reply to patient. My total encounter time on 03/26/2023 was 5 minutes which was spent in the activities documented inthe note. Nila Porter NP documented in this encounter Plan of Treatment Not on file documented as of this encounter Visit Diagnoses Not on filedocumented in this encounter Care Teams Store Stock Associate Relationship Specialty Start Date End Date Jaime Mota MD PCP - General Family Medicine 02/27/22 documented as of this encounter
--- OUTSIDE RECORDS SUMMARY | 2024-11-05 22:55 | XMS_ITS | Encounter Summary ---
Author Organization [facility] Address [address] [facility] [address] [place] [address] Care Team Providers Care Marine Fisheries Technician Name Role Phone Jaime Mota MD Primary Care Provider [phone] Reason for Visit * Reason Comments Establish Care Pt is here to est ca re. 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 Sees intensive care medicine specialist Allergies as of 02/28/2022 - Reviewed 02/28/2022 [...] is doing pretty good. Takes Celexa. Sees intensive care medicine specialist. Pap smear is up-to-date. Mammogram at 40. [...] auto differential (02/28/2022 9:31 AM CDT) Pathologist [facility] WBC 7.0 3.8 - 9.9 K/cumm [facility] Hgb 13.5 11.9 - 15.5 g/dL [facility] Hct 44.6 35.6 - 45.5 % [facility] CH Plt 372 150 - 400 K/cumm [facility] MPV 9.6 9.1 - 12.[address] [address] [facility] RBC 4.81 3.90 - 5.20 M/cumm [facility] CH MCV 92.7 81.3 - 96.4 fL [facility] MCH 28.1 27.1 - 33.3 pg [facility] MCHC 30.3(L) 32.3 - 35.7 g/dL [facility] RDW CV 13.5 11.1 - 14.9 % [facility] CH RDW SD 45.9 35.7 - 48.[address] [facility] NRBC abs 0.00 0.00 - 0.01 K/cumm [facility] Blood 02/28/2022 9:31 AM CDT 02/28/2022 3:06 PM CDT us Jaime Mota MD LAB BLOOD ORDERABLES Final Re sult [facility] [address] Department [place] [address] * (ABNORMAL) Comprehensive metabolic panel (02/28/2022 9:31 AM CDT) Pathologist [facility] Sodium 143 135 - 145 mmol/L [facility] Potassium, pl 5.2(H) 3.3 - 4.9 mmol/L [facility] Chloride 106 97 - 110 mmol/L [facility] CO2 25 22 - 32 mmol/L [facility] Anion gap 12 2 - 15 mmol/L [facility] BUN 12 8 - 25 mg/dL [facility] Creatinine 0.77 0.60 - 1.10 mg/dL [facility] Glucose 116 70 - 199 mg/dL [facility] Comment: Interpretive Data Fasting glucose >/= 126 [...] LAB BLOOD ORDERABLES Final Re sult [facility] [address] [address] Department of Laboratories [place], [place] [id number] * (ABNORMAL) Lipid panel (02/28/2022 9:31 AM CDT) [facility] Cholesterol 207(H) 30 - 199 mg/dL [facility] [...] LAB BLOOD ORDERABLES Final Re sult [facility] [address] Department [place] [address] documented in this encounter Visit Diagnoses [...] documented as of this encounter Care Teams Marine Fisheries Technician Relationship Specialty Start Date End Date Jaime Mota MD PCP - General Family Medicine 02/27/22 documented as of this encounter
--- OUTSIDE RECORDS SUMMARY | 2024-11-05 22:55 | XMS_ITS | Encounter Summary ---
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
--- OUTSIDE RECORDS SUMMARY | 2024-11-05 22:55 | XMS_ITS | Encounter Summary ---
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
--- OUTSIDE RECORDS SUMMARY | 2024-11-05 22:55 | XMS_ITS | Encounter Summary ---
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
--- OUTSIDE RECORDS SUMMARY | 2024-11-05 22:55 | XMS_ITS | Encounter Summary ---
Author Organization [facility] Healthcare Address [address] [place] [address] Care Team Providers Care Iron Assorter Name Role Phone Unavailable Primary Care Provider Unavailabl e Encounter Details Date Type Department Care Team (Latest Contact Info) Description 07/06/2013 7:02 AM CDT Hospital Encounter [facility] Maverick Lundy MD [address] [place] [address] Pain in joint, lower leg Social History Tobacco Use Types Packs/Day Years Used Date Smoking Tobacco: Never Assessed Comments Unknown Sex and Gender Information Value Date Recorded Sex Assigned at Not on file Legal Sex Female 8:37 PM RECHECKER Gender Identity Not on file Sexual Orientation [...] Purcell M.D. AT:patricia 09:04 AM 09:39 AM [facility] [EOD] Procedure Note Provider, MD Liana - [...] Purcell M.D. AT:patricia 09:04 AM 09:39 AM [facility] [EOD] Maverick Lundy MD [facility] [place] PROCED[place] Final Resul t documented in this encounter Visit Diagnoses Diagnosis Pain in joint, lower leg documented in this encounter
--- OUTSIDE RECORDS SUMMARY | 2024-11-05 22:55 | XMS_ITS | Encounter Summary ---
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
--- OUTSIDE RECORDS SUMMARY | 2024-11-05 22:55 | XMS_ITS | Encounter Summary ---
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
--- OUTSIDE RECORDS SUMMARY | 2024-11-05 22:55 | XMS_ITS | Encounter Summary ---
Author Organization [facility] Address [address] [facility] [address] [place] [address] Care Team Providers Care Master Ocean Yacht Name Role Phone Jaime Mota MD Primary Care Provider [phone] Reason for Referral * Diagnostic Imaging (Routine) - Closed Specialty Diagnoses / Procedures Referred By Contac t Referred To Contact Diagnoses Elevated LFTs Procedures [facility] Jaime Mota MD [address] [facility] [address] [place] [address] Phone: tel: fax: External Order Referral ID Status Reason Start Date Expiration Date Visits Re quested Visits Authorized [id number] Closed 03/07/2022 04/06/2023 1 1 Reason for Visit * Reason Onset Date Comments Test Results 03/06/2022 labs Encounter Details Date Type Department Care Team (Late st Contact Info) Description 03/06/2022 Telephone [facility] Primary Care at [address] [address] Jaime Mota MD [address] [facility] [address] [place] [address] Test Results (labs) Social History Tobacco [...] on file Legal Sex Female 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
--- OUTSIDE RECORDS SUMMARY | 2024-11-05 22:55 | XMS_ITS | Encounter Summary ---
Author Organization [facility] Address [address] [facility] [address] [place] [address] Care Team Providers Care Algology Teacher Name Role Phone Jaime Mota MD Primary Care Provider [phone] Encounter Details Date Type Department Care Team (Late st Contact Info) Description 01/11/2023 Orders Only [facility] Primary Care at [address] [address] Jaime Mota MD [facility] [address] [address] Cervical adenopathy (Primary Dx) Social History Tobacco [...] on file Legal Sex Female 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
--- OUTSIDE RECORDS SUMMARY | 2024-11-05 22:55 | XMS_ITS | Encounter Summary ---
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 Gender Identity Not on file Sexual Orientation Not on file documented as of this encounter Miscellaneous Notes * Telephone Encounter - Michelle Bertrand RN - 01/15/2023 11:10 AM CST See mychart message HEAT TECHNICIAN * Telephone Encounter - Jaime Mota MD - 01/14/2023 5:[address] neck with contrast further evaluation of a submandibular mass HEAT TECHNICIAN * Telephone Encounter - Oanh Reed MA - 01/14/2023 3:42 PM OIL HEAT TECHNICIAN US head and neck results-[facility] HEAT TECHNICIAN documented in this encounter Plan of [...] nodes documented in this encounter Care Teams International Account Representative Relationship Specialty Start Date End Date Jaime Mota MD PCP - General Family Medicine 02/27/22 documented as of this encounter
--- OUTSIDE RECORDS SUMMARY | 2024-11-05 22:55 | XMS_ITS | Encounter Summary ---
Author Organization [facility] Address [address] [facility] [address] [place] [address] Care Team Providers Care Box Lining Machine Operator Name Role Phone Lorena Ryder MD Primary Care Provider [phone] Reason for Visit * Reason Comments Establish Care Encounter Details Date Type Department Care Team (Late st Contact Info) Description 01/12/2020 11:00 AM SUPERCALENDER OPERATOR Office Visit [facility] Medical [facility] Family Medicine [address] [facility] [address] [place] [address] Kyra Medina PA [address] [address] Morbid obesity with BMI of [...] on file Legal Sex Female 8:37 PM SUPERCALENDER OPERATOR Gender Identity Not on file Sexual Orientation Not on file documented as of this encounter Last Filed Vital Signs Vital Sign Reading Time Taken Comments Blood Pressure 126/80 01/12/2020 11:41 AM SUPERCALENDER OPERATOR Pulse 60 01/12/2020 11:41 AM SUPERCALENDER OPERATOR Temperature 37 ??C (98.6 ??F) 01/12/2020 11: 41 AM SUPERCALENDER OPERATOR Respiratory Rate 18 01/12/2020 11:4 1 AM SUPERCALENDER OPERATOR Oxygen Saturation 97% 01/12/2020 11: 41 AM SUPERCALENDER OPERATOR Inhaled Oxygen Concentration - - Weight 136.3 kg (300 lb 6.4 oz) 020 11:41 AM SUPERCALENDER OPERATOR Height 162.6 cm (5' 4 ) 01/12/2020 11:4 1 AM SUPERCALENDER OPERATOR Body Mass Index 51.56 01/12/2020 11:41 AM SUPERCALENDER OPERATOR documented in this encounter Ordered Prescriptions Prescription [...] Morbid obesity with BMI of 50.0-59.9, adult ([facility]) 01/12/2020 ??? Anxiety associated with depression 02/06/2016 [...] Morbid obesity with BMI of 50.0-59.9, adult ([facility]) (E66.01, Z68.43) (Primary) Assessment & Plan: Weight [...] or fail to improve. Kyra Medina PA-C RCALENDER OPERATOR documented in this encounter Miscellaneous Notes * Assessment & Plan Note - Kyra Medina PA - 01/12/2020 12:46 PM SUPERCALENDER OPERATOR Associated Problem(s): Morbid obesity with BMI of 50.0-59.9, adult ([facility]) Weight loss attempts in the past include: Weight Watchers, HCG diet, Crossfit exercise. Patient would be a good candidate for bariatric weight loss surgery. She has already has consult with surgeon and is needing letter of medical necessity - provided today. Will get baseline labs done as well to rule out underlying thyroid disorder or other. RCALENDER OPERATOR * Assessment & Plan Note - Kyra Medina PA - 01/12/2020 12:46 PM SUPERCALENDER OPERATOR Associated Problem(s): Anxiety associated with depression Stable, no changes. Continue current regimen with Celexa RCALENDER OPERATOR documented in this encounter Plan of Treatment Scheduled Orders Name Type Priority Associated Diagnoses Orde r Schedule CBC with auto differential Lab Routine Morbid obesity with BMI of 50.0-59.9, adult ([facility]) Expected: 01/12/2020, Expires: 01/12/2021 Comprehensive metabolic panel Lab Routine Morbid obesity with BMI of 50.0-59.9, adult ([facility]) Expected: 01/12/2020, Expires: 01/12/2021 Lipid panel Lab Routine Morbid obesity with BMI of 50.0-59.9, adult ([facility]) Expected: 01/12/2020, Expires: 01/12/2021 TSH reflex to free T4 Lab Routine Morbid obesity with BMI of 50.0-59.9, adult ([facility]) Expected: 01/12/2020, Expires: 01/12/2021 documented as of this encounter Visit Diagnoses Diagnosis Morbid obesity with BMI of 50.0-59.9, adult ([facility])- Primary Anxiety associated with depression Dysthymic disorder [...] 01/12/2020 added in this encounter Care Teams Box Lining Machine Operator Relationship Specialty Start Date End Date Lorena Ryder MD PCP - General Family Medicine 01/05/20 01/15/22 documented as of this encounter
--- OUTSIDE RECORDS SUMMARY | 2024-11-05 22:55 | XMS_ITS | Encounter Summary ---
Author Organization [facility] Address [address] [facility] [address] [place] [address] Care Team Providers Care Golf Cart Repairer Name Role Phone Lorena Ryder MD Primary Care Provider [phone] Reason for Visit * Reason Onset Date Comments Positive Covid/Zoan 03/14/2020 Encounter Details Date Type Department Care Team (Late st Contact Info) Description 03/14/2020 Telephone [facility] Family Medicine [address] [facility] [address] [place] [address] Lorena Ryder MD [address] [place] [address] [address] [place] [address] Positive Covid/Zofran Social History Tobacco [...] on file 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 My clinical pharmacy technician son states covid positive patients are showing up to pharmacies to pickle cutter meds so I'm just being overzealous in saying this. * Telephone Encounter - Nila Murdock - 03/14/2020 10:22 AM CDT Patient called, says she tested positive for Covid-19, she is not able to keep anything down. Patient wants to know if we could send in Zofran. Patient uses [facility] in [place] documented in this encounter Plan of Treatment Not on file documented as of this encounter Visit Diagnoses Not on filedocumented in this encounter Care Teams Golf Cart Repairer Relationship Specialty Start Date End Date Lorena Ryder MD PCP - General Family Medicine 01/05/20 01/15/22 documented as of this encounter
--- OUTSIDE RECORDS SUMMARY | 2024-11-05 22:55 | XMS_ITS | Encounter Summary ---
Author Organization [facility] Healthcare Address [address] [place] [address] Care Team Providers Care Core Placer Name Role Phone Jaime Mota MD Primary Care Provider [phone] Reason for Referral * MRI/CAT/PET Scan (Routine) - Closed Specialty Diagnoses / Procedures Referred By Eileen mendez Referred To Contact Radiology Diagnoses Mass of right submandibular region Procedures CT Soft Tissue Neck with Contrast Morgan Garsia MD [address] [place] [address] Phone: tel: fax: [address] [address] Referral ID Status Reason Start Date Expiration Date Visits Re quested Visits Authorized [id number] Closed 01/30/2023 05/02/2023 1 1 Reason for Visit * MRI/CAT/PET Scan (Routine) - Closed Specialty Diagnoses / Procedures Referred By Contac andrea Referred To Contact Radiology Diagnoses Mass of right submandibular region Procedures CT Soft Tissue Neck with Contrast Morgan Garsia MD [address] [place] [address] Phone: tel: fax: [address] [address] Referral ID Status Reason Start Date Expiration Date Visits Re quested Visits Authorized [id number] Closed 01/30/2023 05/02/2023 1 1 Encounter Details Date Type Department Care Team (Latest Contact Info) Description 02/25/2023 6:47 AM CDT - 02/25/2023 11:59 PM CDT Hospital Encounter [facility] [address] [place] [address] Mass of right submandibular region Discharge Disposition: [...] on file 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 AP: AP Report ID: [id number] Reading Location: [place] [address] Morgan Garsia MD IMG CT PROCEDURES Final [...] mL documented in this encounter Care Teams Core Placer Relationship Specialty Start Date End Date Jaime Mota MD PCP - General Family Medicine 02/27/22 documented as of this encounter
--- OUTSIDE RECORDS SUMMARY | 2024-11-05 22:55 | XMS_ITS | Encounter Summary ---
Author Organization [facility] Medical Group Address [address] [facility] [address] [place] [address] Care Team Providers Care School Age Teacher Name Role Phone Jaime Mota MD Primary Care Provider [phone] Encounter Details Date Type Department Care Team (Late st Contact Info) Description 05/01/2022 Orders Only [facility] Medical [facility] Primary Care at [address] [address] Jaime Mota MD [address] [place] [address] Elevated LFTs Social History Tobacco Use Types [...] on file Legal Sex Female 8:37 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
--- OUTSIDE RECORDS SUMMARY | 2024-11-05 22:55 | XMS_ITS | Encounter Summary ---
Author Organization 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
--- OUTSIDE RECORDS SUMMARY | 2024-11-05 22:55 | XMS_ITS | Encounter Summary ---
Author Organization [facility] Address [address] [place] [address] Phone Care Team Providers Care Dumper Bailer Operator Name Role Phone Jaime Mota MD Primary Care Provider [phone] Reason for Referral * MRI/CAT/PET Scan (Routine) - Closed Specialty Diagnoses / Procedures Referred By Eileen mendez Referred To Contact Radiology Diagnoses Mass of right submandibular region Procedures CT Soft Tissue Neck with Contrast Morgan Garsia [place] [address] Phone: tel: fax: [address] [address] Referral ID Status Reason Start Date Expiration Date Visits Re quested Visits Authorized [id number] Closed 01/30/2023 05/02/2023 1 1 Reason for Visit * Reason Comments Neck Mass Right submandibular mass * Consultation (Routine) - Closed Specialty Diagnoses / Procedures Referred By Eileen mendez Referred To Contact Otolaryngology Diagnoses Cervical adenopathy Jaime Mota MD [address] [place] [address] [place] [address] Phone: tel: fax: Morgan Garsia MD [address] [place] [address] Phone: tel: fax: Referral ID Status Reason Start Date Expiration Date V isits Requested Visits Authorized [id number] Closed Specialty Services Required 12/27/2022 01/26/2024 1 1 Encounter Details Date Type Department Care Team (Latest Contact Info) Description 01/29/2023 3:30 PM CDT Office Visit [facility] Otolaryngology [address] [place] [address] Morgan Garsia MD [address] [place] [address] Mass of right submandibular region [...] on file 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 LYMPHATIC: No cervical lymphadenopathy. MUSCULOSKELATAL: [...] AM T: ??02/25/2023 7:57 AM Report ID: [id number] Reading Location: ??[id number] Procedure Note Samuel Escobar DO - 02/25/2023 [...] Samuelandrea Escobar D.O. AP: AP Report ID: [id number] Reading Location: [id number] Morgan Garsia MD IMG CT PROCEDURES Final Res ult documented in this encounter Visit Diagnoses Diagnosis Mass of right submandibular region- Primary Cervical adenopathy Enlargement of lymph nodes Mass of right submandibular region documented in this encounter Orders Outpatient Referral Count Last Ordered Date Fir st Ordered Date AMB REFERRAL TO ENT 1 01/29/2023 documented in this encounter Care Teams Dumper Bailer Operator Relationship Specialty Start Date End Date Jaime Mota MD PCP - General Family Medicine 02/27/22 documented as of this encounter
--- OUTSIDE RECORDS SUMMARY | 2024-11-05 22:55 | XMS_ITS | Encounter Summary ---
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
--- OUTSIDE RECORDS SUMMARY | 2024-11-05 22:56 | XMS_ITS | Encounter Summary ---
Author Organization [facility] Health Address [address] [facility] [place] [address] Care Team Providers Care Environmental Compliance Technician Name Role Phone Kyra Medina Primary Care Provider [phone] Encounter Details Date Type Department Care Team [...] on filedocumented in this encounter Care Teams Environmental Compliance Technician Relationship Specialty Start Date End Date Kyra Medina PA [address] [facility] [place] [address] PCP - General Physician Retirement Benefits Specialist 02/02/20 documented as of this encounter
--- OUTSIDE RECORDS SUMMARY | 2024-11-05 22:56 | XMS_ITS | Encounter Summary ---
Author Organization [facility] Address [address] [place] [address] Care Team Providers Care Chief Of Vital Statistics Name Role Phone Afshan Martin DO Primary Care Provider [phone] Encounter Details Date Type Department Care Team (Late st Contact Info) Description 07/28/2024 External Device Data [facility] ABSTRACTION Provider, Abstract NO ADDRESS ON FILE Social History Tobacco Use Types Packs/Day Years Used Date Smoking Tobacco: Never Smokeless Tobacco: Never Alcohol Use Standard Drinks/Week Comments Yes 0 (1 standard drink = 0.6 oz pur e alcohol) socially Sex and Gender Information Value Date Recorded Sex Assigned at Not on file Gender Identity Not on file Sexual Orientation Not on file documented as of this encounter Plan of Treatment Not on file documented as of this encounter Visit Diagnoses Not on filedocumented in this encounter Care Teams Chief Of Vital Statistics Relationship Specialty Start Date End Date Afshan Martin DO [address] [facility] [address] [place] [address] PCP - General Family Practice 03/05/24 documented as of this encounter
--- OUTSIDE RECORDS SUMMARY | 2024-11-05 22:56 | XMS_ITS | Clinical Summary ---
[facility] Address [address] [place] [address] Care Team Providers Care Executive Admin Name Role Phone Afshan Martin DO Primary Care Provider [phone] Allergies Active Allergy Reactions Criticality Noted Date Comments Sulfa (Sulfonamide Antibiotics) Hives,Rash High 11/18 Medications Medication Sig Dispensed Refills Start Date End Date Status citalopram (CeleXA) 40 mg tablet Take 40 mg by mouth daily. 03/08/2023 Active loratadine (CLARITIN) 10 mg tablet Take 10 mg by mouth daily. Active tirzepatide 2.5 mg/0.5 mL Pen Injector Inject 2.5 mg by subcutaneous injection every 7 days. Active Active Problems No known active problems Family History Medical History Relation Name Comments Heart Disease Brother Hypertension Brother Heart Disease Father No Known Problems Mother Relation Name Status Comments Brother Alive Father Alive Mother Alive Social History Tobacco Use Types Packs/Day Years [...] Sign Reading Time Taken Comments Blood Pressure 135/79 03/18/2024 1:25 PM CDT Pulse 64 03/18/2024 1:25 PM CDT Temperature 36.7 ??C (98 ??F) 03/18/2024 1:25 PM CDT Respiratory Rate 18 03/18/2024 1:25 PM CDT Oxygen Saturation 94% 03/18/2024 1:25 PM CDT Inhaled Oxygen Concentration - - Weight 124.7 kg (275 lb) 03/18/2024 1:25 PM CDT Height 162.6 cm (5' 4 ) 03/18/2024 1:25 PM CDT Body Mass Index 47.2 03/18/2024 1:25 PM CDT Plan of Treatment Health Maintenance Due Date Last Done Comments Pre-Diabetes and Diabetes Screening 1985 HEPATITIS B VACCINES (1 of 3 - 19+ 3-dose series) 2004 CERVICAL CANCER SCREENING 2015 INFLUENZA VACCINE (#1) 2024 08/17/2019 DTAP/TDAP/TD VACCINES (2 - T d or Tdap) 01/31/2027 01/31/2017 HPV VACCINES Aged Out No longer eligi ble based on patient's age to complete this topic PNEUMOCOCCAL VACCINE 0-64 YEARS Aged Out No longer eligible based on patient's age to complete this topic Care Teams Executive Admin Relationship Specialty Start Date End Date Afshan Martin DO [address] [facility] [address] [place] [address] PCP - General Family Practice 03/05/24
--- OUTSIDE RECORDS SUMMARY | 2024-11-05 22:56 | XMS_ITS | Encounter Summary ---
Author Organization [facility] Address [address] [place], [place] [address] [address] Care Team Providers Care Territory Sales Representative Name Role Phone Kyra Medina Primary Care Provider [phone] Encounter Details Date Type Department Care Team (Latest Contact Info) Description 02/02/2020 2:49 PM CDT - 02/02/2020 11:59 PM CDT [facility] [address] [facility] [address] [place] [address] [place] [address] [facility] [address] [place] [address] Discharge Disposition: Home or Self [...] - 816 pg/mL 02/02/2020 4:44 PM CDT [facility] Blood BLOOD SPECIMEN / Unknown Venipuncture / Unknown 02/02/2020 3:41 PM CDT 02/02/2020 3:54 PM CDT Shoaib Jimenez MD LAB - CHEMISTRY NADINE IRENE Performing Organization Address City/State/[facility] Co de Phone Number [facility] [address] [place] [phone] * VITAMIN B1 (02/02/2020 3:41 PM CDT) Pathologist [facility] Vitamin B1 Whole Blood 166.5 66.5 - 200.0 nmol/L 02/06/2020 6:07 AM CDT [facility] ([facility]) Blood BLOOD SPECIMEN / Unknown Venipuncture / Unknown 02/02/2020 3:41 PM CDT 02/02/2020 3:54 PM CDT Narrative [facility] ([facility]) - 02/06/2020 6:07 AM CDT Test(s) [id number]. B1, Whole Blood was developed and its performance characteristics determined by [facility]. It has not been cleared or approved by the Food and Drug Administration. Performed at: ??01 - [facility] [address] ??[id number] Airplane Navigator: Baldev Zuniga MD, Phone: ??[phone] Shoaib Jimenez MD LAB - CHEMISTRY NADINE IRENE [facility] ([facility]) [address] [place] [address] * (ABNORMAL) COMPREHENSIVE METABOLIC PANEL (02/02/2020 3:41 PM CDT) [facility] Signature Glucose 90 70 - 105 mg/dL [...] - 16 mmol/L 02/02/2020 4:17 PM CDT [facility] BUN 11 7 - 18.7 mg/dL 02/02/2020 4:17 PM CDT [facility] Creatinine 0.95 0.57 - 1.11 mg/dL 02/02/2020 4:17 PM CDT [facility] Alkaline Phosphatase 56 40 - 150 U/L 02/02/2020 4:17 PM CDT [facility] ALT 68(H) 0 - 61 U/L 02/02/2020 4:17 PM CDT [facility] AST 39(H) 5 - 34 U/L 02/02/2020 4:17 PM CDT [facility] Protein Total 7.6 6.4 - [...] >60 mL/min/1.7 3m2 02/02/2020 4:17 PM CDT [facility] Blood BLOOD SPECIMEN / Unknown Venipuncture / Unknown 02/02/2020 3:41 PM CDT 02/02/2020 3:54 PM CDT Shoaib Jimenez MD LAB - CHEMISTRY NADINE Simmons Organization Address City/State/ZIP Co de Phone Number [facility] [address] [place] [address] * (ABNORMAL) CBC W AUTO DIFFERENTIAL (02/02/2020 3:41 PM CDT) WBC 9.4 4.4 - 10.7 x10E9/L 02/02/2020 3:58 PM CDT [facility] WBC Corrected 02/02/2020 3:58 PM CDT [facility] RBC 4.66 3.80 - 5.20 x10E12/L 02/02/2020 3:58 PM CDT [facility] Hemoglobin 13.6 12.0 - 15.6 gm/dL 02/02/2020 3:58 PM CDT [facility] Hematocrit 42.7 35.9 - 45.5 % 02/02/2020 3:58 PM CDT [facility] MCV 91.6 80.7 - 98.3 fl 02/02/2020 3:58 PM CDT [facility] MCH 29.2 26.7 - 34.0 pg 02/02/2020 3:58 PM CDT [facility] MCHC 31.9 30.8 - 35.9 gm/dL 02/02/2020 3:58 PM CDT [facility] Platelet Count 348 153 - 416 x10E9/L 02/02/2020 3:58 PM CDT [facility] RDW-CV 12.8 12.1 - 14.9 % 02/02/2020 3:58 PM CDT [facility] MPV 9.3(L) 9.4 - 12.9 fl 02/02/2020 3:58 PM CDT [facility] Neutrophils % 54.7 44.0 - 73.0 % 02/02/2020 3:58 PM CDT [facility] Lymphocytes % 34.5 20.0 - 43.0 % 02/02/2020 3:58 PM CDT [facility] Monocytes % 6.9 5.0 - 13.0 % 02/02/2020 3:58 PM CDT [facility] Eosinophils % 1.9 0.0 - 6.0 % 02/02/2020 3:58 PM CDT [facility] Basophils % 1.0 0.0 - 2.0 % 02/02/2020 3:58 PM CDT [facility] Immature Granulocytes 1.0 0 - [...] - 0.47 x10E9/L 02/02/2020 3:58 PM CDT [facility] Basophils Absolute 0.09(H) 0 - 0.08 x10E9/L 02/02/2020 3:58 PM CDT [facility] Immature Granulocytes Absolute 0.09(H) 0.00 - 0.06 x10E9/L 02/02/2020 3:58 PM CDT [facility] nRBC Auto 0 /100 WBC 02/02/2020 3:58 PM CDT [facility] Blood BLOOD SPECIMEN / Unknown Venipuncture / Unknown 02/02/2020 3:41 PM CDT 02/02/2020 3:54 PM CDT Shoaib Jimenez MD LAB - HEMATOLOGY ORD ERABLES [facility] [address] [place] [address] * EKG 12-LEAD (02/02/2020 2:35 PM CDT) Ventricular Rate 66 BPM [facility]USE Atrial Rate 66 BPM [facility] P-R Interval 154 ms [facility] QRS Duration ms 84 ms [facility] Q-T Interval ms 422 ms [facility] QTC Calculation (Bezet) 442 ms [facility] Calculated P Hendley 29 degrees [facility] Calculated R Hendley 8 degrees [facility] Calculated T Hendley 77 degrees [facility] Interpretation EKG Normal sinus rhythm Low voltage QRS Borderline ECG No previous ECGs available Confirmed by Karen Edwards ([id number]) on 02/03/2020 3:56:23 PM [facility] MUSE 02/02/2020 2:35 PM CDT 02/03/2020 3:56 PM CDT Shoaib Jimenez MD ECG ORDERABLES [facility] documented in this encounter Visit Diagnoses Diagnosis Preoperative examination- Primary Preoperative examination, unspecified documented in this encounter Care Teams Territory Sales Representative Relationship Specialty Start Date End Date Kyra Medina PA [address] [place] [address] PCP - General Physician Balloon Sander 02/02/20 documented as of this encounter
--- OUTSIDE RECORDS SUMMARY | 2024-11-05 22:56 | XMS_ITS | Encounter Summary ---
Author Organization [facility] Address [address] [place] [address] [place] [address] Care Team Providers Care Exhibit Designer Name Role Phone Unavailable Primary Care Provider [...]
--- OUTSIDE RECORDS SUMMARY | 2024-11-05 22:56 | XMS_ITS | Patient Health Summary ---
Author Organization [facility] Address [address] [facility] [place] [address] Care Team Providers Care Airborne Mission Systems Name Role Phone Kyra Medina Primary Care Provider [phone] Note from [facility],non-owned Affiliates and Associated Physician Practices is amultiple site organization consisting of ambulatory clinics and hospital sitesin [place], [place], [place] and [place]. This disclosure is being madepursuant to the Care Everywhere program and may not contain all information available regarding this patient. Last updated 18.[facility] Allergies * Sulfa Drugs(Urticaria,Rash) -Medium Criticality Medications [...] T Respiratory Rate 16 09/30/2019 9:31 AM MEDICAL IMAGING SPECIALIST Oxygen Saturation 96% 09/30/2019 9:31 AM MEDICAL IMAGING SPECIALIST Inhaled Oxygen Concentration - - Weight 138.1 [...] 200.0 nmol/L 02/06/2020 6:07 AM CDT [facility] ([facility]) Blood BLOOD SPECIMEN / Unknown Venipuncture / Unknown 02/02/2020 3:41 PM CDT 02/02/2020 3:54 PM CDT Narrative [facility] ([facility]) - 02/06/2020 6:07 AM CDT Test(s) [id number]. B1, Whole Blood was developed and its performance characteristics determined by [facility]. It has not been cleared or approved by the Food and Drug Administration. Performed at: ??01 - [facility] [address] ??[id number] Phone Banker: Baldev Zuniga MD, Phone: ??[phone] Shoaib Jimenez MD LAB - CHEMISTRY NADINE IRENE [facility] ([facility]) [address] [place] [address] * (ABNORMAL) CBC W AUTO DIFFERENTIAL (02/02/2020 [...] - 3.94 x10E9/L 02/02/2020 3:58 PM CDT [facility] Monocytes Absolute 0.65 0.26 - 1.07 x10E9/L 02/02/2020 3:58 PM CDT [facility] Eosinophils Absolute 0.18 0 - 0.47 x10E9/L 02/02/2020 3:58 PM CDT [facility] Basophils Absolute 0.09(H) 0 - 0.08 x10E9/L 02/02/2020 3:58 PM CDT [facility] Immature Granulocytes Absolute 0.09(H) 0.00 - 0.06 x10E9/L 02/02/2020 3:58 PM CDT [facility] nRBC Auto 0 /100 WBC 02/02/2020 3:58 PM CDT [facility] Blood BLOOD SPECIMEN / Unknown Venipuncture / Unknown 02/02/2020 3:41 PM CDT 02/02/2020 3:54 PM CDT Shoaib Jimenez MD LAB - HEMATOLOGY ORD ERABLES [facility] [address] [place] [address] * (ABNORMAL) COMPREHENSIVE METABOLIC PANEL (02/02/2020 3:41 PM CDT) [facility] Glucose 90 70 - 105 mg/dL 02/02/2020 4:17 PM CDT [facility] Sodium 141 136 - 145 mmol/L 02/02/2020 4:17 PM CDT [facility] Potassium 4.1 3.5 - 5.1 mmol/L 02/02/2020 4:17 PM CDT [facility] Chloride 104 98 - 107 mmol/L 02/02/2020 4:17 PM CDT [facility] CO2 27 23 - 31 mmol/L 02/02/2020 4:17 PM CDT [facility] Calcium 9.5 8.4 - 10.4 mg/dL 02/02/2020 4:17 PM CDT [facility] Anion Gap 10 8 - 16 mmol/L 02/02/2020 4:17 PM CDT [facility] BUN 11 7 - 18.7 mg/dL 02/02/2020 4:17 PM CDT [facility] Creatinine 0.95 0.57 - 1.11 mg/dL 02/02/2020 4:17 PM CDT [facility] Alkaline Phosphatase 56 40 - 150 U/L 02/02/2020 4:17 PM CDT [facility] ALT 68(H) 0 - 61 U/L 02/02/2020 4:17 PM CDT [facility] AST 39(H) 5 - 34 U/L 02/02/2020 4:17 PM CDT [facility] Protein Total 7.6 6.4 - 8.3 gm/dL 02/02/2020 4:17 PM CDT [facility] Albumin 4.6 3.5 - 5.2 gm/dL 02/02/2020 4:17 PM CDT [facility] Bilirubin Total 0.3 0.2 - 1.0 mg/dL 02/02/2020 4:17 PM CDT [facility] eGFR by MDRD >60 >60 mL/min/1.7 3m2 02/02/2020 4:17 PM CDT [facility] eGFR by MDRD >60 >60 mL/min/1.7 3m2 02/02/2020 4:17 PM CDT [facility] Blood BLOOD SPECIMEN / Unknown Venipuncture / Unknown 02/02/2020 3:41 PM CDT 02/02/2020 3:54 PM CDT Shoaib Jimenez MD LAB - CHEMISTRY ORDPorfirio IRENE Performing Organization Address [facility]/ZIP Co de Phone Number [facility] [address] [place] [address] * VITAMIN B12 (02/02/2020 3:41 PM CDT) Pathologist [facility] Vitamin B12 796 213 - 816 pg/mL 02/02/2020 4:44 PM CDT [facility] Blood BLOOD SPECIMEN / Unknown Venipuncture / Unknown 02/02/2020 3:41 PM CDT 02/02/2020 3:54 PM CDT Shoaib Jimenez MD LAB - CHEMISTRY NADINE IRENE Performing Organization Address City/[facility]/ZIP Co de Phone Number [facility] [address] [place] [address] * EKG 12-LEAD (02/02/2020 2:35 PM CDT) Ventricular Rate 66 BPM [facility] Atrial Rate 66 BPM [facility] P-R Interval 154 ms [facility] QRS Duration ms 84 ms [facility] Q-T Interval ms 422 ms [facility] QTC Calculation (Bezet) 442 ms [facility] Calculated P Dolph 29 degrees [facility] Calculated R Dolph 8 degrees [facility] Calculated T Dolph 77 degrees [facility] Interpretation EKG Normal [...] Jimenez MD FLUOROSCOPY ORDERABL ES Care Teams Airborne Mission Systems Relationship Specialty Start Date End Date Kyra Medina PA [address] [place] [address] PCP - General Physician Wardrobe Stylist 02/02/20
--- OUTSIDE RECORDS SUMMARY | 2024-11-05 22:56 | XMS_ITS | Encounter Summary ---
Author Organization [facility] Address [address] [place], [place] [address] [address] Care Team Providers Care Car Groomer Name Role Phone Unavailable Primary Care Provider Unavailabl e Reason for Referral * Radiology Services (Routine) - Closed Specialty Diagnoses / Procedures Referred By Contac t Referred To Contact Diagnoses Morbid obesity (HCC) BMI 50.0-59.9, adult (HCC) Procedures FL FLUORO UPPER GI TRACT + [place] [address] [facility] [address] [place] [address] Referral ID Status Reason Start Date Expiration Date Visits Re quested Visits Authorized [id number] Closed 12/04/2018 06/02/2019 1 1 Reason for Visit * Radiology Services (Routine) - Closed Specialty Diagnoses / Procedures Referred By Contac t Referred To Contact Diagnoses Morbid obesity (HCC) BMI 50.0-59.9, adult (HCC) Procedures FL FLUORO UPPER GI TRACT + [place] [address] [place] [address] Referral ID Status Reason Start Date Expiration Date Visits Re quested Visits Authorized [id number] Closed 12/04/2018 06/02/2019 1 1 Encounter Details Date Type Department Care Team (Latest Contact Info) Description 02/24/2019 7:51 AM CDT - 02/24/2019 11:59 PM CDT Hospital Encounter [facility] - Radiology [address] [place], [place] [id number] [place] [address] [facility] [address] [place] [address] Discharge Disposition: Home or Self [...]
--- OUTSIDE RECORDS SUMMARY | 2024-11-05 22:56 | XMS_ITS | Encounter Summary ---
Author Organization [facility] Address [address] [facility] [place] [address] Care Team Providers Care Magisterial District Judge Name Role Phone Unavailable Primary Care Provider Unavailabl e Reason for Visit * Reason Onset Date Comments Surgery Scheduling 01/20/2020 Encounter Details Date Type Department Care Team (Late st Contact Info) Description 01/20/2020 Telephone [facility] [address] [facility], [address] [place] [address] [place] [address] [facility] [address] [place] [address] Surgery Scheduling Social History Tobacco [...] HHr by Dr Jimenez on 02/23/2020 at [facility]. Patient to schedule SEC appointment for evaluation and testing, given centralized scheduling phone number: [phone]. Patient is scheduled to attend preoperative education [...] day. Pt denies questions at this time. CING SPECIALIST documented in this encounter Plan of Treatment Not on file documented as of this encounter Visit Diagnoses Not on filedocumented in this encounter
--- OUTSIDE RECORDS SUMMARY | 2024-11-05 22:56 | XMS_ITS | Encounter Summary ---
Author Organization [facility] Address [address] [place], [place] [address] [address] Care Team Providers Care Arnp Name Role Phone Kyra Medina Primary Care Provider [phone] Reason for Visit * Reason Onset Date Comments Diet 06/10/2020 Encounter Details Date Type Department Care Team (Late st Contact Info) Description 06/10/2020 Telephone [facility] [address] [place] [address], [facility] [address] [place] [address] Sara Pabno, GISEL/LD Diet Social History Tobacco Use Types [...] on filedocumented in this encounter Care Teams Arnp Relationship Specialty Start Date End Date Kyra Medina PA [address] [place] [phone] PCP - General Physician Wool Shearing Supervisor 02/02/20 documented as of this encounter
--- OUTSIDE RECORDS SUMMARY | 2024-11-05 22:56 | XMS_ITS | Encounter Summary ---
Author Organization [facility] Address [address] [place] [address] Care Team Providers Care Pearl Cutter Name Role Phone Kyra Medina Primary Care Provider [phone] Encounter Details Date Type Department Care Team (Late st Contact Info) Description 04/26/2020 1:00 PM CDT Video Visit [facility] [address] [place] [address], [address] [phone] Morbid obesity (HCC) Social History Tobacco Use [...] time. Pt is given contact information for [facility] to call for any questions or concerns. documented in this encounter Plan of Treatment Not on file documented as of this encounter Visit Diagnoses Diagnosis Morbid obesity (HCC)- Primary Morbid obesity documented in this encounter Care Teams Pearl Cutter Relationship Specialty Start Date End Date Kyra Medina PA [address] [place] [address] [place] [phone] PCP - General Physician Cloth Feeder 02/02/20 documented as of this encounter
--- OUTSIDE RECORDS SUMMARY | 2024-11-05 22:56 | XMS_ITS | Encounter Summary ---
Author Organization [facility] Address [address] [place] [address] Care Team Providers Care Peanut Roaster Name Role Phone Afshan Martin DO Primary Care Provider [phone] Encounter Details Date Type Department Care Team (Late st Contact Info) Description 03/24/2024 External Device Data STL ABSTRACTION Provider, Abstract [...] on filedocumented in this encounter Care Teams Peanut Roaster Relationship Specialty Start Date End Date Afshan Martin DO [address] [facility] [address] [place] [address] PCP - General Family Practice 03/05/24 documented as of this encounter
--- OUTSIDE RECORDS SUMMARY | 2024-11-05 22:56 | XMS_ITS | Encounter Summary ---
Author Organization [facility] Address [facility] [facility] [place] [address] Care Team Providers Care Historiography Teacher Name Role Phone Unavailable Primary Care Provider Unavailabl e Reason for Visit * Reason Onset Date Comments Follow-up 10/02/2019 Encounter Details Date Type Department Care Team (Late st Contact Info) Description 10/02/2019 Telephone [facility] [address] [address] Provider, [facility] Follow-up Social History Tobacco Use Types [...] no questions or concerns at this time. LIARY POWERPLANT OPERATOR documented in this encounter Plan of Treatment Not on file documented as of this encounter Visit Diagnoses Not on filedocumented in this encounter
--- OUTSIDE RECORDS SUMMARY | 2024-11-05 22:56 | XMS_ITS | Encounter Summary ---
Author Organization [facility] Address [facility] [facility] [place] [address] Care Team Providers Care Piano Case Maker Name Role Phone Unavailable Primary Care Provider Unavailabl e Reason for Referral * Radiology Services (Routine) - Closed Specialty Diagnoses / Procedures Referred By Contac t Referred To Contact Diagnoses Morbid obesity (HCC) BMI 50.0-59.9, adult (HCC) Procedures FL FLUORO UPPER GI TRACT [place] [address] [facility] [address] [place] [address] Referral ID Status Reason Start Date Expiration Date Visits Re quested Visits Authorized [id number] Closed 12/04/2018 06/02/2019 1 1 RACTIVE DIGITAL MEDIA SPECIALIST Reason for Visit * Reason Comments Pre-op Consult pre op Encounter Details Date Type Department Care Team (Late st Contact Info) Description 12/04/2018 3:00 PM INTERACTIVE DIGITAL MEDIA SPECIALIST Office Visit [facility] [address] [facility], [address] [place] [address] [place] [address] [facility] [address] [place] [address] Morbid obesity (HCC) (Primary Dx); [...] Comments Blood Pressure 138/80 12/04/2018 2:48 PM INTERACTIVE DIGITAL MEDIA SPECIALIST Pulse 76 12/04/2018 2:48 PM INTERACTIVE DIGITAL MEDIA SPECIALIST Temperature - - Respiratory Rate - - Oxygen Saturation - - Inhaled Oxygen Concentration - - Weight 133.6 kg (294 lb 8 oz) 12/04/2018 2:48 PM INTERACTIVE DIGITAL MEDIA SPECIALIST Height 162.6 cm (5' 4 ) 12/04/2018 2:48 PM INTERACTIVE DIGITAL MEDIA SPECIALIST Body Mass Index 50.55 12/04/2018 2:48 PM INTERACTIVE DIGITAL MEDIA SPECIALIST documented in this encounter Patient Instructions * Patient Instructions* Shoaib Jimenez MD - 12/04/2018 3:32 PM INTERACTIVE DIGITAL MEDIA SPECIALIST Plan: Based on discussion with the patient and consideration of the patients medical history and diagnosis of morbid obesity the patient is an appropriate candidate for bariatric surgery. Recommendation isfor: L Sleeve Liquid Protein Diet: Yes1 Week Mh Teacher: Yes Additional Testing: Yes GI: hx of [...] check at Class: No Robot candidate: no RACTIVE DIGITAL MEDIA SPECIALIST documented in this encounter Progress Notes [...] past including medical, exercise and dietary without longterm success. Pt has developed multiple comorbid conditions [...] CO2, BUN, CREATININE, GLUCOSE, CALCIUM in thelast 80578 hours. No results for input(s): WBC, HGB, HCT, PLTCOUNT in the last 47241 hours. Risk / Benefits Risks and benefits [...] procedures or operations in the perioperative and terminal worker periods. Questions were answered. Bariatric Surgery Patient [...] or network. The patient will experience successfuland longterm weight loss when these components along with bariatric surgery are followed. The patient has had the above discussions with multiple program team members including surgeon, business analysis specialist, bariatric nurse and mental health shipping clerk crating. Impression: Morbid obesity with above listed comorbidities. Multiple failed diet attempts. Plan: Based on discussion with the patient and consideration of the patients medical history and diagnosis of morbid obesity the patient is an appropriate candidate for bariatric surgery. Recommendation isfor: L Sleeve Liquid Protein Diet: Yes1 Week Mh Teacher: Yes Additional Testing: Yes GI: hx of [...] Robot candidate: no Shoaib Jimenez MD 12/04/2018 RACTIVE DIGITAL MEDIA SPECIALIST documented in this encounter Plan of [...]
--- OUTSIDE RECORDS SUMMARY | 2024-11-05 22:56 | XMS_ITS | Referral Summary ---
Author Organization [facility] Address [address] [place] [address] Care Team Providers Care Physicist Nuclear Name Role Phone Kyra Medina Primary Care Provider [phone] Source Comments [facility],non-[facility] Affiliates and Associated Physician Practices is amultiple site organization consisting of ambulatory clinics and hospital sitesin [place], [place], [place] and [place]. This disclosure is being madepursuant to the Care Everywhere program and may not contain all information available regarding this patient. Last updated 18.[facility] Allergies Active Allergy Reactions Criticality Noted Date [...] T Respiratory Rate 16 09/30/2019 9:31 AM SOLAR INSTALLATION SUPERVISOR Oxygen Saturation 96% 09/30/2019 9:31 AM SOLAR INSTALLATION SUPERVISOR Inhaled Oxygen Concentration - - Weight 138.1 kg (304 lb 6.4 oz) 02/02/2020 2:05 PM CDT Height 162.6 cm (5' 4 ) 02/02/2020 2:05 PM CDT Body Mass Index 52.25 02/02/2020 2:05 PM CDT Plan of Treatment Not on file Care Teams Physicist Nuclear Relationship Specialty Start Date End Date Kyra Medina PA [address] [place] [address] [place] [phone] PCP - General Physician Flight Operations Specialist 02/02/20
--- OUTSIDE RECORDS SUMMARY | 2024-11-05 22:56 | XMS_ITS | Encounter Summary ---
Author Organization [facility] [employer] Address [address] [place] [address] Care Team Providers Care Legal Billing Coordinator Name Role Phone Kyra Medina Primary Care Provider [phone] Reason for Visit * Reason Onset Date Comments Surgery Scheduling 02/05/2020 Encounter Details Date Type Department Care Team (Late st Contact Info) Description 02/05/2020 Telephone [facility] [employer] [facility] [address] [facility], [address] [place] [address] [place] [address] [facility] [address] [place] [address] Surgery Scheduling Social History Tobacco [...] on filedocumented in this encounter Care Teams Legal Billing Coordinator Relationship Specialty Start Date End Date Kyra Medina PA [address] [facility] [address] [place] [address] PCP - General Physician Rubber Compounder Mixer 02/02/20 documented as of this encounter
--- OUTSIDE RECORDS SUMMARY | 2024-11-05 22:56 | XMS_ITS | Encounter Summary ---
Author Organization [facility] Address [address] [place] [address] Care Team Providers Care Boring Mill Operator Name Role Phone Afshan Martin DO Primary Care Provider [phone]- [phone] Encounter Details Date Type Department Care Team (Late st Contact Info) Description 06/23/2024 External Device Data STL ABSTRACTION Provider, Abstract [...] on filedocumented in this encounter Care Teams Boring Mill Operator Relationship Specialty Start Date End Date Afshan Martin DO [address] [facility] [address] [place] [phone] PCP - General Family Practice 03/05/24 documented as of this encounter
--- OUTSIDE RECORDS SUMMARY | 2024-11-05 22:56 | XMS_ITS | Encounter Summary ---
Author Organization [facility] [employer] Address [address] [place] [address] Care Team Providers Care Weight Yardage Checker Name Role Phone Kyra Medina Primary Care Provider [phone] Reason for Visit * Reason Onset Date Comments Future Appointment 04/12/2020 Encounter Details Date Type Department Care Team (Late st Contact Info) Description 04/12/2020 Telephone [facility] [employer] [facility] [address] [facility] [address] [place] [address] [place] [address] [facility] [address] [place] [address] Future Appointment Social History Tobacco [...] on filedocumented in this encounter Care Teams Weight Yardage Checker Relationship Specialty Start Date End Date Kyra Medina PA [address] [facility] [place] [address] PCP - General Physician Photogrammetric Engineer 02/02/20 documented as of this encounter
--- OUTSIDE RECORDS SUMMARY | 2024-11-05 22:56 | XMS_ITS | Encounter Summary ---
Author Organization [facility] [employer] Address [address] [place] [place] [address] Care Team Providers Care Funeral Assistant Name Role Phone Kyra Medina Primary Care Provider [phone] Reason for Visit * Reason Onset Date Comments Surgery Scheduling 05/06/2020 Encounter Details Date Type Department Care Team (Late st Contact Info) Description 05/06/[address] [facility] [employer] [facility] [address] [facility], [address] [place] [address] [place] [address] [facility] [address] [place] [address] Surgery Scheduling Social History Tobacco [...] HHR by Dr Jimenez on 06/20 at [facility]. Patient attended preoperative education classpresented by bariatric [...] start date 06/06 5. covid testing 06/17 [facility] Marc Chan Pt denies questions at this time. documented in this encounter Plan of Treatment Not on file documented as of this encounter Visit Diagnoses Not on filedocumented in this encounter Care Teams Funeral Assistant Relationship Specialty Start Date End Date Kyra Medina PA [address] [facility] [place] [address] PCP - General Physician Bag Turner 02/02/20 documented as of this encounter
--- OUTSIDE RECORDS SUMMARY | 2024-11-05 22:56 | XMS_ITS | Encounter Summary ---
Author Organization [facility] Address [facility] [facility] [place] [address] Care Team Providers Care Service Worker Helper Name Role Phone Unavailable Primary Care Provider Unavailabl e Reason for Visit * Reason Comments Cough Congestion Headache Fatigue Encounter Details Date Type Department Care Team (Late st Contact Info) Description 09/30/2019 9:20 AM TUBE BALANCER Office Visit [facility] AT [address] [address] Provider, [facility] Acute non-recurrent maxillary sinusitis (Primary Dx) Social [...] Comments Blood Pressure 126/82 09/30/2019 9:31 AM TUBE BALANCER Pulse 74 09/30/2019 9:31 AM TUBE BALANCER Temperature 37.1 ??C (98.8 ??F) 09/30/2019 9:31 AM CS T Respiratory Rate 16 09/30/2019 9:31 AM TUBE BALANCER Oxygen Saturation 96% 09/30/2019 9:31 AM TUBE BALANCER Inhaled Oxygen Concentration - - Weight 123.8 kg (273 lb) 09/30/2019 9:31 AM TUBE BALANCER Height 162.6 cm (5' 4 ) 09/30/2019 9:31 AM TUBE BALANCER Body Mass Index 46.86 09/30/2019 9:31 AM TUBE BALANCER documented in this encounter Patient Instructions * Patient Instructions* Ginger Parks APRN-CNP - 09/30/2019 9:44 AM TUBE BALANCER -Take and finish your prescriptions as directed. [...] be given by phone without another evaluation. BALANCER documented in this encounter Progress Notes * [...] file Gets together: Not on file Attends sabianist service: Not on file Active member of [...] for Cough Dispense: 30 capsule Refill: 0 BALANCER documented in this encounter Plan of Treatment Not on file documented as of this encounter Visit Diagnoses Diagnosis Acute non-recurrent maxillary sinusitis- Primary documented in this encounter
--- OUTSIDE RECORDS SUMMARY | 2024-11-05 22:56 | XMS_ITS | Encounter Summary ---
Author Organization [facility] Address [address] [place] [address] Care Team Providers Care Custom Designer Name Role Phone Afshan Martin DO Primary Care Provider [phone]- [phone] Encounter Details Date Type Department Care Team (Late st Contact Info) Description 08/04/2024 External Device Data STL ABSTRACTION Provider, Abstract [...] on filedocumented in this encounter Care Teams Custom Designer Relationship Specialty Start Date End Date Afshan Martin DO [address] [facility] [address] [place] [address] PCP - General Family Practice 03/05/24 documented as of this encounter
--- OUTSIDE RECORDS SUMMARY | 2024-11-05 22:56 | XMS_ITS | Encounter Summary ---
Author Organization [facility] Address [address] [place] [address] Care Team Providers Care Pneumatic Tube Repairer Name Role Phone Afshan Martin DO Primary Care Provider [phone]- [phone] Encounter Details Date Type Department Care Team (Late st Contact Info) Description 05/19/2024 External Device Data STL ABSTRACTION Provider, Abstract [...] on filedocumented in this encounter Care Teams Pneumatic Tube Repairer Relationship Specialty Start Date End Date Afshan Martin DO [address] [facility] [address] [place] [address] PCP - General Family Practice 03/05/24 documented as of this encounter
--- OUTSIDE RECORDS SUMMARY | 2024-11-05 22:56 | XMS_ITS | Encounter Summary ---
Author Organization [facility] Address [address] [place] [address] Care Team Providers Care Employee Adviser Name Role Phone Afshan Martin DO Primary Care Provider [phone]- [phone] Encounter Details Date Type Department Care Team [...] on filedocumented in this encounter Care Teams Employee Adviser Relationship Specialty Start Date End Date Afshan Martin DO [address] [facility] [address] [place] [address] PCP - General Family Practice 03/05/24 documented as of this encounter
--- OUTSIDE RECORDS SUMMARY | 2024-11-05 22:56 | XMS_ITS | Encounter Summary ---
Author Organization [facility] Address [address] [place] [address] Care Team Providers Care Host/Hostess Restaurant Name Role Phone Afshan Martin DO Primary Care Provider [phone] Encounter Details Date Type Department Care Team (Late st Contact Info) Description 06/02/2024 External Device Data STL ABSTRACTION Provider, Abstract [...] on filedocumented in this encounter Care Teams Host/Hostess Restaurant Relationship Specialty Start Date End Date Afshan Martin DO [address] [facility] [address] [place] [address] PCP - General Family Practice 03/05/24 documented as of this encounter
--- OUTSIDE RECORDS SUMMARY | 2024-11-05 22:56 | XMS_ITS | Encounter Summary ---
Author Organization [facility] Address [address] [place] [address] Care Team Providers Care Fiscal Agent Name Role Phone Afshan Martin DO Primary Care Provider [phone]- [phone] Encounter Details Date Type Department Care Team (Late st Contact Info) Description 07/14/2024 External Device Data STL ABSTRACTION Provider, Abstract [...] on filedocumented in this encounter Care Teams Fiscal Agent Relationship Specialty Start Date End Date Afshan Martin DO [address] [facility] [address] [place] [address] PCP - General Family Practice 03/05/24 documented as of this encounter
--- OUTSIDE RECORDS SUMMARY | 2024-11-05 22:56 | XMS_ITS | Encounter Summary ---
Author Organization [facility] [email or web address] [facility] Address [address] [place] [address] Care Team Providers Care Face Burler Name Role Phone Afshan Martin DO Primary Care Provider [phone]- [phone] Encounter Details Date Type Department Care Team (Late st Contact Info) Description 03/25/2024 Orders Only [facility] Oncology and Hematology - Doug [address] [facility] [address] [place] [address] Cristofer Paul MD [address] [facility] [address] [place] [address] Social History Tobacco Use Types Packs/Day Years [...] Procedure Name Priority Date/Time Associated Diagnosis Comments METHYLMALONIC ACID Routine 03/18/2024 11 :01 AM CDT COMPREHENSIVE METABOLIC PANEL Routine 03/18/2024 10:28 AM CDT documented in this encounter Results * METHYLMALONIC ACID (03/18/2024 11:01 AM CDT) Blood Cristofer Paul MD CHEMISTRY ORDERABLES * COMPREHENSIVE METABOLIC PANEL (03/18/2024 10:28 AM CDT) Blood Cristofer Paul MD CHEMISTRY ORDERABLES documented in this encounter Visit Diagnoses Not on filedocumented in this encounter Care Teams Face Burler Relationship Specialty Start Date End Date Afshan Martin DO [address] [facility] [address] [place] [address] PCP - General Family Practice 03/05/24 documented as of this encounter
--- OUTSIDE RECORDS SUMMARY | 2024-11-05 22:56 | XMS_ITS | Encounter Summary ---
Author Organization [facility] Address [address] [place], [place] [address] [address] Care Team Providers Care Physiological Chemist Name Role Phone Unavailable Primary Care Provider Unavailabl e Reason for Visit * Reason Comments Pre-op Consult consult Encounter Details Date Type Department Care Team (Late st Contact Info) Description 12/11/2019 11:20 AM TIP CUTTER Office Visit [facility] [facility] [address] [place] [address], [address] [place] [address] [place] [address] [facility] [address] [place] [address] Morbid obesity with BMI of [...] Comments Blood Pressure 150/100 12/11/2019 11:35 AM TIP CUTTER Pulse 74 12/11/2019 11:35 AM TIP CUTTER Temperature - - Respiratory Rate - - Oxygen Saturation - - Inhaled Oxygen Concentration - - Weight 134.1 kg (295 lb 9.6 oz) 020 11:35 AM TIP CUTTER Height 162.6 cm (5' 4 ) 12/11/2019 11:3 5 AM TIP CUTTER Body Mass Index 50.74 12/11/2019 11:35 AM TIP CUTTER documented in this encounter Patient Instructions * Patient Instructions* Shoaib Jimenez MD - 12/11/2019 12:04 PM TIP CUTTER Impression: Morbid obesity with above listed comorbidities. Multiple failed diet attempts. Plan: Based on discussion with the patient and consideration of the patients medical history and diagnosis of morbid obesity the patient is an appropriate candidate for bariatric surgery. 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 Pt has developed multiple comorbid conditions [...] CO2, BUN, CREATININE, GLUCOSE, CALCIUM in thelast 60131 hours. No results for input(s): WBC, HGB, HCT, PLTCOUNT in the last 19657 hours. Risk / Benefits Risks and benefits [...] procedures or operations in the perioperative and mcfp periods. Questions were answered. Bariatric Surgery Patient [...] or network. The patient will experience successfuland mcfp weight loss when these components along with bariatric surgery are followed. The patient has had the above discussions with multiple program team members including surgeon, application support developer, bariatric nurse and mental health district or district office director. Impression: Morbid obesity with above listed comorbidities. Multiple failed diet attempts. Plan: Based on discussion with the patient and consideration of the patients medical history and diagnosis of morbid obesity the patient is an appropriate candidate for bariatric surgery. Recommendation isfor: LRYGB and laparoscopic repair of hiatal hernia Liquid Protein Diet: Yes2 Weeks Brim Stretcher: Yes Additional Testing: Yes GI: - hx [...] Robot candidate: no Shoaib Jimenez MD 12/11/2019 CUTTER documented in this encounter Plan of Treatment Not on file documented as of this encounter Visit Diagnoses Diagnosis Morbid obesity with BMI of 50.0-59.9, adult (HCC)- Primary documented in this encounter
--- OUTSIDE RECORDS SUMMARY | 2024-11-05 22:56 | XMS_ITS | Encounter Summary ---
Author Organization [facility] Address [address] [place] [address] Care Team Providers Care Executive Team Leader Name Role Phone Unavailable Primary Care Provider Unavailabl e Reason for Visit * Reason Comments Diet Encounter Details Date Type Department Care Team (Latest Contact Info) Description 02/16/2019 2:15 PM CDT Clinical Support [facility] [employer] [facility] [address] [place] [address] Morbid obesity with BMI of 50.0-59.9, adult [...] therapist. Her breakfast is often a [employer] [place] breakfast sandwich. Lunch may be John[employer] 2 cheeseburgers, fries, and a diet Coke orleftover pizza from home. Dinner could be ordered out from [address] [place] [address] grill: [employer] salad. She snacks throughout the evening on [...]
--- OUTSIDE RECORDS SUMMARY | 2024-11-05 22:56 | XMS_ITS | Encounter Summary ---
Author Organization [facility] Address [address] [place] [address] Care Team Providers Care Clerk Of Superior Court Name Role Phone Kyra Medina Primary Care Provider [phone] Encounter Details Date Type Department Care Team (Late st Contact Info) Description 02/02/2020 12:00 PM CDT Office Visit [facility] [employer] [facility] [address] [place] [address], [address] [address] Morbid obesity (HCC) (Primary Dx) [...] time. Pt is given contact information for [facility] Weight Management Services to call for any questions or concerns. Supplement samples offered documented in this encounter Plan of Treatment Not on file documented as of this encounter Visit Diagnoses Diagnosis Morbid obesity (HCC)- Primary Morbid obesity documented in this encounter Care Teams Clerk Of Superior Court Relationship Specialty Start Date End Date Kyra Medina PA [address] [facility] [address] [place] [phone] PCP - General Physician Telecommunications Operator 02/02/20 documented as of this encounter
--- OUTSIDE RECORDS SUMMARY | 2024-11-05 22:56 | XMS_ITS | Encounter Summary ---
Author Organization [facility] Address [address] [place] [address] Care Team Providers Care Fiberglass Auto Body Repairer Name Role Phone Afshan Martin DO Primary Care Provider [phone]- [phone] Encounter Details Date Type Department Care Team [...] on filedocumented in this encounter Care Teams Fiberglass Auto Body Repairer Relationship Specialty Start Date End Date Afshan Martin DO [address] [facility] [address] [place] [address] PCP - General Family Practice 03/05/24 documented as of this encounter
--- OUTSIDE RECORDS SUMMARY | 2024-11-05 22:56 | XMS_ITS | Clinical Summary ---
Author Organization [facility] [employer] Address [address] [facility] [place] [address] Care Team Providers Care Bed And Breakfast Cook Name Role Phone Kyra Medina Primary Care Provider Source Comments [facility] Affiliates and Associated Physician Practices is amultiple site organization consisting of ambulatory clinics and hospital sitesin [place], [place] and [place]. This disclosure is being madepursuant to the Care Everywhere program and may not contain all information available regarding this patient. Last updated 18.[facility] [employer] Allergies Active Allergy Reactions Criticality Noted Date [...] T Respiratory Rate 16 09/30/2019 9:31 AM SUBSTITUTE SCHOOL NURSE Oxygen Saturation 96% 09/30/2019 9:31 AM SUBSTITUTE [employer] NURSE Inhaled Oxygen Concentration - - Weight 138.1 [...] age to complete this topic Care Teams Bed And Breakfast Cook Relationship Specialty Start Date End Date Kyra Medina PA [address] [facility] [place] [address] PCP - General Physician Music Autographer 02/02/20
--- OUTSIDE RECORDS SUMMARY | 2024-11-05 22:56 | XMS_ITS | Encounter Summary ---
Author Organization [facility] Address [facility] [place] [address] Care Team Providers Care Explosive Ordnance Disposal Specialist Name Role Phone Unavailable Primary Care Provider Unavailabl e Encounter Details Date Type Department Care Team (Late st Contact Info) Description 02/16/2019 1:00 PM CDT Office Visit [facility] [address] [place] [address] Morbid obesity (Primary Dx) Social History Tobacco [...] this encounter Progress Notes * Rosemary Benton, HUMAN CAPITAL MANAGER - 02/16/2019 1:01 PM CDT Pre-Surgery Psychological [...] alcohol, drug or prescription mis-use Weight and Upqsei-Blfa-Nkxtwwc History Family Hx of Obesity: yes Patient [...]
--- OUTSIDE RECORDS SUMMARY | 2024-11-05 22:56 | XMS_ITS | Encounter Summary ---
Author Organization [facility] Address [facility] [place] [address] Care Team Providers Care Borough Coordinator Name Role Phone Kyra Medina Primary Care Provider [phone] Reason for Visit * Reason Comments Pre-op Consult final consult Encounter Details Date Type Department Care Team (Late st Contact Info) Description 02/02/2020 2:45 PM CDT Office Visit [facility] Services [address] [address] Sara Argueta, [facility] [address] [address] Bariatric surgery status (Primary Dx); [...] this encounter Progress Notes * Sara Argueta, OUTSOLE TACKER-ROTATING EQUIPMENT SPECIALIST - 02/02/2020 2:29 PM CDT Medically Managed [...] past including medical, exercise and 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 Pt has developed multiple comorbid conditions [...] hernia ?? Liquid Protein Diet: Yes2 Weeks Kiln Maintenance: Yes Additional Testing: Yes ?? GI: - [...] unspecified documented in this encounter Care Teams Borough Coordinator Relationship Specialty Start Date End Date Kyra Medina PA [address] [facility] [place] [address] PCP - General Physician Miller Supervisor 02/02/20 documented as of this encounter
--- OUTSIDE RECORDS SUMMARY | 2024-11-05 22:56 | XMS_ITS | Encounter Summary ---
Author Organization [facility] Address [address] [place] [address] Care Team Providers Care Structural Iron Worker Name Role Phone Afshan Martin DO Primary Care Provider [phone]- [phone] Encounter Details Date Type Department Care Team (Late st Contact Info) Description 07/15/2024 External Device Data STL ABSTRACTION Provider, Abstract [...] on filedocumented in this encounter Care Teams Structural Iron Worker Relationship Specialty Start Date End Date Afshna Martin DO [address] [facility] [address] [place] [address] PCP - General Family Practice 03/05/24 documented as of this encounter
--- OUTSIDE RECORDS SUMMARY | 2024-11-05 22:56 | XMS_ITS | Encounter Summary ---
Author Organization [facility] [employer] Address [address] [place] [address] Care Team Providers Care Sewer Contractor Name Role Phone Kyra Medina Primary Care Provider Reason for Visit * Reason Onset Date Comments Future Appointment 04/07/2020 Encounter Details Date Type Department Care Team (Late st Contact Info) Description 04/07/[address] [facility] [employer] Weight [facility] Services [address] [facility] [address] [place] [address] [place] [address] [facility] [address] [place] [address] Future Appointment Social History Tobacco [...] on filedocumented in this encounter Care Teams Sewer Contractor Relationship Specialty Start Date End Date Kyra Medina PA [address] [facility] [address] [place] [phone] PCP - General Physician Direct Chill Caster 02/02/20 documented as of this encounter
--- OUTSIDE RECORDS SUMMARY | 2024-11-05 22:56 | XMS_ITS | Encounter Summary ---
Author Organization [facility] Address [address] [place] [address] Care Team Providers Care Winding Inspector And Tester Name Role Phone Afshan Martin DO Primary Care Provider [phone] Encounter Details Date Type Department Care Team [...] on filedocumented in this encounter Care Teams Winding Inspector And Tester Relationship Specialty Start Date End Date Afshan Martin DO [address] [facility] [address] [place] [address] PCP - General Family Practice 03/05/24 documented as of this encounter
--- OUTSIDE RECORDS SUMMARY | 2024-11-05 22:56 | XMS_ITS | Encounter Summary ---
Author Organization [email or web address] Address [address] [place] [address] Care Team Providers Care Pick Up Man Name Role Phone Afshan Martin DO Primary Care Provider [phone] Encounter Details Date Type Department Care Team (Late st Contact Info) Description 03/19/2024 Orders Only [facility] Oncology and Hematology - Doug [address] [facility] [address] [place] [address] Cristofer Paul MD [address] [facility] [address] [place] [address] Social History Tobacco Use Types [...] Procedure Name Priority Date/Time Associated Diagnosis Comments CBC WITH DIFFERENTIAL Routine 03/18/2024 10:42 AM CDT documented in this encounter Results * CBC WITH DIFFERENTIAL (03/18/2024 10:42 AM CDT) Blood Cristofer Paul MD HEMATOLOGY ORDERABLE S documented in this encounter Visit Diagnoses Not on filedocumented in this encounter Care Teams Pick Up Man Relationship Specialty Start Date End Date Afshan Martin DO [address] [facility] [address] [place] [address] PCP - General Family Practice 03/05/24 documented as of this encounter
--- OUTSIDE RECORDS SUMMARY | 2024-11-05 22:56 | XMS_ITS | Encounter Summary ---
Author Organization [facility] Address [address] [place] [address] Care Team Providers Care Editor Magazine Name Role Phone Unavailable Primary Care Provider Unavailabl e Reason for Visit * Reason Comments Diet Encounter Details Date Type Department Care Team (Latest Contact Info) Description 12/11/2019 12:15 PM SAP SD ANALYST Clinical Support [facility] Location [facility] [address] [place] [address] Morbid obesity (HCC) Social History Tobacco Use [...] (295 lb 6.4 oz) 12/11/2019 1:31 PM SAP SD ANALYST Height 162.6 cm (5' 4 ) 12/11/2019 1:31 PM SAP SD ANALYST Body Mass Index 50.71 12/11/2019 1:31 PM SAP SD ANALYST documented in this encounter Progress Notes * [...] been limiting caffeine. Breakfast often consists of Shinglehouse high protein oatmeal. Lunch and dinner havebeen [...] total minutes: [address]/YADIRA SD ANALYST documented in this encounter Plan of Treatment Not on file documented as of this encounter Visit Diagnoses Diagnosis Morbid obesity (HCC)- Primary Morbid obesity documented in this encounter
--- OUTSIDE RECORDS SUMMARY | 2024-11-05 22:57 | XMS_ITS | Continuity of Care Document ---
Author Organization [facility] Address [address] [place] [address] [place] [address] Phone Care Team Providers Care Central Scheduler Name Role Phone Fantasma Chapman Unavailable Unavailable Procedures Procedure Date Visual Field Examination(s) Eye Exam, New Patient Advance Directives Directive Yes / No Effective Date File Name No Information Encounters Encounter Description Practice Location Reason(s) For Visit Diagnoses Date Provider Providers Copied on Encounter [facility], [address], [place], [place], [id number], tel:[phone] [facility] No Information 8 Kristopherishnasamy Fantasma. Formerly [facility], later [facility] [address], [facility], [place]. tel:[phone] Referring Provider: Fantasma Chapman, [address] [place] [address], [facility]. tel:[phone] [address] [facility], [address] [place] [address] [address], [place], [place], [id number], tel:[phone] [facility] No Information 8 Kristopherishnasamy Fantasma. [facility] [address], [address], [place]. tel:[phone] Referring Provider: Asher Monroy OD, [address] [place], [address]. tel:[phone] Family History Family Member Type Diagnosis Age At Onset No Information Payers Payer name Insurance type Covered alliance party ID Authoriza tion(s) No Information Social History [...]
--- OUTSIDE RECORDS SUMMARY | 2024-11-05 22:57 | XMS_ITS | Encounter Summary ---
Author Organization [facility] Address [address] [place] [address] Care Team Providers Care Ceramist Name Role Phone Afshan Martin DO Primary Care Provider [phone] Reason for Referral * Radiology Services (Routine) - Closed Specialty Diagnoses / Procedures Referred By Eileen t Referred To Contact Diagnoses Thrombocytopenia Procedures US ABDOMEN COMPLETE Amy Walter FNP [address] [address] [place] [address] Referral ID Status Reason Start Date Expiration Date V isits Requested Visits Authorized [id number] Closed [facility] 03/18/2024 04/18/2025 1 1 Reason for Visit * Reason Comments Establish Care Encounter Details Date Type Department Care Team (Latest Contact Info) Description 03/18/2024 1:30 PM CDT Office Visit [facility] Oncology and Hematology [facility] [address] [place] [address] Amy Walter FNP [address] [address] Thrombocytopenia (Primary Dx); Other iron deficiency anemia Social History Tobacco Use Types Packs/Day Years [...] Mass Index 47.2 03/18/2024 1:25 PM CDT documented in this encounter Progress Notes * Amy Walter, CABRERA - 03/18/2024 2:34 PM CDT Hematology / Oncology Consult Note Requesting Physician: Afshan Martin DO Primary Care Physician: Afshan Martin DO Problem List There is no problem list on file for this patient. Previous Treatment ? Measurable Disease ? Reason for Visit: Marleny Edmonds is a 38 y.o. female who was referred for consultation for thrombocytopenia History of Present Illness: Marleny Edmonds is a 38 y.o. female with a past medical history of anxiety/depression, seasonal allergies, obesity, consulted for thrombocytopenia. She recently reports petechiae on her arms after going to the gym. She denies any other bleeding or bruising. Denies nose bleeds. She has not had regular periods for awhile until she started losing weight. She has had normal blood counts in the past. She started Ozempic back in May and switched to Tizeptatide in November, which is the only medication change. She rarely uses etoh. She is unsure about nutritional deficiencies. Has a history of fatty liver. Denies any chest pain, fatigue, abdominal pain, or abnormal bleeding. Past Medical History Past Medical History: Diagnosis Date Depression Surgical History No past surgical history on file. Medications Current Outpatient Medications Medication Sig Dispense Refill citalopram (CeleXA) 40 mg tablet Take 40 mg by mouth daily. tirzepatide 2.5 mg/0.5 mL Pen Injector Inject 2.5 mg by subcutaneous injection every 7 days. loratadine (CLARITIN) 10 mg tablet Take 10 mg by mouth daily. No current facility-administered medications for this visit. Allergies Allergies Allergen Reactions Sulfa (Sulfonamide Antibiotics) Hives and Rash Immunizations: There is no immunization history on file for this patient. 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 She rarely drinks etoh. Not a tobacco smoker. She is not . No children. Social History Tobacco Use Smoking status: Never Smokeless tobacco: Never Substance Use Topics Alcohol use: Yes Comment: socially Tobacco Counseling: She is not a tobacco/nicotine user. Review of Systems All systems reviewed & are unremarkable except as noted in HPI and above Physical Exam Vitals reviewed. Constitutional: General: She is awake. Appearance: Normal appearance. She is obese. HENT: Head: Normocephalic and atraumatic. Mouth/Throat: Mouth: Mucous membranes are moist. Pharynx: Oropharynx is clear. Eyes: Pupils: Pupils are equal, round, and reactive to light. Cardiovascular: Rate and Rhythm: Normal rate and regular rhythm. Pulses: Normal pulses. Heart sounds: Normal heart sounds. Pulmonary: Effort: Pulmonary effort is normal. Breath sounds: Normal breath sounds. Abdominal: General: Abdomen is flat. Bowel sounds are normal. Palpations: Abdomen is soft. There is no hepatomegaly or splenomegaly. Musculoskeletal: General: Normal range of motion. Cervical back: Normal range of motion. Skin: General: Skin is warm and dry. Neurological: General: No focal deficit present. Mental Status: She is alert and oriented to person, place, and time. ? Labs: 02/27/24 WBC 7.1, Hgb 13.4, Hct 42.6, Plt 70,000 Assessment / Plan: Thrombocytopenia I have discussed the differential diagnosis of thrombocytopenia with the patient that includes nutritional deficiency like vitamin B-12 and folic acid deficiency and iron deficiency. Other possibilities include drug induced thrombocytopenia, autoimmune thrombocytopenia, bone marrow disorders like myelodysplasia and splenic sequestration with possible liver disease. I will order the workup that would include abdominal ultrasound, vitamin B12 and folic acid levels and iron studies. I will repeat CBC with differential and CMP. I will check platelet antibody for chronic ITP. No need for bone marrow biopsy testing at this time. Obesity Patient is on Tirzepatide Seasonal Allergies Patient is on Claritin Anxiety/Depression Patient is on Celexa Follow up in 3 weeks CABRERA Amanda-Rachael, 03/18/2024 2:37 PM Hematology Oncology Nurse Practitioner [facility] ? Total time spent 60 minutes, two third of the total time spent counseling patient [id number]. This patient's plan of care has been reviewed and approved by collaborating physician, Dr. Cristofer Paul.If you have any questions regarding this hematology or oncology evaluation, feel free to contact usfor further assistance. Thank you for allowing us to be a part of this patient's care. CC: Afshan Martin DO documented in this encounter Plan of Treatment Scheduled Orders Name Type Priority Associated Diagnoses Orde r Schedule CBC WITH DIFFERENTIAL Lab Routine Thrombocytopenia Expected: 03/18/2024, Expires: 03/18/2025 COMPREHENSIVE METABOLIC PANEL Lab Routine Thrombocytopenia Expected: 03/18/2024, Expires: 03/18/2025 FERRITIN Lab Routine Thrombocytopenia Other iron deficiency anemia Expected: 03/18/2024, Expires: 03/18/2025 IRON, TIBC, AND PERCENT SATURATION Lab Routine Thrombocytopenia Other iron deficiency anemia Expected: 03/18/2024, Expires: 03/18/2025 VITAMIN B12 AND FOLATE Lab Routine Thrombocytopenia Other iron deficiency anemia Expected: 03/18/2024, Expires: 03/18/2025 METHYLMALONIC ACID Lab Routine Thrombocytopenia Other iron deficiency anemia Expected: 03/18/2024, Expires: 03/18/2025 TRANSFERRIN RECEPTOR TFR SOLUBLE Lab Routine Thrombocytopenia Expected: 03/18/2024, Expires: 03/18/2025 US ABDOMEN COMPLETE Imaging Routine Thrombocytopenia Expected: 03/18/2024, Expires: 03/18/2025 MISCELLANEOUS LAB TEST Lab Routine Thrombocytopenia Expected: 03/18/2024, Expires: 03/18/2025 documented as of this encounter Visit Diagnoses Diagnosis Thrombocytopenia- Primary Thrombocytopenia, unspecified Other iron deficiency anemia documented in this encounter Care Teams Ceramist Relationship Specialty Start Date End Date Afshan Martin DO [address] [facility] [address] [place] [address] PCP - General Family Practice 03/05/24 documented as of this encounter
== END 2024-11-03 14:26 | disposition home or self-care (01) ==
LOC: ANHED 10:33 → ANH2MED 19:17
PROVIDERS: Emergency Medicine; Surgery; Admitting Provider Internal Medicine; Emergency Provider Emergency Medicine; PCP Family Medicine; Visit Provider Hospitalist
PROC: 0DTJ4ZZ Resection of Appendix, Percutaneous Endoscopic Approach (ICD-10-PCS; CPT 44970; principal; 2024-11-02 10:30)
DX: K35.80 Unspecified acute appendicitis (principal); N30.00 Acute cystitis without hematuria; E66.01 Morbid (severe) obesity due to excess calories; Z68.41 Body mass index [BMI] 40.0-44.9, adult; F32.A Depression, unspecified; Z88.2 Allergy status to sulfonamides; Z79.85 Long-term (current) use of injectable non-insulin antidiabetic drugs; Z79.899 Other long term (current) drug therapy
CPT/HCPCS: 44970; 36415; 74177; 80048; 80053; 81001; 81025; 83690; 83735; 85025; 86850; 86900; 86901; 87086; 88304; 96365; 96375; 99285; A9270; G0378; J0330; J1100; J2003; J2004; J2250; J2405; J2543; J2704; J3010; J7030; J7120; Q9967

== ENCOUNTER 2025-05-28 10:00 | Outpatient (CLI) | payer OTHER, SELFPAY ==
--- OUTSIDE RECORDS SUMMARY | 2025-05-28 10:03 | XMS_ITS | Clinical Summary ---
Author Organization [facility] Address [address] [facility] [place] [address] Care Team Providers Care Aluminum Pourer Name Role Phone Kyra Medina Primary Care Provider [phone] Source Comments [facility],non-owned Affiliates and Associated Physician Practices is amultiple site organization consisting of ambulatory clinics and hospital sitesin [place], [place], [place] and [place]. This disclosure is being madepursuant to the Care Everywhere program and may not contain all information available regarding this patient. Last updated 18.[facility] Allergies Active Allergy Reactions Criticality Noted Date Comments Sulfa Drugs Urticaria,Rash Medium 12/04/2018 Medications * Be aware that medications may not be up to date on this document. Alwaysverify current medications with the patient. 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 Gender Identity Not on file Sexual Orientation Not on file Last Filed Vital Signs Vital Sign Reading Time Taken Comments Blood Pressure 130/88 02/02/2020 2:05 PM CDT Pulse 82 02/02/2020 2:05 PM CDT Temperature 37.1 C (98.8 F) 09/30/2019 9:31 AM TELEVISION ENGINEERING TEACHER Respiratory Rate 16 09/30/2019 9:31 AM TELEVISION ENGINEERING TEACHER Oxygen Saturation 96% 09/30/2019 9:31 AM TELEVISION ENGINEERING TEACHER Inhaled Oxygen Concentration - - Weight 138.1 kg (304 lb 6.4 oz) 02/02/2020 2:05 PM CDT Height 162.6 cm (5' 4) 02/02/2020 2:05 PM CDT Body Mass Index 52.25 02/02/2020 2:05 PM CDT Plan of Treatment Health Maintenance Due Date Last Done Comments LIPID TESTING 1985 MAMMOGRAM 1985 HIV SCREENING 2000 HEPATITIS C SCREENING 04/16/2003 DTAP/TDAP/TD VACCINES (1 - Tdap) 2004 HEPATITIS B VACCINE (1 of 3 - 19+ 3-dose series) 2004 PAP SMEAR 2006 HPV VACCINE (1 - 3-dose SCDM series) 2012 COVID-19 VACCINE ( - 2023-2 5 season) 2024 DEPRESSION SCREENING 11/18/2024 INFLUENZA VACCINE (#1) 2025 08/18/2019 ZOSTER VACCINE (1 of 2) 2035 HIB VACCINE Aged Out No longer eligi ble based on patient's age to complete this topic MENINGOCOCCAL (Group B) VACC INE SHARED DECISION-MAKING Aged Out No longer eligibl e based on patient's age to complete this topic MENINGOCOCCAL GROUPS A/C/Y/W VACCINE Aged Out No longer eligible b ased on patient's age to complete this topic PNEUMOCOCCAL VACCINE Aged Out No long er eligible based on patient's age to complete this topic Insurance [employer] SELF PAY NO INSURANCE Member Subscriber Plan / Payer (Ef fective for All Dates) Name:Kyle Thompson Member ID:Not on file Relation to Subscriber:Not on file Name:KYLE THOMPSON Subscriber ID:Not on file (Home) Address: [address] [place] [id number] Payer ID:Not on file Group ID:Not on file Type:Self Pay Address: [place], [place] Care Teams Aluminum Pourer Relationship Specialty Start Date End Date Kyra Medina PA [address] [place] [address] PCP - General Physician Weigher And Mixer 02/02/20
--- OUTSIDE RECORDS SUMMARY | 2025-05-28 10:03 | XMS_ITS | Referral Summary ---
Author Organization [facility] Address [address] [place] [address] Care Team Providers Care Sustainability Analyst Name Role Phone Jaime Mota MD Primary Care Provider [phone] Encounters Date Type Department Care Team Description 04/29/2025 3:43 PM CDT - 04/29/2025 11:59 PM CDT Hospital Encounter [facility] [address] [place] [address] Screening mammogram, encounter for Discharge Disposition: Discharge to home or self care from Last 3 Months Allergies Active Allergy Reactions Criticality Noted Date [...] 12/20 Assessment & Plan (01/12/2020 12:47 PM MOUNTAIN GUIDE): Weight loss attempts in the past include: [...] 02/06/2016 Assessment & Plan (01/12/2020 12:46 PM MOUNTAIN GUIDE): Stable, no changes. Continue current regimen with Celexa Immunizations Immunization Administration Dates Next Due Influenza, Quadrivalent, Spl [...] on file Legal Sex Female 8:37 PM MOUNTAIN GUIDE Gender Identity Not on file Sexual Orientation Not on file Last Filed Vital Signs Vital Sign Reading Time Taken Comments Blood Pressure 132/84 04/24/2023 8:05 AM CDT Pulse 80 04/24/2023 8:05 AM CDT Temperature 36.8 C (98.2 F) 04/24/2023 8:05 AM CDT Respiratory Rate 18 04/24/2023 8:05 AM CDT Oxygen Saturation 97% 04/24/2023 8:05 AM CDT Inhaled Oxygen Concentration - - Weight 117.9 kg (260 lb) 04/29/2025 3:51 PM CDT Height 162.6 cm (5' 4) 04/29/2025 3:51 PM CDT Body Mass Index 44.63 04/29/2025 3:51 PM CDT Plan of Treatment Not on file Procedures Procedure Name Priority Date/Time Associated Diagnosis Comments SCREENING MAMMOGRAM BILATERAL W PAUL Schedule Routine, Read Routine (OP Routine) 04/29/2025 4:00 PM CDT Screening mammogram, encounter for from Last 3 Months Results * Screening Mammogram Bilateral W Paul (04/29/2025 4:00 PM CDT) Anatomical Region Laterality Modality Breast Bilateral Mammography Impressions 04/29/2025 6:00 PM CDT Bilateral No evidence of malignancy in either breast. OVERALL BI-RADS FINAL ASSESSMENT: 1 - Negative RECOMMENDATION: Recommend bilateral annual screening mammography. Narrative 04/29/2025 6:00 PM CDT EXAMINATION: Screening Mammogram Bilateral W Paul: 04/29/2025 COMPARISON: This is the patient's baseline mammogram. TECHNIQUE: Mammography was performed with 2D and digital breast tomosynthesis (DBT) images. CAD was utilized. BREAST PARENCHYMAL COMPOSITION: The breasts are heterogeneously dense, which may obscure small masses. FINDINGS: Bilateral There is no suspicious mass, calcification, or architectural distortion in either breast. us Self Screening Mammogram IMG MAMMO PROCEDURES Fi nal Result from Last 3 Months Insurance S [employer] [facility] Care Teams Sustainability Analyst Relationship Specialty Start Date End Date Jaime Mota MD PCP - General Family Medicine 02/27/22
--- OUTSIDE RECORDS SUMMARY | 2025-05-28 10:03 | XMS_ITS | Clinical Summary ---
Author Organization [facility] Address [address] [place] [address] Care Team Providers Care Twister Tender Paper Name Role Phone Afshan Martin DO Primary Care Provider [phone] Allergies Active Allergy Reactions Criticality Noted Date Comments Sulfa (Sulfonamide Antibiotics) Hives,Rash High 11/18 Medications citalopram (CeleXA) 40 mg tablet Take 40 mg by mouth daily. 3 Active loratadine (CLARITIN) 10 mg tablet Take 10 mg by mouth daily. Active tirzepatide 2.5 mg/0.5 mL Pen Injector Inject 2.5 mg by subcutaneous injection every 7 days. Active Active Problems No known active problems Encounters Date Type Department Care Team Description 03/02/2025 External Device Data [facility] ABSTRACTION Provider, Abstract from Last 3 Months Family History Medical History Relation Name Comments Heart Disease Brother Hypertension Brother Heart Disease Father No Known Problems Mother Relation Name Status Comments Brother Alive Father Alive Mother Alive Social History Tobacco Use Types Packs/Day Years Used Date Smoking Tobacco: Never Smokeless Tobacco: Never Alcohol Use Standard Drinks/Week Comments Yes 0 (1 standard drink = 0.6 oz pur e alcohol) socially Comments Unknown Sex and Gender Information Value Date Recorded Sex Assigned at Not on file Legal Sex Female 9:30 AM CDT Gender Identity Not on file Sexual Orientation Not on file Last Filed Vital Signs Vital Sign Reading Time Taken Comments Blood Pressure 135/79 03/18/2024 1:25 PM CDT Pulse 64 03/18/2024 1:25 PM CDT Temperature 36.7 C (98 F) 03/18/2024 1:25 PM CDT Respiratory Rate 18 03/18/2024 1:25 PM CDT Oxygen Saturation 94% 03/18/2024 1:25 PM CDT Inhaled Oxygen Concentration - - Weight 124.7 kg (275 lb) 03/18/2024 1:25 PM CDT Height 162.6 cm (5' 4) 03/18/2024 1:25 PM CDT Body Mass Index 47.2 03/18/2024 1:25 PM CDT Plan of Treatment Health Maintenance Due Date Last Done Comments HEPATITIS B VACCINES (1 of 3 - 19+ 3-dose series) 2004 HPV/Cotest (21-29) 2006 CERVICAL CANCER SCREENING 2015 HPV/Cotest (30-65) 2015 PAP SMEAR 2015 BREAST CANCER SCREENING 2025 INFLUENZA VACCINE (#1) 2025 08/17/2019 DTAP/TDAP/TD VACCINES (2 - T d or Tdap) 01/31/2027 01/31/2017 HPV VACCINES Aged Out No longer eligi ble based on patient's age to complete this topic Insurance [employer] [id number] Care Teams Twister Tender Paper Relationship Specialty Start Date End Date Afshan Martin DO [address] [facility] [address] [place] [address] PCP - General Family Practice 03/05/24
--- OUTSIDE RECORDS SUMMARY | 2025-05-28 10:03 | XMS_ITS | Clinical Summary ---
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 Gender Identity Not on file Sexual Orientation [...] Cancer Screening with HPV 2015 COVID-19 Vaccine (2023-2 5 season) 2024 Mammogram Screening 2025 HPV Vaccines Aged Out No longer eligi ble based on patient's age to complete this topic Meningococcal B Vaccine Aged Out No l onger eligible based on patient's age to complete this topic Meningococcal Vaccine Aged Out No bren davion eligible based on patient's age to complete this topic Pneumococcal Vaccine: Pediat rics (0 to 5 Years) and At-Risk Patients (6 to 49 Years) Aged Out No longer eligible b ased on patient's age to complete this topic RSV Immunizations Under 20 Months Aged Out No longer eligible based on patient's age to complete this topic Insurance [facility]
--- OUTSIDE RECORDS SUMMARY | 2025-05-28 10:03 | XMS_ITS | Clinical Summary ---
Author Organization [facility] Address [address] [place] [address] Care Team Providers Care Ed Special Education Teacher Name Role Phone Jaime Mota MD Primary Care Provider [phone] Allergies Active Allergy Reactions Criticality Noted Date [...] 12/20 Assessment & Plan (01/12/2020 12:47 PM MANAGER OF HUMAN RESOURCES): Weight loss attempts in the past include: [...] 02/06/2016 Assessment & Plan (01/12/2020 12:46 PM MANAGER OF HUMAN RESOURCES): Stable, no changes. Continue current regimen with Celexa Encounters Date Type Department Care Team Description 04/29/2025 3:43 PM CDT - 04/29/2025 11:59 PM CDT Hospital Encounter [facility] [address] [place] [id number] Screening mammogram, encounter for Discharge Disposition: Discharge to home or self care from Last 3 Months Immunizations Immunization Administration Dates Next Due Influenza, [...] on file Legal Sex Female 8:37 PM MANAGER OF HUMAN RESOURCES Gender Identity Not on file Sexual Orientation Not on file Obstetrics History Para Term AB IAB SAB Ectopic Multiple Livin g Live Births 0 0 0 0 0 0 0 0 0 0 0 Last Filed Vital Signs Vital Sign Reading [...] 04/29/2025 3:51 PM CDT Plan of Treatment Health Maintenance Due Date Last Done Comments Cervical Cancer Screening 1985 Hepatitis C Screening 1985 Varicella Vaccines (1 of 2 - 13+ 2-dose series) 1998 Hepatitis B Screening 2003 Depression Screening 02/28/2023 02/28/2022, 01/12/20 20 Regular Well Visit/Exam 18-64 02/28/2023 02/28/2022 Covid-19 Vaccine ( season) 2024 08/01/2022, 11/07/2021, 10/20/2021, Additional history exists Influenza Vaccine (#1) 2025 08/18/2019, 2018 Breast Cancer Screening-Mammogram 04/29/2026 04/29/2025 DTaP/Tdap/Td Vaccine (2 - Td or Tdap) 01/31/2027 01/31/2017 HPV Vaccines Aged Out No longer eligi ble based on patient's age to complete this topic Pneumococcal vaccine <65 Aged Out No longer eligible based on patient's age to complete this topic Procedures Procedure Name Priority Date/Time Associated Diagnosis [...] nal Result from Last 3 Months Insurance MD IZA [id number] COMMERCIAL Eko MD IZA [id number] [facility] [employer] [employer] Care Teams Ed Special Education Teacher Relationship Specialty Start Date End Date Jaime Mota MD PCP - General Family Medicine 02/27/22
--- OUTSIDE RECORDS SUMMARY | 2025-05-28 10:03 | XMS_ITS | Continuity of Care Document ---
Author Organization [facility] Address [address] [place] [address] [place] [address] Phone Care Team Providers Care Stacker Tender Name Role Phone Fantasma Chapman Unavailable Unavailable Procedures Procedure Date Visual Field Examination(s) Eye Exam, New Patient Advance Directives Directive Yes / No Effective Date File Name No Information Encounters Encounter Description Practice Location Reason(s) For Visit Diagnoses Date Provider Providers Copied on Encounter [facility], [address], [place], [place], [id number], tel:[phone] [facility] No Information 8 Kristopherishnasamy Fantasma. [facility] [address], [facility], [place]. tel:[phone] Referring Provider: Fantasma Chapman, [address] [place] [address], [facility]. tel:[phone] [facility], [address] [place] [address] [address], [place], [place], [id number], tel:[phone] [facility] No Information 8 Kristopherishnasamy Fantasma. [address], [address], [place]. tel:[phone] Referring Provider: Asher Monroy OD, [address] [place], [address]. tel:[phone] Family History Family Member Type Diagnosis Age At Onset No Information Payers Payer name Insurance type Covered green party ID Authoriza tion(s) No Information Social [...]
[2025-05-28 11:52] LABS: Hematocrit 39.4 % (37.0-47.0); Hemoglobin 12.4 g/dL (12.0-15.0); Mean Corpuscular HGB Conc 31.5 g/dl (32-36); Mean Corpuscular Hemoglobin 28.6 pg (26-34); Mean Corpuscular Volume 90.8 fl (80-100); Platelet Count Result 329 k/mm3 (150-375); Red Blood Count 4.34 M/mm3 (4.2-5.4); White Blood Count 6.6 K/mm3 (4.5-10.0)
[2025-05-28 12:06] LABS: Alanine Aminotransferase 18 U/L (6-35); Albumin Level 4.4 g/dL (3.5-5.1); Alkaline Phosphatase 29 U/L (38-126); Anion Gap 7 mmol/L (4-12); Aspartate Amino Transferase 30 U/L (14-36); Bilirubin,Total 0.2 mg/dL (0.2-1.3); Blood Urea Nitrogen 18 mg/dL (7-17); Calcium 9.2 mg/dL (8.4-10.2); Carbon Dioxide 24 mmol/L (22-30); Chloride 109 mmol/L (98-107); Cholesterol 214 mg/dL (0-200); Estimated Glomerular Filt Rate > 60; Glucose 91 mg/dL (65-110); HDL Direct 62 mg/dL; Potassium 4.9 mmol/L (3.4-5.0); Sodium 140 mmol/L (137-145); Total Protein 7.5 g/dL (6.3-8.2); Triglycerides 103 mg/dL (<150)
[2025-05-28 13:08] LABS: Hemoglobin A1C 5.8 % (<5.7)
[2025-05-28 13:18] LABS: Thyroid Stimulating Hormone 1.330 uIU/mL (0.465-4.680)
== END 2025-05-28 10:01 | disposition home or self-care (01) ==
LOC: ANHGOSHLAB 10:01
PROVIDERS: PCP Family Medicine; Visit Provider Family Medicine
DX: E66.9 Obesity, unspecified (principal); Z79.899 Other long term (current) drug therapy; F41.9 Anxiety disorder, unspecified
CPT/HCPCS: 36415; 80053; 80061; 83036; 84443; 85027

== ENCOUNTER 2025-10-03 05:23 | Emergency (ER) | payer OTHER, SELFPAY ==
--- NOTE | ~2025-10-03 | US_ITS ---
EXAMINATION: US abdomen limited DATE: 10/03/2025 08:43 INDICATION: Right upper quadrant abdominal pain. TECHNIQUE: Multiple grayscale and Doppler ultrasound images of the abdomen were obtained. COMPARISON: CT abdomen and pelvis 11/01/2024 FINDINGS: The visualized portions of the head and body of the pancreas are normal. The liver is normal without focal lesion. There is normal flow in main portal vein. There are gallstones in the gallbladder, which is normal in size. No gallbladder wall thickening or sonographic Retana sign. The common duct is normal and measures 5 mm. IMPRESSION: 1. Cholelithiasis. No evidence of acute cholecystitis. Reviewed, dictated and finalized at location E. O STATION OPERATOR
[2025-10-03 05:24] VITALS: BP 142/59; PULSE 59; RESP 18; TEMP 36.3; O2SAT 97
--- OUTSIDE RECORDS SUMMARY | 2025-10-03 05:26 | XMS_ITS | Encounter Summary ---
Author Organization [facility] Address [address] [place] [address] Care Team Providers Care Mail Order Clerk Name Role Phone Akira Galaviz MD Primary Care Provider Morgan Garsia MD Unavailable [phone] Asher Lau MD Unavailable [phone] Encounter Details Date Type Department Care Team (Late st Contact Info) Description 08/19/2025 Results Follow-Up [facility] Primary Care at [address] [address] Akira Galaviz MD [address] [place] [address] [address] [place] [address] Vitamin B12, Folate, Vitamin D 25 hydroxy, Additional followed-up results: 6 Social History Tobacco Use Types Packs/Day Years [...] points, staff should administer the PHQ-9) 0 08/18/2025 Comments No Sex and Gender Information Value Date Recorded Sex Assigned at Not on file Legal Sex Female 8:37 PM DELI SLICER Gender Identity Not on file Sexual Orientation Not on file documented as of this encounter Miscellaneous Notes * Result Encounter Note - Akira Galaviz MD - 08/19/2025 5:40 AM CDT Mostly normal findings on lab work with the exception of low vitamin-D levels, high vitamin B12 levels and unchanged or seem mild impaired glucose metabolism with an A1c of 5.8. This is same as what it was when it was done several months ago from labs you had shown me. Continue with the weight lossmanagement with the temazepam tied, recommend that you start taking vitamin D3 2000 IU [id number] ter on a daily basis and maybe reduce vitamin B12 supplement if you are taking by skipping it on weekends. documented in this encounter Plan of Treatment Not on file documented as of this encounter Visit Diagnoses Not on filedocumented in this encounter Care Teams Mail Order Clerk Relationship Specialty Start Date End Date Akira Galaviz MD [address] [place] [address] PCP - General Family Medicine 08/18/25 Morgan Garsia MD [address] [place] [address] Consulting Physician Otolaryngology 08/18/25 Asher Lau MD [address] [place] [address] Referring Physician Obstetrics and Gynecology 08/18/25 documented as of this encounter
--- OUTSIDE RECORDS SUMMARY | 2025-10-03 05:26 | XMS_ITS | Clinical Summary ---
Author Organization [facility] Address [address] [facility] [place] [address] Care Team Providers Care Headlight Adjuster Name Role Phone Kyra Medina Primary Care Provider [phone] Source Comments [facility],non-owned Affiliates and Associated Physician Practices is amultiple site organization consisting of ambulatory clinics and hospital sitesin [place], [place], [place] and [place]. This disclosure is being madepursuant to the Care Everywhere program and may not contain all information available regarding this patient. Last updated 18.[facility] Allergies Active Allergy Reactions Criticality Noted Date [...] on file Legal Sex Female 5:37 AM HOGSHEAD ROLLER Gender Identity Not on file Sexual Orientation Not on file Last Filed Vital Signs Vital Sign Reading Time Taken Comments Blood Pressure 130/88 02/02/2020 2:05 PM CDT Pulse 82 02/02/2020 2:05 PM CDT Temperature 37.1 C (98.8 F) 09/30/2019 9:31 AM HOGSHEAD ROLLER Respiratory Rate 16 09/30/2019 9:31 AM HOGSHEAD ROLLER Oxygen Saturation 96% 09/30/2019 9:31 AM HOGSHEAD ROLLER Inhaled Oxygen Concentration - - Weight 138.1 kg (304 lb 6.4 oz) 02/02/2020 2:05 PM CDT Height 162.6 cm (5' 4) 02/02/2020 2:0 5 PM CDT Body Mass Index 52.25 02/02/2020 2:05 PM CDT Plan of Treatment Health Maintenance Due Date Last Done Comments LIPID TESTING 1985 MAMMOGRAM 1985 HIV SCREENING 2000 HEPATITIS C SCREENING 04/16/2003 DTAP/TDAP/TD VACCINES (1 - Tdap) 2004 HEPATITIS B VACCINE (1 of 3 - 19+ 3-dose series) 2004 PAP SMEAR 2006 HPV VACCINE (1 - 3-dose SCDM series) 2012 DEPRESSION SCREENING 11/18/2024 COVID-19 VACCINE (1 - 2023-2 5 season) 2025 INFLUENZA VACCINE (#1) 2025 08/18/2019 ZOSTER VACCINE [...] patient's age to complete this topic Insurance [employer] SELF PAY NO INSURANCE Member Subscriber Plan / Payer (Ef fective for All Dates) Name:Kyle Thompson Member ID:Not on file Relation to Subscriber:Not on file Name:KYLE THOMPSON Subscriber ID:Not on file (Home) Address: [address] [place] [id number] Payer ID:Not on file Group ID:Not on file Type:Self Pay Address: [place], [place] Care Teams Headlight Adjuster Relationship Specialty Start Date End Date Kyra Medina PA [address] [place] [address] PCP - General Physician Fast Food Crew Lead 02/02/20
--- OUTSIDE RECORDS SUMMARY | 2025-10-03 05:26 | XMS_ITS | Clinical Summary ---
[facility] Address [address] [facility] [place] [address] Care Team Providers Care Cable Ferryboat Operator Name Role Phone Afshan Martin DO Primary Care Provider [phone] Allergies Active Allergy Reactions Criticality Noted Date [...] (1 of 3 - 19+ 3-dose series) 01/2004 HPV/Cotest (21-29) 2006 HPV VACCINES (1 - 3-dose SCDM series) 2012 CERVICAL CANCER SCREENING 2015 HPV/Cotest (30-65) 2015 PAP SMEAR 2015 BREAST CANCER SCREENING 2025 INFLUENZA VACCINE (#1) 2025 08/17/2019 DTAP/TDAP/TD VACCINES (2 - Td or Tdap) 01/31/2027 Insurance SYSTEMS MD IZA [id number] Care Teams Cable Ferryboat Operator Relationship Specialty Start Date End Date Afshan Martin DO [address] [place] [address] [address] [place] [address] PCP - General Family Practice 03/05/24
--- OUTSIDE RECORDS SUMMARY | 2025-10-03 05:26 | XMS_ITS | Clinical Summary ---
Author Organization [facility] Office Center Address [address] [place] [address] Care Team Providers Care Flight Communications Operator Name Role Phone Akira Galaviz MD Primary Care Provider Morgan Garsia MD Unavailable [phone] Asher Lau MD Unavailable [phone] Allergies Active Allergy Reactions Criticality Noted Date Comments Sulfa (Sulfonamide Antibiotics) Rash,Hives Medium 11/18 Medications loratadine (CLARITIN) 10 mg tablet Claritin OTC qd Active tirzepatide (MOUNJARO) 2.5 mg/0.5 mL pen injector injection Inject 0.5 mL (2.5 mg total) under the skin once a week Active propranoloL (INDERAL) 20 mg tabletIndicatio ns:MAYRA (generalized anxiety disorder) Take 1 tablet (20 mg total) by mouth 2 (two) times a day as needed (anxiety) 90 tablet 1 08/18/2025 Active citalopram (CeleXA) 40 mg tabletIndicatio ns:Recurrent major depressive disorder, in partial remission,MAYRA (generalized anxiety disorder) Take 1 tablet (40 mg total) by mouth daily 90 tablet 3 08/18/2025 Active Active Problems Problem Noted Date Diagnosed Date Vitamin D insufficiency 08/19/2025 Assessment & Plan (08/19/2025 5:39 AM CDT): - new, noted on lab work obtained today - recommend starting vitamin D3 2000 international units supplementation OTC Environmental allergies 08/18/2025 Assessment & Plan (08/19/2025 5:39 AM CDT): - Uses loratadine daily throughout the year - Well-controlled, continue current management Recurrent major depressive disorder, in partial remission 08/18/2025 Assessment & Plan (08/19/2025 5:39 AM CDT): Chronic condition Known anxiety and depression Depression well controlled, anxiety controlled with persistent Symptoms. Currently on citalopram 40 mg daily. Previous trials of Lexapro and Buspar were not well tolerated. Running discussed as a non-pharmacological intervention. Considered propranolol for situational anxiety. - Prescribe propranolol 20 mg BID as needed for anxiety - Continue citalopram 40 mg daily - Refill citalopram prescription Orders: citalopram (CeleXA) 40 mg tablet; Take 1 tablet (40 mg total) by mouth daily Preventative health care 08/18/2025 Assessment & Plan (08/19/2025 5:39 AM CDT): - New or chronic worsening conditions: anxiety, vitamin D insufficiency, high vitamin B12 level - Mental health: known anxiety, depression, anxiety is not at goal - Dental health: Past due, Recommend regular dental care and cleaning. Discussed importance of regular tooth brushing, flossing, and dental visits. - Nutrition: Recommend moderation in sodium/caffeine intake, saturated fat and cholesterol, caloric balance, sufficient intake of fresh fruits, vegetables - Exercise: Recommend to exercise at least 30 minutes moderate to vigorous exercise most days of the week. (minimum 150 minutes weekly) - Immunizations: Age and sex appropriate immunizations reviewed and offered - Cervical Cancer screening: Up to date - Breast Cancer screening: Up to date - Colon cancer screening: not indicated - Lung cancer screening: not indicated - Bone desnity/osteoporosis screening:not indicated - control: none Orders: Vitamin B12; Future Folate; Future Vitamin D 25 hydroxy; Future Iron profile w/ IBC; Future Impaired glucose metabolism 08/18/2025 Assessment & Plan (08/19/2025 5:39 AM CDT): - Recent diagnosis, noted on chart review of lab work that was obtained in May of 2025 with an A1c of 5.8 - Has known morbid obesity but has been losing weight and is currently on through his appetite/compounded through an outside facility - Recheck labs, order placed with labs updated below Lab Results Component Value Date HGBA1C 5.8 (H) 08/18/2025 Orders: Hemoglobin A1c; Future Mass of right submandibular region 01/29/2023 Assessment & Plan (08/19/2025 5:39 AM CDT): - Evaluated by ENT after ultrasound showed enlarged right submandibular region - Had CT soft tissue neck with contrast on 02/2023 - Reports she was given option of potentially getting surgery but that surgery will be intensive and that it was not overly concerning to monitor for changes in size or discomfort notify the ENT provider - Has not noticed any changes in size or discomfort and may have even noticed some decrease in size - Discomfort or pain with swallowing CT SOFT TISSUE NECK W CONTRAST 02/2023 IMPRESSION: 1. Asymmetric enhancement in the anterior/inferior right submandibular gland measuring up to 2.6 cm. The imaging features are nonspecific and could reflect sequelae of prior sialoadenitis or malignancy. The clinical aspects of the case will determine the need for tissue sampling versus surveillance imaging. 2. Nonspecific cervical lymph nodes measuring up to 1 cm. Attention on follow-up imaging. Assessment & Plan (01/29/2023 8:52 PM CDT): [...] work for about a week for recovery. Hiatal hernia 01/12/2020 Assessment & Plan (08/19/2025 5:39 AM CDT): - Hiatal hernia diagnosed during pre-op evaluation for bariatric surgery. - Asymptomatic with no ongoing heartburn or acid reflux. Morbid obesity with BMI of 40.0-44.9, adult 12/20 Assessment & Plan (08/19/2025 5:39 AM CDT): Wt Readings from Last 3 Encounters: 08/18/25 123 kg (271 lb 1.6 oz) 04/29/25 117.9 kg (260 lb) 04/24/23 (!) 140.6 kg (310 lb) Body mass index is 46.53 kg/m . - chronic condition, not at goal - BMI Follow-up includes: nutrition counseling, exercise counseling and education provided - Recommend to exercise at least 30 minutes moderate to vigorous exercise most days of the week. (minimum 150 minutes weekly) - Has been on compounded through his appetite through an [employer] since early 2023 and has lost weight of close to 70 lb as her starting weight was around 340 - Comorbidities: impaired glucose metabolism - Continue current management Orders: Vitamin D 25 hydroxy; Future Assessment & Plan (01/12/2020 12:47 PM INCIDENT RESPONSE CONSULTANT): Weight loss attempts in the past include: Weight Watchers, HCG diet, Crossfit exercise. Patient would be a good candidate for bariatric weight loss surgery. She has already has consult with surgeon and is needing letter of medical necessity - provided today. Will get baseline labs done as well to rule out underlying thyroid disorder or other. MAYRA (generalized anxiety disorder) 02/06/2016 Assessment & Plan (08/19/2025 5:39 AM CDT): Chronic condition Known anxiety and depression Depression well controlled, anxiety controlled with persistent Symptoms. Currently on citalopram 40 mg daily. Previous trials of Lexapro and Buspar were not well tolerated. Running discussed as a non-pharmacological intervention. Considered propranolol for situational anxiety. - Prescribe propranolol 20 mg BID as needed for anxiety - Continue citalopram 40 mg daily - Refill citalopram prescription Orders: propranoloL (INDERAL) 20 mg tablet; Take 1 tablet (20 mg total) by mouth 2 (two) times a day as needed (anxiety) citalopram (CeleXA) 40 mg tablet; Take 1 tablet (40 mg total) by mouth daily Assessment & Plan (01/12/2020 12:46 PM INCIDENT RESPONSE CONSULTANT): Stable, no changes. Continue current regimen with Celexa Resolved Problems Problem Noted Date Diagnosed Date Resolved Date Thrombocytopenia 08/18/2025 08/18/2025 2019 novel coronavirus disease (COVID-19) 03/18/2020 08/18/2025 Assessment & Plan (03/18/2020 11:11 AM CDT): [...] and O2 sats regularly. Complete Z pack. Encounters Date Type Department Care Team Description 08/19/2025 Results Follow-Up [facility] at [place] [phone] Akira Galaviz MD Vitamin B12, Folate, Vitamin D 25 hydroxy, Additional followed-up results: 6 08/18/2025 9:15 [place] [address] Preventative health care; Morbid obesity with BMI of 40.0-44.9, adult (HCC); Need for hepatitis B screening test; Encounter for hepatitis C screening test for low risk patient; Impaired glucose metabolism 08/18/2025 8:30 AM CDT Office Visit [facility] at [place] [phone] Akira Galaviz MD Preventative health care (Primary Dx); Morbid obesity with BMI of 40.0-44.9, adult (HCC); Recurrent major depressive disorder, in partial remission; MAYRA (generalized anxiety disorder); Environmental allergies; Mass of right submandibular region; Hiatal hernia; Encounter for hepatitis C screening test for low risk patient; Need for hepatitis B screening test; Impaired glucose metabolism; Vitamin D insufficiency from Last 3 Months Immunizations Immunization Administration Dates Next Due Influenza, Quadrivalent, Spl it, Intramuscular 08/17/2019 Influenza, Unspecified 08/18/2025(Deferr ed: Patient Refused),11/18/2024(Deferred: Patient Refused),09/28/2022(Deferred: Patient Refused),11/18/2021(Deferred: Patient Refused),11/18/2020(Deferred: Patient Refused),08/18/2019 PPD TEST 03/12/2017 Pfizer SARS-CoV-2 Monovalent Vaccination (12+ Yrs) PURPLE 11/07/2021 Tdap 01/31/2017 Surgical History Surgery Date Site/Laterality Comments TONSILLECTOMY LASIK LAPAROSCOPIC APPENDECTOMY 10/18/2024 - 11/17/2024 Medical History Medical History Date Comments Allergic rhinitis Neck mass Depression Family History Medical History Relation Name Comments Hyperlipidemia Brother Hypertension Brother Heart disease Father Heart disease Maternal [...] on file Legal Sex Female 8:37 PM INCIDENT RESPONSE CONSULTANT Gender Identity Not on file Sexual Orientation Not on file Obstetrics History Para Term AB IAB SAB Ectopic Multiple Livin g Live Births 0 0 0 0 0 0 0 0 0 0 0 Last Filed Vital Signs Vital Sign Reading Time Taken Comments Blood Pressure 126/74 08/18/2025 8:28 AM CDT Pulse 76 08/18/2025 8:28 AM CDT Temperature 36.8 C (98.2 F) 08/18/2025 8:28 AM CDT Respiratory Rate 18 04/24/2023 8:05 AM CDT Oxygen Saturation 98% 08/18/2025 8:28 AM CDT Inhaled Oxygen Concentration - - Weight 123 kg (271 lb 1.6 oz) 08/18/2025 8:28 AM CDT Height 162.6 cm (5' 4) 08/18/2025 8:28 AM CDT Body Mass Index 46.53 08/18/2025 8:28 AM CDT Plan of Treatment Health Maintenance Due Date Last Done Comments Cervical Cancer Screening 1985 Varicella Vaccines (1 of 2 - 13+ 2-dose series) 1998 HPV Vaccines (1 - 3-dose SCDM series) 2012 Covid-19 Vaccine ( season) 2025 08/01/2022, 11/07/2021, 10/20/2021, Additional history exists Influenza Vaccine (#1) 2025 08/18/2019, 2018 Postponed from 07/19/2025 (Patient declined, but will receive in the future) Breast Cancer Screening-Mammogram 04/29/2026 04/29/2025 Depression Screening 08/18/2026 08/18/2025, 02/28/2022, 01/12/2020 Regular Well Visit/Exam 18-64 08/18/2026 08/18/2025, 02/28/2022 DTaP/Tdap/Td Vaccine (2 - Td or Tdap) 01/31/2027 01/31/2017 Hepatitis B Screening Completed 08/18/2025 Hepatitis C Screening Completed 08/18/2025 Pneumococcal vaccine <65 Aged Out No longer eligible based on patient's age to complete this topic Procedures Procedure Name Priority Date/Time Associated Diagnosis Comments HEMOGLOBIN A1C Routine 08/18/2025 9:30 AM CDT Impaired glucose metabolism IRON PROFILE W/ IBC Routine 08/18/2025 9:30 AM CDT Preventative health care VITAMIN D 25 HYDROXY Routine 08/18/2025 9:30 AM CDT Preventative health care Morbid obesity with BMI of 40.0-44.9, adult (HCC) FOLATE Routine 08/18/2025 9:30 AM CDT Preventative health care VITAMIN B12 Routine 08/18/2025 9:30 AM CDT Preventative health care HEPATITIS C ANTIBODY Routine 08/18/2025 9:30 AM CDT Encounter for hepatitis C screening test for low risk patient HEPATITIS B SURFACE ANTIBODY (IMMUNE STATUS) Routine 08/18/2025 9:30 AM CDT Need for hepatitis B screening test HEPATITIS B CORE ANTIBODY, TOTAL Routine 08/18/2025 9:30 AM CDT Need for hepatitis B screening test HEPATITIS B SURFACE ANTIGEN Routine 08/18/2025 9:30 AM CDT Need for hepatitis B screening test SCREENING MAMMOGRAM BILATERAL W PAUL Schedule Routine, Read Routine (OP Routine) 04/29/2025 4:00 PM CDT Screening mammogram, encounter for from Last 3 Months or Most Recently Relevant to Health Maintenance Results * Iron profile w/ IBC (08/18/2025 9:30 AM CDT) Pathologist [facility] Iron 75 35 - 145 mcg/dL TIBC 257 250 - 400 mcg/dL TASHI BENITO Transferrin saturation 29 20 - 50 % TASHI BENITO Blood 08/18/2025 9:30 AM CDT 08/18/2025 10:53 AM CDT us Akira Galaviz MD LAB BLOOD ORDERABLES Fi nal Result TASHI [address] [facility] Department of Laboratories [place], [place] [id number] * Hepatitis C antibody Blood (08/18/2025 9:30 AM CDT) Hep C Ab Nonreactive Nonreactive Comment: Antibodies to HCV not detected. Does NOT exclude the possibility of recent exposure to HCV. Current interpretive data was last revised on 22 Interpretive Data Nonreactive: Antibodies to HCV not detected. Does NOT exclude the possibility of recent exposure to HCV. Equivocal: Equivocal for HCV antibodies. Supplemental molecular testing will be automatically performed to determine infection status in accordance with current CDC screening recommendations. Reactive: Positive for HCV antibodies. This may represent current or past HCV infection. Supplemental molecular testing will be automatically performed to determine current infection status in accordance with current CDC screening recommendations. Interpretive data was last revised on 2020. Blood 08/18/2025 9:30 AM CDT 08/18/2025 10:53 AM CDT Akira Galaviz MD LAB MICROBIOLOGY - GENE RAL ORDERABLES Final Result Performing Organization Address City/[facility]/ZIP Co de Phone Number [facility] [employer] [facility] [place] [address] * Hepatitis B core antibody, total Blood (08/18/2025 9:30 AM CDT) [facility] Hep B core IgG/IgM Nonreactive Nonreactive Comment:Testing performed by : [facility], [address] [place]., [address] Blood 08/18/2025 9:30 AM CDT 08/18/2025 1:02 PM CDT Akira Galaviz MD LAB MICROBIOLOGY - GENE RAL ORDERABLES Final Result [address] [place] [address] * (ABNORMAL) Vitamin D 25 hydroxy (08/18/2025 9:30 AM CDT) [facility] Vitamin D 25-OH 25.0(L) 30.0 - 80.0 ng/mL Blood 08/18/2025 9:30 AM CDT 08/18/2025 10:53 AM CDT Akira Galaviz MD LAB BLOOD ORDERABLES Fi nal Result Performing Organization Address [facility] de Phone Number TASHI [address] [address] * Hepatitis B surface antibody (immune status) Blood (08/18/2025 9:30 AM CDT) Pathologist [facility] HBsAb (immune status) Nonreactive Comment: Interpretive Data Nonreactive: This result is consistent with a lack of immunity to Hepatitis B Virus when used in the setting of routine screening. Equivocal: The immune status of the individual should be further assessed, if appropriate, after consideration of clinical status, risk factors, and additional diagnostic information. Reactive: This result is consistent with immunity to Hepatitis B Virus when used in the setting of routine screening. Current interpretive data was last revised on 20. Blood 08/18/2025 9:30 AM CDT 08/18/2025 10:53 AM CDT Akira Galaviz MD LAB MICROBIOLOGY - GENE RAL ORDERABLES Final Result Performing Organization Address [facility] de Phone Number [address] [address] * Hepatitis B Surface Antigen Blood (08/18/2025 9:30 AM CDT) Pathologist [facility] HepBsAg Nonreactive Nonreactive Blood 08/18/2025 9:30 AM CDT 08/18/2025 10:53 AM CDT Akira Galaviz MD LAB MICROBIOLOGY - GENE RAL ORDERABLES Final Result Performing Organization Address [facility] Co de Phone Number [id number] [employer] [place] [address] * (ABNORMAL) Hemoglobin A1c (08/18/2025 9:30 AM CDT) Pathologist [facility] Hgb A1C 5.8(H) 4.0 - 5.6 % Estimated Average Glucose 120 mg/dL [facility] Comment: The ADA recommends reporting an estimated Average Glucose (eAG) with all Hemoglobin A1c results using the equation derived from a study of 507 normal and diabetic adults. Minority populations were underrepresented and children were not included. (Diabetes Care 31:1067-9419, 2008). The eAG is not equivalent to a fasting glucose. Blood 08/18/2025 9:30 AM CDT 08/18/2025 10:51 AM CDT Akira Galaviz MD LAB BLOOD ORDERABLES Fi nal Result Performing Organization Address City/[facility] Co de Phone Number [address] [employer] [place] [address] * Folate (08/18/2025 9:30 AM CDT) Folic acid 10.1 >=5.0 ng/mL Blood 08/18/2025 9:30 AM CDT 08/18/2025 10:53 AM CDT Akira Galaviz MD LAB BLOOD ORDERABLES Fi nal Result Performing Organization Address [facility] Co de Phone Number [address] [employer] [place] [address] * (ABNORMAL) Vitamin B12 (08/18/2025 9:30 AM CDT) Vitamin B12 1,308(H) 230 - 1,250 pg/mL Blood 08/18/2025 9:30 AM CDT 08/18/2025 10:53 AM CDT Akira Galaviz MD LAB BLOOD ORDERABLES Fi nal Result Performing Organization Address City/[facility] Co de Phone Number [address] [place] [address] * Screening Mammogram Bilateral W Paul (04/29/2025 [...] Fi nal Result from Last 3 Months or Most Recently Relevant to Health Maintenance Insurance MD [id number] [id number] [employer] [facility] [employer] [facility] [employer] Care Teams Flight Communications Operator Relationship Specialty Start Date End Date Akira Galaviz MD [address] [facility] [address] [place] [address] PCP - General Family Medicine 08/18/25 Morgan Garsia [place] [address] Consulting Physician Otolaryngology 08/18/25 Asher Lau MD [address] [facility] [address] [facility] [address] [place] [address] Referring Physician Obstetrics and Gynecology 08/18/25
--- NOTE | 2025-10-03 06:10 | PC.NURSE ---
Pt states she is unable to provide urine sample at this time.
[2025-10-03 06:14] LABS: Hematocrit 37.9 % (37.0-47.0); Hemoglobin 12.2 g/dL (12.0-15.0); Immature Granulocyte Percent A 0.8 % (0-0.5); Lymphocytes Absolute Auto 2.52 K/mm3 (0.9-3.2); Mean Corpuscular HGB Conc 32.2 g/dl (32-36); Mean Corpuscular Hemoglobin 28.8 pg (26-34); Mean Corpuscular Volume 89.4 fl (80-100); Nucleated Red Blood Cells Absolute Auto 0.000 K/mm3 (0.0-0.012); Nucleated Red Blood Cells Perc 0.0 % (0.0-0.2); Platelet Count Result 288 k/mm3 (150-375); Red Blood Count 4.24 M/mm3 (4.2-5.4); White Blood Count 8.0 K/mm3 (4.5-10.0)
[2025-10-03 06:25] LABS: Alanine Aminotransferase 53 U/L (6-35); Albumin Level 4.3 g/dL (3.5-5.1); Alkaline Phosphatase 53 U/L (38-126); Anion Gap 8 mmol/L (4-12); Aspartate Amino Transferase 73 U/L (14-36); Bilirubin,Total 0.7 mg/dL (0.2-1.3); Blood Urea Nitrogen 16 mg/dL (7-17); Calcium 8.9 mg/dL (8.4-10.2); Carbon Dioxide 25 mmol/L (22-30); Chloride 105 mmol/L (98-107); Estimated CRCL calculation 94 ml/min; Estimated Glomerular Filt Rate > 60; Glucose 120 mg/dL (65-110); Lipase 314 U/L (23-300); Potassium 4.0 mmol/L (3.4-5.0); Sodium 138 mmol/L (137-145); Total Protein 7.1 g/dL (6.3-8.2)
[2025-10-03] MEDS: SODIUM CHLORIDE 0.9% IV 1,000 ML 999 ML IV CONT (07:37)
[2025-10-03] MEDS: ONDANSETRON INJ 4 MG/2 ML VIAL IV PUSH (07:37)
--- NOTE | 2025-10-03 07:37 | ED_ITS ---
HPI - Abdominal Pain General Chief Complaint: Abdominal Pain Stated Complaint: abdominal pain Time Seen by Provider: 10/03/25 06:57 Source: patient Mode of arrival: ambulatory Limitations: no limitations History of Present Illness HPI narrative: This is a 40-year-old female with no significant past medical history who presents to the ED for abdominal pain. Patient states that she was welcome but about 4:00 a.m. with epigastric abdominal pain and subsequent episode of emesis. Nausea resolved shortly after this. Denies fevers, chills. She states that by the time she got to the ED shortly after that her symptoms had completely resolved. She feels like herself at this time. She states that she had her appendix out last year and at that time they did note cholelithiasis but no cholecystitis. Related Data Allergies Allergy/AdvReac Type Severity Reaction Status Date / Time Sulfa (Sulfonamide Allergy Rash Verified 10/03/25 05:33 Antibiotics) Review of Systems 2 Review of Systems: Gen.: Denies fevers or chills Eyes: Denies eye pain or visual change ENT: Denies congestion Respiratory: Denies shortness of breath or cough CV: Denies chest pain or palpitations GI: As per HPI denies burning, urgency, frequency or hematuria Musculoskeletal: Denies back pain or muscle pain Neuro: Denies numbness, tingling, weakness or focal weakness Skin: Denies rash Except as documented, all other systems reviewed and negative [facility] Past Medical History Medical History Obesity has lost 75 lb on tirzepatide Hiatal hernia Appendicitis (06/2023) Fracture of distal end of left fibula Left cuboid fracture Depression Surgical History Surgical History History of laparoscopic appendectomy 11/02/[address] Garcia History of tonsillectomy Family History Family History Father Depression Family history of alcoholism Hypertension Heart disease Mother Depression Family history of hypothyroidism Family history of alcoholism Asthma Hypertension Sibling Depression Family history of alcoholism Hypertension Heart disease Grandparent Depression Family history of Alzheimer's disease Family history of lymphoma Hypertension Asthma Heart disease Social History Social History (Reviewed 10/03/25 @ 07:48 by NANCY Talavera Social History: Surrogate medical decision maker: Nila Edmonds, mother. Code status: Full code. Smoking status: Never smoker Alcohol intake: never Substance use: never Substance use type: other Other substance usage details: edible Do You Feel Safe in your Home?: Yes Lack of Transportation: No Lack of Food: Never True Current Housing: I Have Housing Concerned About Future Housing: No Difficulty Paying Gas/Electric Bills: No Difficulty Paying for Meds: No Currently Unemployed: No Education: Master's Degree or Higher Difficulty w/ Childcare or Family Care: No Additional living arrangements comments: Lives in [place]. 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 Spiritual care concerns: No Exam 2 Narrative: APPEARANCE: No acute distress, nontoxic, resting in bed EYES: EOMI HEENT: Normocephalic, atraumatic, OMM RESPIRATORY: No respiratory distress Clear to auscultation bilaterally with no rhonchi wheezing or rales. CARDIOVASCULAR: Regular rate and rhythm without murmurs rubs or gallops. ABDOMINAL: Soft, mild right upper quadrant tenderness to palpation, nondistended, no rebound or guarding MUSCULOSKELETAl: Moves all extremities. No clubbing, cyanosis or edema. NEURO: Awake and alert. Following commands, speech normal, no focal deficits SKIN:: Warm, dry. No rashes lesions or abrasions PSYCHIATRIC: Normal affect/mood, Course Vital Signs Vital signs: Vital Signs Temperature 97.4 F L 10/03/25 05:24 Pulse Rate 59 L 10/03/25 05:24 Respiratory Rate 18 10/03/25 05:24 Blood Pressure 142/59 H 10/03/25 05:24 Pulse Oximetry 97 10/03/25 05:24 Oxygen Delivery Room Air 10/03/25 05:24 Temperature 97.4 F L 10/03/25 05:24 Pulse Rate 67 10/03/25 07:43 Respiratory Rate 20 10/03/25 07:43 Blood Pressure 129/72 10/03/25 07:43 Pulse Oximetry 100 10/03/25 07:43 Oxygen Delivery Room Air 10/03/25 05:24 MDM - Abdominal Pain MDM Narrative Medical decision making narrative: 40-year-old female Presenting for right upper quadrant and epigastric abdominal pain. On initial evaluation patient was in no acute distress afebrile, hemodynamic stable. Differentials include but are not limited to: ACS, Cholecystitis, choledocolithiasis, GERD, PUD, Pancreatitis, SBO, Cancer, AAA Notable exam findings: Mild tenderness over the right upper quadrant without peritoneal signs. I personally reviewed the patient's lab result. Notable lab findings: CBC without significant abnormalities. AST and ALT mildly elevated at 73 and 53 respectively. Lipase mildly elevated but does not meet criteria for pancreatitis. Right upper quadrant ultrasound did reveal a cholelithiasis without cholecystitis. Patient mostly likely had an episode of biliary colic likely related to the cheek flare that she had last night. She has not seen her general surgeon in several months since she had her appendectomy a year ago. Patient was deemed appropriate for discharge at this time. Patient was given a prescription for Zofran. Patient was advised follow-up with their general surgery in the next week for re-evaluation. Patient was agreeable to this plan. Given strict return precautions. Medical Records Attestation: I reviewed the patient's medical records. Lab Data Attestation: I reviewed the patient's lab results. 10/03/25 06:08 10/03/25 06:08 Labs: Lab Results 10/03/25 10/03/25 Range/Units 06:08 07:36 WBC 8.0 (4.5-10.0) K/mm3 RBC 4.24 (4.2-5.4) M/mm3 Hgb 12.2 (12.0-15.0) g/dL Hct 37.9 (37.0-47.0) % MCV 89.4 (80-100) fl MCH 28.8 (26-34) pg MCHC 32.2 (32-36) g/dl RDW 13.7 (11.5-14.5) % Plt Count 288 (150-375) k/mm3 MPV 9.0 (7.4-10.4) fl Immature Gran % (Auto) 0.8 H (0-0.5) % Neut % (Auto) 58.0 (45.5-73.1) % Lymph % (Auto) 31.5 (18.3-44.2) % Shackelford % (Auto) 5.8 (2.6-8.5) % Eos % (Auto) 2.9 (0-4.4) % Baso % (Auto) 1.0 (0.2-1.2) % Lymph # (Auto) 2.52 (0.9-3.2) K/mm3 Shackelford # (Auto) 0.5 (0.1-0.6) K/mm3 Eos # (Auto) 0.2 (0-0.3) K/mm3 Baso # (Auto) 0.1 (0.0-0.1) K/mm3 Abs Immat Gran (auto) 0.06 H (0.00-0.031) K/mm3 Absolute Neuts (auto) 4.6 (1.3-6.7) K/mm3 Absolute Nucleated RBC 0.000 (0.0-0.012) K/mm3 Nucleated RBC % 0.0 (0.0-0.2) % Sodium 138 (137-145) mmol/L Potassium 4.0 (3.4-5.0) mmol/L Chloride 105 (98-107) mmol/L Carbon Dioxide 25 (22-30) mmol/L Anion Gap 8 (4-12) mmol/L BUN 16 (7-17) mg/dL Creatinine 0.88 (0.7-1.0) mg/dL Estim Creat Clear Calc 94 ml/min Estimated GFR > 60 (59 - ) Glucose 120 H (65-110) mg/dL Calcium 8.9 (8.4-10.2) mg/dL Total Bilirubin 0.7 (0.2-1.3) mg/dL AST 73 H (14-36) U/L ALT 53 H (6-35) U/L Alkaline Phosphatase 53 (38-126) U/L Total Protein 7.1 (6.3-8.2) g/dL Albumin 4.3 (3.5-5.1) g/dL Lipase 314 H (23-300) U/L Urine Color Yellow (Yellow) Urine Appearance Cloudy H (Clear) Urine pH 5.5 (5.0-9.0) Ur Specific Thor 1.023 (1.001-1.035) Urine Protein Negative (Negative) mg/dL Urine Glucose (UA) Negative (Negative) mg/dL Urine Ketones Negative (Negative) mg/dL Ur Blood (Man) Negative (Negative) Urine Nitrate Negative (Negative) Urine Bilirubin Negative (Negative) Urine Urobilinogen 1.0 (<2.0) mg/dL Add Ur Microanalysis Reviewed Leukocyte Esterase Rfl 1+ H (Negative) LISETH/UL Urine RBC 0-2 (0-2) /hpf Urine WBC 0-5 (0-3) /hpf Ur Squamous Epith Cells None seen (Few) /hpf Urine Bacteria None seen /hpf Urine Casts 0-2 POC Urine HCG, Qual Negative (Negative) Imaging Data Attestation: I personally reviewed and interpreted this imaging study as follows: Radiologist's impression: ITS Impressions Abdomen Ultrasound 10/03/25 08:52 IMPRESSION: 1. Cholelithiasis. No evidence of acute cholecystitis. Discharge Plan Discharge Clinical Impression: Biliary colic Cholelithiasis Qualifiers: Cholelithiasis location: gallbladder Cholecystitis presence: without cholecystitis Biliary obstruction: without biliary obstruction Qualified Code(s): K80.20 - Calculus of gallbladder without cholecystitis without obstruction Patient Disposition: Home Condition: Stable Instructions: Antibiotic Form, Gallstones (ED) Additional Instructions: Number found have gallstones which is likely the source for pain. Your given a prescription for Zofran, take this as prescribed. Follow-up with general surgery in the next week to potentially discuss a gallbladder surgery. Return the ED for any new or worsening symptoms. Patient Language: Faroese Prescriptions: New ondansetron 4 mg tablet,disintegrating 4 mg PO Q8H PRN (Reason: nausea and vomiting) Qty: 14 0RF No Action citalopram 20 mg tablet 40 mg PO DAILY Qty: 180 1RF Follow-up/Referrals: Jose Daniel Mc MD [Physician, General Surgery] Afshan Martin DO [Primary Care Provider, Family Practice] Michael Garcia MD [Physician, General Surgery]
[2025-10-03 07:39] LABS: BEDSIDEPREGUCG Negative (Negative)
[2025-10-03 07:43] VITALS: BP 129/72; PULSE 67; RESP 20; O2SAT 100
[2025-10-03 08:19] LABS: Add Urine Microscopic? YES; Appearance Urine Cloudy (Clear); Glucose Urine UA Negative (Negative); Leukocyte Esterase Ur 1+ LEU/UL (Negative); Need Manual Microscopic Reviewed; Nitrate Urine Negative (Negative); Non Pathogenic Casts 0-2; Specific Grav Ur 1.023 (1.001-1.035)
== END 2025-10-03 09:30 | disposition home or self-care (01) ==
PROVIDERS: Emergency Medicine; Emergency Provider Student in an Organized Health Care Education/Training Program; PCP Family Medicine
DX: K80.20 Calculus of gallbladder without cholecystitis without obstruction (principal)
CPT/HCPCS: 36415; 76705; 80053; 81001; 81025; 83690; 85025; 87086; 96361; 96374; 99284; J2405; J7030